=== PATIENT | female | born 1960 | race Caucasian/White ===

== ENCOUNTER 2019-08-18 12:37 | Emergency (ER) | payer MEDICAID, SELFPAY ==
[2019-08-18] VITALS (7 sets, daily range): BP systolic 131–175; BP diastolic 83–109; PULSE 69–90; RESP 16–22; TEMP 36.6; O2SAT 95–96; BMI 36.5
--- NOTE | 2019-08-18 12:49 | XR_ITS ---
WS: [id number] PORTABLE CHEST HISTORY: Acute onset of chest pain. COMPARISON: 09/22/2005 Lungs are clear and well expanded. No pleural effusion or pneumothorax. Cardiac size: Normal. Mediastinum/Aorta: Normal mediastinum. No osseous abnormality seen. XR/XR chest 1V portable [id number] IMPRESSION: Unremarkable portable chest.
--- NOTE | 2019-08-18 12:49 | ECG_ITS ---
Measurements Intervals [place] Rate: 77 P: 51 [place]: 152 QRS: 45 QRSD: 89 T: 18 QT: 376 QTc: 428 SINUS RHYTHM NONSPECIFIC T-WAVE ABNORMALITY No previous ECG available for comparison Electronically Signed On 08-18-2019 16:48:11 CDT by Channing Otero M.D. [id number]
--- NOTE | 2019-08-18 12:50 | ED_ITS ---
HPI - Chest Pain General: Chief Complaint: Chest Pain Stated Complaint: cp Time Seen by Provider: 08/18/19 12:44 Source: patient Limitations: no limitations History of Present Illness: HPI narrative: 59-year-old female states she had a sharp chest pain center of her chest for last 2 hours. She has episodic in nature worse with movement of her arm. She denies any shortness of breath or nausea. She denies any fevers. She does have a history of coronary artery disease. Onset (ago): hour(s) Timing of current episode: episodic Onset: during rest Pain location: substernal Pain radiation: none Severity: moderate Quality: sharp Relieving factors: nothing Exacerbating factors: nothing Associated symptoms: Deny abdominal pain, dyspnea, fever(s), nausea or vomiting Review of Systems Const: Denies: fever(s), chills, body aches or change in appetite Eyes: Denies: blurry vision or eye discomfort ENMT: Denies: throat pain or dental pain Card: Reports: chest pain Resp: Denies: dyspnea GI: Denies: abdominal pain, nausea, vomiting or diarrhea : Denies: dysuria Musc: Denies: neck pain or back pain Skin/Breast: Denies: rash Neuro: Denies: headache(s) Psych: Denies: depression Jeff/Lymph: Denies: easy bruising All/Imm: Denies: urticaria PFSH ED PFSH: Social History Smoking and tobacco status: current every day smoker Physical Exam Const: COMMON NORMALS: no acute distress, patient oriented x3 and healthy appearing HENMT: COMMON NORMALS: normocephalic and atraumatic HEAD & SCALP: normocephalic and atraumatic Eye: COMMON NORMALS: Equal, round and reactive pupils present and EOMs intact bilaterally PUPIL: Yes Equal, round and reactive pupils present Neck/C-Spine: COMMON NORMALS: full ROM and supple Chest: COMMONS NORMALS: normal inspection of the chest OTHER: point tender in center of chest Resp: COMMON NORMALS: normal respiratory effort, No retractions, No use of accessory muscles and clear to auscultation bilaterally AUSCULTATION: clear to auscultation bilaterally Cardio: COMMON NORMALS: regular rate, regular rhythm and No murmurs present (Cardio) RATE: regular rate RHYTHM: regular rhythm GI: COMMON NORMALS: Normal to inspection, nondistended, normoactive bowel sounds present, Soft to palpation, non-tender and no masses PALPATION: Yes Soft to palpation Extremity: COMMON NORMALS: normal to inspection and full ROM Neuro: COMMON NORMALS: patient oriented x3, moves all extremities and no focal motor deficits Psych: COMMON NORMALS: mental status grossly normal, Normal thought process present and cooperative THOUGHT PROCESS: Normal thought process present Skin: COMMON NORMALS: no rashes or lesions noted and no wounds GENERAL SKIN EXAM: no rashes or lesions noted Course Vital Signs: Vital signs: Vital Signs Temperature 97.9 F 08/18/19 12:45 Pulse Rate 69 08/18/19 15:28 Respiratory Rate 20 H 08/18/19 15:28 Blood Pressure 131/88 08/18/19 15:28 Pulse Oximetry 95 08/18/19 15:28 MDM - Chest Pain MDM Narrative: Medical decision making narrative: Patient presents here with chest pain that is atypical in nature. Patient is point tender in the center of her chest that reproduces her pain. Patient here has no signs of cardiac cause or pulmonary embolism. EKG and x-ray here are normal. Patient is stable for discharge and is to follow-up with primary care doctor in 3 to 5 days return if worsening. Lab Data: Labs: Lab Results 08/18/19 08/18/19 08/18/19 Range/Units 13:13 13:13 13:13 WBC 7.0 (4.0-10.0) 10^3/ uL RBC 4.92 (4.1-5.3) 10^6/u L Hgb 13.8 (11.5-15.3) g/dL Hct 42.0 (37.0-47.0) % MCV 85.4 (81-99) fL MCH 28.0 (28.0-34.0) pg MCHC 32.9 (30.0-36.0) g/dL RDW 13.2 (12.1-15.1) % Plt Count 183 (130-400) 10^3/c mm MPV 11.9 H (7.4-10.4) fL Neut % (Auto) 68.0 % Lymph % (Auto) 19.6 % [place] % (Auto) 7.3 % Eos % (Auto) 3.9 % Baso % (Auto) 0.9 % Neut # (Auto) 4.7 (1.8-7.7) 10^3/u L Lymph # (Auto) 1.4 (0.8-4.8) 10^3/u L [place] # (Auto) 0.5 (0.2-0.9) 10^3/u L Eos # (Auto) 0.3 (0.0-0.8) 10^3/u L Baso # (Auto) 0.1 (0.0-0.1) 10^3/u L Nucleated RBC % (a uto) 0 % Nucleated RBCs # 0.0 /100WBC Sodium 130 L (136-145) mmol/L Potassium 3.9 (3.5-5.1) mmol/L Chloride 94 L (98-107) mmol/L Carbon Dioxide 24 (22-29) mmol/L Anion Gap 15.9 (5-19) BUN 9 (6-20) mg/dL Creatinine 0.9 (0.5-0.9) mg/dL GFR Calculation 64.5 L (90-130) mL/min Glucose 485 H (65-115) mg/dL Calculated Osmolal ity 287 (285-295) mOsm/k g Calcium 9.0 (8.5-10.5) mg/dL Total Bilirubin 0.3 (0.15-1.2) mg/dL AST 13 (0-32) U/L ALT 18 (0-33) U/L Alkaline Phosphata se 122 H (35-105) IU/L Troponin T Baselin e 8 (0-10) ng/mL Troponin T 120 Min qu[place]ult (0-10) ng/mL Delta Troponin T (0-10) ABS# Total Protein 6.6 (6.6-8.7) g/dL Albumin 4.0 (3.5-5.2) g/dL Globulin 2.6 (1.3-4.6) g/dL 08/18/19 Range/Units 15:13 WBC (4.0-10.0) 10^3/ uL RBC (4.1-5.3) 10^6/u L Hgb (11.5-15.3) g/dL Hct (37.0-47.0) % MCV (81-99) fL MCH (28.0-34.0) pg MCHC (30.0-36.0) g/dL RDW (12.1-15.1) % Plt Count (130-400) 10^3/c mm MPV (7.4-10.4) fL Neut % (Auto) % Lymph % (Auto) % [place] % (Auto) % Eos % (Auto) % Baso % (Auto) % Neut # (Auto) (1.8-7.7) 10^3/u L Lymph # (Auto) (0.8-4.8) 10^3/u L [place] # (Auto) (0.2-0.9) 10^3/u L Eos # (Auto) (0.0-0.8) 10^3/u L Baso # (Auto) (0.0-0.1) 10^3/u L Nucleated RBC % (a uto) % Nucleated RBCs # /100WBC Sodium (136-145) mmol/L Potassium (3.5-5.1) mmol/L Chloride (98-107) mmol/L Carbon Dioxide (22-29) mmol/L Anion Gap (5-19) BUN (6-20) mg/dL Creatinine (0.5-0.9) mg/dL GFR Calculation (90-130) mL/min Glucose (65-115) mg/dL Calculated Osmolal ity (285-295) mOsm/k g Calcium (8.5-10.5) mg/dL Total Bilirubin (0.15-1.2) mg/dL AST (0-32) U/L ALT (0-33) U/L Alkaline Phosphata se (35-105) IU/L Troponin T Baselin e (0-10) ng/mL Troponin T 120 Min qu[place]ult 6.34 (0-10) ng/mL Delta Troponin T -1.66 L (0-10) ABS# Total Protein (6.6-8.7) g/dL Albumin (3.5-5.2) g/dL Globulin (1.3-4.6) g/dL Imaging Data^: CXR: Radiologist's impression: Reason: [address] [address] XRay Report Signed Patient: Yoselyn Vallecillo Unit #: [id number] : 1960 Age/Sex: 59 / F ADM Date: 08/18/19 Loc: ER Room/Bed: Attending Dr: Ordering Provider/Ordering MD: Samantha Lackey MD Date of Service: 08/18/19 Procedure(s): XR chest 1V portable [id number] Accession Number(s): [id number] Report Number: [id number] WS: [id number] PORTABLE CHEST HISTORY: Acute onset of chest pain. COMPARISON: 09/22/2005 Lungs are clear and well expanded. No pleural effusion or pneumothorax. Cardiac size: Normal. Mediastinum/Aorta: Normal mediastinum. No osseous abnormality seen. XR/XR chest 1V portable [id number] IMPRESSION: Unremarkable portable chest. EKG Data^: EKG 1: Attestation: I personally reviewed and interpreted this EKG as follows: EKG interpretation date: 08/18/19 EKG interpretation time: 13:19 Interpretation: nsr hr [address] or t wave abnormalities qrs 89 qtc 408 EKG 2: Attestation: I personally reviewed and interpreted this EKG as follows: EKG interpretation date: 08/18/19 EKG interpretation time: 15:39 Interpretation: nsr hr [address] or t wave abnormalities qrs 92 qtc 416 Discharge Plan Discharge Patient Disposition: Home, Self-Care Clinical Impression: Chest pain Qualifiers: Chest pain type: unspecified Qualified Code(s): R07.9 - Chest pain, unspecified Condition: Stable Prescriptions: New Naprosyn 500 mg tablet 500 mg PO BID PRN (Reason: pain) Qty: 20 RF: 0 No Action Percocet 10-325 mg Tablet 1 - 2 tab PO Q4H PRN (Reason: Pain) RF: 0 gabapentin 300 mg Capsule 300 mg PO TID RF: 0 Discharge Orders: Discharge Order (Routine); Ordered 08/18/19 Ordered By: Samantha Lackey Referrals: Lisa Welch [Primary Care Provider] - 1-3 days Discharge Diet: Advance as tolerated Discharge Activity: Resume usual activity Patient Instructions: Chest Pain - Chest Wall Coding Level of Care Code ED Auto Locator for Chg Fwd Exam Comprehensive
[2019-08-18 13:22] LABS: Basophils # 0.1 10^3/uL (0.0-0.1); Basophils % 0.9 %; Eosinophils # 0.3 10^3/uL (0.0-0.8); Eosinophils % 3.9 %; Hemoglobin 13.8 g/dL (11.5-15.3); Lymphocytes # 1.4 10^3/uL (0.8-4.8); Lymphocytes % 19.6 %; Mean Corpuscular HGB Conc 32.9 g/dL (30.0-36.0); Mean Corpuscular Volume 85.4 fL (81-99); Mean Platelet Volume 11.9 fL (7.4-10.4); Monocytes # 0.5 10^3/uL (0.2-0.9); Monocytes % 7.3 %; Neutrophils # 4.7 10^3/uL (1.8-7.7); Nucleated Red Blood Cells % 0 %; Platelet Count 183 10^3/cmm (130-400); Red Blood Count 4.92 10^6/uL (4.1-5.3); Red Cell Distribution Width 13.2 % (12.1-15.1)
[2019-08-18] MEDS: morphine 4 mg/mL SDV 1 mL IVP (13:29)
[2019-08-18 13:35] LABS: Alanine Aminotransferase 18 U/L (0-33); Alkaline Phosphatase 122 IU/L (35-105); Anion Gap 15.9 (5-19); Aspartate Amino Transferase 13 U/L (0-32); Blood Urea Nitrogen 9 mg/dL (6-20); Carbon Dioxide 24 mmol/L (22-29); Chloride 94 mmol/L (98-107); Globulin 2.6 g/dL (1.3-4.6); Glomerular Filtration Rate 64.5 mL/min (90-130); Glucose 485 mg/dL (65-115); Osmolality Calculated 287 mOsm/kg (285-295); Potassium 3.9 mmol/L (3.5-5.1); Sodium 130 mmol/L (136-145); Total Bilirubin 0.3 mg/dL (0.15-1.2); Total Protein 6.6 g/dL (6.6-8.7)
[2019-08-18 13:37] LABS: Troponin(5th) Baseline 8 ng/mL (0-10)
--- NOTE | 2019-08-18 14:49 | ECG_ITS ---
Measurements Intervals [place] Rate: 71 P: 59 CT: 153 QRS: 53 QRSD: 92 T: 34 QT: 394 QTc: 428 SINUS RHYTHM NONSPECIFIC T-WAVE ABNORMALITY No previous ECG available for comparison Electronically Signed On 08-18-2019 16:49:49 CDT by Channing Otero M.D. [id number] f
[2019-08-18 15:41] LABS: Troponin 5 2HR 6.34 ng/mL (0-10)
[2019-08-18 15:52] LABS: Troponin 5 2HR Delta -1.66 ABS# (0-10)
== END 2019-08-18 16:12 | disposition home or self-care (01) ==
PROVIDERS: Emergency Provider Emergency Medicine; PCP Nurse Practitioner Family
DX: R07.9 Chest pain, unspecified (principal); F17.210 Nicotine dependence, cigarettes, uncomplicated
CPT/HCPCS: 12345; 36415; 71045; 80053; 84484; 85025; 93005; 96374; 99283; 99284; J2270

== ENCOUNTER 2019-09-20 12:26 | Emergency (ER) | payer MEDICAID, SELFPAY ==
[2019-09-20 12:35] VITALS: BP 175/89; PULSE 85; RESP 14; TEMP 36.7; O2SAT 95; BMI 41.0
--- NOTE | 2019-09-20 12:44 | ED_ITS ---
HPI - Wound/Laceration General: Chief Complaint: Wound/Laceration Stated Complaint: finger lac Time Seen by Provider: 09/20/19 12:44 History of Present Illness: HPI narrative: Patient is a 59-year-old female comes to the ED with a laceration on left hand. Patient excellently cut herself with a butter knife and laceration is in between second and third fingers. Patient says she rinsed laceration under water to clean it immediately after injury. Patient states she is unsure of her last tetanus shot. Associated symptoms: Denies chills, fever(s), nausea or vomiting Review of Systems Const: Denies: fever(s), chills or fatigue Eyes: Denies: change in vision or eye discomfort ENMT: Denies: throat pain, odynophagia, nasal discharge or nasal congestion Card: Denies: chest pain, palpitations, edema, swelling of feet/ankles, dyspnea on exertion or orthopnea Resp: Denies: dyspnea, productive cough or non-productive cough GI: Denies: abdominal pain, nausea, vomiting, diarrhea, constipation or hematochezia : Denies: flank pain, dysuria or hematuria Musc: Denies: neck pain, back pain or extremity swelling Skin/Breast: Reports: new lesions (left hand laceration); Denies: rash Neuro: Denies: headache(s), numbness in extremities or weakness in extremities PFSH ED PFSH: Medical History Intervertebral disc disorder with radiculopathy of lumbosacral region Joint instability Spondylolisthesis of lumbosacral region Surgical History No pertinent past surgical history Family History Family/Other Diabetes Colon cancer Social History Smoking and tobacco status: current every day smoker Alcohol intake: never Household members: family Marital status: Single Current occupational status: unemployed History of recent travel: No Physical Exam Const: COMMON NORMALS: no acute distress, patient oriented x3 and alert GENERAL APPEARANCE: cooperative and comfortable HENMT: COMMON NORMALS: normocephalic HEAD & SCALP: normocephalic MOUTH: Normal oral and palatal mucosa present THROAT: posterior oropharynx normal and uvula midline Neck/C-Spine: COMMON NORMALS: supple GENERAL: Yes normal visual inspection Resp: COMMON NORMALS: normal respiratory effort, No retractions, No use of accessory muscles and clear to auscultation bilaterally AUSCULTATION: clear to auscultation bilaterally Cardio: COMMON NORMALS: regular rate, regular rhythm, S1 normal heart sound present, S2 normal heart sound present, No gallops present (Cardio), No clicks present (Cardio), No murmurs present (Cardio) and Peripheral pulses 2+ throughout RATE: regular rate RHYTHM: regular rhythm HEART SOUNDS: S1 normal heart sound present and S2 normal heart sound present PERIPHERAL PULSES: Peripheral pulses 2+ throughout GI: COMMON NORMALS: Normal to inspection, nondistended, normoactive bowel sounds present, Soft to palpation, non-tender and no masses PALPATION: Yes Soft to palpation : COMMON NORMALS: Yes no CVA tenderness BLADDER/KIDNEY EXAM: Yes no CVA tenderness Back/Pelvis: COMMON NORMALS: no CVA tenderness Extremity: LEFT UPPER EXTREMITY: Yes hand & digits Left hand and digits: Yes inspection (Small superficial laceration approximately 1 cm long is located in between second and third digits. Not actively bleeding), Yes ROM (full) and Yes neurovascular exam (intact) Neuro: COMMON NORMALS: patient oriented x3 and moves all extremities SENSORIUM/ORIENTATION: Yes alert Skin: NARRATIVE SKIN EXAM: Laceration details in extremity section of physical exam. GENERAL SKIN EXAM: dry skin Procedures Laceration Laceration 1: Site: hand (left) Side (If applicable): left Size (cm): 1 Description: linear and clean Depth: simple, single layer Pre-repair: irrigated extensively (With normal saline and cleaned with CHG swab) Skin layer closed with: other (Dermabond) Technique: other (dermabond) Course Vital Signs: Vital signs: Vital Signs Temperature 98.0 F 09/20/19 12:35 Pulse Rate 81 09/20/19 14:05 Respiratory Rate 18 09/20/19 14:05 Blood Pressure 175/89 09/20/19 12:35 Pulse Oximetry 96 09/20/19 14:05 MDM - Wound/Laceration MDM Narrative: Medical decision making narrative: Patient is a 59-year-old female who comes to the ED with a 1 cm superficial laceration on left hand. It was rinsed with normal saline and cleaned with CHG swab, then closed using Dermabond. Patient was given an updated tetanus shot while here in the ED. She was also given a dose of Keflex while here in the ED along with Tylenol for pain. She was then given a prescription for prophylactic treatment of laceration. She was told to follow-up with her PCP in 7 to 10 days for reevaluation. Keep laceration site clean and dry for the next 48 hours, then she can re-bandage and clean daily. Patient understood and agreed with plan. Discharge Plan Discharge Patient Disposition: Home, Self-Care Clinical Impression: Laceration Condition: Stable Prescriptions: New Keflex 500 mg capsule 500 mg PO Q6H 3 Days Qty: 12 RF: 0 No Action Percocet 10-325 mg Tablet 1 - 2 tab PO Q4H PRN (Reason: Pain) RF: 0 gabapentin 300 mg Capsule 300 mg PO TID RF: 0 Naprosyn 500 mg tablet 500 mg PO BID PRN (Reason: pain) Qty: 20 RF: 0 Discharge Orders: Discharge Order (Routine); Ordered 09/20/19 Ordered By: Ramiro Dwyer Referrals: Lisa Welch FNP [Primary Care Provider] - Discharge Diet: Regular Discharge Activity: Limit activity as instructed Patient Instructions: Laceration (ED), Skin Adhesive Care (ED) Activity Restrictions/Additional Instructions: Take full course of antibiotics as prescribed. Keep laceration site clean and dry for the next 48 hours. Then after that you can clean and re-bandage daily. Watch for signs of infection such as redness, warmth, increased tenderness and puslike drainage. If you see the signs of infection return to the ED, urgent care or PCP for reevaluation. call your PCP to schedule a follow-up appointment for reevaluation in the next 7 to 10 days. Continue taking all home meds. Follow discharge plans as discussed. You can return to the ED if symptoms worsen. 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
[2019-09-20] MEDS: tetanus-dipt-pertussis 0.5 mL SDV IM (13:43)
[2019-09-20] MEDS: cephALEXin 500 mg Capsule PO (13:57)
[2019-09-20] MEDS: acetaminophen 500 mg Tablet PO (13:57)
[2019-09-20 14:05] VITALS: PULSE 81; RESP 18; O2SAT 96
== END 2019-09-20 14:07 | disposition home or self-care (01) ==
PROVIDERS: Emergency Provider Physician Assistant; PCP Nurse Practitioner Family
DX: S61.412A Laceration without foreign body of left hand, initial encounter (principal); W26.0XXA Contact with knife, initial encounter; F17.210 Nicotine dependence, cigarettes, uncomplicated; Z23 Encounter for immunization
CPT/HCPCS: 12001; 12345; 90471; 90715; 99281; 99283

== ENCOUNTER → 2019-09-27 09:15 | Outpatient (BNVA) | payer MEDICAID, SELFPAY | PROVIDERS: PCP Nurse Practitioner Family; Referring Provider Licensed Practical Nurse; Visit Provider Anesthesiology Pain Medicine | DX: M51.36 Other intervertebral disc degeneration, lumbar region (principal); M47.816 Spondylosis without myelopathy or radiculopathy, lumbar region; M43.06 Spondylolysis, lumbar region; M54.9 Dorsalgia, unspecified; Z79.891 Long term (current) use of 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 | CPT/HCPCS: 99204 ==

== ENCOUNTER → 2019-10-14 10:12 | Outpatient (BNVA) | payer MEDICAID, SELFPAY | PROVIDERS: PCP Nurse Practitioner Family; Visit Provider Anesthesiology Pain Medicine | DX: M51.36 Other intervertebral disc degeneration, lumbar region (principal); M51.17 Intervertebral disc disorders with radiculopathy, lumbosacral region; M47.816 Spondylosis without myelopathy or radiculopathy, lumbar region; M54.9 Dorsalgia, unspecified; F17.210 Nicotine dependence, cigarettes, uncomplicated; Z79.891 Long term (current) use of 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 | CPT/HCPCS: 64493; 64494; J1030; J3490 ==

== ENCOUNTER 2019-10-16 19:11 | Emergency (ER) | payer MEDICAID, SELFPAY ==
[2019-10-16 19:39] VITALS: BP 181/79; PULSE 63; RESP 14; TEMP 36.1; O2SAT 98; BMI 41.0
--- NOTE | 2019-10-16 23:19 | PC.NURSE ---
no answer when called at 1869
== END 2019-10-17 00:21 ==
PROVIDERS: Emergency Provider Emergency Medicine; PCP Nurse Practitioner Family
DX: Z53.21 Procedure and treatment not carried out due to patient leaving prior to being seen by health care provider (principal)
CPT/HCPCS: 99281

== ENCOUNTER → 2019-10-18 08:33 | Outpatient (BNVA) | payer MEDICAID, SELFPAY | PROVIDERS: PCP Nurse Practitioner Family; Visit Provider Anesthesiology Pain Medicine | DX: M51.36 Other intervertebral disc degeneration, lumbar region (principal); M47.816 Spondylosis without myelopathy or radiculopathy, lumbar region; M54.9 Dorsalgia, unspecified; M43.10 Spondylolisthesis, site unspecified; M25.551 Pain in right hip; F17.210 Nicotine dependence, cigarettes, uncomplicated; Z79.891 Long term (current) use of 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 | CPT/HCPCS: 99214 ==

== ENCOUNTER 2019-10-27 06:00 | Outpatient (RCR) | payer MEDICAID, SELFPAY | END 2019-11-21 23:59 | disposition home or self-care (01) | LOC: SPT 06:00 | PROVIDERS: PCP Nurse Practitioner Family; Referring Provider Specialist; Visit Provider Specialist | DX: M51.17 Intervertebral disc disorders with radiculopathy, lumbosacral region (principal) | CPT/HCPCS: 97110; 97161 ==

== ENCOUNTER → 2019-11-17 12:54 | Outpatient (BNVA) | payer MEDICAID, SELFPAY | PROVIDERS: PCP Nurse Practitioner Family; Visit Provider Anesthesiology Pain Medicine | DX: M54.41 Lumbago with sciatica, right side (principal); M51.36 Other intervertebral disc degeneration, lumbar region; M47.816 Spondylosis without myelopathy or radiculopathy, lumbar region; M43.06 Spondylolysis, lumbar region; M54.9 Dorsalgia, unspecified; F17.210 Nicotine dependence, cigarettes, uncomplicated; Z79.891 Long term (current) use of 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 | CPT/HCPCS: 99213 ==

== ENCOUNTER → 2019-12-07 11:12 | Outpatient (BNVA) | payer MEDICAID, SELFPAY | PROVIDERS: PCP Nurse Practitioner Family; Visit Provider Anesthesiology Pain Medicine | DX: M51.17 Intervertebral disc disorders with radiculopathy, lumbosacral region (principal); M47.816 Spondylosis without myelopathy or radiculopathy, lumbar region; M43.06 Spondylolysis, lumbar region; M51.36 Other intervertebral disc degeneration, lumbar region; M54.9 Dorsalgia, unspecified; F17.210 Nicotine dependence, cigarettes, uncomplicated; Z79.891 Long term (current) use of 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 | CPT/HCPCS: 99213; 99214 ==

== ENCOUNTER 2019-12-18 11:34 | Emergency (ER) | payer MEDICAID, SELFPAY ==
[2019-12-18 12:22] VITALS: BP 174/87; PULSE 65; RESP 16; TEMP 36.2; O2SAT 98; BMI 33.4
--- NOTE | 2019-12-18 13:22 | ED_ITS ---
HPI - Back Pain/Injury General: Chief Complaint: Back Pain/Injury Stated Complaint: chronic back pain Time Seen by Provider: 12/18/19 13:16 History of Present Illness: HPI Narrative: Patient complains of back pain chronic she ran out of pain medicines use them up and 1 some for pain now. MD elicited complaint: back pain Pertinent past history: prior back pain Onset (ago): hour(s) Timing: constant Severity: moderate Similar Symptoms Previously: Yes Quality: aching Location: lumbar spine Associated symptoms: Reports no associated symptoms; Deny abdominal pain, chills, fever(s), nausea or vomiting Review of Systems Const: Denies: fever(s), chills or body aches Eyes: Denies: change in vision or blurry vision ENMT: Denies: throat pain or nasal congestion Card: Denies: chest pain or dyspnea on exertion Resp: Denies: dyspnea, productive cough or non-productive cough GI: Denies: abdominal pain, nausea or vomiting Musc: Reports: back pain; Denies: extremity pain Skin/Breast: Denies: rash Neuro: Denies: headache(s) Psych: Denies: anxiety or depression Jeff/Lymph: Denies: easy bruising PFSH ED PFSH: Medical History Intervertebral disc disorder with radiculopathy of lumbosacral region Lumbar spondylolysis Spondylolisthesis of lumbosacral region Surgical History No pertinent past surgical history Family History Family/Other Diabetes Colon cancer Social History (Updated 12/18/19 @ 12:26 by Brayan Conde RN) Smoking and tobacco status: current every day smoker Alcohol intake: never Substance/Drug Use: never Household members: family Marital status: Single Current occupational status: unemployed History of recent travel: No Physical Exam Const: COMMON NORMALS: no acute distress, average body habitus and patient oriented x3 HENMT: COMMON NORMALS: normocephalic HEAD & SCALP: normal to inspection and normocephalic FACE & SINUS: normal facial exam Eye: COMMON NORMALS: conjunctivae normal GENERAL EYE: appearance normal, both eyes and all related structures CONJUNCTIVA: Yes conjunctivae normal Neck/C-Spine: COMMON NORMALS: no JVD Chest: COMMONS NORMALS: normal inspection of the chest Resp: COMMON NORMALS: normal respiratory effort Cardio: COMMON NORMALS: no JVD GI: INSPECTION: Yes normal to inspection Extremity: COMMON NORMALS: normal to inspection and full ROM Neuro: COMMON NORMALS: patient oriented x3 Course Vital Signs: Vital signs: Vital Signs Temperature 97.2 F L 12/18/19 12:22 Pulse Rate 65 12/18/19 12:22 Respiratory Rate 16 12/18/19 12:22 Blood Pressure 174/87 12/18/19 12:22 Pulse Oximetry 98 12/18/19 12:22 Discharge Plan Discharge Prescriptions: No Action meloxicam 15 mg tablet 15 mg PO DAILY Qty: 30 RF: 0 Lantus U-100 Insulin 100 unit/mL solution 25 unit SUBCUT ONCE RF: 0 insulin lispro [Humalog U-100 Insulin] 100 unit/mL solution 10 unit SUBCUT ONCE RF: 0 gabapentin 600 mg tablet 600 mg PO TID Qty: 90 RF: 0 hydrocodone-acetaminophen 5-325 mg tablet 1 tab PO BID PRN (Reason: pain) 7 Days Qty: 21 RF: 0 Coding Level of Care Code ED 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
[2019-12-18] MEDS: ketorolac 60 mg/2 mL INJ IM (13:31)
[2019-12-18 13:33] VITALS: RESP 16
[2019-12-18 13:51] VITALS: PULSE 68; RESP 16
== END 2019-12-18 13:52 | disposition home or self-care (01) ==
PROVIDERS: Emergency Provider Nurse Practitioner Family; PCP Nurse Practitioner Family
DX: G89.29 Other chronic pain (principal); M54.9 Dorsalgia, unspecified; F17.210 Nicotine dependence, cigarettes, uncomplicated
CPT/HCPCS: 12345; 96372; 99281; 99283; J1885

== ENCOUNTER → 2019-12-27 09:02 | Outpatient (BNVA) | payer MEDICAID, SELFPAY | PROVIDERS: PCP Nurse Practitioner Family; Visit Provider Anesthesiology Pain Medicine | DX: M51.36 Other intervertebral disc degeneration, lumbar region (principal); M47.816 Spondylosis without myelopathy or radiculopathy, lumbar region; M43.06 Spondylolysis, lumbar region; M54.9 Dorsalgia, unspecified; F17.210 Nicotine dependence, cigarettes, uncomplicated | CPT/HCPCS: 99213 ==

== ENCOUNTER → 2020-03-05 10:30 | Outpatient (BNVA) | payer MEDICAID, SELFPAY | PROVIDERS: PCP Nurse Practitioner Family; Visit Provider Orthopaedic Surgery | DX: Z20.828 Contact with and (suspected) exposure to other viral communicable diseases (principal); Z01.812 Encounter for preprocedural laboratory examination | CPT/HCPCS: 87635 ==

== ENCOUNTER 2020-03-12 11:18 | Inpatient (IN) | payer MEDICAID, SELFPAY ==
[2020-03-08 09:06] VITALS: BMI 41.9
--- NOTE | 2020-03-08 09:43 | ANES.PREANE2 ---
Pre-Anesthetic Assessment Pre-Anesthetic Assessment: Height/Weight: Height 1.73 m Weight 125.191 kg Preop Diagnosis: Lumbar spondylolisthesis Proposed Procedure: Operation Date: 03/12/20 07:00 Proposed Procedures p L5 S1 PLIF [id number] 51469 35074 [id number] M43.16(Not Applicable) - Carlos Anderson DO Was Beta Mio taken within 24 hours: N/A Social: Social History: Tobacco and No alcohol Exam: Pre-Anes Outpt Exam: alert, oriented x 3, clear to auscultation bilaterally and regular rate & rhythm Airway: Submandibular: WNL Cervical ROM: WNL MP: 2 Dentition: False Pulmonary: Pulmonary: COPD and Cough CV/HEM: CV/HEM: HTN : : None reported Hepatic: Hepatic: None reported GI: GI: None reported Metabolic: Metabolic: DM Musc/skel: Musc/skel: Lower Back Pain Neuropsych: Neuropsych: None reported Anesthetic Plan: ASA status: 3 PFSH Anesthesia PFSH: Medical History (Updated 01/31/20 @ 14:55 by Carlos Anderson DO) Intervertebral disc disorder with radiculopathy of lumbosacral region Lumbar spondylolysis Spondylolisthesis of lumbosacral region Surgical History (Updated 03/08/20 @ 09:34 by Angela Sigala) No pertinent past surgical history Family History Family/Other Diabetes Colon cancer Social History Smoking and tobacco status: current every day smoker Alcohol intake: never Household members: family Marital status: Single Current occupational status: unemployed History of recent travel: No Data Anesthesia CBC & Chem 7: 03/08/20 09:20 03/08/20 09:20 Cardiac Studies: No Data to Display
[2020-03-08 09:56] LABS: Anion Gap 12.2 (5-19); Blood Urea Nitrogen 6 mg/dL (6-20); Calcium 8.9 mg/dL (8.5-10.5); Carbon Dioxide 26 mmol/L (22-29); Chloride 99 mmol/L (98-107); Glomerular Filtration Rate 126.7 mL/min (90-130); Glucose 150 mg/dL (65-115); Osmolality Calculated 276 mOsm/kg (285-295); Potassium 4.2 mmol/L (3.5-5.1); Sodium 133 mmol/L (136-145)
[2020-03-12] VITALS (20 sets, daily range): BP systolic 125–196; BP diastolic 63–113; PULSE 57–79; RESP 12–65; TEMP 36.1–37.1; O2SAT 18–100
--- NOTE | 2020-03-12 | SCC_ITS ---
Procedure Done: 1. L5/S1 Interbody fusion with posterolateral fusion 2. Instrumentation L5/S1 3. Cage at L5/S1 4. Laminectomy L4 5. use of autograft from same incision 6. allograft 7. Bone marrow aspirate from iliac crest 8. Reduction Spondylolisthesis 29.1 seconds of fluoroscopic guidance, for a cumulative dose of 178.97 mGy, was provided to Dr. Anderson by the radiology department. C-arm images of the lumbar spine were saved for the patient's permanent record. MARGARETH
--- NOTE | 2020-03-12 | XR_ITS ---
WS: [id number] C-ARM RADIOGRAPHS LUMBAR; 3 IMAGES HISTORY: L5/S1 plif COMPARISON: None available. Intraoperative imaging during posterior lumbar fusion at L5-S1. XR/XR lumbar spine 2-3V* [id number] IMPRESSION: Intraoperative imaging during posterior lumbar fusion at L5-S1.
[2020-03-12 06:17] LABS: Glucose Point of Care 156 mg/dL (70-110)
--- NOTE | 2020-03-12 06:37 | P.ANESUD_ITS ---
Pre-Anesthetic Update Pre-Anesthetic Assessment: Date of Surgery/Procedure: 03/12/20 Preop Radha gnosis: Lumbar spondylolisthesis Proposed Procedure: Operation Date: 03/12/20 07:00 Proposed Procedures p L5 S1 PLIF [id number] [id number] 35634 13001 72382 M43.16(Not Applicable) - Carlos Anderson, DO Any changes to Pre-Anesthetic Assessment?: No Labs Last 48hrs: Laboratory Results - last 48 hr 03/12/20 06:14 POC Glucose 156 H Vitals: Temperature 97.4 F L 03/12/20 06:03 Temperature Source Temporal Artery S can 03/12/20 06:03 Pulse Rate 69 03/12/20 06:03 Respiratory Rate 18 03/12/20 06:03 Blood Pressure 195/97 03/12/20 06:16 Blood Pressure Charo n 129 03/12/20 06:16 Pulse Oximetry 97 03/12/20 06:03 Oxygen Delivery Me thod 03/12/20 06:03 Exam: Pre-Anes Outpt Exam: alert, oriented x 3, clear to auscultation bilaterally and regular rate & rhythm Additional Exam Findings (including area of procedure): Poorly controlled HTN. Cardiac Studies: No Data to Display
--- NOTE | 2020-03-12 06:47 | P.HPUD_ITS ---
Surgery/Procedure H&P Update DATE OF PROCEDURE: March 12, 2020 DATE H&P PERFORMED: 03/12/20 PREOP DIAGNOSIS: Lumbar spondylolisthesis PLANNED PROCEDURE: Operation Date: 03/12/20 07:00 Proposed Procedures p L5 S1 PLIF [id number] 63514 28199 13824 [id number] M43.16(Not Applicable) - Carlos Anderson DO
--- NOTE | 2020-03-12 06:47 | W.PM.OPSUD ---
Surgery/Procedure H&P Update DATE OF PROCEDURE: March 12, 2020 DATE H&P PERFORMED: 03/12/20 PREOP DIAGNOSIS: Lumbar spondylolisthesis PLANNED PROCEDURE: Operation Date: 03/12/20 07:00 Proposed Procedures p L5 S1 PLIF 86107 62317 93003 12642 59877 94659 M43.16(Not Applicable) - Carlos Anderson DO
[2020-03-12] MEDS: sodium chloride 0.9% 1,000 ML 30 ML IV (06:52)
--- NOTE | 2020-03-12 06:52 | P.HP_ITS ---
Providers/Chief Complaint Primary Care Provider: JEROME Smith Chief Complaint: L5 S1 PLIF [id number] History of Present Illness Yoselyn Vallecillo is a 60 year old female New 59 year old female patient here for low back pain Onset: 2 years - fell out of pickup Duration: years Characteristics: ache Severity: 12/30 Location: low back Radiating symptoms: none Aggravating factors: walking, standing, -- everything Alleviating factors: none Neuro deficits: denies numbness, tingling, weakness, incontinence of bowel/bladder, saddle anesthesia. Prior tx: injections- no releif, Physical therapy did help at firs but no longer helpst. Review of Systems Narrative: General ROS: negative for weight changes, fever ENT ROS: negative for nasal congestion, drainage or bleeding, sore throat, dysphagia or ear pain Eyes: PERRL Hematological and Lymphatic ROS: negative for swollen glands or abnormal bleeding Endocrine ROS: negative for polyuria/polydpsia or new changes in weight Respiratory ROS: negative for cough, shortness of breath, or wheezing Cardiovascular ROS: negative for chest pain or dyspnea on exertion Gastrointestinal ROS: negative for reflux, abdominal pain, change in bowel habits, or black or bloody stools Musculoskeletal ROS: negative for back pain, neck pain, or joint pain or swelling except for current problem Neurological ROS: negative for TIA or stoke symptoms Skin: no rashes Medications/Allergies Home Medications Medication Instructions Recorded Confirmed Last Taken Type gabapentin 600 mg tablet 600 mg PO TID #90 tab 12/07/19 03/12/20 03/11/20 Rx insulin glargine 100 unit/mL 25 unit SUBCUT TID ml 12/27/19 03/12/20 03/11/20 17:00 History subcutaneous solution insulin lispro 100 unit/mL 10 unit SUBCUT .SLIDING SCALE ml 12/27/19 03/12/20 03/11/20 17:00 History subcutaneous solution losartan 25 mg PO DAILY 03/08/20 03/12/20 03/11/20 History Allergies Allergy/AdvReac Type Severity Reaction Status Date / Time Penicillins Allergy FANGY-Swell Verified 03/12/20 06:15 Lip/Tongue/Throat PFSH Acute PFSH: Medical History (Updated 01/31/20 @ 14:55 by Carlos Anderson DO) Intervertebral disc disorder with radiculopathy of lumbosacral region Lumbar spondylolysis Spondylolisthesis of lumbosacral region Surgical History (Updated 03/08/20 @ 09:34 by Angela Sigala) No pertinent past surgical history Family History Family/Other Diabetes Colon cancer Social History Smoking and tobacco status: current every day smoker Alcohol intake: never Household members: family Marital status: Single Current occupational status: unemployed History of recent travel: No Vitals/I&O/Wt Last Vital Signs Temp 97.4 F L 03/12/20 06:03 Pulse 69 03/12/20 06:03 Resp 18 03/12/20 06:03 BP 195/97 03/12/20 06:16 Pulse Ox 97 03/12/20 06:03 Physical Exam Narrative: EXAM NARRATIVE: NEURO?PSYCH: The patient is alert and oriented to person, place and time. Sensorv /SILT Motor StrengthShoulder abduction C5 5/5Wrist extension C6 5/5Elbow extension C7 5/5Hand Vegetable Grader C8 5/5Finger abduction T15/5 Radial/ Ulnar/ Median n intact LowerSensory (SILT)Motor StrengthHin flexion L2/3Ant/inner thigh 5/5Hip adduction L2/3 5/5Knee extension L4 Lat thigh, 5/5Toe dorsiflexion L5 5/5Ankle dorsiflexion L5/ O32Jdhnmps flexion S1 5/5 DTRBleeps 2+Triceps 2+Brachioradialis 2+Patellar 2+Achilles 2+ MUSCULOSKELETAL: [] UPPEREXTREMITIES: The patient had full active ROM in fingers, wrist, elbow, and shoulder. The patient demonstrated ability to fully flex/extend/abduct/adduct fingers, make ok sign, cross 2nd/3rd digits, extend 1st digit fully.. Radial pulse 2+, CR<2 seconds. LOWER EXTREMITIES: Pt has full, active ROM of toes, ankle, knee, and hip. Dorsalis pedis/posterior tibialis pulses 2+, CR<2 seconds. SPINE: Skin warm, dry, intact. 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
[2020-03-12] MEDS: clindamycin 600 MG/50 ML PREMIX 125 MG IV (07:03)
[2020-03-12] MEDS: heparin, porcine 1,000 unit/mL INJ 10 mL 10000 UNIT IRRIGATION (08:03)
--- NOTE | 2020-03-12 09:07 | SUR.OPER ---
Attempted to call family for update w/ no answer.
--- NOTE | 2020-03-12 10:59 | PM.OP ---
Operative Report Date of procedure: March 12, 2020 Pre-op Diagnosis: Lumbar spondylolisthesis Post-op diagnosis: same Procedure Done: 1. L5/S1 Interbody fusion with posterolateral fusion 2. Instrumentation L5/S1 3. Cage at L5/S1 4. Laminectomy L4 5. use of autograft from same incision 6. allograft 7. Bone marrow aspirate from iliac crest 8. Reduction Spondylolisthesis Surgeon: Carlos Anderson Anesthesia: General Condition: stable Disposition: PACU Procedure: 1. L5/S1 Interbody fusion with posterolateral fusion 2. Instrumentation L5/S1 3. Cage at L5/S1 4. Laminectomy L4 5. use of autograft from same incision 6. allograft 7. Bone marrow aspirate from iliac crest 8. 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 Skin surgeon made after being prepped and draped normal sterile fashion all other areas of impingement were well-padded incision made over the L5-S1 level subperiosteal dissection was made out to the transverse processes of L5 and the ala of S1 retractors were placed pedicle screws were placed at L5 using drill followed by gearshift followed by ball probe tap and placement of screw this was also done at S1 AP lateral ensured the screws were in prepositions Was brought to the L5-S1 disc space laminectomy was performed partial facetectomies bilaterally ligamentum flavum was taken down bilaterally as well nerve roots were traced bilaterally the nerve root retractor was used to retract the S1 nerve out of the way and then the L5-S1 disc was identified there was a step-off at S1 L5 osteotome was used to get into the disc base and then camila done up to 8 size 8 cages packed with bone graft osteoamp sponge was packed into the space anterior to the prior to placing the cage and then the cage was placed once this was placed then rods were then attached the reduction towers placed onto the L4-5 screws and the L5-S1 spinal thesis was partially reduced. Wounds then irrigated bone graft was packed into the lateral gutters after decorticating. Once the bone graft was packed the wound was then closed with 0 Vicryl closing the thoracolumbar fascia then skin was closed with 2-0 Vicryl and Monocryl suture sterile dressings were applied after glue was applied and patient was transferred to the PACU in stable condition.
--- NOTE | 2020-03-12 11:40 | SUR.PHASEI ---
1140 PT HAS SENSATION/MOVEMENT IN ALL EXTREMITIES, BILATERAL PEDAL PULSES PALPATED
[2020-03-12] MEDS: HYDROcodone-acetaminophen 5-325 mg Tablet PO ×3 (12:22→22:18)
--- NOTE | 2020-03-12 12:51 | ANE.PACU2 ---
Inpatient post-anesthesia follow up: Airway intact: Yes Vital signs: Temperature 97.2 F Pulse Rate 57 Respiratory Rate 17 Blood Pressure 168/96 Pulse Oximetry 98 Oxygen Delivery Me thod Room Air Oxygen Flow Rate 8 Fraction of Inspir ed Oxygen Hydration adequate: Yes Nausea and vomiting: No Pain level: 3 Additional Comments: Sedated
[2020-03-12] MEDS: gabapentin 300 mg Capsule 600 MG PO ×2 (15:02→22:16)
[2020-03-12] MEDS: clindamycin 900 MG/50 ML PREMIX 100 MG IV ×2 (15:02→23:42)
[2020-03-12] MEDS: lactated ringers 1,000 ML 90 ML IV ×2 (15:02→22:18)
[2020-03-12] MEDS: insulin glargine 100 units/1 mL 25 UNIT SUBCUT (15:03)
--- NOTE | 2020-03-12 17:07 | PM.CONSULT ---
Providers/Reason For Consult Consulting Physican/Specialty*: Macey Garcia Md/Hospitalist Reason for Consult*: medical cormorbidities management Attending Physician: Carlos Whitt DO Primary Care Provider: JEROME Smith History of Present Illness History of Present Illness Yoselyn Vallecillo is a 60 year old female with a past medical history of diabetes, hypertension, both of which she states are uncontrolled at home which may be related to some medication noncompliance. States blood pressure normally at home ranges between 1 60-1 90 systolic. Also has a history of sleep apnea, however does not use any CPAP machine at home to sleep with. She presented today for planned surgery with Dr. whitt and underwent L5-S1 interbody fusion with posterolateral fusion and laminectomy at L4 level with placement of allograft at the same site. No immediate perioperative complications. Patient tolerated the procedure well. Medicine service has been asked to follow along for her known medical comorbidities. Patient denies any current complaints at this time except for some pain at surgical site. Denies any tingling numbness in her lower extremities. Blood pressure is currently noted to be 170/95, however patient states this is not too far away from what it ranges at home. Denies any complaints of chest pain dyspnea nausea vomiting. Review of Systems General: Reports: 10 or more systems reviewed and unremarkable except in HPI and below Const: Denies: fever(s), chills or body aches Eyes: Denies: change in vision, blurry vision or photophobia ENMT: Reports: hoarseness; Denies: throat pain, enlarged tonsils, odynophagia or nasal congestion Card: Denies: chest pain, palpitations, irregular heart rhythm, edema, swelling of feet/ankles, lightheadedness, pre-syncope, dyspnea on exertion or orthopnea Resp: Denies: dyspnea, productive cough, non-productive cough, wheezing, stridor, pain on inspiration, change in phlegm color, hemoptysis or chest congestion GI: Denies: abdominal pain, nausea, vomiting, hematemesis, coffee ground emesis, dysphagia, heartburn, diarrhea, constipation, GI cramping, change in stool character, hematochezia or melena : Denies: flank pain, difficulty voiding, dysuria, urinary frequency, urinary urgency, urinary hesitancy or hematuria Musc: Denies: neck pain, back pain, extremity pain, joint swelling, joint warmth or deformity Neuro: Denies: headache(s), numbness in extremities, weakness in extremities, sensory changes, difficulty walking, frequent falls, dizziness, vertigo, behavioral changes, Slurred speech present or seizure-like activity Psych: Denies: anxiety, depression, suicidal ideation or homicidal ideation Endo: Denies: polyuria, polydipsia, tired all the time, cold intolerance or hot flashes Jeff/Lymph: Denies: easy bruising or easy bleeding Meds/Allergies Home Medications and Allergies Home Medications Medication Instructions Recorded Confirmed Last Taken Type gabapentin 600 mg tablet 600 mg PO TID #90 tab 12/07/19 03/12/20 03/11/20 Rx insulin glargine 100 unit/mL 25 unit SUBCUT TID ml 12/27/19 03/12/20 03/11/20 17:00 History subcutaneous solution insulin lispro 100 unit/mL 10 unit SUBCUT .SLIDING SCALE ml 12/27/19 03/12/20 03/11/20 17:00 History subcutaneous solution losartan 25 mg PO DAILY 03/08/20 03/12/20 03/11/20 History Allergies Allergy/AdvReac Type Severity Reaction Status Date / Time Penicillins Allergy ALGY-Swell Verified 03/12/20 06:15 Lip/Tongue/Throat Current Medications Current Medications Generic Name Dose Route Start Last Admin Trade Name Freq PRN Reason Stop Dose Admin Hydrocodone Bitart/Acetaminophen 1 - 2 tab 03/12/20 11:04 03/12/20 12:22 Hydrocodone-Acetaminophen 5-325 Mg Tablet PO 2 tab Q4H PRN Administration MODERATE TO SEVERE PAIN Gabapentin 600 mg 03/12/20 15:00 03/12/20 15:02 Gabapentin 300 Mg Capsule PO 600 mg TID MONICA Administration Lactated Ringer's 1,000 mls @ 90 mls/hr 03/12/20 11:15 03/12/20 15:02 Lactated Ringers IV 90 mls/hr .[id number] MONICA Administration Clindamycin HCl/Dextrose 900 mg in 50 mls @ 100 mls/hr 03/12/20 15:00 03/12/20 15:02 Cleocin IV 03/13/20 07:29 100 mls/hr Q8H MONICA Administration Protocol Insulin Glargine 25 unit 03/12/20 15:00 03/12/20 15:03 Insulin Glargine 100 Units/1 Ml SUBCUT 25 unit TID MONICA Administration PFSH Acute PFSH: Medical History Diabetes mellitus Hypertension Intervertebral disc disorder with radiculopathy of lumbosacral region Lumbar spondylolysis Sleep apnea Spondylolisthesis of lumbosacral region Surgical History No pertinent past surgical history Family History Family/Other Diabetes Colon cancer Social History Smoking and tobacco status: current every day smoker Alcohol intake: never Household members: family Marital status: Single Current occupational status: unemployed History of recent travel: No Vitals/I&O/Wt Last Vital Signs Temp 97.9 F 03/12/20 15:20 Pulse 66 03/12/20 15:20 Resp 18 03/12/20 15:20 BP 172/95 03/12/20 15:20 Pulse Ox 95 03/12/20 15:20 03/12/20 03/12/20 03/12/20 06:59 14:59 22:59 Intake Total 1350 / 1350 Output Total 200 / 200 Balance 1150 / 1150 Physical Exam Narrative: EXAM NARRATIVE: GEN: Awake, alert and oriented, no acute distress CVS: S1S2 N RS: CTA B/L Abd: Soft, nt/nd , bs+ HIGH PRESSURE FIRER: no focal neuro deficits A&P Assessment and plan (1) Hypertension: Per patient this appears to be poorly controlled at home. Currently blood pressure ranging around 1 70-1 80 systolic. Continue home dose of losartan any 5 mg p.o. daily. Add amlodipine 10 mg p.o. daily starting now. Status: Acute (2) Diabetes mellitus: Unknown last hemoglobin A1c. Glargine dose appears to be 25 units 3 times a day which is unusual dosing, patient does not know details as to why she is on glargine 3 times a day. This provider can units subcutaneous sliding scale. For now recommend to use medium dose insulin sliding scale. And dose may be readjusted based on 24-hour requirements. Status: Acute (3) Spondylolisthesis of lumbosacral region: Status post laminectomy today Management per orthopedics team. Status: Chronic (4) Intervertebral disc disorder with radiculopathy of lumbosacral region: Status: Chronic (5) Sleep apnea: History of sleep apnea, does not use CPAP machine at home. Currently saturating well on room air. Encourage incentive spirometry, CPAP if needed. Status: Acute Consult Attestations Medical Necessity Statement: Please refer to admitting team's note. Coding Level of Care Code Acute Superintendent Compressor Stations for Chg Fwd Diagnoses Hypertension I10 Diabetes mellitus E11.9 Spondylolisthesis of lumbosacral region M43.17 Intervertebral disc disorder with radiculopathy of lumbosacral region M51.17 Sleep apnea G47.30
[2020-03-12 17:24] LABS: Glucose Point of Care 286 mg/dL (70-110)
[2020-03-12] MEDS: docusate sodium 100 mg Capsule PO (18:00)
[2020-03-12] MEDS: amlodipine 10 mg Tablet PO (18:00)
--- NOTE | 2020-03-12 18:22 | PC.PT ---
Patient has declined 2 attempts at PT evaluation today due to uncontrolled pain; will reattempt tomorrow
[2020-03-12 21:03] LABS: Glucose Point of Care 295 mg/dL (70-110)
[2020-03-13 04:00] VITALS: BP 143/74; PULSE 77; RESP 17; TEMP 36.6; O2SAT 94
[2020-03-13] MEDS: HYDROcodone-acetaminophen 5-325 mg Tablet PO ×2 (05:06→10:57)
[2020-03-13] MEDS: clindamycin 900 MG/50 ML PREMIX 100 MG IV (06:21)
[2020-03-13] MEDS: enoxaparin 40 mg/0.4 mL Syringe SUBCUT (06:22)
[2020-03-13 06:42] LABS: Glucose Point of Care 257 mg/dL (70-110)
[2020-03-13] MEDS: ketorolac 30 mg/mL INJ IVP (07:45)
--- NOTE | 2020-03-13 07:53 | P.DS_ITS ---
Discharge Providers Date of Admission: 03/12/20 11:18 Date of Discharge: March 13, 2020 Attending Provider at Admission: Carlos Anderson DO Attending Provider at Discharge: Carlos Anderson DO Primary Care Provider: JEROME Smith Diagnoses at Discharge Discharge Diagnosis (1) Hypertension: Status: Acute (2) Diabetes mellitus: Status: Acute (3) Spondylolisthesis of lumbosacral region: Status: Chronic (4) Intervertebral disc disorder with radiculopathy of lumbosacral region: Status: Chronic (5) Sleep apnea: Status: Acute Reason for Visit Reason for Visit: L5 S1 PLIF [id number] M43 Hospital Course Hospital Course Patient had a L5-S1 posterior lumbar interbody fusion with spondylolisthesis reduction on 03/12/2020. Her pain was relatively controlled throughout the night she was able to get up in the room and get to the commode. This point I will discharge her today on postop day #1. She will need a hospital bed because her bedroom is on a different floor and also with maneuvering in bed. She will need a commode because her bathroom is on a separate floor. And she will need a walker because she just had spine surgery to help get around so she does not lose her balance. Physical Exam Narrative: EXAM NARRATIVE: 5/5 strength BLE sensation intact Discharge Data Data Completed and Pending: Completed Studies During Hospitalization Category Date Time Status XR lumbar spine 2 -3V* [id number] Routine Exams 03/12/20 Completed Labs from last 24 hours 03/13/20 03/12/20 03/12/20 06:29 20:57 17:18 POC Glucose 257 H 295 H 286 H Vitals: Last Vital Signs Temp 98 F 03/13/20 04:00 Pulse 77 03/13/20 04:00 Resp 17 03/13/20 04:00 BP 143/74 03/13/20 04:00 Pulse Ox 94 03/13/20 04:00 Discharge Plan Discharge Patient Disposition: Home Condition: Stable Prescriptions: New hydrocodone-acetaminophen 5-325 mg tablet 1 - 2 tab PO .Q4-6H Qty: 40 RF: 0 Continued gabapentin 600 mg tablet 600 mg PO TID Qty: 90 RF: 0 Lantus U-100 Insulin 100 unit/mL solution 25 unit SUBCUT TID RF: 0 insulin lispro [Humalog U-100 Insulin] 100 unit/mL solution 10 unit SUBCUT .SLIDING SCALE RF: 0 losartan 25 mg Tablet 25 mg PO DAILY RF: 0 Discharge Orders: Discharge Order (Routine); Ordered 03/13/20 Ordered By: Carlos Anderson Other Ambulatory Orders: DME: [employer] (Order) Location: None Selected Ordered By: Carlos Anderson DME: Hospital Bed (Order) Location: None Selected Ordered By: Carlos Anderson DME: Walker (Order) Location: None Selected Ordered By: Carlos Anderson Discharge Diet: Advance as tolerated and Usual diet Discharge Activity: Limit activity as instructed Activity Restrictions/Additional Instructions: Thank you for [facility] for your care! The following is a list of instructions, from your provider, to follow upon your di scharge to ensure you have the optimal recovery from your recent injury orsurgery. Follow-up care is a murry part of your treatment and safety. Be sure to make and go to all appointments, and call your doctor if you are having problems. If you do not already have a follow-up appointment made, call Dr. Anderson office in the next 1-3 days to make follow up appointment for 2 weeks at [phone]. It is also a good idea to know your test results and keep a list of the medicines you take. Medications will be prescribed for you at your provider's discretion. These medications are to be used as instructed; if they are taken more often that prescribed they will not be refilled early and in most cases will not be refilled at all. > When a refill is needed,you should contact fidel ivey 2-3 business days before your prescription runs out. Medications will NOT be refilled by sustainable design consultant providers after hours! > Many pain medications contain Tylenol (Acetaminophen). Do not consume more than 4,000 mg of Tylenol per day in total with any combination ofmedications. > Pain medications can cause constipation. Please use an over the counter stool softener as directed, while taking pain medications. Consulty our local pharmacist with questions or recommendations on stool softeners. If constipation persists, contact our office or your primary care provider. > While under our care,you are not to receive pain medications or other controlled substances from any other provider unless our office is notified and approves. Any attempts to do so will result in refusal to prescribe any further pain medications and possible dismissal from our practice. ? Your wound and/or dressing should remain clean and dry for 2 days after surgery. On postoperative day 2 (48 hours after your surgery) the dressing (if present) should be removed and it is okay to shower and get the incision wet. Pad dry afterwards. No further dressing should be required from that point on. Do not put any creams or ointments on theincision > It is normal for there to be a small amount of discharge (bloody or blood tinged) present from a surgical wound for the first 1-3days. > The wound should be examined twice a day for signs of infection. Mild redness or bruising is to be expected but indications that an infection maybe starting would include; An increase in redness, swelling, or discharge, a foul odor present around the incision, and/or a fever greater than 101 ?F ? Showering is permitted, however we ask that you do not take a bath, sit in a whirlpool / Jacuzzi, or go swimming for 1 month. For only the first 2 days after surgery, lt wilt be necessary for you to cover your wound/dressing with plastic and tape to keep it dry. ? Walking is essential for the healing process after surgery. We would like you to slowly advance your walking. This should be done on relatively flat clear ground (inside or out) or can be done on a treadmill. Remember this goal does not have to happen all at once, slowly increase your distance and duration. This can be broken into more more than one walk per day as tolerated. Patients who walk as directed after surgery rarely require Physical Therapy. In the unlikely event this issue arises your provider will direct hospital staff to make the appropriate arrangements. ? No lifting over 5 pounds {a gallon of milk) or bending/twisting until further notice. Each of these activities places an unnecessary amount of stress onto the body and can impede the delicate healing process. > Instead of bending at the waist, keep your back straight and bend at the knees. > Instead of twisting your torso, keep your back straight and turn your entire body with your feet. ? You may sleep in any position which makes you comfortable. Many patients find comfort sleeping in a reclining chair. It is not abnormal to have difficulty sleeping for the first several weeks following your surgery. We recommend trying Benadry! or Tylenol PM as directed to help with your sleeping difficulties. Both medications are over the counter and available withoutprescription. ? NO SMOKING!!! Smoking dramatically increases the probability of developing postoperative wound infections. ? Common complaints after lumbar and/or thoracic spine surgery include, but are not limited to: numbness and/or tingling in the legs, pain around the incision and surrounding tissues, muscle spasms, or stiffness of the middle to low back. Contact our office if these symptoms persist or if an acute change occurs. ? No driving for the first 3-5days, and not while taking narcotics [] until seen at your follow-up appointment and cleared. There are no restrictions for riding on short trips, however if you take a longer trip, arrangements should be made to make regular stops to get out of the vehicle and stretch . ? Swelling is an unfortunate event that will take place with any s urgery and is the primary source of your postoperative discomfort. While walking and regular approved activities helps control inflammation, there are additional steps you can take to minimizeswelling. > Place ice over the surgical site and surrounding tissue for twenty minutes, followed by applying a low/medium heat (heating pad) for an additional twenty minutes every 1-2 hours as needed for painrelief. > You may use of over the counter anti-inflammatory medications (Ibuprofen, Motrin, Aleve, Advil, etc) as directed on the package label. These types of medicines wm significantly reduce the amount of discomfort you experience after surgery from swelling. It should be noted that if you have and allergy to any of these medications, or a history of ulcers or kidney disease you should consult you primary care provider prior to starting these medications. Discharge Attestations Time Spent in Discharge Care*: less than 30 min Specific Discharge Activities: educating patient Quality Metrics Clinical Quality Measures During this hospital stay, did patient experience: None Coding Level of Care Code Acute Data Analysis Manager for [facility] Fwd Diagnoses Hypertension I10 Diabetes mellitus E11.9 Spondylolisthesis of lumbosacral region M43.17 Intervertebral disc disorder with radiculopathy of lumbosacral region M51.17 Sleep apnea G47.30
[2020-03-13 08:00] VITALS: BP 145/79; PULSE 82; RESP 18; TEMP 38; O2SAT 92
[2020-03-13] MEDS: docusate sodium 100 mg Capsule PO (08:12)
[2020-03-13] MEDS: gabapentin 300 mg Capsule 600 MG PO (08:13)
[2020-03-13 08:14] VITALS: BP 145/75
[2020-03-13] MEDS: amlodipine 10 mg Tablet PO (08:14)
[2020-03-13] MEDS: losartan 50 mg Tablet 25 MG PO (08:14)
--- NOTE | 2020-03-13 09:00 | PC.CHAP ---
Pastoral Care Encounter/Spiritual Assessment Type of Contact [] Declined cook room supervisor visit [] Patient/Family/Request visit [] Outpatient visit [] Follow-up visit [] Physician referral [] Code/Alert [x] Routine visit [] Staff referral [] Actively dying [] Patient sleeping [] Family support [] [] Out of room [] Palliative care [] [] Receiving care in room [] Pre-surgical visit [] Trauma [] Long length of stay [] ICU visit [] Other: Relational/Emotional Strength [x] Patient feels connected with others/family/visitors/staff [] Distress [] Loneliness/isolation [] Abandonment Spirituality of Patient [x] Person of Margaret [] Attends Hindu of their Margaret [] Believes in Prayer [] Reads Bible or Latter Day materials [] There are Spiritual issues to be addressed Molten Iron Pourer Interventions [x] Prayer [x] Active listening [] Non-anxious presence [] Spiritual/emotional support [] Crisis/trauma care [] Spiritual counseling [] Bereavement support [] Provided bereavement packet [] Provided Bible/devotional materials [] Provided toy/stuffed animal, coloring book to patient or family member [] Provided Communion [] Anointing/[place] [] Salvation [x] Completed spiritual assessment [] Other: Impact on Illness or Injury [] Angry [] Fearful [] Anxious [] Often cries [] Exhaustion [] Unable to work [] Unable to attend orthodoxy [] Unable to walk/stand [] Unable to read [] Unable to drive [] Unable to eat/drink [] Unable to sleep [] Unable to be with family [] Patient intubated [] Other: Summary patient fells real good ready to go home Time spent with patient 10 min
[2020-03-13 10:58] VITALS: BP 145/75; PULSE 82; RESP 18; TEMP 38; O2SAT 92
--- NOTE | 2020-03-14 17:47 | PC.RESP ---
Smoking Cessation information sent to patient.
== END 2020-03-13 10:59 | disposition home or self-care (01) | DRG 455 ==
LOC: MEDSURG 11:18
PROVIDERS: Anesthesiology; Admitting Provider Orthopaedic Surgery; PCP Nurse Practitioner Family; Visit Provider Orthopaedic Surgery
PROC: 01NR0ZZ Release Sacral Nerve, Open Approach (ICD-10-PCS; principal; 2020-03-12 07:00)
DX: M43.17 Spondylolisthesis, lumbosacral region (principal); M54.17 Radiculopathy, lumbosacral region; M47.816 Spondylosis without myelopathy or radiculopathy, lumbar region; F17.210 Nicotine dependence, cigarettes, uncomplicated; E11.9 Type 2 diabetes mellitus without complications; I10 Essential (primary) hypertension; Z91.14 Patient's other noncompliance with medication regimen; G47.30 Sleep apnea, unspecified; Z79.4 Long term (current) use of insulin
CPT/HCPCS: 12345; 36416; 72100; 76000; 80048; 82962; 96365; 96372; C1713; C9359; J1100; J1644; J1650; J1815 ×2; J1885; J2270; J2405; J2704; J3010; J3490; J7030

== ENCOUNTER → 2020-03-27 15:45 | Outpatient (BNVA) | payer MEDICAID, SELFPAY | PROVIDERS: PCP Nurse Practitioner Family; Visit Provider Orthopaedic Surgery | DX: Z20.828 Contact with and (suspected) exposure to other viral communicable diseases (principal); M43.10 Spondylolisthesis, site unspecified | CPT/HCPCS: 87635 ==

== ENCOUNTER 2020-03-28 21:32 | Inpatient (IN) | payer MEDICAID, SELFPAY ==
[2020-03-28] VITALS (9 sets, daily range): BP systolic 132–198; BP diastolic 57–111; PULSE 72–86; RESP 12–21; TEMP 36.1–36.5; O2SAT 93–97; BMI 41.0
[2020-03-28 14:16] LABS: Glucose Point of Care 206 mg/dL (70-110)
--- NOTE | 2020-03-28 14:25 | ANES.PREANE2 ---
Pre-Anesthetic Assessment Pre-Anesthetic Assessment: Height/Weight: Height 1.73 m Weight 122.47 kg Temp Pulse Resp BP Pulse Ox 97.2 F L 86 18 173/111 97 03/28/20 14:03 03/28/20 14:03 03/28/20 14:03 03/28/20 14:03 03/28/20 14:03 Preop Diagnosis: wound infection back Proposed Procedure: Operation Date: 03/28/20 15:35 [place] p [id number] incision and drainage of surgical wound M43.10(Not Applicable) - Carlos Anderson DO Familial anesthetic complications: None Was Beta Mio taken within 24 hours: N/A Last intake: Intake Last Liquid Date 03/28/20 Last Liquid Time 00:00 Last Solid Date 03/28/20 Last Solid Time 00:00 Social: Social History: No alcohol and No tobacco Exam: Pre-Anes Outpt Exam: alert, oriented x 3, clear to auscultation bilaterally and regular rate & rhythm Airway: Cervical ROM: WNL MP: 4 Dentition: Other (edentulous) CV/HEM: CV/HEM: HTN Metabolic: Metabolic: DM and Morbid obesity Anesthetic Plan: ASA status: 3 Anesthesia: General Risk of > 500 ml blood loss (7ml/kg in children): No PFSH Anesthesia PFSH: Medical History Diabetes mellitus Hypertension Intervertebral disc disorder with radiculopathy of lumbosacral region Lumbar spondylolysis Sleep apnea Spondylolisthesis of lumbosacral region Surgical History No pertinent past surgical history Family History Family/Other Diabetes Colon cancer Social History Smoking and tobacco status: current every day smoker Alcohol intake: never Household members: family Marital status: Single Current occupational status: unemployed History of recent travel: No Data Anesthesia Other Labs: Laboratory Results - last 48 hr 03/28/20 14:11 POC Glucose 206 H Cardiac Studies: No Data to Display
--- NOTE | 2020-03-28 17:56 | W.PM.OPSUD ---
Surgery/Procedure H&P Update DATE OF PROCEDURE: March 28, 2020 DATE H&P PERFORMED: 03/27/20 H&P UPDATE INFORMATION: I have examined patient prior to procedure PREOP DIAGNOSIS: wound infection back PLANNED PROCEDURE: Operation Date: 03/28/20 15:35 Pro[place] Procedures p [id number] incision and drainage of surgical wound M43.10(Not Applicable) - Carlos Anderson DO
[2020-03-28] MEDS: clindamycin 900 MG/50 ML PREMIX 100 MG IV (17:58)
[2020-03-28] MEDS: vancomycin 1,000 MG SDV 2000 MG XX (18:49)
--- NOTE | 2020-03-28 19:34 | PM.OP ---
Operative Report Date of procedure: March 28, 2020 Pre-op Diagnosis: wound infection back Post-op diagnosis: same Procedure Done: I+D back wound down to bone Specimens removed/disposition: deep wound cultures sent Anesthesia: General Estimated blood loss (mL): 25 Condition: stable Disposition: PACU Procedure: 1. I+D back wound down to bone Patient was brought to the operative suite after undergoing anesthesia was placed in prone position all areas patient well-padded patient's prepped and draped in a sterile fashion. Skin incision made using previous skin incision the skin edges were actually ellipsed out because they were red. This was done down to the thoracolumbar fascia there is a small rent in the fascia which open down to the surgery wound was completely opened sutures were removed from previous surgery. Wound was irrigated with 3 L of saline cultures were taken prior to this bone was debrided of the spinous processes lamina and screws were scrubbed and once the wound was completely irrigated out a deep drain was placed bank powder was placed and the wound was closed in layered fashion with PDS and nylon suture. Sterile dressing was applied and patient was transferred to the PACU in stable condition.
[2020-03-28] MEDS: ondansetron 2 mg/ML SDV 2 mL 4 MG IVP (19:46)
--- NOTE | 2020-03-28 20:00 | ANE.PACU2 ---
Inpatient post-anesthesia follow up: Airway intact: Yes Vital signs: Temperature 98.2 F Pulse Rate 69 Respiratory Rate 20 Blood Pressure 160/80 Pulse Oximetry 96 Oxygen Delivery Me thod Room Air Oxygen Flow Rate Fraction of Inspir ed Oxygen Hydration adequate: Yes Nausea and vomiting: No Pain level: 4 Mental status: Baseline
--- NOTE | 2020-03-28 20:45 | PM.HP ---
Providers/Chief Complaint Primary Care Provider: JEROME Smith Chief Complaint: Spondylolisthesis History of Present Illness Pleasant 60-year-old lady with history of DM2, HTN, VIVIAN currently not on CPAP therapy, DJD, 2 weeks status post laminectomy and fusion of lumbar spine underwent wound examination and debridement/drainage due to developing yellowish drainage at home with suspected wound infection. Medicine service is consulted for comanagement of her diabetes, HTN, and wound infection. Currently she is doing well after surgery. She states she is hungry. Otherwise denies any trouble breathing, no chest pain pressure. Denies any significant pain. She states that at home she manages her diabetes with 3 times daily long-acting insulin 25 units (glargine), which she says was adjusted to this dosing by her primary care provider due to difficulty controlling her blood sugars otherwise. She also takes a sliding scale insulin with meals. She states that her blood pressure has been running okay , but does not remember any recent blood pressure measurements. She is working with her primary care provider on arranging for this. She states she does not use CPAP for her VIVIAN at night, but says that arrangements for this are being made by her primary care provider. Review of Systems Const: Denies: fever(s), chills, body aches or malaise Eyes: Denies: change in vision or eye redness ENMT: Denies: throat pain, oral sores or ear or mastoid pain Card: Denies: chest pain, edema, pre-syncope or dyspnea on exertion Resp: Denies: dyspnea, productive cough, change in phlegm color or hemoptysis GI: Denies: abdominal pain, nausea, vomiting, diarrhea, constipation, hematochezia or melena : Denies: flank pain, urinary frequency or hematuria Musc: Denies: back pain, joint swelling or joint redness Skin/Breast: Reports: other (drainage from surgical wound, yellowish) Neuro: Denies: headache(s), numbness in extremities, weakness in extremities, dizziness, confusion or seizure-like activity Endo: Denies: polyuria or polydipsia Jeff/Lymph: Denies: easy bleeding or purpura All/Imm: Denies: urticaria, throat swelling or tongue swelling Medications/Allergies Home Medications Medication Instructions Recorded Confirmed Last Taken Type gabapentin 600 mg tablet 600 mg PO TID #90 tab 12/07/19 03/28/20 1 Day Ago Rx ~03/27/20 insulin glargine 100 unit/mL 25 unit SUBCUT TID ml 12/27/19 03/28/20 1 Day Ago History subcutaneous solution ~03/27/20 insulin lispro 100 unit/mL 10 unit SUBCUT .SLIDING SCALE ml 12/27/19 03/28/20 1 Day Ago History subcutaneous solution ~03/27/20 losartan 25 mg PO DAILY 03/08/20 03/28/20 1 Day Ago History ~03/27/20 hydrocodone 7.5 mg-acetaminophen 1 tab PO Q4H PRN 7 Days #60 tab 03/14/20 03/28/20 1 Day Ago Rx 325 mg tablet ~03/27/20 hydrocodone-acetaminophen 1 - 2 tab PO .Q4-6H 03/28/20 03/28/20 Unknown History Allergies Allergy/AdvReac Type Severity Reaction Status Date / Time Penicillins Allergy ALGY-Swell Verified 03/28/20 14:00 Lip/Tongue/Throat PFSH Acute PFSH: Medical History Diabetes mellitus Hypertension Intervertebral disc disorder with radiculopathy of lumbosacral region Lumbar spondylolysis Sleep apnea Spondylolisthesis of lumbosacral region Surgical History H/O laminectomy H/O: hysterectomy Family History Family/Other Diabetes Colon cancer Social History Smoking and tobacco status: current every day smoker Alcohol intake: never Substance/Drug Use: never Household members: family and other Details: son Marital status: Single Current occupational status: unemployed History of recent travel: No Vitals/I&O/Wt Last Vital Signs Temp 97.6 F 03/28/20 20:28 Pulse 72 03/28/20 20:28 Resp 20 H 03/28/20 20:28 BP 176/98 03/28/20 20:28 Pulse Ox 94 03/28/20 20:28 03/28/20 03/28/20 03/28/20 06:59 14:59 22:59 Intake Total 250 / 250 Output Total / Balance 230 / 230 Weight last 48 hrs Weight 122.47 kg Physical Exam Const: COMMON NORMALS: no acute distress and patient oriented x3 HENMT: COMMON NORMALS: oropharynx normal Neck/C-Spine: COMMON NORMALS: no JVD Resp: COMMON NORMALS: normal respiratory effort and clear to auscultation bilaterally AUSCULTATION: clear to auscultation bilaterally Cardio: COMMON NORMALS: no JVD, regular rhythm, S1 normal heart sound present, S2 normal heart sound present and No murmurs present (Cardio) RHYTHM: regular rhythm HEART SOUNDS: S1 normal heart sound present and S2 normal heart sound present GI: COMMON NORMALS: Normal to inspection, nondistended, normoactive bowel sounds present, Soft to palpation and non-tender PALPATION: Yes Soft to palpation Extremity: COMMON NORMALS: no joint enlargement and no pedal edema Neuro: COMMON NORMALS: patient oriented x3 and moves all extremities Skin: COMMON NORMALS: no rashes or lesions noted GENERAL SKIN EXAM: no rashes or lesions noted Coding Level of Care Code Acute 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
[2020-03-28] MEDS: morphine 4 mg/mL SDV 1 mL IVP (21:01)
--- NOTE | 2020-03-28 21:13 | PM.CONSULT ---
Providers/Reason For Consult Consulting Physican/Specialty*: Hospitalist Reason for Consult*: Medical management diabetes, abx management Attending Physician: Carlos Anderson DO Primary Care Provider: JEROME Smith History of Present Illness History of Present Illness Pleasant 60-year-old lady with history of DM2, HTN, VIVIAN currently not on CPAP therapy, DJD, 2 weeks status post laminectomy and fusion of lumbar spine underwent wound examination and debridement/drainage due to developing yellowish drainage at home with suspected wound infection. Medicine service is consulted for comanagement of her diabetes, HTN, and wound infection. Currently she is doing well after surgery. She states she is hungry. Otherwise denies any trouble breathing, no chest pain pressure. Denies any significant pain. She states that at home she manages her diabetes with 3 times daily long-acting insulin 25 units (glargine), which she says was adjusted to this dosing by her primary care provider due to difficulty controlling her blood sugars otherwise. She also takes a sliding scale insulin with meals. She states that her blood pressure has been running okay , but does not remember any recent blood pressure measurements. She is working with her primary care provider on arranging for this. She states she does not use CPAP for her VIVIAN at night, but says that arrangements for this are being made by her primary care provider. Review of Systems Const: Denies: fever(s), chills, body aches or malaise Eyes: Denies: change in vision or eye redness ENMT: Denies: throat pain, oral sores or ear or mastoid pain Card: Denies: chest pain, edema, pre-syncope or dyspnea on exertion Resp: Denies: dyspnea, productive cough, change in phlegm color or hemoptysis GI: Denies: abdominal pain, nausea, vomiting, diarrhea, constipation, hematochezia or melena : Denies: flank pain, urinary frequency or hematuria Musc: Denies: back pain, joint swelling or joint redness Skin/Breast: Reports: other (drainage from surgical wound, yellowish) Neuro: Denies: headache(s), numbness in extremities, weakness in extremities, dizziness, confusion or seizure-like activity Endo: Denies: polyuria or polydipsia Jeff/Lymph: Denies: easy bleeding or purpura All/Imm: Denies: urticaria, throat swelling or tongue swelling Meds/Allergies Home Medications and Allergies Home Medications Medication Instructions Recorded Confirmed Last Taken Type gabapentin 600 mg tablet 600 mg PO TID #90 tab 12/07/19 03/28/20 1 Day Ago Rx ~03/27/20 insulin glargine 100 unit/mL 25 unit SUBCUT TID ml 12/27/19 03/28/20 1 Day Ago History subcutaneous solution ~03/27/20 insulin lispro 100 unit/mL 10 unit SUBCUT .SLIDING SCALE ml 12/27/19 03/28/20 1 Day Ago History subcutaneous solution ~03/27/20 losartan 25 mg PO DAILY 03/08/20 03/28/20 1 Day Ago History ~03/27/20 hydrocodone 7.5 mg-acetaminophen 1 tab PO Q4H PRN 7 Days #60 tab 03/14/20 03/28/20 1 Day Ago Rx 325 mg tablet ~03/27/20 hydrocodone-acetaminophen 1 - 2 tab PO .Q4-6H 03/28/20 03/28/20 Unknown History Allergies Allergy/AdvReac Type Severity Reaction Status Date / Time Penicillins Allergy ALGY-Swell Verified 03/28/20 14:00 Lip/Tongue/Throat Current Medications Current Medications Generic Name Dose Route Start Last Admin Trade Name Freq PRN Reason Stop Dose Admin Morphine Sulfate 4 mg 03/28/20 20:38 03/28/20 21:01 Morphine 4 Mg/Ml Sdv 1 Ml IVP 4 mg Q4H PRN Administration SEVERE PAIN PFSH Acute PFSH: Medical History Diabetes mellitus Hypertension Intervertebral disc disorder with radiculopathy of lumbosacral region Lumbar spondylolysis Sleep apnea Spondylolisthesis of lumbosacral region Surgical History H/O laminectomy H/O: hysterectomy Family History Family/Other Diabetes Colon cancer Social History Smoking and tobacco status: current every day smoker Alcohol intake: never Substance/Drug Use: never Household members: family and other Details: son Marital status: Single Current occupational status: unemployed History of recent travel: No Vitals/I&O/Wt Last Vital Signs Temp 97.6 F 03/28/20 20:28 Pulse 72 03/28/20 20:28 Resp 21 H 03/28/20 21:01 BP 176/98 03/28/20 20:28 Pulse Ox 94 03/28/20 20:28 03/28/20 03/28/20 03/28/20 06:59 14:59 22:59 Intake Total 250 / 250 Output Total Balance 230 / 230 Weight last 48 hrs Weight 122.47 kg Physical Exam Const: COMMON NORMALS: no acute distress, patient oriented x3 and alert GENERAL APPEARANCE: cooperative and comfortable NUTRITIONAL APPEARANCE: obese ORIENTATION/CONSCIOUSNESS: Yes awake HENMT: COMMON NORMALS: oropharynx normal Neck/C-Spine: COMMON NORMALS: no JVD Resp: COMMON NORMALS: normal respiratory effort and clear to auscultation bilaterally AUSCULTATION: clear to auscultation bilaterally Cardio: COMMON NORMALS: no JVD, regular rhythm, S1 normal heart sound present, S2 normal heart sound present and No murmurs present (Cardio) RHYTHM: regular rhythm HEART SOUNDS: S1 normal heart sound present and S2 normal heart sound present GI: COMMON NORMALS: Normal to inspection, nondistended, normoactive bowel sounds present, Soft to palpation and non-tender PALPATION: Yes Soft to palpation Back/Pelvis: OTHER: Back wound postoperatively covered with fresh clean dressing, no drainage, no bleeding. Drain in place with serosanguineous fluid. Extremity: COMMON NORMALS: no joint enlargement and no pedal edema Neuro: COMMON NORMALS: patient oriented x3 and moves all extremities SENSORIUM/ORIENTATION: Yes alert Skin: COMMON NORMALS: no rashes or lesions noted GENERAL SKIN EXAM: no rashes or lesions noted A&P Assessment and plan (1) Wound infection after surgery: S/p I&D. Cultures collected. Drain in place. Request blood cultures. Continue vancomycin. Discussed with her. Due to diabetes, recent hospitalization was also ciprofloxacin. Follow-up cultures, adjust antibiotics depending on this. Concern is that with diabetes, poor wound healing she would benefit from IV antibiotics for a longer time. If blood culture negative consider placement of PICC line. Discussed with her briefly consideration of going to skilled nurse facility to assist with wound care as concerns were expressed whether she is able to manage wound care at home. She states she will think about it, discussed with her son. Status: Acute (2) Diabetes mellitus: Continue Lantus. Sliding scale insulin. Consider wider diet. Monitor glucose. Status: Acute (3) Hypertension: Monitor blood pressures. Cardiac diet. Resume losartan. Status: Acute (4) Sleep apnea: CPAP at bedtime. Says arrangements are being made with her PCP for outpatient CPAP. Status: Acute (5) Spondylolisthesis, lumbar region: Status: Acute Consult Attestations Medical Necessity Statement: Admission of over 2 midnights is continued for assessment of management of wound infection overlying recent spinal surgery, with hardware, with diabetes. Coding Level of Care Code Acute Didactic Instructor for Joyce Keita Diagnoses Wound infection after surgery T81.49XA Diabetes mellitus E11.9 Hypertension I10 Sleep apnea G47.30 Spondylolisthesis, lumbar region M43.16
[2020-03-28 22:52] LABS: Glucose Point of Care 333 mg/dL (70-110)
[2020-03-28] MEDS: nicotine 21 mg Patch 1 PATCH TRANSDERMA (23:10)
[2020-03-28] MEDS: ciprofloxacin 400 MG/200 ML PREMIX 200 MG IV (23:10)
[2020-03-28] MEDS: gabapentin 300 mg Capsule 600 MG PO (23:10)
[2020-03-28] MEDS: HYDROcodone-acetaminophen 7.5-325 mg Tablet 1 TAB PO (23:37)
[2020-03-28] MEDS: insulin glargine 100 units/1 mL 25 UNIT SUBCUT (23:56)
[2020-03-29] VITALS (8 sets, daily range): BP systolic 125–160; BP diastolic 72–85; PULSE 69–84; RESP 18–20; TEMP 36.6–37.3; O2SAT 93–97
[2020-03-29] MEDS: HYDROcodone-acetaminophen 7.5-325 mg Tablet 1 TAB PO (03:53)
[2020-03-29 05:51] LABS: Basophils # 0.1 10^3/uL (0.0-0.1); Basophils % 0.5 %; Eosinophils % 0.4 %; Hematocrit 39.1 % (37.0-47.0); Lymphocytes # 1.5 10^3/uL (0.8-4.8); Lymphocytes % 14.1 %; Mean Corpuscular HGB Conc 30.7 g/dL (30.0-36.0); Mean Corpuscular Hemoglobin 26.7 pg (28.0-34.0); Mean Corpuscular Volume 86.9 fL (81-99); Mean Platelet Volume 11.9 fL (7.4-10.4); Monocytes # 0.6 10^3/uL (0.2-0.9); Neutrophils # 8.67 10^3/uL (1.8-7.7); Neutrophils % 79.5 %; Nucleated Red Blood Cells % 0 %; Platelet Count 271 10^3/cmm (130-400); Red Cell Distribution Width 13.3 % (12.1-15.1); White Blood Count 10.9 10^3/uL (4.0-10.0)
[2020-03-29 06:12] LABS: Alanine Aminotransferase 13 U/L (0-33); Albumin Level 3.6 g/dL (3.5-5.2); Alkaline Phosphatase 137 IU/L (35-105); Aspartate Amino Transferase 11 U/L (0-32); Blood Urea Nitrogen 11 mg/dL (6-20); Calcium 9.1 mg/dL (8.5-10.5); Carbon Dioxide 27 mmol/L (22-29); Chloride 93 mmol/L (98-107); Globulin 3.2 g/dL (1.3-4.6); Glomerular Filtration Rate 85.9 mL/min (90-130); Glucose 358 mg/dL (65-115); Osmolality Calculated 284 mOsm/kg (285-295); Sodium 130 mmol/L (136-145); Total Bilirubin 0.4 mg/dL (0.15-1.2); Total Protein 6.8 g/dL (6.6-8.7)
[2020-03-29] MEDS: enoxaparin 40 mg/0.4 mL Syringe SUBCUT (06:29)
[2020-03-29 06:39] LABS: Glucose Point of Care 317 mg/dL (70-110)
--- NOTE | 2020-03-29 08:06 | P.PN_ITS ---
Subjective Subjective: Interval history: pain controled, eating no complaints this am Vitals/I&O/Wt Last Vital Signs Temp 98.1 F 03/29/20 07:33 Pulse 80 03/29/20 07:33 Resp 18 03/29/20 07:33 BP 125/72 03/29/20 07:33 Pulse Ox 97 03/29/20 07:33 03/28/20 03/29/20 03/29/20 22:59 06:59 14:59 Intake Total 250 / 250 1110 / 1360 Output Total 320 / 320 1400 / 1720 Balance -70 / -70 -290 / -360 Weight last 48 hrs Weight 270 lb Physical Exam Narrative: EXAM NARRATIVE: 07/25 strength drain was changed prior to my arrival Data : 03/29/20 05:22 03/29/20 05:22 Micro: Microbiology 03/28/20 18:26 Gram Stain - Final Back 03/28/20 18:26 Gram Stain - Final Back 03/28/20 22:35 Blood Culture - Preliminary Blood SPECIMEN COLLECTED 03/28/20 22:30 Blood Culture - Preliminary Blood SPECIMEN COLLECTED A&P Additional A&P Information s/p ID of wound POD #1 Needs PICC line for ABX and management of abx by hospitalist or Infectious disease (Currently on Vancomycin) (awaiting cultures) social service consult keep drain in today wbat Attestations Medical Necessity Statement*: awaiting cultures and placement Coding Level of Care Code Acute 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
[2020-03-29] MEDS: docusate sodium 100 mg Capsule PO ×2 (09:00→17:43)
[2020-03-29] MEDS: losartan 50 mg Tablet 25 MG PO (09:00)
[2020-03-29] MEDS: insulin glargine 100 units/1 mL 25 UNIT SUBCUT ×3 (09:01→21:19)
[2020-03-29] MEDS: gabapentin 300 mg Capsule 600 MG PO ×3 (09:01→20:08)
[2020-03-29] MEDS: ciprofloxacin 400 MG/200 ML PREMIX 200 MG IV ×2 (09:02→21:19)
[2020-03-29] MEDS: HYDROcodone-acetaminophen 5-325 mg Tablet PO ×3 (09:10→21:29)
[2020-03-29 09:57] LABS: C Reactive Protein 66.7 mg/L (0.0-4.9)
--- NOTE | 2020-03-29 10:48 | PC.CHAP ---
Pastoral Care Encounter/Spiritual Assessment Type of Contact [] Declined biztalk architect visit [] Patient/Family/Request visit [] Outpatient visit [] Follow-up visit [] Physician referral [] Code/Alert [x] Routine visit [] Staff referral [] Actively dying [] Patient sleeping [] Family support [] [] Out of room [] Palliative care [] [x] Receiving care in room [] Pre-surgical visit [] Trauma [x] Long length of stay [] ICU visit [] Other: Relational/Emotional Strength [x] Patient feels connected with others/family/visitors/staff [] Distress [] Loneliness/isolation [] Abandonment Spirituality of Patient [x] Person of Margaret [] Attends Denominational of their Margaret [x] Believes in Prayer [] Reads Bible or Scientology materials [] There are Spiritual issues to be addressed 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 Interventions [x] Prayer [x] Active listening [x] Non-anxious presence [x] Spiritual/emotional support [] Crisis/trauma care [x] Spiritual counseling [] Bereavement support [] Provided bereavement packet [] Provided Bible/devotional materials [] Provided toy/stuffed animal, coloring book to patient or family member [] Provided Communion [] Anointing/[place] [] Salvation [x] Completed spiritual assessment [] Other: Impact on Illness or Injury [] Angry [] Fearful [x] Anxious [] Often cries [] Exhaustion [] Unable to work [] Unable to attend hoahaoism [] Unable to walk/stand [] Unable to read [] Unable to drive [] Unable to eat/drink [] Unable to sleep [] Unable to be with family [] Patient intubated [] Other: Summary has an infection from back surgery, doesn't what needs to be done as of now, Long length of stay, has a good attitude Time spent with patient 10 mins
[2020-03-29 10:52] LABS: Glucose Point of Care 355 mg/dL (70-110)
[2020-03-29 11:49] LABS: Erythrocyte Sedimentation Rate 67 mm/hr (0-15)
--- NOTE | 2020-03-29 12:20 | PM.PN ---
Subjective Subjective: Interval history: Patient was examined this morning, plaints, no nausea, no vomiting, no chest pain, no lightheadedness, dizziness Vitals/I&O/Wt Last Vital Signs Temp 99.2 F 03/29/20 11:17 Pulse 83 03/29/20 11:17 Resp 18 03/29/20 11:17 BP 157/85 03/29/20 11:17 Pulse Ox 97 03/29/20 11:17 03/28/20 03/29/20 03/29/20 22:59 06:59 14:59 Intake Total 250 / 250 1310 / 1560 240 / 240 Output Total 320 / 320 1400 / 1720 400 / 400 Balance -70 / -70 -90 / -160 -160 / -160 Weight last 48 hrs Weight 122.47 kg Physical Exam Const: COMMON NORMALS: no acute distress and patient oriented x3 HENMT: COMMON NORMALS: normocephalic HEAD & SCALP: normocephalic Neck/C-Spine: COMMON NORMALS: no JVD Resp: COMMON NORMALS: normal respiratory effort, No retractions, No use of accessory muscles and clear to auscultation bilaterally AUSCULTATION: clear to auscultation bilaterally Cardio: COMMON NORMALS: no JVD, regular rate, regular rhythm, S1 normal heart sound present and S2 normal heart sound present RATE: regular rate RHYTHM: regular rhythm HEART SOUNDS: S1 normal heart sound present and S2 normal heart sound present GI: COMMON NORMALS: Normal to inspection, nondistended, normoactive bowel sounds present, Soft to palpation, non-tender, No hepatosplenomegaly present, no masses and no bruits PALPATION: Yes Soft to palpation and Yes No hepatosplenomegaly present Back/Pelvis: OTHER: Does have a large drape with packing over her back Extremity: COMMON NORMALS: capillary refill normal, no clubbing, cyanosis or edema, no calf tenderness and no pedal edema Neuro: COMMON NORMALS: patient oriented x3 Psych: COMMON NORMALS: mental status grossly normal Data : 03/29/20 05:22 03/29/20 05:22 Micro: Microbiology 03/29/20 11:20 Blood Culture - Preliminary Blood SPECIMEN COLLECTED 03/29/20 11:05 Blood Culture - Preliminary Blood SPECIMEN COLLECTED 03/28/20 18:26 Gram Stain - Final Back 03/28/20 18:26 Gram Stain - Final Back 03/28/20 22:35 Blood Culture - Preliminary Blood SPECIMEN COLLECTED 03/28/20 22:30 Blood Culture - Preliminary Blood SPECIMEN COLLECTED A&P Assessment and plan (1) Wound infection after surgery: -Status post L5-S1 interbody fusion with posterolateral fusion, cage at L5-S1, laminectomy at L4, autograft, allograft, bone marrow aspirate from the iliac crest, reduction of spondylolisthesis -Now concerns for surgical site infection, deep tissue infection -S/p I&D, drain in place -Follow follow surgical cultures -Follow blood cultures. -Currently on vancomycin and Cipro IV -Obtain ESR, CRP, pro-Shiv -Will await blood cultures, if negative will place a PICC line, will need at least 6 weeks of IV antibiotics, will discuss with infectious disease -She will think about going home versus correction facility -We will discuss with son -Needs better management of type 2 diabetes -Lovenox for DVT prophylaxis -Full code Plan for today, continue broad-spectrum antibiotic therapy, follow cultures, monitor for fevers Status: Acute (2) Diabetes mellitus: -Continue home Lantus -Continue sliding scale Status: Acute (3) Hypertension: Monitor blood pressures Cardiac diet Status: Acute (4) Sleep apnea: CPAP at bedtime Status: Acute (5) Spondylolisthesis, lumbar region: Status: Acute Attestations Medical Necessity Statement*: Requires hospitalization for surgical site and deep tissue infection, status post laminectomy, requiring IV antibiotics Coding Level of Care Code Acute Contaminated Land Consultant for [facility] Diagnoses Wound infection after surgery T81.49XA Diabetes mellitus E11.9 Hypertension I10 Sleep apnea G47.30 Spondylolisthesis, lumbar region M43.16
[2020-03-29] MEDS: vancomycin 1,250 MG/250 ML PIGGYBACK 200 MG IV ×2 (15:32→23:07)
[2020-03-29 16:57] LABS: Glucose Point of Care 407 mg/dL (70-110)
[2020-03-29 21:08] LABS: Glucose Point of Care 177 mg/dL (70-110)
[2020-03-29] MEDS: nicotine 21 mg Patch 1 PATCH TRANSDERMA (21:21)
[2020-03-30] VITALS (7 sets, daily range): BP systolic 132–167; BP diastolic 61–89; PULSE 69–83; RESP 18–24; TEMP 36.4–36.9; O2SAT 94–99
[2020-03-30 02:29] LABS: Basophils % 0.5 %; Eosinophils # 0.3 10^3/uL (0.0-0.8); Eosinophils % 4.3 %; Hematocrit 34.5 % (37.0-47.0); Hemoglobin 10.8 g/dL (11.5-15.3); Lymphocytes # 1.7 10^3/uL (0.8-4.8); Lymphocytes % 20.9 %; Mean Corpuscular HGB Conc 31.3 g/dL (30.0-36.0); Mean Corpuscular Hemoglobin 27.6 pg (28.0-34.0); Mean Platelet Volume 11.7 fL (7.4-10.4); Monocytes # 0.7 10^3/uL (0.2-0.9); Monocytes % 9.3 %; Neutrophils # 5.14 10^3/uL (1.8-7.7); Neutrophils % 64.6 %; Nucleated Red Blood Cells % 0 %; Platelet Count 240 10^3/cmm (130-400); Red Blood Count 3.92 10^6/uL (4.1-5.3); Red Cell Distribution Width 13.3 % (12.1-15.1)
[2020-03-30 03:06] LABS: Alanine Aminotransferase 8 U/L (0-33); Albumin Level 3.3 g/dL (3.5-5.2); Alkaline Phosphatase 121 IU/L (35-105); Anion Gap 13.2 (5-19); Aspartate Amino Transferase 8 U/L (0-32); Blood Urea Nitrogen 11 mg/dL (6-20); Calcium 8.7 mg/dL (8.5-10.5); Carbon Dioxide 28 mmol/L (22-29); Chloride 95 mmol/L (98-107); Globulin 2.8 g/dL (1.3-4.6); Glomerular Filtration Rate 73.7 mL/min (90-130); Glucose 264 mg/dL (65-115); Magnesium 1.6 mg/dL (1.7-2.3); Osmolality Calculated 283 mOsm/kg (285-295); Phosphorus 3.9 mg/dL (2.5-4.5); Potassium 4.2 mmol/L (3.5-5.1); Sodium 132 mmol/L (136-145); Total Bilirubin 0.4 mg/dL (0.15-1.2); Total Protein 6.1 g/dL (6.6-8.7)
[2020-03-30] MEDS: enoxaparin 40 mg/0.4 mL Syringe SUBCUT (05:06)
--- NOTE | 2020-03-30 05:12 | PC.SOCIAL ---
Shift Summary 50mL out of hemovac drain. No complaints from patient. Patient up independently throughout night to bathroom. IV in right hand infiltrated; warm compress applied and swelling resolved. New IV started in left forearm, 22G.
[2020-03-30] MEDS: HYDROcodone-acetaminophen 5-325 mg Tablet PO ×3 (06:43→18:10)
--- NOTE | 2020-03-30 07:10 | PM.PN ---
Subjective Subjective: Interval history: no changes pt resting comfortably Vitals/I&O/Wt Last Vital Signs Temp 98.2 F 03/30/20 04:23 Pulse 69 03/30/20 04:23 Resp 18 03/30/20 04:23 BP 148/76 03/30/20 04:23 Pulse Ox 94 03/30/20 04:23 03/29/20 03/30/20 03/30/20 22:59 06:59 14:59 Intake Total 250 / 1110 840 / 1950 Output Total 2100 / 2500 1350 / 3850 Balance -1850 / -1390 -510 / -1900 Weight last 48 hrs Weight 270 lb Physical Exam Narrative: EXAM NARRATIVE: 07/25 strength Data : 03/30/20 02:02 03/30/20 02:02 Micro: Microbiology 03/28/20 22:35 Blood Culture - Preliminary Blood NEGATIVE TO DATE 03/28/20 22:30 Blood Culture - Preliminary Blood NEGATIVE TO DATE 03/29/20 11:20 Blood Culture - Preliminary Blood SPECIMEN COLLECTED 03/29/20 11:05 Blood Culture - Preliminary Blood SPECIMEN COLLECTED 03/28/20 18:26 Gram Stain - Final Back 03/28/20 18:26 Gram Stain - Final Back A&P Additional A&P Information POD#2 I+D back D/C drain awaiting cultures Up with PT Attestations Medical Necessity Statement*: awaiting cultures Coding Level of Care Code Acute Cook Apprentice for Joyce Keita
[2020-03-30 07:12] LABS: Glucose Point of Care 227 mg/dL (70-110)
[2020-03-30] MEDS: vancomycin 1,250 MG/250 ML PIGGYBACK 200 MG IV ×2 (08:43→18:21)
[2020-03-30] MEDS: gabapentin 300 mg Capsule 600 MG PO ×3 (08:44→20:16)
[2020-03-30] MEDS: losartan 50 mg Tablet 25 MG PO (08:44)
[2020-03-30] MEDS: docusate sodium 100 mg Capsule PO ×2 (08:44→18:10)
[2020-03-30] MEDS: insulin glargine 100 units/1 mL 25 UNIT SUBCUT ×3 (08:45→21:39)
[2020-03-30] MEDS: magnesium oxide 400 mg tablet PO ×2 (10:35→18:10)
[2020-03-30] MEDS: ciprofloxacin 400 MG/200 ML PREMIX 200 MG IV ×2 (10:35→20:22)
--- NOTE | 2020-03-30 10:42 | PC.SOCIAL ---
During heart to heart patient to DC Thursday. Waiting to get PICC. Still waiting on Cultures to see what Antibiotics she needs.
[2020-03-30 12:41] LABS: Glucose Point of Care 232 mg/dL (70-110)
--- NOTE | 2020-03-30 14:19 | PM.PN ---
Subjective Subjective: Interval history: Patient was examined this morning, she has no complaints, no chest pain, no shortness of breath, no fevers overnight, ambulating without any significant symptomatology Vitals/I&O/Wt Last Vital Signs Temp 97.6 F 03/30/20 11:23 Pulse 75 03/30/20 11:23 Resp 18 03/30/20 11:23 BP 167/88 03/30/20 11:23 Pulse Ox 98 03/30/20 11:23 03/29/20 03/30/20 03/30/20 22:59 06:59 14:59 Intake Total 450 / 1310 1090 / 2400 240 / 240 Output Total 2100 / 2500 1350 / 3850 Balance -1650 / -1190 -260 / -1450 240 / 240 Physical Exam Const: COMMON NORMALS: no acute distress and patient oriented x3 HENMT: COMMON NORMALS: normocephalic HEAD & SCALP: normocephalic Neck/C-Spine: COMMON NORMALS: no JVD Resp: COMMON NORMALS: normal respiratory effort, No retractions, No use of accessory muscles and clear to auscultation bilaterally AUSCULTATION: clear to auscultation bilaterally Cardio: COMMON NORMALS: no JVD, regular rate, regular rhythm, S1 normal heart sound present and S2 normal heart sound present RATE: regular rate RHYTHM: regular rhythm HEART SOUNDS: S1 normal heart sound present and S2 normal heart sound present GI: COMMON NORMALS: Normal to inspection, nondistended, normoactive bowel sounds present, Soft to palpation, non-tender, No hepatosplenomegaly present, no masses and no bruits PALPATION: Yes Soft to palpation and Yes No hepatosplenomegaly present Back/Pelvis: OTHER: Drain in place, overr surgical site Extremity: COMMON NORMALS: capillary refill normal, no clubbing, cyanosis or edema, no calf tenderness and no pedal edema Neuro: COMMON NORMALS: patient oriented x3 Psych: COMMON NORMALS: mental status grossly normal Data : 03/30/20 02:02 03/30/20 02:02 Micro: Microbiology 03/29/20 11:05 Blood Culture - Preliminary Blood NEGATIVE TO DATE 03/29/20 11:20 Blood Culture - Preliminary Blood NEGATIVE TO DATE 03/28/20 18:26 Gram Stain - Final Back Wound Culture - Preliminary Gram Negative Rods 03/28/20 18:26 Gram Stain - Final Back Anaerobic Culture - Preliminary Tissue Culture - Preliminary Gram Negative Rods 03/28/20 22:35 Blood Culture - Preliminary Blood NEGATIVE TO DATE 03/28/20 22:30 Blood Culture - Preliminary Blood NEGATIVE TO DATE A&P Assessment and plan (1) Wound infection after surgery: -Status post L5-S1 interbody fusion with posterolateral fusion, cage at L5-S1, laminectomy at L4, autograft, allograft, bone marrow aspirate from the iliac crest, reduction of spondylolisthesis -Now concerns for surgical site infection, deep tissue infection -S/p I&D, drain in place -Follow follow surgical cultures -Follow blood cultures. -Currently on vancomycin and Cipro IV -Obtain ESR 67, CRP 66.7, pro-Shiv 0.1 -Will await blood cultures, if negative will place a PICC line, will need at least 6 weeks of IV antibiotics, will discuss with infectious disease -She will think about going home versus long-term facility -Needs better management of type 2 diabetes change to high-dose sliding scale plus Lantus 25 units 3 times daily -Lovenox for DVT prophylaxis -Full code Plan for today, continue broad-spectrum antibiotic therapy, follow cultures, monitor for fevers, better controlled blood sugars Status: Acute (2) Diabetes mellitus: -Continue home Lantus -Continue sliding scale Status: Acute (3) Hypertension: Monitor blood pressures Cardiac diet Status: Acute (4) Sleep apnea: CPAP at bedtime Status: Acute (5) Spondylolisthesis, lumbar region: Status: Acute Attestations Medical Necessity Statement*: Patient requires hospitalization, for surgical site infection requiring IV antibiotic therapy Coding Level of Care Code Acute Painter Maintenance for [facility] Diagnoses Wound infection after surgery T81.49XA Diabetes mellitus E11.9 Hypertension I10 Sleep apnea G47.30 Spondylolisthesis, lumbar region M43.16
--- NOTE | 2020-03-30 15:10 | PC.RESP ---
SMOKING CESSATION INFORMATION SENT TO PATIENT.
--- NOTE | 2020-03-30 15:56 | PC.NURSE ---
[facility] Zhane Renee had a few questions regarding when dressing changes, the kind of antibiotics she will be going home on. I told her that as far as I knew it would be Thursday before we would know the answers.
[2020-03-30 17:06] LABS: Glucose Point of Care 242 mg/dL (70-110)
[2020-03-30] MEDS: ketorolac 30 mg/mL INJ IVP (20:19)
[2020-03-30] MEDS: nicotine 21 mg Patch 1 PATCH TRANSDERMA (20:22)
[2020-03-30 21:23] LABS: Glucose Point of Care 158 mg/dL (70-110)
[2020-03-31] VITALS: BP 127/73; PULSE 65; RESP 20; TEMP 36.5; O2SAT 97
[2020-03-31] MEDS: vancomycin 1,250 MG/250 ML PIGGYBACK 200 MG IV ×3 (01:56→17:44)
[2020-03-31] MEDS: HYDROcodone-acetaminophen 5-325 mg Tablet PO ×3 (04:04→17:46)
[2020-03-31 04:47] LABS: Basophils # 0.1 10^3/uL (0.0-0.1); Eosinophils # 0.6 10^3/uL (0.0-0.8); Hematocrit 34.9 % (37.0-47.0); Lymphocytes # 2.1 10^3/uL (0.8-4.8); Mean Corpuscular HGB Conc 31.5 g/dL (30.0-36.0); Mean Corpuscular Hemoglobin 27.4 pg (28.0-34.0); Mean Platelet Volume 11.5 fL (7.4-10.4); Monocytes # 0.7 10^3/uL (0.2-0.9); Monocytes % 9.9 %; Neutrophils # 3.54 10^3/uL (1.8-7.7); Neutrophils % 50.8 %; Nucleated Red Blood Cells % 0 %; Platelet Count 243 10^3/cmm (130-400); Red Blood Count 4.01 10^6/uL (4.1-5.3); Red Cell Distribution Width 13.4 % (12.1-15.1)
[2020-03-31 04:50] VITALS: BP 149/75; PULSE 65; RESP 20; TEMP 36.7; O2SAT 97
[2020-03-31 05:13] LABS: Alanine Aminotransferase 8 U/L (0-33); Albumin Level 3.3 g/dL (3.5-5.2); Alkaline Phosphatase 121 IU/L (35-105); Anion Gap 13.5 (5-19); Aspartate Amino Transferase 13 U/L (0-32); Blood Urea Nitrogen 12 mg/dL (6-20); Calcium 9.2 mg/dL (8.5-10.5); Carbon Dioxide 28 mmol/L (22-29); Chloride 97 mmol/L (98-107); Globulin 3.2 g/dL (1.3-4.6); Glomerular Filtration Rate 73.7 mL/min (90-130); Glucose 146 mg/dL (65-115); Magnesium 1.8 mg/dL (1.7-2.3); Osmolality Calculated 280 mOsm/kg (285-295); Potassium 4.5 mmol/L (3.5-5.1); Sodium 134 mmol/L (136-145); Total Bilirubin 0.3 mg/dL (0.15-1.2); Total Protein 6.5 g/dL (6.6-8.7)
[2020-03-31] MEDS: enoxaparin 40 mg/0.4 mL Syringe SUBCUT (05:58)
[2020-03-31 07:26] LABS: Glucose Point of Care 187 mg/dL (70-110)
[2020-03-31 08:05] VITALS: BP 132/76; PULSE 75; RESP 16; TEMP 37.8; O2SAT 96
[2020-03-31 08:42] VITALS: BP 132/76
[2020-03-31] MEDS: HYDROcodone-acetaminophen 7.5-325 mg Tablet 1 TAB PO (08:42)
[2020-03-31] MEDS: gabapentin 300 mg Capsule 600 MG PO ×3 (08:42→20:32)
[2020-03-31] MEDS: losartan 50 mg Tablet 25 MG PO (08:42)
[2020-03-31] MEDS: docusate sodium 100 mg Capsule PO ×2 (08:42→17:47)
[2020-03-31] MEDS: insulin glargine 100 units/1 mL 25 UNIT SUBCUT ×3 (08:43→20:42)
[2020-03-31] MEDS: ciprofloxacin 400 MG/200 ML PREMIX 200 MG IV ×2 (08:44→20:32)
--- NOTE | 2020-03-31 08:48 | PM.PN ---
Subjective Subjective: Interval history: pt doing well sittting up in bed. no pain Vitals/I&O/Wt Last Vital Signs Temp 100.1 F H 03/31/20 08:05 Pulse 75 03/31/20 08:05 Resp 16 03/31/20 08:05 BP 132/76 03/31/20 08:05 Pulse Ox 96 03/31/20 08:05 03/30/20 03/31/20 03/31/20 22:59 06:59 14:59 Intake Total 1290 / 2220 1090 / 3310 Output Total 1700 / 1700 980 / 2680 Balance -410 / 520 110 / 630 Physical Exam Narrative: EXAM NARRATIVE: sitting in bed style. wound c/d/i Data : 03/31/20 04:30 03/31/20 04:30 Micro: Microbiology 03/29/20 11:05 Blood Culture - Preliminary Blood NEGATIVE TO DATE 03/29/20 11:20 Blood Culture - Preliminary Blood NEGATIVE TO DATE 03/28/20 18:26 Gram Stain - Final Back Wound Culture - Preliminary Gram Negative Rods 03/28/20 18:26 Gram Stain - Final Back Anaerobic Culture - Preliminary Tissue Culture - Preliminary Gram Negative Rods A&P Additional A&P Information POD#3 I+D wound d/c planning after PICC and cultures finalized likely early next week Attestations Medical Necessity Statement*: needs IV abx Coding Level of Care Code Acute Vmware Systems Administrator for Joyce Keita
[2020-03-31 11:37] VITALS: BP 126/61; PULSE 69; RESP 17; TEMP 36.9; O2SAT 97
[2020-03-31 12:51] LABS: Glucose Point of Care 185 mg/dL (70-110)
[2020-03-31] MEDS: ketorolac 30 mg/mL INJ IVP (15:31)
--- NOTE | 2020-03-31 15:42 | P.PN_ITS ---
Subjective Subjective: Interval history: Patient had a T-max of 100.1 last night, she tells me that she did not notice any fevers, no nausea, no vomiting, no abdominal pain, no lightheadedness, dizziness, no cough, she tells me that she really wants to see if she can qualify for [place] [facility], as she is worried about worsening of her back infection Vitals/I&O/Wt Last Vital Signs Temp 98.4 F 03/31/20 11:37 Pulse 69 03/31/20 11:37 Resp 17 03/31/20 11:37 BP 126/61 03/31/20 11:37 Pulse Ox 97 03/31/20 11:37 03/31/20 03/31/20 03/31/20 06:59 14:59 22:59 Intake Total 1090 / 3310 920 / 920 Output Total 980 / 2680 Balance 110 / 630 920 / 920 Physical Exam Const: COMMON NORMALS: no acute distress and patient oriented x3 HENMT: COMMON NORMALS: normocephalic HEAD & SCALP: normocephalic Neck/C-Spine: COMMON NORMALS: no JVD Resp: COMMON NORMALS: normal respiratory effort, No retractions, No use of accessory muscles and clear to auscultation bilaterally AUSCULTATION: clear to auscultation bilaterally Cardio: COMMON NORMALS: no JVD, regular rate, regular rhythm, S1 normal heart sound present and S2 normal heart sound present RATE: regular rate RHYTHM: regular rhythm HEART SOUNDS: S1 normal heart sound present and S2 normal heart sound present GI: COMMON NORMALS: Normal to inspection, nondistended, normoactive bowel sounds present, Soft to palpation, non-tender, No hepatosplenomegaly present, no masses and no bruits PALPATION: Yes Soft to palpation and Yes No hepatosplenomegaly present Extremity: COMMON NORMALS: capillary refill normal, no clubbing, cyanosis or edema, no calf tenderness and no pedal edema Neuro: COMMON NORMALS: patient oriented x3 Psych: COMMON NORMALS: mental status grossly normal Data : 03/31/20 04:30 03/31/20 04:30 Micro: Microbiology 03/28/20 18:26 Gram Stain - Final Back Anaerobic Culture - Preliminary Tissue Culture - Preliminary Gram Negative Rods 03/28/20 18:26 Gram Stain - Final Back Wound Culture - Preliminary Gram Negative Rods 03/29/20 11:05 Blood Culture - Preliminary Blood NEGATIVE TO DATE 03/29/20 11:20 Blood Culture - Preliminary Blood NEGATIVE TO DATE A&P Assessment and plan (1) Wound infection after surgery: -Status post L5-S1 interbody fusion with posterolateral fusion, cage at L5-S1, laminectomy at L4, autograft, allograft, bone marrow aspirate from the iliac crest, reduction of spondylolisthesis -Now concerns for surgical site infection, deep tissue infection -S/p I&D, drain removed -Follow follow surgical cultures, so far gram-negative -Follow blood cultures. -Currently on vancomycin and Cipro IV -Obtain ESR 67, CRP 66.7, pro-Shiv 0.1 -Will await blood cultures, if negative will place a PICC line, will need at least 6 weeks of IV antibiotics, will discuss with infectious disease -She will think about going home versus detention facility -Needs better management of type 2 diabetes change to high-dose sliding scale plus Lantus 25 units 3 times daily -Lovenox for DVT prophylaxis -Full code Plan for today, continue broad-spectrum antibiotic therapy, follow cultures, monitor for fevers, better controlled blood sugars Status: Acute (2) Diabetes mellitus: -Continue home Lantus -Continue sliding scale Status: Acute (3) Hypertension: Monitor blood pressures Cardiac diet Status: Acute (4) Sleep apnea: CPAP at bedtime Status: Acute (5) Spondylolisthesis, lumbar region: Status: Acute Attestations Medical Necessity Statement*: Requires hospitalization for wound infection, surgical site infection requiring IV antibiotic therapy Coding Level of Care Code Acute Product Management Internship for [facility] Diagnoses Wound infection after surgery T81.49XA Diabetes mellitus E11.9 Hypertension I10 Sleep apnea G47.30 Spondylolisthesis, lumbar region M43.16
[2020-03-31 17:35] LABS: Glucose Point of Care 233 mg/dL (70-110)
--- NOTE | 2020-03-31 19:12 | PC.NURSE ---
Report to Ella MADDEN
[2020-03-31 20:00] VITALS: BP 153/82; PULSE 66; RESP 19; TEMP 36.7; O2SAT 97
[2020-03-31] MEDS: nicotine 21 mg Patch 1 PATCH TRANSDERMA (20:30)
[2020-03-31 20:52] LABS: Glucose Point of Care 160 mg/dL (70-110)
[2020-04-01] VITALS (8 sets, daily range): BP systolic 134–157; BP diastolic 64–86; PULSE 64–71; RESP 18–20; TEMP 36.3–37.2; O2SAT 97–100
[2020-04-01] MEDS: HYDROcodone-acetaminophen 5-325 mg Tablet PO ×4 (01:36→17:33)
[2020-04-01] MEDS: vancomycin 1,250 MG/250 ML PIGGYBACK 200 MG IV ×3 (01:37→17:33)
[2020-04-01 04:29] LABS: Basophils # 0.1 10^3/uL (0.0-0.1); Eosinophils # 0.5 10^3/uL (0.0-0.8); Eosinophils % 9.2 %; Hematocrit 31.4 % (37.0-47.0); Hemoglobin 9.9 g/dL (11.5-15.3); Lymphocytes # 1.5 10^3/uL (0.8-4.8); Lymphocytes % 29.4 %; Mean Corpuscular HGB Conc 31.5 g/dL (30.0-36.0); Mean Corpuscular Hemoglobin 27.4 pg (28.0-34.0); Mean Platelet Volume 11.7 fL (7.4-10.4); Monocytes # 0.5 10^3/uL (0.2-0.9); Monocytes % 10.5 %; Neutrophils # 2.54 10^3/uL (1.8-7.7); Neutrophils % 49.5 %; Nucleated Red Blood Cells % 0 %; Platelet Count 223 10^3/cmm (130-400); Red Blood Count 3.61 10^6/uL (4.1-5.3); Red Cell Distribution Width 13.2 % (12.1-15.1); White Blood Count 5.1 10^3/uL (4.0-10.0)
[2020-04-01 04:52] LABS: Alanine Aminotransferase 9 U/L (0-33); Alkaline Phosphatase 107 IU/L (35-105); Anion Gap 11.2 (5-19); Aspartate Amino Transferase 11 U/L (0-32); Blood Urea Nitrogen 9 mg/dL (6-20); Calcium 8.5 mg/dL (8.5-10.5); Carbon Dioxide 27 mmol/L (22-29); Chloride 99 mmol/L (98-107); Globulin 2.5 g/dL (1.3-4.6); Glomerular Filtration Rate 85.9 mL/min (90-130); Glucose 227 mg/dL (65-115); Magnesium 1.8 mg/dL (1.7-2.3); Osmolality Calculated 282 mOsm/kg (285-295); Potassium 4.2 mmol/L (3.5-5.1); Sodium 133 mmol/L (136-145); Total Bilirubin 0.2 mg/dL (0.15-1.2); Total Protein 5.5 g/dL (6.6-8.7)
[2020-04-01] MEDS: enoxaparin 40 mg/0.4 mL Syringe SUBCUT (05:24)
[2020-04-01 07:07] LABS: Glucose Point of Care 169 mg/dL (70-110)
[2020-04-01] MEDS: docusate sodium 100 mg Capsule PO (08:58)
[2020-04-01] MEDS: insulin glargine 100 units/1 mL 25 UNIT SUBCUT ×3 (08:58→21:17)
[2020-04-01] MEDS: gabapentin 300 mg Capsule 600 MG PO ×3 (08:58→21:16)
[2020-04-01] MEDS: losartan 50 mg Tablet 25 MG PO (08:58)
[2020-04-01] MEDS: ciprofloxacin 400 MG/200 ML PREMIX 200 MG IV ×2 (08:59→21:17)
--- NOTE | 2020-04-01 09:14 | P.PN_ITS ---
Subjective Subjective: Interval history: no complaints Vitals/I&O/Wt Last Vital Signs Temp 98.0 F 04/01/20 07:13 Pulse 64 04/01/20 07:13 Resp 18 04/01/20 07:13 BP 134/64 04/01/20 08:58 Pulse Ox 98 04/01/20 07:13 03/31/20 04/01/20 04/01/20 22:59 06:59 14:59 Intake Total 930 / 2100 1680 / 3780 Output Total 800 / 800 2000 / 2800 Balance 130 / 1300 -320 / 980 Physical Exam Narrative: EXAM NARRATIVE: wound CDI (dressing) sitting in bed comfortable Data : 04/01/20 04:04 04/01/20 04:04 Micro: Microbiology 03/28/20 18:26 Gram Stain - Final Back Anaerobic Culture - Preliminary Tissue Culture - Preliminary Gram Negative Rods 03/28/20 18:26 Gram Stain - Final Back Wound Culture - Preliminary Gram Negative Rods A&P Additional A&P Information S/P I+D spine wound Awaiting PICC line Attestations Medical Necessity Statement*: IVABX Coding Level of Care Code Acute Inspector Casing for Joyce Keita
[2020-04-01 11:15] LABS: Glucose Point of Care 140 mg/dL (70-110)
--- NOTE | 2020-04-01 11:24 | PM.PN ---
Subjective Subjective: Interval history: This morning patient was examined, she has not had any fevers overnight, no nausea, no vomiting, no chest pain, shortness of breath, no diarrhea, she is a bit concerned about going home with home health care, but understands that this may be a possibility, we are considering long-term placement Vitals/I&O/Wt Last Vital Signs Temp 98.0 F 04/01/20 10:44 Pulse 71 04/01/20 10:44 Resp 18 04/01/20 10:44 BP 136/86 04/01/20 10:44 Pulse Ox 100 04/01/20 10:44 03/31/20 04/01/20 04/01/20 22:59 06:59 14:59 Intake Total 930 / 2100 1930 / 4030 240 / 240 Output Total 800 / 800 2000 / 2800 Balance 130 / 1300 -70 / 1230 240 / 240 Physical Exam Const: COMMON NORMALS: no acute distress and patient oriented x3 HENMT: COMMON NORMALS: normocephalic HEAD & SCALP: normocephalic Neck/C-Spine: COMMON NORMALS: no JVD Resp: COMMON NORMALS: normal respiratory effort, No retractions, No use of accessory muscles and clear to auscultation bilaterally AUSCULTATION: clear to auscultation bilaterally Cardio: COMMON NORMALS: no JVD, regular rate, regular rhythm, S1 normal heart sound present and S2 normal heart sound present RATE: regular rate RHYTHM: regular rhythm HEART SOUNDS: S1 normal heart sound present and S2 normal heart sound present GI: COMMON NORMALS: Normal to inspection, nondistended, normoactive bowel sounds present, Soft to palpation, non-tender, No hepatosplenomegaly present, no masses and no bruits PALPATION: Yes Soft to palpation and Yes No hepatosplenomegaly present Extremity: COMMON NORMALS: capillary refill normal, no clubbing, cyanosis or edema, no calf tenderness and no pedal edema Neuro: COMMON NORMALS: patient oriented x3 Psych: COMMON NORMALS: mental status grossly normal Skin: NARRATIVE SKIN EXAM: Dressing present over lumbar spine Data : 04/01/20 04:04 04/01/20 04:04 Micro: Microbiology 03/28/20 18:26 Gram Stain - Final Back Wound Culture - Preliminary Gram Negative Rods Gram Negative Rods#2 03/28/20 18:26 Gram Stain - Final Back Anaerobic Culture - Preliminary Tissue Culture - Preliminary Gram Negative Rods Gram Negative Rods#2 A&P Assessment and plan (1) Wound infection after surgery: -Status post L5-S1 interbody fusion with posterolateral fusion, cage at L5-S1, laminectomy at L4, autograft, allograft, bone marrow aspirate from the iliac crest, reduction of spondylolisthesis -Now concerns for surgical site infection, deep tissue infection -S/p I&D -Follow follow surgical cultures, so far gram-negative -Follow blood cultures. -Currently on vancomycin and Cipro IV -Obtain ESR 67, CRP 66.7, pro-Shiv 0.1 -Will await blood cultures, if negative will place a PICC line, will need at least 6 weeks of IV antibiotics, will discuss with infectious disease -She will think about going home versus care home facility -Needs better management of type 2 diabetes change to high-dose sliding scale plus Lantus 25 units 3 times daily -Lovenox for DVT prophylaxis -Full code Plan for today, continue broad-spectrum antibiotic therapy, follow cultures, monitor for fevers, better controlled blood sugars, will have PICC line placed tomorrow Status: Acute (2) Diabetes mellitus: -Continue home Lantus -Continue sliding scale Status: Acute (3) Hypertension: Monitor blood pressures Cardiac diet Status: Acute (4) Sleep apnea: CPAP at bedtime Status: Acute (5) Spondylolisthesis, lumbar region: Status: Acute Attestations Medical Necessity Statement*: Patient requires hospitalization for wound infection after surgery, requiring 6 weeks of IV antibiotics, following cultures, working on PICC line placement, antibiotic therapy, Coding Level of Care Code Acute Records Management Analyst for [facility] Diagnoses Wound infection after surgery T81.49XA Diabetes mellitus E11.9 Hypertension I10 Sleep apnea G47.30 Spondylolisthesis, lumbar region M43.16
[2020-04-01 17:29] LABS: Glucose Point of Care 147 mg/dL (70-110)
[2020-04-01] MEDS: nicotine 21 mg Patch 1 PATCH TRANSDERMA (21:16)
[2020-04-01 21:36] LABS: Glucose Point of Care 238 mg/dL (70-110)
[2020-04-01] MEDS: ketorolac 30 mg/mL INJ IVP (22:16)
[2020-04-02] MEDS: vancomycin 1,250 MG/250 ML PIGGYBACK 200 MG IV ×3 (03:20→17:46)
[2020-04-02 04:00] VITALS: BP 152/74; PULSE 70; RESP 20; TEMP 36.5; O2SAT 98
[2020-04-02] MEDS: ketorolac 30 mg/mL INJ IVP (04:04)
[2020-04-02 05:09] LABS: Basophils # 0.1 10^3/uL (0.0-0.1); Basophils % 1.2 %; Eosinophils # 0.4 10^3/uL (0.0-0.8); Eosinophils % 9.1 %; Hematocrit 32.1 % (37.0-47.0); Lymphocytes # 1.6 10^3/uL (0.8-4.8); Lymphocytes % 32.9 %; Mean Corpuscular HGB Conc 31.2 g/dL (30.0-36.0); Mean Corpuscular Hemoglobin 27.2 pg (28.0-34.0); Mean Corpuscular Volume 87.2 fL (81-99); Mean Platelet Volume 11.6 fL (7.4-10.4); Monocytes # 0.5 10^3/uL (0.2-0.9); Monocytes % 10.1 %; Neutrophils # 2.24 10^3/uL (1.8-7.7); Neutrophils % 46.5 %; Nucleated Red Blood Cells % 0 %; Platelet Count 254 10^3/cmm (130-400); Red Blood Count 3.68 10^6/uL (4.1-5.3); Red Cell Distribution Width 13.2 % (12.1-15.1); White Blood Count 4.8 10^3/uL (4.0-10.0)
[2020-04-02 05:42] LABS: Alanine Aminotransferase 15 U/L (0-33); Alkaline Phosphatase 112 IU/L (35-105); Anion Gap 11.4 (5-19); Aspartate Amino Transferase 21 U/L (0-32); Blood Urea Nitrogen 12 mg/dL (6-20); Calcium 8.5 mg/dL (8.5-10.5); Carbon Dioxide 27 mmol/L (22-29); Chloride 98 mmol/L (98-107); Globulin 2.7 g/dL (1.3-4.6); Glomerular Filtration Rate 85.9 mL/min (90-130); Glucose 199 mg/dL (65-115); Magnesium 1.9 mg/dL (1.7-2.3); Osmolality Calculated 279 mOsm/kg (285-295); Phosphorus 4.6 mg/dL (2.5-4.5); Potassium 4.4 mmol/L (3.5-5.1); Sodium 132 mmol/L (136-145); Total Bilirubin 0.2 mg/dL (0.15-1.2); Total Protein 5.7 g/dL (6.6-8.7)
[2020-04-02] MEDS: enoxaparin 40 mg/0.4 mL Syringe SUBCUT (05:49)
[2020-04-02 07:05] LABS: Glucose Point of Care 181 mg/dL (70-110)
--- NOTE | 2020-04-02 07:16 | PM.PN ---
Subjective Subjective: Interval history: no changes Vitals/I&O/Wt Last Vital Signs Temp 97.7 F 04/02/20 04:00 Pulse 70 04/02/20 04:00 Resp 20 H 04/02/20 04:00 BP 152/74 04/02/20 04:00 Pulse Ox 98 04/02/20 04:00 04/01/20 04/02/20 04/02/20 22:59 06:59 14:59 Intake Total 490 / 1420 480 / 1900 Output Total 600 / 600 400 / 1000 Balance -110 / 820 80 / 900 Physical Exam Narrative: EXAM NARRATIVE: slight drainage no evidience of infection Data : 04/02/20 04:35 04/02/20 04:35 Micro: Microbiology 03/28/20 18:26 Gram Stain - Final Back Anaerobic Culture - Preliminary Peptostrep asaccharolyticus Tissue Culture - Preliminary Gram Negative Rods Gram Negative Rods#2 03/28/20 18:26 Gram Stain - Final Back Wound Culture - Preliminary Gram Negative Rods Gram Negative Rods#2 A&P Additional A&P Information s/p I+D back wound Awaiting PICC and Placement Attestations Medical Necessity Statement*: awaiting PICC and Placement Coding Level of Care Code Acute Assembly Line Upholsterer for Joyce Keita
[2020-04-02 07:17] VITALS: BP 162/63; PULSE 60; RESP 18; TEMP 36.6; O2SAT 97
--- NOTE | 2020-04-02 09:35 | XR_ITS ---
WS: [id number] CHEST XRAY TECHNIQUE: Portable chest. CLINICAL INFORMATION: picc placement COMPARISON: None. FINDINGS: Right PICC line with tip in the proximal to mid SVC. Heart: Normal cardiac silhouette. Lungs: Lungs are clear. No consolidation or pleural effusion. No pneumothorax. Bones: Normal visualized bony structures. XR/XR chest 1V portable [id number] IMPRESSION: Right PICC line in good position.
[2020-04-02] MEDS: insulin glargine 100 units/1 mL 25 UNIT SUBCUT ×3 (10:22→21:51)
[2020-04-02] MEDS: docusate sodium 100 mg Capsule PO (10:23)
[2020-04-02] MEDS: gabapentin 300 mg Capsule 600 MG PO ×3 (10:23→20:25)
[2020-04-02] MEDS: ciprofloxacin 400 MG/200 ML PREMIX 200 MG IV ×2 (10:23→20:26)
[2020-04-02 10:24] VITALS: BP 190/82
[2020-04-02] MEDS: losartan 50 mg Tablet 25 MG PO (10:24)
--- NOTE | 2020-04-02 11:38 | P.PN_ITS ---
Vitals/I&O/Wt Last Vital Signs Temp 97.9 F 04/02/20 07:17 Pulse 60 04/02/20 07:17 Resp 18 04/02/20 07:17 BP 190/82 04/02/20 10:24 Pulse Ox 97 04/02/20 07:17 04/01/20 04/02/20 04/02/20 22:59 06:59 14:59 Intake Total 690 / 1620 480 / 2100 240 / 240 Output Total 600 / 600 400 / 1000 Balance 90 / 1020 80 / 1100 240 / 240 Physical Exam Const: COMMON NORMALS: no acute distress and patient oriented x3 HENMT: COMMON NORMALS: normocephalic HEAD & SCALP: normocephalic Neck/C-Spine: COMMON NORMALS: no JVD Resp: COMMON NORMALS: normal respiratory effort, No retractions, No use of accessory muscles and clear to auscultation bilaterally AUSCULTATION: clear to auscultation bilaterally Cardio: COMMON NORMALS: no JVD, regular rate, regular rhythm, S1 normal heart sound present and S2 normal heart sound present RATE: regular rate RHYTHM: regular rhythm HEART SOUNDS: S1 normal heart sound present and S2 normal hea rt sound present GI: COMMON NORMALS: Normal to inspection, nondistended, normoactive bowel sounds present, Soft to palpation, non-tender, No hepatosplenomegaly present, no masses and no bruits PALPATION: Yes Soft to palpation and Yes No hepatosplenomegaly present Extremity: COMMON NORMALS: capillary refill normal, no clubbing, cyanosis or edema, no calf tenderness and no pedal edema Neuro: COMMON NORMALS: patient oriented x3 Psych: COMMON NORMALS: mental status grossly normal Data : 04/02/20 04:35 04/02/20 04:35 Micro: Microbiology 03/28/20 18:26 Gram Stain - Final Back Anaerobic Culture - Preliminary Peptostrep asaccharolyticus Tissue Culture - Final Gram Negative Rods Gram Negative Rods#2 03/28/20 18:26 Gram Stain - Final Back Wound Culture - Final Enterobacter cloacae Enterobacter cloacae#2 A&P Assessment and plan (1) Wound infection after surgery: -Status post L5-S1 interbody fusion with posterolateral fusion, cage at L5-S1, laminectomy at L4, autograft, allograft, bone marrow aspirate from the iliac crest, reduction of spondylolisthesis -Now concerns for surgical site infection, deep tissue infection -S/p I&D -Follow follow surgical cultures, so far gram-negative, ENTEROBACTER -Follow blood cultures, SO FAR NEGATIVE -Currently on vancomycin and Cipro IV, IV VANCOMYCIN AND PO CIPROFLOXACIN FOR 42 DAYS -Obtain ESR 67, CRP 66.7, pro-Shiv 0.1 -PICC LINE TO BE PLACED -LIKELY DC HOME WITH HOME INFUSION -Needs better management of type 2 diabetes change to high-dose sliding scale plus Lantus 25 units 3 times daily -Lovenox for DVT prophylaxis -Full code Plan for today, continue broad-spectrum antibiotic therapy, follow cultures, monitor for fevers, better controlled blood sugars, will have PICC line placed tomorrow Status: Acute (2) Diabetes mellitus: -Continue home Lantus -Continue sliding scale Status: Acute (3) Hypertension: Monitor blood pressures Cardiac diet Status: Acute (4) Sleep apnea: CPAP at bedtime Status: Acute (5) Spondylolisthesis, lumbar region: Status: Acute Attestations Medical Necessity Statement*: PATIENT requires hospitalization for wound infection of the back after surgery, requiring IV antibiotic therapy, awaiting home health infusion of IV antibiotics 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
[2020-04-02 11:41] VITALS: BP 178/87; PULSE 62; RESP 18; TEMP 36.8; O2SAT 98
[2020-04-02 13:40] LABS: Glucose Point of Care 180 mg/dL (70-110)
[2020-04-02] MEDS: amlodipine 10 mg Tablet PO (13:54)
[2020-04-02 15:23] VITALS: BP 179/82; PULSE 69; RESP 18; TEMP 36.6; O2SAT 97
[2020-04-02 17:39] LABS: Glucose Point of Care 132 mg/dL (70-110)
[2020-04-02 18:03] LABS: Glucose Point of Care 143 mg/dL (70-110)
[2020-04-02] MEDS: acetaminophen 325 mg Tablet 650 MG PO (19:08)
[2020-04-02 20:00] VITALS: BP 146/78; PULSE 71; RESP 20; TEMP 37.2; O2SAT 99
[2020-04-02] MEDS: nicotine 21 mg Patch 1 PATCH TRANSDERMA (20:25)
[2020-04-02 21:43] LABS: Glucose Point of Care 171 mg/dL (70-110)
[2020-04-03] VITALS: BP 135/69; PULSE 71; RESP 20; TEMP 37.1; O2SAT 96
[2020-04-03 02:01] LABS: Basophils # 0.1 10^3/uL (0.0-0.1); Eosinophils # 0.4 10^3/uL (0.0-0.8); Eosinophils % 7.1 %; Hematocrit 30.8 % (37.0-47.0); Hemoglobin 9.6 g/dL (11.5-15.3); Lymphocytes # 1.6 10^3/uL (0.8-4.8); Lymphocytes % 30.3 %; Mean Corpuscular HGB Conc 31.2 g/dL (30.0-36.0); Mean Corpuscular Hemoglobin 27.2 pg (28.0-34.0); Mean Corpuscular Volume 87.3 fL (81-99); Mean Platelet Volume 11.6 fL (7.4-10.4); Monocytes # 0.6 10^3/uL (0.2-0.9); Neutrophils # 2.55 10^3/uL (1.8-7.7); Neutrophils % 49.2 %; Nucleated Red Blood Cells % 0 %; Platelet Count 253 10^3/cmm (130-400); Red Blood Count 3.53 10^6/uL (4.1-5.3); Red Cell Distribution Width 13.2 % (12.1-15.1); White Blood Count 5.2 10^3/uL (4.0-10.0)
[2020-04-03 02:16] LABS: Alanine Aminotransferase 20 U/L (0-33); Albumin Level 3.2 g/dL (3.5-5.2); Alkaline Phosphatase 124 IU/L (35-105); Anion Gap 10.2 (5-19); Aspartate Amino Transferase 28 U/L (0-32); Blood Urea Nitrogen 10 mg/dL (6-20); Calcium 8.6 mg/dL (8.5-10.5); Carbon Dioxide 27 mmol/L (22-29); Chloride 103 mmol/L (98-107); Globulin 2.5 g/dL (1.3-4.6); Glomerular Filtration Rate 102.7 mL/min (90-130); Glucose 212 mg/dL (65-115); Osmolality Calculated 287 mOsm/kg (285-295); Potassium 4.2 mmol/L (3.5-5.1); Sodium 136 mmol/L (136-145); Total Bilirubin 0.2 mg/dL (0.15-1.2); Total Protein 5.7 g/dL (6.6-8.7)
[2020-04-03 02:32] LABS: Magnesium 1.8 mg/dL (1.7-2.3); Phosphorus 4.2 mg/dL (2.5-4.5); Vancomycin Trough 16.5 ug/mL (10-15)
[2020-04-03] MEDS: vancomycin 1,250 MG/250 ML PIGGYBACK 200 MG IV ×2 (03:29→12:29)
[2020-04-03 04:00] VITALS: BP 117/72; PULSE 67; RESP 20; TEMP 36.9; O2SAT 95
[2020-04-03] MEDS: enoxaparin 40 mg/0.4 mL Syringe SUBCUT (04:59)
[2020-04-03] MEDS: acetaminophen 325 mg Tablet 650 MG PO ×2 (05:01→10:37)
[2020-04-03 06:42] LABS: Glucose Point of Care 220 mg/dL (70-110)
[2020-04-03 07:35] VITALS: BP 138/59; PULSE 65; RESP 18; TEMP 36.7; O2SAT 96
--- NOTE | 2020-04-03 07:58 | PM.PN ---
Subjective Subjective: Interval history: no changes Vitals/I&O/Wt Last Vital Signs Temp 98.1 F 04/03/20 07:35 Pulse 65 04/03/20 07:35 Resp 18 04/03/20 07:35 BP 138/59 04/03/20 07:35 Pulse Ox 96 04/03/20 07:35 04/02/20 04/03/20 04/03/20 22:59 06:59 14:59 Intake Total 250 / 1180 450 / 450 Output Total 0 / 0 700 / 700 Balance 250 / 1180 -700 / 480 450 / 450 Physical Exam Narrative: EXAM NARRATIVE: wound with serrous drainage 07/25 strength Data : 04/03/20 01:33 04/03/20 01:33 Micro: Microbiology 03/28/20 22:35 Blood Culture - Final Blood NO GROWTH AFTER 5 DAYS 03/28/20 22:30 Blood Culture - Final Blood NO GROWTH AFTER 5 DAYS 03/28/20 18:26 Gram Stain - Final Back Anaerobic Culture - Preliminary Peptostrep asaccharolyticus Tissue Culture - Final Gram Negative Rods Gram Negative Rods#2 03/28/20 18:26 Gram Stain - Final Back Wound Culture - Final Enterobacter cloacae Enterobacter cloacae#2 A&P Additional A&P Information awaiting home abx to be set up Attestations Medical Necessity Statement*: awaiting home abx to be set up 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
[2020-04-03 09:20] VITALS: BP 138/59
[2020-04-03] MEDS: losartan 50 mg Tablet 25 MG PO (09:20)
[2020-04-03] MEDS: docusate sodium 100 mg Capsule PO (09:20)
[2020-04-03] MEDS: insulin glargine 100 units/1 mL 25 UNIT SUBCUT (09:20)
[2020-04-03] MEDS: gabapentin 300 mg Capsule 600 MG PO (09:21)
[2020-04-03] MEDS: amlodipine 10 mg Tablet PO (09:21)
--- NOTE | 2020-04-03 10:35 | PM.DCS ---
Discharge Providers Date of Admission: 03/28/20 21:32 Date of Discharge: April 03, 2020 Attending Provider at Admission: Carlos Anderson DO Attending Provider at Discharge: Carlos Anderson DO Primary Care Provider: JEROME Smith Diagnoses at Discharge Discharge Diagnosis (1) Wound infection after surgery: Status: Acute (2) Diabetes mellitus: Status: Acute (3) Hypertension: Status: Acute (4) Sleep apnea: Status: Acute (5) Spondylolisthesis, lumbar region: Status: Acute Reason for Visit Reason for Visit: Spondylolisthesis Hospital Course Hospital Course This is a 60-year-old female with a past medical history of insulin-dependent type 2 diabetes mellitus, hypertension, sleep apnea, who presents to [facility] due to concerns for surgical site infection Wound infection after surgery: -Status post L5-S1 interbody fusion with posterolateral fusion, cage at L5-S1, laminectomy at L4, autograft, allograft, bone marrow aspirate from the iliac crest, reduction of spondylolisthesis -With concerns concerns for surgical site infection, deep tissue infection -S/p I&D by Dr. Anderson -Follow follow surgical cultures, so far gram-negative, ENTEROBACTER -Follow blood cultures, SO FAR NEGATIVE -Currently on vancomycin and Cipro IV, -Will be discharged on IV vancomycin trough 50 mg every 8 hours, last vancomycin trough was 16.5 at 1:33 AM on 04/03/2020, ciprofloxacin 500 mg twice daily, for a total of 41 days -Primary care to follow vancomycin troughs, home health infusion company -Repeat CBC and CMP weekly -Dr. Anderson to follow wound care -Obtain ESR 67, CRP 66.7, pro-Shiv 0.1 -PICC placed -Patient needs close monitoring of her blood sugars, keep blood sugars between 160-1 80 Physical Exam Const: COMMON NORMALS: no acute distress and patient oriented x3 HENMT: COMMON NORMALS: normocephalic HEAD & SCALP: normocephalic Neck/C-Spine: COMMON NORMALS: no JVD Resp: COMMON NORMALS: normal respiratory effort, No retractions, No use of accessory muscles and clear to auscultation bilaterally AUSCULTATION: clear to auscultation bilaterally Cardio: COMMON NORMALS: no JVD, regular rate, regular rhythm, S1 normal heart sound present and S2 normal heart sound present RATE: regular rate RHYTHM: regular rhythm HEART SOUNDS: S1 normal heart sound present and S2 normal heart sound present GI: COMMON NORMALS: Normal to inspection, nondistended, normoactive bowel sounds present, Soft to palpation, non-tender, No hepatosplenomegaly present, no masses and no bruits PALPATION: Yes Soft to palpation and Yes No hepatosplenomegaly present Extremity: COMMON NORMALS: capillary refill normal, no clubbing, cyanosis or edema, no calf tenderness and no pedal edema Neuro: COMMON NORMALS: patient oriented x3 Psych: COMMON NORMALS: mental status grossly normal Discharge Data Data Completed and Pending: Completed Studies During Hospitalization Category Date Time Status CXRP [XR chest 1V portable [id number]] R outine Exams 04/02/20 09:35 Completed Pending at discharge Category Date Time Status Anaerobic Culture Routine Lab 03/28/20 18:26 Results Blood Culture Sta t Lab 03/29/20 11:20 Results Magnesium AM LABS Lab 04/04/20 04:00 Ordered Phosphorus AM LAB S Lab 04/04/20 04:00 Ordered Tissue Culture an d Gram Stain Routi ne Lab 03/28/20 18:26 Results Labs from last 24 hours 04/03/20 04/03/20 04/03/20 06:03 01:33 01:33 WBC RBC Hgb Hct MCV MCH MCHC RDW Plt Count MPV Neut % (Auto) Lymph % (Auto) Campbell % (Auto) Eos % (Auto) Baso % (Auto) Neut # (Auto) Lymph # (Auto) Campbell # (Auto) Eos # (Auto) Baso # (Auto) Nucleated RBC % (a uto) Nucleated RBCs # Sodium 136 Potassium 4.2 Chloride 103 Carbon Dioxide 27 Anion Gap 10.2 BUN 10 Creatinine 0.6 GFR Calculation 102.7 Glucose 212 H POC Glucose 220 H Calculated Osmolal ity 287 Calcium 8.6 Phosphorus 4.2 Magnesium 1.8 Total Bilirubin 0.2 AST 28 ALT 20 Alkaline Phosphata se 124 H Total Protein 5.7 L Albumin 3.2 L Globulin 2.5 Vancomycin Trough 04/03/20 04/03/20 04/02/20 01:33 01:33 21:16 WBC 5.2 RBC 3.53 L Hgb 9.6 L Hct 30.8 L MCV 87.3 MCH 27.2 L MCHC 31.2 RDW 13.2 Plt Count 253 MPV 11.6 H Neut % (Auto) 49.2 Lymph % (Auto) 30.3 Campbell % (Auto) 12.0 Eos % (Auto) 7.1 Baso % (Auto) 1.0 Neut # (Auto) 2.55 Lymph # (Auto) 1.6 Campbell # (Auto) 0.6 Eos # (Auto) 0.4 Baso # (Auto) 0.1 Nucleated RBC % (a uto) 0 Nucleated RBCs # 0.0 Sodium Potassium Chloride Carbon Dioxide Anion Gap BUN Creatinine GFR Calculation Glucose POC Glucose 171 H Calculated Osmolal ity Calcium Phosphorus Magnesium Total Bilirubin AST ALT Alkaline Phosphata se Total Protein Albumin Globulin Vancomycin Trough 16.5 H 04/02/20 04/02/20 04/02/20 17:47 17:22 13:36 WBC RBC Hgb Hct MCV MCH MCHC RDW Plt Count MPV Neut % (Auto) Lymph % (Auto) Campbell % (Auto) Eos % (Auto) Baso % (Auto) Neut # (Auto) Lymph # (Auto) Campbell # (Auto) Eos # (Auto) Baso # (Auto) Nucleated RBC % (a uto) Nucleated RBCs # Sodium Potassium Chloride Carbon Dioxide Anion Gap BUN Creatinine GFR Calculation Glucose POC Glucose 143 H 132 H 180 H Calculated Osmolal ity Calcium Phosphorus Magnesium Total Bilirubin AST ALT Alkaline Phosphata se Total Protein Albumin Globulin Vancomycin Trough Vitals: Last Vital Signs Temp 98.1 F 04/03/20 07:35 Pulse 65 04/03/20 07:35 Resp 18 04/03/20 07:35 BP 138/59 04/03/20 09:20 Pulse Ox 96 04/03/20 07:35 Discharge Plan Discharge Patient Disposition: Home Condition: Stable Prescriptions: New amlodipine 10 mg Tablet 10 mg PO DAILY 30 Days Qty: 30 RF: 0 DOK 100 mg Capsule 100 mg PO BID 30 Days Qty: 60 RF: 0 vancomycin-water inject (PEG) 1.25 gram/250 mL Piggyback 1,250 mg continuous IV infusion Q8H Qty: 1500 RF: 0 Cipro 500 mg tablet 500 mg PO BID 41 Days Qty: 82 RF: 0 Continued gabapentin 600 mg tablet 600 mg PO TID Qty: 90 RF: 0 Lantus U-100 Insulin 100 unit/mL solution 25 unit SUBCUT TID RF: 0 insulin lispro [Humalog U-100 Insulin] 100 unit/mL solution 10 unit SUBCUT .SLIDING SCALE RF: 0 losartan 25 mg Tablet 25 mg PO DAILY RF: 0 hydrocodone-acetaminophen 5-325 mg tablet 1 - 2 tab PO .Q4-6H RF: 0 Discontinued hydrocodone-acetaminophen [[place]] 7.5-325 mg tablet 1 tab PO Q4H PRN (Reason: pain) 7 Days Qty: 60 RF: 0 Discharge Orders: Discharge Order (Routine); Ordered 04/03/20 Ordered By: Jonh Taylor Other Ambulatory Orders: Complete Blood Count w/Auto (WEEKLY) Timeframe: 20200410 Location: Determined by Patient Ordered By: Jonh Helmsmood Complete Blood Count w/Auto (WEEKLY) Timeframe: 20200411 Location: Determined by Patient Ordered By: Jonh Brandon Complete Blood Count w/Auto (WEEKLY) Timeframe: 20200412 Location: Determined by Patient Ordered By: Jonh Brandon Complete Blood Count w/Auto (WEEKLY) Timeframe: 20200413 Location: Determined by Patient Ordered By: Jonh Helmsmood Complete Blood Count w/Auto (WEEKLY) Timeframe: 20200414 Location: Determined by Patient Ordered By: Jonh Helmsmood Comprehensive Metabolic Panel (WEEKLY) Timeframe: 20200410 Facility: [facility] - Location: Lab - Main Lab Ordered By: Jonh Taylor Comprehensive Metabolic Panel (WEEKLY) Timeframe: 20200411 Facility: [facility] - Location: Lab - Main Lab Ordered By: Jonh Helmsmood Comprehensive Metabolic Panel (WEEKLY) Timeframe: 20200412 Facility: [facility] - Location: Lab - Main Lab Ordered By: Jonh Taylor Comprehensive Metabolic Panel (WEEKLY) Timeframe: 20200413 Facility: [facility] - Location: Lab - Main Lab Ordered By: Jonh Helmsmood Comprehensive Metabolic Panel (WEEKLY) Timeframe: 20200414 Facility: [facility] - Location: Lab - Main Lab Ordered By: Jonh Taylor Referrals: Carlos Anderson DO [Physician] - 1-3 days Macey Garcia MD [Hospitalist] - 1 month (infectious disease) Discharge Diet: Cardiac and Diabetic Discharge Activity: Resume usual activity Patient Instructions: Ciprofloxacin (By mouth), Laxative, Stool Softeners (By mouth), Amlodipine (By mouth), Vancomycin (Injection), Sleep Apnea Syndrome (DC), Diabetes Mellitus Type 2 in Adults (DC), Surgical Site Infections (GEN), Hypertension (DC) Activity Restrictions/Additional Instructions: -Please take antibiotics as prescribed -IV antibiotics, vancomycin 1250 mg every 8 hours, Vanco trough 16.5, drawn on 04/03/2019 1 at 1:33 AM, further vancomycin dosing and Vanco troughs based on home infusion company, but typically Vanco troughs every 48 hours -Weekly CBC CMP -Ciprofloxacin 500 mg twice daily for 41 days -Follow-up with primary care provider in 1 week -Follow-up with Dr. 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
[2020-04-03] MEDS: ciprofloxacin 400 MG/200 ML PREMIX 200 MG IV (10:37)
--- NOTE | 2020-04-03 11:14 | PM.DCS ---
Discharge Providers Date of Admission: 03/28/20 21:32 Date of Discharge: April 03, 2020 Attending Provider at Admission: Carlos Anderson DO Attending Provider at Discharge: Carlos Anderson DO Primary Care Provider: JEROME Smith Diagnoses at Discharge Discharge Diagnosis (1) Wound infection after surgery: Status: Acute (2) Diabetes mellitus: Status: Acute (3) Hypertension: Status: Acute (4) Sleep apnea: Status: Acute (5) Spondylolisthesis, lumbar region: Status: Acute Reason for Visit Reason for Visit: Spondylolisthesis Hospital Course Hospital Course This is a 60-year-old female with a past medical history of insulin-dependent type 2 diabetes mellitus, hypertension, sleep apnea, who presents to [facility] due to concerns for surgical site infection Wound infection after surgery: -Status post L5-S1 interbody fusion with posterolateral fusion, cage at L5-S1, laminectomy at L4, autograft, allograft, bone marrow aspirate from the iliac crest, reduction of spondylolisthesis -With concerns concerns for surgical site infection, deep tissue infection -S/p I&D by Dr. Anderson -Follow follow surgical cultures, so far gram-negative, ENTEROBACTER -Follow blood cultures, SO FAR NEGATIVE -Currently on vancomycin and Cipro IV, -Will be discharged on IV vancomycin trough 50 mg every 8 hours, last vancomycin trough was 16.5 at 1:33 AM on 04/03/2020, ciprofloxacin 500 mg twice daily, for a total of 41 days -Primary care to follow vancomycin troughs, home health infusion company -Repeat CBC and CMP weekly -Dr. Anderson to follow wound care -Obtain ESR 67, CRP 66.7, pro-Shiv 0.1 -PICC placed -Patient needs close monitoring of her blood sugars, keep blood sugars between 160-1 80 Discharge Data Data Completed and Pending: Completed Studies During Hospitalization Category Date Time Status CXRP [XR chest 1V portable [id number]] R outine Exams 04/02/20 09:35 Completed Pending at discharge Category Date Time Status Anaerobic Culture Routine Lab 03/28/20 18:26 Results Blood Culture Sta t Lab 03/29/20 11:20 Results Magnesium AM LABS Lab 04/04/20 04:00 Ordered Phosphorus AM LAB S Lab 04/04/20 04:00 Ordered Tissue Culture an d Gram Stain Routi ne Lab 03/28/20 18:26 Results Labs from last 24 hours 04/03/20 04/03/20 04/03/20 06:03 01:33 01:33 WBC RBC Hgb Hct MCV MCH MCHC RDW Plt Count MPV Neut % (Auto) Lymph % (Auto) Rich % (Auto) Eos % (Auto) Baso % (Auto) Neut # (Auto) Lymph # (Auto) Rich # (Auto) Eos # (Auto) Baso # (Auto) Nucleated RBC % (a uto) Nucleated RBCs # Sodium 136 Potassium 4.2 Chloride 103 Carbon Dioxide 27 Anion Gap 10.2 BUN 10 Creatinine 0.6 GFR Calculation 102.7 Glucose 212 H POC Glucose 220 H Calculated Osmolal ity 287 Calcium 8.6 Phosphorus 4.2 Magnesium 1.8 Total Bilirubin 0.2 AST 28 ALT 20 Alkaline Phosphata se 124 H Total Protein 5.7 L Albumin 3.2 L Globulin 2.5 Vancomycin Trough 04/03/20 04/03/20 04/02/20 01:33 01:33 21:16 WBC 5.2 RBC 3.53 L Hgb 9.6 L Hct 30.8 L MCV 87.3 MCH 27.2 L MCHC 31.2 RDW 13.2 Plt Count 253 MPV 11.6 H Neut % (Auto) 49.2 Lymph % (Auto) 30.3 Rich % (Auto) 12.0 Eos % (Auto) 7.1 Baso % (Auto) 1.0 Neut # (Auto) 2.55 Lymph # (Auto) 1.6 Rich # (Auto) 0.6 Eos # (Auto) 0.4 Baso # (Auto) 0.1 Nucleated RBC % (a uto) 0 Nucleated RBCs # 0.0 Sodium Potassium Chloride Carbon Dioxide Anion Gap BUN Creatinine GFR Calculation Glucose POC Glucose 171 H Calculated Osmolal ity Calcium Phosphorus Magnesium Total Bilirubin AST ALT Alkaline Phosphata se Total Protein Albumin Globulin Vancomycin Trough 16.5 H 04/02/20 04/02/20 04/02/20 17:47 17:22 13:36 WBC RBC Hgb Hct MCV MCH MCHC RDW Plt Count MPV Neut % (Auto) Lymph % (Auto) Rich % (Auto) Eos % (Auto) Baso % (Auto) Neut # (Auto) Lymph # (Auto) Rich # (Auto) Eos # (Auto) Baso # (Auto) Nucleated RBC % (a uto) Nucleated RBCs # Sodium Potassium Chloride Carbon Dioxide Anion Gap BUN Creatinine GFR Calculation Glucose POC Glucose 143 H 132 H 180 H Calculated Osmolal ity Calcium Phosphorus Magnesium Total Bilirubin AST ALT Alkaline Phosphata se Total Protein Albumin Globulin Vancomycin Trough Vitals: Last Vital Signs Temp 98.1 F 04/03/20 07:35 Pulse 65 04/03/20 07:35 Resp 18 04/03/20 07:35 BP 138/59 04/03/20 09:20 Pulse Ox 96 04/03/20 07:35 Discharge Plan Discharge Patient Disposition: Home Condition: Stable Prescriptions: New amlodipine 10 mg Tablet 10 mg PO DAILY 30 Days Qty: 30 RF: 0 DOK 100 mg Capsule 100 mg PO BID 30 Days Qty: 60 RF: 0 vancomycin-water inject (PEG) 1.25 gram/250 mL Piggyback 1,250 mg continuous IV infusion Q8H Qty: 1500 RF: 0 Cipro 500 mg tablet 500 mg PO BID 41 Days Qty: 82 RF: 0 hydrocodone-acetaminophen 5-325 mg tablet 1 - 2 tab PO .Q4-6H Qty: 40 RF: 0 Continued gabapentin 600 mg tablet 600 mg PO TID Qty: 90 RF: 0 Lantus U-100 Insulin 100 unit/mL solution 25 unit SUBCUT TID RF: 0 insulin lispro [Humalog U-100 Insulin] 100 unit/mL solution 10 unit SUBCUT .SLIDING SCALE RF: 0 losartan 25 mg Tablet 25 mg PO DAILY RF: 0 hydrocodone-acetaminophen 5-325 mg tablet 1 - 2 tab PO .Q4-6H RF: 0 Discontinued hydrocodone-acetaminophen [[place]] 7.5-325 mg tablet 1 tab PO Q4H PRN (Reason: pain) 7 Days Qty: 60 RF: 0 Discharge Orders: Discharge Order (Routine); Ordered 04/03/20 Ordered By: Jonh Taylor Other Ambulatory Orders: Complete Blood Count w/Auto (WEEKLY) Timeframe: 20200410 Location: Determined by Patient Ordered By: Jonh Taylor Complete Blood Count w/Auto (WEEKLY) Timeframe: 20200411 Location: Determined by Patient Ordered By: Jonh Taylor Complete Blood Count w/Auto (WEEKLY) Timeframe: 20200412 Location: Determined by Patient Ordered By: Jonh Taylor Complete Blood Count w/Auto (WEEKLY) Timeframe: 20200413 Location: Determined by Patient Ordered By: Jonh Taylor Complete Blood Count w/Auto (WEEKLY) Timeframe: 20200414 Location: Determined by Patient Ordered By: Jonh Taylor Comprehensive Metabolic Panel (WEEKLY) Timeframe: 20200410 Facility: [facility] - Location: Lab - Main Lab Ordered By: Jonh Helmsmood Comprehensive Metabolic Panel (WEEKLY) Timeframe: 20200411 Facility: [facility] - Location: Lab - Main Lab Ordered By: Jonh Helmsmood Comprehensive Metabolic Panel (WEEKLY) Timeframe: 20200412 Facility: [facility] - Location: Lab - Main Lab Ordered By: Jonh Brandon Comprehensive Metabolic Panel (WEEKLY) Timeframe: 20200413 Facility: [facility] - Location: Lab - Main Lab Ordered By: Jonh Taylor Comprehensive Metabolic Panel (WEEKLY) Timeframe: 20200414 Facility: [facility] - Location: Lab - Main Lab Ordered By: Jonh Taylor Referrals: [facility] [Other] [facility] [Outside] Carlos Anderson DO [Physician] - 1-3 days Macey Garcia MD [Hospitalist] - 05/08/20 1:00 pm (infectious disease) Discharge Diet: Cardiac and Diabetic Discharge Activity: Resume usual activity Patient Instructions: Ciprofloxacin (By mouth), Laxative, Stool Softeners (By mouth), Amlodipine (By mouth), Vancomycin (Injection), Sleep Apnea Syndrome (DC), Diabetes Mellitus Type 2 in Adults (DC), Surgical Site Infections (GEN), Hypertension (DC) Activity Restrictions/Additional Instructions: -Please take antibiotics as prescribed -IV antibiotics, vancomycin 1250 mg every 8 hours, Vanco trough 16.5, drawn on 04/03/2019 1 at 1:33 AM, further vancomycin dosing and Vanco troughs based on home infusion company, but typically Vanco troughs every 48 hours -Weekly CBC CMP -Ciprofloxacin 500 mg twice daily for 41 days -Follow-up with primary care provider in 1 week -Follow-up with Dr. Anderson Thank you for [facility] for your care! The following is a list of instructions, from your provider, to follow upon your discharge to ensure you have the optimal recovery from your recent injury orsurgery. Follow-up care is a murry part of your treatment and safety. Be sure to make and go to all appointments, and call your doctor if you are having problems. If you do not already have a follow-up appointment made, call Dr. Anderson office in the next 1-3 days to make follow up appointment for 1 weeks at [phone]. It is also a good idea to know your test results and keep a list of the medicines you take. Medications will be prescribed for you at your provider's discretion. These medications are to be used as instructed; if they are taken more often that prescribed they will not be refilled early and in most cases will not be refilled at all. > When a refill is needed,you should contact fidel ivey 2-3 business days before your prescription runs out. Medications will NOT be refilled by client onboarding analyst providers after hours! > Many pain medications contain Tylenol (Acetaminophen). Do not consume more than 4,000 mg of Tylenol per day in total with any combination ofmedications. > Pain medications can cause constipation. Please use an over the counter stool softener as directed, while taking pain medications. Consulty our local pharmacist with questions or recommendations on stool softeners. If constipation persists, contact our office or your primary care provider. > While under our care,you are not to receive pain medications or other controlled substances from any other provider unless our office is notified and approves. Any attempts to do so will result in refusal to prescribe any further pain medications and possible dismissal from our practice. ? Your wound and/or dressing should remain clean and dry for 2 days after surgery. On postoperative day 2 (48 hours after your surgery) the dressing (if present) should be removed and it is okay to shower and get the incision wet. Pad dry afterwards. No further dressing should be required from that point on. Do not put any creams or ointments on theincision > It is normal for there to be a small amount of discharge (bloody or blood tinged) present from a surgical wound for the first 1-3days. > The wound should be examined twice a day for signs of infection. Mild redness or bruising is to be expected but indications that an infection maybe starting would include; An increase in redness, swelling, or discharge, a foul odor present around the incision, and/or a fever greater than 101 ?F ? Showering is permitted, however we ask that you do not take a bath, sit in a whirlpool / Jacuzzi, or go swimming for 1 month. For only the first 2 days after surgery, lt wilt be necessary for you to cover your wound/dressing with plastic and tape to keep it dry. ? Walking is essential for the healing process after surgery. We would like you to slowly advance your walking. This should be done on relatively flat clear ground (inside or out) or can be done on a treadmill. Remember this goal does not have to happen all at once, slowly increase your distance and duration. This can be broken into more more than one walk per day as tolerated. Patients who walk as directed after surgery rarely require Physical Therapy. In the unlikely event this issue arises your provider will direct hospital staff to make the appropriate arrangements. ? No lifting over 5 pounds {a gallon of milk) or bending/twisting until further notice. Each of these activities places an unnecessary amount of stress onto the body and can impede the delicate healing process. > Instead of bending at the waist, keep your back straight and bend at the knees. > Instead of twisting your torso, keep your back straight and turn your entire body with your feet. ? You may sleep in any position which makes you comfortable. Many patients find comfort sleeping in a reclining chair. It is not abnormal to have difficulty sleeping for the first several weeks following your surgery. We recommend trying Benadry! or Tylenol PM as directed to help with your sleeping difficulties. Both medications are over the counter and available withoutprescription. ? NO SMOKING!!! Smoking dramatically increases the probability of developing postoperative wound infections. ? Common complaints after lumbar and/or thoracic spine surgery include, but are not limited to: numbness and/or tingling in the legs, pain around the incision and surrounding tissues, muscle spasms, or stiffness of the middle to low back. Contact our office if these symptoms persist or if an acute change occurs. ? No driving for the first 3-5days, and not while taking narcotics [] until seen at your follow-up appointment and cleared. There are no restrictions for riding on short trips, however if you take a longer trip, arrangements should be made to make regular stops to get out of the vehicle and stretch . ? Swelling is an unfortunate event that will take place with any surgery and is the primary source of your postoperative discomfort. While walking and regular approved activities helps control inflammation, there are additional steps you can take to minimizeswelling. > Place ice over the surgical site and surrounding tissue for twenty minutes, followed by applying a low/medium heat (heating pad) for an additional twenty minutes every 1-2 hours as needed for painrelief. > You may use of over the counter anti-inflammatory medications (Ibuprofen, Motrin, Aleve, Advil, etc) as directed on the package label. These types of medicines wm significantly reduce the amount of discomfort you experience after surgery from swelling. It should be noted that if you have and allergy to any of these medications, or a history of ulcers or kidney disease you should consult you primary care provider prior to starting these medications. Discharge Attestations Time Spent in Discharge Care*: less than 30 min Quality Metrics Clinical Quality Measures During this hospital stay, did patient experience: None Coding Level of Care Code Acute Hand Braille Transcriber for Joyce Fwd Diagnoses Wound infection after surgery T81.49XA Diabetes mellitus E11.9 Hypertension I10 Sleep apnea G47.30 Spondylolisthesis, lumbar region M43.16
[2020-04-03 11:19] LABS: Glucose Point of Care 148 mg/dL (70-110)
[2020-04-03 11:27] VITALS: BP 165/80; PULSE 80; RESP 18; TEMP 36.7; O2SAT 99
[2020-04-03 15:03] VITALS: BP 165/80; PULSE 80; RESP 18; TEMP 36.7; O2SAT 99
== END 2020-04-03 15:03 | disposition home or self-care (01) | DRG 863 ==
LOC: MEDSURG 03-29 07:41 → OR 03-29 12:57 → MEDSURG 03-29 12:57
PROVIDERS: Family Medicine; Internal Medicine; Admitting Provider Orthopaedic Surgery; PCP Nurse Practitioner Family; Visit Provider Orthopaedic Surgery
PROC: 0W9L00Z Drainage of Lower Back with Drainage Device, Open Approach (ICD-10-PCS; principal; 2020-03-28 15:25)
DX: T81.42XA Infection following a procedure, deep incisional surgical site, initial encounter (principal); Z68.41 Body mass index [BMI] 40.0-44.9, adult; Y83.8 Other surgical procedures as the cause of abnormal reaction of the patient, or of later complication, without mention of misadventure at the time of the procedure; Y92.009 Unspecified place in unspecified non-institutional (private) residence as the place of occurrence of the external cause; G47.33 Obstructive sleep apnea (adult) (pediatric); E11.9 Type 2 diabetes mellitus without complications; I10 Essential (primary) hypertension; M43.16 Spondylolisthesis, lumbar region; Z79.4 Long term (current) use of insulin; B96.89 Other specified bacterial agents as the cause of diseases classified elsewhere; M19.90 Unspecified osteoarthritis, unspecified site; Z98.1 Arthrodesis status; F17.210 Nicotine dependence, cigarettes, uncomplicated; E66.01 Morbid (severe) obesity due to excess calories
CPT/HCPCS: 12345; 36415; 36416; 36569; 36592; 71045; 80053; 80202; 82962; 83735; 84100; 84145; 85025; 85651; 86140; 87040; 87070; 87075; 87077; 87176; 87186; 87205; 96372; 97161; 97530; J0744; J1650; J1815 ×2; J1885; J2270; J2405; J2704; J3010; J3370; J3490

== ENCOUNTER 2020-04-05 17:32 | Outpatient (CLI) | payer MEDICAID, SELFPAY ==
[2020-04-05 19:00] LABS: Basophils # 0.1 10^3/uL (0.0-0.1); Eosinophils # 0.6 10^3/uL (0.0-0.8); Eosinophils % 8.9 %; Hematocrit 37.6 % (37.0-47.0); Hemoglobin 11.4 g/dL (11.5-15.3); Lymphocytes # 1.5 10^3/uL (0.8-4.8); Mean Corpuscular HGB Conc 30.3 g/dL (30.0-36.0); Mean Corpuscular Hemoglobin 26.6 pg (28.0-34.0); Mean Corpuscular Volume 87.9 fL (81-99); Mean Platelet Volume 12.1 fL (7.4-10.4); Monocytes # 0.5 10^3/uL (0.2-0.9); Neutrophils # 4.14 10^3/uL (1.8-7.7); Neutrophils % 60.8 %; Nucleated Red Blood Cells % 0 %; Platelet Count 287 10^3/cmm (130-400); Red Blood Count 4.28 10^6/uL (4.1-5.3); Red Cell Distribution Width 13.2 % (12.1-15.1); White Blood Count 6.8 10^3/uL (4.0-10.0)
[2020-04-05 19:54] LABS: Vancomycin Trough 17.5 ug/mL (10-15)
[2020-04-05 20:11] LABS: Anion Gap 13.1 (5-19); Blood Urea Nitrogen 7 mg/dL (6-20); Carbon Dioxide 27 mmol/L (22-29); Chloride 101 mmol/L (98-107); Glomerular Filtration Rate 85.9 mL/min (90-130); Glucose 211 mg/dL (65-115); Osmolality Calculated 288 mOsm/kg (285-295); Potassium 4.1 mmol/L (3.5-5.1); Sodium 137 mmol/L (136-145)
== END 2020-04-05 17:33 | disposition home or self-care (01) ==
PROVIDERS: PCP Nurse Practitioner Family; Visit Provider Nurse Practitioner Family
DX: T81.49XA Infection following a procedure, other surgical site, initial encounter (principal)
CPT/HCPCS: 80048; 80202; 85025

== ENCOUNTER 2020-04-10 08:41 | Outpatient (CLI) | payer MEDICAID, SELFPAY ==
[2020-04-10 09:00] LABS: Basophils # 0.1 10^3/uL (0.0-0.1); Basophils % 1.3 %; Eosinophils # 0.8 10^3/uL (0.0-0.8); Eosinophils % 14.7 %; Hematocrit 39.4 % (37.0-47.0); Hemoglobin 12.4 g/dL (11.5-15.3); Lymphocytes # 1.2 10^3/uL (0.8-4.8); Lymphocytes % 21.6 %; Mean Corpuscular HGB Conc 31.5 g/dL (30.0-36.0); Mean Corpuscular Hemoglobin 26.9 pg (28.0-34.0); Mean Corpuscular Volume 85.5 fL (81-99); Mean Platelet Volume 11.7 fL (7.4-10.4); Monocytes # 0.4 10^3/uL (0.2-0.9); Neutrophils # 2.99 10^3/uL (1.8-7.7); Nucleated Red Blood Cells % 0 %; Platelet Count 235 10^3/cmm (130-400); Red Blood Count 4.61 10^6/uL (4.1-5.3); White Blood Count 5.5 10^3/uL (4.0-10.0)
[2020-04-10 09:23] LABS: Anion Gap 14.1 (5-19); Blood Urea Nitrogen 6 mg/dL (6-20); Calcium 9.2 mg/dL (8.5-10.5); Carbon Dioxide 28 mmol/L (22-29); Chloride 96 mmol/L (98-107); Glomerular Filtration Rate 102.7 mL/min (90-130); Glucose 210 mg/dL (65-115); Osmolality Calculated 282 mOsm/kg (285-295); Potassium 4.1 mmol/L (3.5-5.1); Sodium 134 mmol/L (136-145)
[2020-04-10 09:29] LABS: Vancomycin Trough 16.6 ug/mL (10-15)
== END 2020-04-10 08:42 | disposition home or self-care (01) ==
PROVIDERS: PCP Nurse Practitioner Family; Visit Provider Nurse Practitioner Family
DX: T81.49XA Infection following a procedure, other surgical site, initial encounter (principal); X58.XXXA Exposure to other specified factors, initial encounter
CPT/HCPCS: 80048; 80202; 85025

== ENCOUNTER 2020-04-16 09:32 | Outpatient (CLI) | payer MEDICAID, SELFPAY ==
[2020-04-16 09:57] LABS: Hematocrit 37.4 % (37.0-47.0); Hemoglobin 11.9 g/dL (11.5-15.3); Mean Corpuscular HGB Conc 31.8 g/dL (30.0-36.0); Mean Corpuscular Hemoglobin 26.7 pg (28.0-34.0); Mean Corpuscular Volume 83.9 fL (81-99); Mean Platelet Volume 11.8 fL (7.4-10.4); Platelet Count 192 10^3/cmm (130-400); Red Blood Count 4.46 10^6/uL (4.1-5.3); Red Cell Distribution Width 12.9 % (12.1-15.1); White Blood Count 5.5 10^3/uL (4.0-10.0)
[2020-04-16 10:15] LABS: Anion Gap 14.9 (5-19); Blood Urea Nitrogen 7 mg/dL (6-20); Carbon Dioxide 26 mmol/L (22-29); Chloride 101 mmol/L (98-107); Glomerular Filtration Rate 126.7 mL/min (90-130); Glucose 242 mg/dL (65-115); Osmolality Calculated 292 mOsm/kg (285-295); Potassium 3.9 mmol/L (3.5-5.1); Sodium 138 mmol/L (136-145)
[2020-04-16 10:25] LABS: Vancomycin Trough 10.5 ug/mL (10-15)
[2020-04-16 11:00] LABS: Absolute Eosinophils 0.7 10^3/cmm (0.0-0.7); Absolute Neutrophil 2.6 10^3/cmm (1.4-6.5); Absolute Segmented Neutrophil 2.4 10/cmm (1.6-7.1); Anisocytosis Trace; Band Neutrophils Absolute 0.3 10^3/cmm (0.0-1.2); Eosinophils 13 %; Lymphocytes 36 %; Monocytes Absolute 0.2 10^3/cmm (0.1-0.6); Platelet Estimate Normal (Normal); Segmented Neutrophils 43 %; Total Cells Counted 100 (0-100)
== END 2020-04-16 09:33 | disposition home or self-care (01) ==
PROVIDERS: PCP Nurse Practitioner Family; Visit Provider Nurse Practitioner Family
DX: T81.49XA Infection following a procedure, other surgical site, initial encounter (principal); X58.XXXA Exposure to other specified factors, initial encounter
CPT/HCPCS: 80048; 80202; 85007; 85027

== ENCOUNTER 2020-04-19 08:52 | Outpatient (CLI) | payer MEDICAID, SELFPAY ==
[2020-04-19 09:39] LABS: Blood Urea Nitrogen 5 mg/dL (6-20); Calcium 9.1 mg/dL (8.5-10.5); Carbon Dioxide 26 mmol/L (22-29); Chloride 100 mmol/L (98-107); Glomerular Filtration Rate 102.7 mL/min (90-130); Glucose 206 mg/dL (65-115); Osmolality Calculated 287 mOsm/kg (285-295); Sodium 137 mmol/L (136-145)
[2020-04-19 09:40] LABS: Vancomycin Trough 11.7 ug/mL (10-15)
== END 2020-04-19 08:53 | disposition home or self-care (01) ==
PROVIDERS: PCP Nurse Practitioner Family; Visit Provider Nurse Practitioner Family
DX: T81.49XA Infection following a procedure, other surgical site, initial encounter (principal); X58.XXXA Exposure to other specified factors, initial encounter
CPT/HCPCS: 80048; 80202

== ENCOUNTER 2020-04-20 08:41 | Outpatient (CLI) | payer MEDICAID, SELFPAY | END 2020-04-20 08:42 | disposition home or self-care (01) | PROVIDERS: PCP Nurse Practitioner Family; Visit Provider Nurse Practitioner Family | DX: T81.49XA Infection following a procedure, other surgical site, initial encounter (principal) | CPT/HCPCS: 80202 ==

== ENCOUNTER 2020-04-23 09:19 | Outpatient (CLI) | payer MEDICAID, SELFPAY ==
[2020-04-23 10:21] LABS: Hematocrit 36.6 % (37.0-47.0); Hemoglobin 11.6 g/dL (11.5-15.3); Mean Corpuscular HGB Conc 31.7 g/dL (30.0-36.0); Mean Corpuscular Hemoglobin 26.2 pg (28.0-34.0); Mean Corpuscular Volume 82.8 fL (81-99); Mean Platelet Volume 11.9 fL (7.4-10.4); Platelet Count 179 10^3/cmm (130-400); Red Blood Count 4.42 10^6/uL (4.1-5.3); Red Cell Distribution Width 13.1 % (12.1-15.1); White Blood Count 4.9 10^3/uL (4.0-10.0)
[2020-04-23 10:25] LABS: Anion Gap 11.2 (5-19); Blood Urea Nitrogen 6 mg/dL (6-20); Calcium 8.9 mg/dL (8.5-10.5); Carbon Dioxide 26 mmol/L (22-29); Chloride 101 mmol/L (98-107); Glomerular Filtration Rate 126.7 mL/min (90-130); Glucose 205 mg/dL (65-115); Osmolality Calculated 282 mOsm/kg (285-295); Potassium 4.2 mmol/L (3.5-5.1); Sodium 134 mmol/L (136-145)
[2020-04-23 11:30] LABS: Absolute Eosinophils 0.6 10^3/cmm (0.0-0.7); Band Neutrophils Absolute 0.1 10^3/cmm (0.0-1.2); Eosinophils 13 %; Lymphocytes 18 %; Monocytes Absolute 0.1 10^3/cmm (0.1-0.6); Segmented Neutrophils 62 %; Total Cells Counted 100 (0-100)
[2020-04-23 11:31] LABS: Absolute Neutrophil 3.2 10^3/cmm (1.4-6.5); Platelet Estimate Normal (Normal)
== END 2020-04-23 09:20 | disposition home or self-care (01) ==
LOC: LAB 09:23
PROVIDERS: PCP Nurse Practitioner Family; Visit Provider Nurse Practitioner Family
DX: T81.49XA Infection following a procedure, other surgical site, initial encounter (principal); X58.XXXA Exposure to other specified factors, initial encounter
CPT/HCPCS: 80048; 80202; 85007; 85027

== ENCOUNTER 2020-04-26 09:10 | Outpatient (CLI) | payer MEDICAID, SELFPAY ==
[2020-04-26 09:55] LABS: Blood Urea Nitrogen 8 mg/dL (6-20); Calcium 9.2 mg/dL (8.5-10.5); Carbon Dioxide 25 mmol/L (22-29); Chloride 99 mmol/L (98-107); Glomerular Filtration Rate 102.7 mL/min (90-130); Glucose 217 mg/dL (65-115); Osmolality Calculated 281 mOsm/kg (285-295); Sodium 133 mmol/L (136-145)
[2020-04-26 09:56] LABS: Vancomycin Trough 12.3 ug/mL (10-15)
== END 2020-04-26 09:11 | disposition home or self-care (01) ==
PROVIDERS: PCP Nurse Practitioner Family; Visit Provider Nurse Practitioner Family
DX: T81.49XA Infection following a procedure, other surgical site, initial encounter (principal)
CPT/HCPCS: 80048; 80202

== ENCOUNTER → 2020-04-27 13:33 | Day surgery (SDC) | payer MEDICAID, SELFPAY ==
--- NOTE | 2020-04-27 13:55 | PC.NURSE ---
1300 Pt sent to OPS from JEROME Smith at [facility] to check PICC line. PICC line dressing changed using sterile technique. Insertion site slightly reddened. No pus, extreme redness, warmth, or drainage from insertion site noted. Skin under tegaderm slightly reddened and irritated from tegaderm. Skin prep used to protect skin. PICC flushed with normal saline without difficulty with good blood return noted.
[2020-04-27 13:59] VITALS: RESP 18; TEMP 36.4
== END ==
PROVIDERS: PCP Nurse Practitioner Family; Visit Provider Nurse Practitioner Family
DX: Z45.2 Encounter for adjustment and management of vascular access device (principal)

== ENCOUNTER 2020-04-30 09:05 | Outpatient (CLI) | payer MEDICAID, SELFPAY ==
[2020-04-30 09:47] LABS: Basophils # 0.1 10^3/uL (0.0-0.1); Basophils % 1.1 %; Eosinophils # 0.7 10^3/uL (0.0-0.8); Eosinophils % 9.7 %; Hematocrit 37.4 % (37.0-47.0); Hemoglobin 11.8 g/dL (11.5-15.3); Lymphocytes # 1.1 10^3/uL (0.8-4.8); Lymphocytes % 15.6 %; Mean Corpuscular HGB Conc 31.6 g/dL (30.0-36.0); Mean Corpuscular Hemoglobin 25.8 pg (28.0-34.0); Mean Corpuscular Volume 81.7 fL (81-99); Mean Platelet Volume 11.3 fL (7.4-10.4); Monocytes # 0.5 10^3/uL (0.2-0.9); Monocytes % 7.3 %; Neutrophils # 4.61 10^3/uL (1.8-7.7); Neutrophils % 65.9 %; Nucleated Red Blood Cells % 0 %; Platelet Count 212 10^3/cmm (130-400); Red Blood Count 4.58 10^6/uL (4.1-5.3)
[2020-04-30 10:28] LABS: Vancomycin Trough 13.5 ug/mL (10-15)
[2020-04-30 10:29] LABS: Anion Gap 12.6 (5-19); Blood Urea Nitrogen 4 mg/dL (6-20); Calcium 8.9 mg/dL (8.5-10.5); Carbon Dioxide 26 mmol/L (22-29); Chloride 100 mmol/L (98-107); Glomerular Filtration Rate 126.7 mL/min (90-130); Glucose 209 mg/dL (65-115); Osmolality Calculated 283 mOsm/kg (285-295); Potassium 3.6 mmol/L (3.5-5.1); Sodium 135 mmol/L (136-145)
== END 2020-04-30 09:06 | disposition home or self-care (01) ==
PROVIDERS: PCP Nurse Practitioner Family; Visit Provider Nurse Practitioner Family
DX: T81.49XA Infection following a procedure, other surgical site, initial encounter (principal)
CPT/HCPCS: 80048; 80202; 85025

== ENCOUNTER → 2020-05-03 10:45 | Outpatient (BNVA) | payer MEDICAID, SELFPAY | PROVIDERS: PCP Nurse Practitioner Family; Visit Provider Anesthesiology Pain Medicine | DX: G89.18 Other acute postprocedural pain (principal); M51.36 Other intervertebral disc degeneration, lumbar region; M51.17 Intervertebral disc disorders with radiculopathy, lumbosacral region; M47.816 Spondylosis without myelopathy or radiculopathy, lumbar region; M43.06 Spondylolysis, lumbar region; M54.9 Dorsalgia, unspecified; F17.210 Nicotine dependence, cigarettes, uncomplicated; Z79.891 Long term (current) use of 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; M43.10 Spondylolisthesis, site unspecified | CPT/HCPCS: 99214 ==

== ENCOUNTER 2020-05-04 09:40 | Outpatient (CLI) | payer MEDICAID, SELFPAY ==
[2020-05-04 10:36] LABS: Vancomycin Trough 8.2 ug/mL (10-15)
[2020-05-04 10:39] LABS: Anion Gap 12.4 (5-19); Blood Urea Nitrogen 4 mg/dL (6-20); Calcium 8.8 mg/dL (8.5-10.5); Carbon Dioxide 30 mmol/L (22-29); Chloride 99 mmol/L (98-107); Glomerular Filtration Rate 85.9 mL/min (90-130); Glucose 257 mg/dL (65-115); Osmolality Calculated 292 mOsm/kg (285-295); Potassium 3.4 mmol/L (3.5-5.1); Sodium 138 mmol/L (136-145)
== END 2020-05-04 09:41 | disposition home or self-care (01) ==
PROVIDERS: PCP Nurse Practitioner Family; Visit Provider Nurse Practitioner Family
DX: T81.49XA Infection following a procedure, other surgical site, initial encounter (principal)
CPT/HCPCS: 80048; 80202

== ENCOUNTER 2020-05-10 16:32 | Outpatient (CLI) | payer MEDICAID, SELFPAY ==
[2020-05-10 17:07] LABS: Basophils % 0.6 %; Eosinophils # 0.6 10^3/uL (0.0-0.8); Eosinophils % 8.9 %; Hematocrit 36.4 % (37.0-47.0); Hemoglobin 11.2 g/dL (11.5-15.3); Lymphocytes % 15.1 %; Mean Corpuscular HGB Conc 30.8 g/dL (30.0-36.0); Mean Corpuscular Hemoglobin 25.2 pg (28.0-34.0); Mean Corpuscular Volume 81.8 fL (81-99); Mean Platelet Volume 11.1 fL (7.4-10.4); Monocytes # 0.4 10^3/uL (0.2-0.9); Monocytes % 6.1 %; Neutrophils # 4.44 10^3/uL (1.8-7.7); Neutrophils % 69.1 %; Nucleated Red Blood Cells % 0 %; Platelet Count 247 10^3/cmm (130-400); Red Blood Count 4.45 10^6/uL (4.1-5.3); Red Cell Distribution Width 13.1 % (12.1-15.1); White Blood Count 6.4 10^3/uL (4.0-10.0)
[2020-05-10 17:23] LABS: Anion Gap 12.5 (5-19); Blood Urea Nitrogen 4 mg/dL (6-20); Carbon Dioxide 29 mmol/L (22-29); Chloride 99 mmol/L (98-107); Glomerular Filtration Rate 102.7 mL/min (90-130); Glucose 263 mg/dL (65-115); Osmolality Calculated 290 mOsm/kg (285-295); Potassium 3.5 mmol/L (3.5-5.1); Sodium 137 mmol/L (136-145)
[2020-05-10 17:24] LABS: Vancomycin Trough 12.7 ug/mL (10-15)
== END 2020-05-10 16:33 | disposition home or self-care (01) ==
PROVIDERS: PCP Nurse Practitioner Family; Visit Provider Nurse Practitioner Family
DX: T81.49XA Infection following a procedure, other surgical site, initial encounter (principal)
CPT/HCPCS: 80048; 80202; 85025

== ENCOUNTER → 2020-05-31 10:48 | Outpatient (BNVA) | payer MEDICAID, SELFPAY | PROVIDERS: PCP Nurse Practitioner Family; Visit Provider Anesthesiology Pain Medicine | DX: M54.9 Dorsalgia, unspecified (principal); M51.36 Other intervertebral disc degeneration, lumbar region; M47.816 Spondylosis without myelopathy or radiculopathy, lumbar region; M43.06 Spondylolysis, lumbar region; F17.210 Nicotine dependence, cigarettes, uncomplicated; Z79.891 Long term (current) use of 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 | CPT/HCPCS: 99213 ==

== ENCOUNTER → 2020-06-05 11:40 | Outpatient (BNVA) | payer MEDICAID, SELFPAY | PROVIDERS: PCP Nurse Practitioner Family; Referring Provider Nurse Practitioner Family; Visit Provider Student in an Organized Health Care Education/Training Program | DX: T81.49XA Infection following a procedure, other surgical site, initial encounter (principal); G89.18 Other acute postprocedural pain; X58.XXXA Exposure to other specified factors, initial encounter | CPT/HCPCS: 85025; 85651 ==

== ENCOUNTER → 2020-06-28 14:11 | Outpatient (BNVA) | payer MEDICAID, SELFPAY | PROVIDERS: PCP Nurse Practitioner Family; Visit Provider Orthopaedic Surgery | DX: Z48.89 Encounter for other specified surgical aftercare (principal); M51.36 Other intervertebral disc degeneration, lumbar region; Z98.1 Arthrodesis status | CPT/HCPCS: 72100 ==

== ENCOUNTER → 2020-08-09 10:32 | Outpatient (BNVA) | payer MEDICAID, SELFPAY | PROVIDERS: PCP Nurse Practitioner Family; Visit Provider Orthopaedic Surgery | DX: Z48.89 Encounter for other specified surgical aftercare (principal); G89.18 Other acute postprocedural pain; Z98.1 Arthrodesis status | CPT/HCPCS: 72100 ==

== ENCOUNTER → 2020-10-23 11:07 | Outpatient (BNVA) | payer MEDICAID, SELFPAY | PROVIDERS: PCP Nurse Practitioner Family; Visit Provider Orthopaedic Surgery | DX: M43.06 Spondylolysis, lumbar region (principal); Z47.89 Encounter for other orthopedic aftercare; Z98.1 Arthrodesis status | CPT/HCPCS: 72100 ==

== ENCOUNTER → 2021-02-07 08:14 | Outpatient (BNVA) | payer MEDICAID, SELFPAY | PROVIDERS: PCP Nurse Practitioner Family; Visit Provider Orthopaedic Surgery | DX: G89.18 Other acute postprocedural pain (principal); Z98.1 Arthrodesis status; Z47.89 Encounter for other orthopedic aftercare | CPT/HCPCS: 72100 ==

== ENCOUNTER → 2021-08-22 07:50 | Outpatient (BNVA) | payer MEDICAID, SELFPAY | PROVIDERS: PCP Nurse Practitioner Family; Visit Provider Orthopaedic Surgery | DX: M43.16 Spondylolisthesis, lumbar region (principal); Z98.1 Arthrodesis status; M41.9 Scoliosis, unspecified | CPT/HCPCS: 72100; 99213 ==

== ENCOUNTER 2022-04-17 10:22 | Observation (INO) | payer MEDICAID, SELFPAY ==
[2022-04-17] VITALS (11 sets, daily range): BP systolic 113–163; BP diastolic 67–95; PULSE 71–116; RESP 14–20; TEMP 36.5–37.8; O2SAT 92–98; BMI 35.4
--- NOTE | 2022-04-17 10:45 | W.ED.ABDPA2 ---
Documented by User: RACHEL Tate 04/17/22 14:13 HPI - Abdominal Pain General: Chief Complaint: Nausea/Vomiting/Diarrhea Stated Complaint: N/V Time Seen by Provider: 04/17/22 10:28 Source: patient Mode of arrival: EMS Limitations: no limitations History of Present Illness: Patient is a 62-year-old female here for abdominal pain, nausea, vomiting, diarrhea. She states symptoms have been present over the past 5 days and states her abdominal pain seems to have progressively worsened. She is not having any blood in her emesis or stools. She reports vomiting anytime I try to eat or drink anything . Patient denies fevers but states she has had chills. No urinary complaints although later when asked she does endorse cloudy odorous urine. Patient reports she was told that she had her appendix out by her mother but states she does not have the abdominal scars for the surgery so isn't sure whether she has her appendix or not. She does have abdominal scars from a previous tubal ligation. MD elicited complaint: abdominal pain Pertinent past history: none Onset (ago): day(s) Pain Consistency: constant Location: RLQ Severity: moderate Quality: aching and sharp Radiation: none Migration to: no migration Exacerbating factors: eating Relieving factors: nothing Associated Symptoms: Reports chills, diarrhea, nausea and vomiting; Denies dysuria, fever(s), hematochezia, hematuria, hematemesis and melena Related Data: Patient : No Review of Systems Const: Reports: chills; Denies: fever(s), body aches, fatigue or malaise Card: Denies: chest pain Resp: Denies: dyspnea GI: Reports: abdominal pain, nausea, vomiting and diarrhea; Denies: hematemesis, hematochezia, melena or white/light colored stool : Denies: flank pain, dysuria or hematuria Musc: Reports: back pain (chronic); Denies: neck pain, extremity pain or joint pain Skin/Breast: Denies: rash Neuro: Denies: headache(s), numbness in extremities, weakness in extremities, sensory changes or dizziness FORMERLY [facility] ED PFSH: Medical History (Updated 04/21/22 @ 00:01 by CEDRICK Kruger) Diabetes mellitus Hypertension Intervertebral disc disorder with radiculopathy of lumbosacral 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 Lumbar spondylolysis Pain management contract signed Pyelonephritis of right kidney Sleep apnea Spondylolisthesis of lumbosacral region Surgical History H/O laminectomy H/O: hysterectomy Family History Family/Other Diabetes Colon cancer Social History Smoking and tobacco status: current every day smoker Alcohol intake: never Household members: family and other Details: son Marital status: Single Current occupational status: unemployed History of recent travel: No Physical Exam Const: COMMON NORMALS: no acute distress, patient oriented x3, no limitations and alert GENERAL APPEARANCE: cooperative NUTRITIONAL APPEARANCE: obese ORIENTATION/CONSCIOUSNESS: Yes awake, Yes oriented to person, Yes oriented to place and Yes oriented to time Resp: COMMON NORMALS: normal respiratory effort and clear to auscultation bilaterally AUSCULTATION: clear to auscultation bilaterally Cardio: COMMON NORMALS: regular rate and regular rhythm RATE: regular rate RHYTHM: regular rhythm GI: COMMON NORMALS: Normal to inspection, nondistended, normoactive bowel sounds present, Soft to palpation and no masses INSPECTION: Yes normal to inspection AUSCULTATION: Yes normoactive bowel sounds PALPATION: Yes Soft to palpation and Yes Tenderness to palpation present (GI) Details: RLQ OTHER: exam somewhat limited secondary to body habitus : BLADDER/KIDNEY EXAM: Yes CVA tenderness Back/Pelvis: COMMON NORMALS: thoracic and lumbar spine normal to inspection GENERAL BACK: Yes CVA tenderness CVA tenderness: right Extremity: COMMON NORMALS: normal to inspection GENERAL: Yes normal exam except as noted Neuro: YOSI COMA SCALE: document GCS findings [place] coma scale eye opening: Spontaneous [place]osi coma scale verbal response: Orientated [place] coma scale motor response: Obey commands Yosi coma scale total score: 15 COMMON NORMALS: patient oriented x3 SENSORIUM/ORIENTATION: Yes alert, Yes oriented to person, Yes oriented to place and Yes oriented to time Skin: COMMON NORMALS: no rashes or lesions noted GENERAL SKIN EXAM: no rashes or lesions noted Course Consultations: Consultation #1: Dr. Carbajal-accepts admission Vital Signs: Vital signs: Vital Signs Temperature 981 F H 04/20/22 11:30 Pulse Rate 57 L 04/20/22 11:30 Respiratory Rate 16 04/20/22 11:30 Blood Pressure 166/89 04/20/22 11:30 Pulse Oximetry 96 04/20/22 11:30 Oxygen Delivery Me thod 04/20/22 08:54 MDM - Abdominal Pain Medical Decision Making Patient has a right-sided pyelonephritis. Vital signs were initially normal upon arrival however during repeated re-examinations she is tachycardia in the 115's. Patient was able to hold down a very small amount of food/liquid but states she continues to feel very ill and nauseous-concern would be that she would not be able to hold down her oral antibiotics at home. Patient is a diabetic. Patient has a white count of 21.5. Lactate is normal. I think best course at this time would be hospitalization. She has anaphylactic reactions to penicillins thus tried to put her on IV Cipro but due to critical shortage we switched this to Levaquin. This was discussed with Dr. Garcia who agrees with decision to hospitalize. I will speak to Dr. Carbajal. Lab Data 04/17/22 10:35 04/17/22 10:35 Labs/Radiology: Radiology Impressions Abdomen/Pelvis CT 04/17/22 10:50 IMPRESSION: 1. Inflammatory stranding and edema about the RIGHT kidney and RIGHT proximal ureter with mild urothelial enhancement compatible with pyelonephritis. Mild RIGHT hydronephrosis. 2. No evidence of obstructing renal or ureteral calculi. 3. Mild bladder wall thickening with a partially decompressed bladder. 4. No hydronephrosis in the LEFT kidney. 5. Hepatomegaly with diffuse fatty infiltration. 6. Cholelithiasis. 7. Complex cystic lesion lower pole RIGHT kidney measuring 2.3 x 1.8 cm. Recommend interval follow-up with ultrasound. Notified RACHEL Tate at 04/17/2022 12:49 PM. Laboratory Results WBC 21.5 10^3/uL (4.0-10.0) H 04/17/22 10:35 RBC 4.85 10^6/uL (4.1-5.3) 04/17/22 10:35 Hgb 13.3 g/dL (11.5-15.3) 04/17/22 10:35 Hct 41.6 % (37.0-47.0) 04/17/22 10:35 MCV 85.8 fl (81-99) 04/17/22 10:35 MCH 27.4 pg (28.0-34.0) L 04/17/22 10:35 MCHC 32.0 g/dL (30.0-36.0) 04/17/22 10:35 RDW 13.6 % (12.1-15.1) 04/17/22 10:35 Plt Count 187 10^3/cmm (130-400) 04/17/22 10:35 MPV 13.0 fL (7.4-10.4) H 04/17/22 10:35 Neut % (Auto) 89.8 % 04/17/22 10:35 Lymph % (Auto) 4.7 % 04/17/22 10:35 [place] % (Auto) 4.0 % 04/17/22 10:35 Eos % (Auto) 0.5 % 04/17/22 10:35 Baso % (Auto) 0.3 % 04/17/22 10:35 Neut # (Auto) 19.30 10^3/uL (1.8-7.7) H 04/17/22 10:35 Lymph # (Auto) 1.0 10^3/uL (0.8-4.8) 04/17/22 10:35 [place] # (Auto) 0.9 10^3/uL (0.2-0.9) 04/17/22 10:35 Eos # (Auto) 0.1 10^3/uL (0.0-0.8) 04/17/22 10:35 Baso # (Auto) 0.1 10^3/uL (0.0-0.1) 04/17/22 10:35 Nucleated RBC % (auto) 0 % 04/17/22 10:35 Nucleated RBCs # 0.0 /100WBC 04/17/22 10:35 Sodium 129 mmol/L (136-145) L 04/17/22 10:35 Potassium 3.9 mmol/L (3.5-5.1) 04/17/22 10:35 Chloride 90 mmol/L (98-107) L 04/17/22 10:35 Carbon Dioxide 23 mmol/L (22-29) 04/17/22 10:35 Anion Gap 19.9 (5-19) H 04/17/22 10:35 BUN 18 mg/dL (8-23) 04/17/22 10:35 Creatinine 1.1 mg/dL (0.5-0.9) H 04/17/22 10:35 GFR Calculation 50.7 mL/min (90-130) L 04/17/22 10:35 Glucose 283 mg/dL (65-115) H 04/17/22 10:35 Calculated Osmolality 280 mOsm/kg (285-295) L 04/17/22 10:35 Lactic Acid 1.3 mmol/L (0.5-2.2) 04/17/22 11:25 Calcium 8.9 mg/dL (8.5-10.5) 04/17/22 10:35 Total Bilirubin 0.7 mg/dL (0.15-1.2) 04/17/22 10:35 AST 10 U/L (0-32) 04/17/22 10:35 ALT 8 U/L (0-33) 04/17/22 10:35 Alkaline Phosphatase 151 U/L (35-105) H 04/17/22 10:35 Total Protein 6.8 g/dL (6.6-8.7) 04/17/22 10:35 Albumin 3.8 g/dL (3.5-5.2) 04/17/22 10:35 Globulin 3.0 g/dL (1.3-4.6) 04/17/22 10:35 Lipase 15 U/L (13-60) 04/17/22 10:35 Procalcitonin 37.02 ng/mL (0-0.5) H 04/17/22 14:15 Urine Color Yellow (Yellow) 04/17/22 12:06 Urine Appearance Cloudy (CLEAR) A 04/17/22 12:06 Urine pH 5 (5-7) 04/17/22 12:06 Ur Specific [place] 1.010 (1.005-1.030) 04/17/22 12:06 Urine Protein 1+ (Negative) H 04/17/22 12:06 Urine Glucose (UA) 4+ (Normal) H 04/17/22 12:06 Urine Ketones 1+ (Negative) H 04/17/22 12:06 Urine Blood 3+ (Negative) H 04/17/22 12:06 Urine Nitrate Positive (Negative) H 04/17/22 12:06 Urine Bilirubin Neg (Negative) 04/17/22 12:06 Urine Urobilinogen Neg mg/dL (Negative) 04/17/22 12:06 Ur Leukocyte Esterase 2+ (Negative) H 04/17/22 12:06 Urine RBC 10-15 /hpf (0-2) H 04/17/22 12:06 Urine WBC >100 /hpf (0-5) H 04/17/22 12:06 Ur Squamous Epith Cells 0-4 /hpf (0-5) H 04/17/22 12:06 Amorphous Sediment Not Reportable 04/17/22 12:06 Urine Bacteria 1+ /hpf (NONE) H 04/17/22 12:06 Discharge Plan Discharge Patient Disposition: Admitted As Inpatient Admit Provider: Hipolito Carbajal Clinical Impression: Pyelonephritis of right kidney Condition: Stable Coding Level of Care Code ED 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 for Chg Fwd Exam Comprehensive Documented by User: Enzo Garcia MD 04/27/22 17:22 HPI - Abdominal Pain General: Chief Complaint: Nausea/Vomiting/Diarrhea Stated Complaint: N/V Time Seen by Provider: 04/17/22 10:28 [facility]LY [facility] ED PFSH: Medical History (Updated 04/21/22 @ 00:01 by CEDRICK Kruger) Diabetes mellitus Hypertension Intervertebral disc disorder with radiculopathy of lumbosacral 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 Lumbar spondylolysis Pain management contract signed Pyelonephritis of right kidney Sleep apnea Spondylolisthesis of lumbosacral region Surgical History H/O laminectomy H/O: hysterectomy Family History Family/Other Diabetes Colon cancer Social History Smoking and tobacco status: current every day smoker Alcohol intake: never Household members: family and other Details: son Marital status: Single Current occupational status: unemployed History of recent travel: No Physical Exam Neuro: YOSI COMA SCALE: document GCS findings [place] coma scale total score: 15 Course Vital Signs: Vital signs: Vital Signs Temperature 981 F H 04/20/22 11:30 Pulse Rate 57 L 04/20/22 11:30 Respiratory Rate 16 04/20/22 11:30 Blood Pressure 166/89 04/20/22 11:30 Pulse Oximetry 96 04/20/22 11:30 Oxygen Delivery Me thod 04/20/22 08:54 MDM - Abdominal Pain Medical Decision Making Patient has a right-sided pyelonephritis. Vital signs were initially normal upon arrival however during repeated re-examinations she is tachycardia in the 115's. Patient was able to hold down a very small amount of food/liquid but states she continues to feel very ill and nauseous-concern would be that she would not be able to hold down her oral antibiotics at home. Patient is a diabetic. Patient has a white count of 21.5. Lactate is normal. I think best course at this time would be hospitalization. She has anaphylactic reactions to penicillins thus tried to put her on IV Cipro but due to critical shortage we switched this to Levaquin. This was discussed with Dr. Garcia who agrees with decision to hospitalize. I will speak to Dr. Carbajal. I discussed this case with RACHEL Tate. I reviewed documentation, laboratory studies, imaging. Enzo Garcia MD Emergency Medicine Lab Data 04/17/22 10:35 04/17/22 10:35 Labs/Radiology: Radiology Impressions Abdomen/Pelvis CT 04/17/22 10:50
--- NOTE | 2022-04-17 10:50 | CT_ITS ---
WS: [id number] CT ABDOMEN PELVIS TECHNIQUE: Contrast-enhanced CT of the abdomen and pelvis with coronal and sagittal reformatted image s. Also noncontrast images obtained due to scanner malfunction/technical error CLINICAL INFORMATION: R lower ab pain, N/V/D COMPARISON: None. DLP: 3023.[address] scans at [facility] use at least one of these dose optimization techniques: automated e xposure control; mA and/or kV adjustment per patient size (includes targeted exams where dose is matc hed to clinical indication); or iterative reconstruction. FINDINGS: Enlarged RIGHT kidney with mild hydronephrosis and urothelial enhancement. Inflammatory stranding and edema about the RIGHT proximal ureter. No visualized obstructing renal or ureteral calculi. Inflamma tory stranding and edema about the RIGHT kidney compatible with pyelonephritis. No hydronephrosis LEFT kidney. Complex RIGHT lower pole renal lesion with a few septations measuring 2.3 x 1.8 cm. This can be followed up with ultrasound. Hepatomegaly. Diffuse fatty infiltration the l iver. Cholelithiasis. No gallbladder wall thickening or pericholecystic fluid. Normal portal vein and splenic vein. Normal spleen. Normal GE junction. Slight atelectasis in the lung bases. Normal calibe r abdominal aorta. Celiac and SMA are patent. Adrenal glands are normal. Normal caliber abdominal aorta. A few reactive periaortic and aortocaval lymph nodes. Normal sigmoid colon. No evidence of high-grade small or large bowel obstruction. Prior postoperative changes pedicl e screw fixation L5-S1 with interbody fusion graft. Slight anterolisthesis L5 on S1. Mild bladder wal l thickening. Recommend correlation for cystitis. No significant free fluid in the pelvis. CT/CT abdomen pelvis w con* [id number] IMPRESSION: 1. Inflammatory stranding and edema about the RIGHT kidney and RIGHT proximal ureter with mild urothelial enhancement compatible with pyelonephritis. Mild RI GHT hydronephrosis. 2. No evidence of obstructing renal or ureteral calculi. 3. Mild bladder wall thickening with a partially decompressed bladder. 4. No hydronephrosis in the LEFT kidney. 5. Hepatomegaly with diffuse fatty infiltration. 6. Cholelithiasis. 7. Complex cystic lesion lower pole RIGHT kidney measuring 2.3 x 1.8 cm. Recom mend interval follow-up with ultrasound. Notified RACHEL Tate at 04/17/2022 12:49 PM.
[2022-04-17 10:51] LABS: Basophils # 0.1 10^3/uL (0.0-0.1); Basophils % 0.3 %; Eosinophils # 0.1 10^3/uL (0.0-0.8); Eosinophils % 0.5 %; Hematocrit 41.6 % (37.0-47.0); Hemoglobin 13.3 g/dL (11.5-15.3); Lymphocytes % 4.7 %; Mean Corpuscular Hemoglobin 27.4 pg (28.0-34.0); Mean Corpuscular Volume 85.8 fl (81-99); Monocytes # 0.9 10^3/uL (0.2-0.9); Neutrophils % 89.8 %; Nucleated Red Blood Cells % 0 %; Platelet Count 187 10^3/cmm (130-400); Red Blood Count 4.85 10^6/uL (4.1-5.3); Red Cell Distribution Width 13.6 % (12.1-15.1); White Blood Count 21.5 10^3/uL (4.0-10.0)
[2022-04-17] MEDS: sodium chloride 0.9% 1,000 ML 999 ML IV (10:51)
[2022-04-17] MEDS: ondansetron 2 mg/ML SDV 2 mL 4 MG IVP (10:52)
[2022-04-17] MEDS: morphine 4 mg/mL SDV 1 mL IVP (11:05)
[2022-04-17 11:08] LABS: Alanine Aminotransferase 8 U/L (0-33); Albumin Level 3.8 g/dL (3.5-5.2); Alkaline Phosphatase 151 U/L (35-105); Anion Gap 19.9 (5-19); Aspartate Amino Transferase 10 U/L (0-32); Blood Urea Nitrogen 18 mg/dL (8-23); Calcium 8.9 mg/dL (8.5-10.5); Carbon Dioxide 23 mmol/L (22-29); Chloride 90 mmol/L (98-107); Glomerular Filtration Rate 50.7 mL/min (90-130); Glucose 283 mg/dL (65-115); Lipase 15 U/L (13-60); Osmolality Calculated 280 mOsm/kg (285-295); Potassium 3.9 mmol/L (3.5-5.1); Sodium 129 mmol/L (136-145); Total Bilirubin 0.7 mg/dL (0.15-1.2); Total Protein 6.8 g/dL (6.6-8.7)
[2022-04-17] MEDS: iohexol 350 mg/mL 500 mL Btl (per mL) IV (11:46)
[2022-04-17 11:54] LABS: Lactic Sepsis W/Reflex 1.3 mmol/L (0.5-2.2)
[2022-04-17 12:18] LABS: Add Urine Microscopic? YES; Bilirubin Urine Neg (Negative); Blood Urine 3+ (Negative); Glucose Urine UA 4+ (Normal); Ketones Urine 1+ (Negative); Leukocyte Esterase Urine 2+ (Negative); Nitrate Urine Positive (Negative); Protein Urine 1+ (Negative); Urine Appearance Cloudy (CLEAR); Urine Color Yellow (Yellow); Urobilinogen Urine Neg (Negative); pH Urine 5 (5-7)
[2022-04-17 12:28] LABS: Add Urine Culture? Yes; Bacteria Urine 1+ /hpf; Squamous Epithelial Cell Urine 0-4 /hpf (0-5); WBC Urine >100 /hpf (0-5)
[2022-04-17] MEDS: levofloxacin-dextrose 5 % 500 MG/100 ML PREMIX 100 MG IV (13:38)
--- NOTE | 2022-04-17 14:10 | P.HP_ITS ---
Providers/Chief Complaint Primary Care Provider: JEROME Smith Chief Complaint: N/V History of Present Illness Yoselyn Vallecillo is a 62 year old female who has been experiencing nausea vomiting improperly, today was a worsening of her symptoms very to come to the hospital for further management. In the ER she was diagnosed with pyelonephritis. She is afebrile without lactic acidemia Endorsing dysuria, nausea, vomiting and diarrhea, endorsing subjective fevers. She is diabetic, does not use oxygen. Non-smoker nonalcoholic. More than 10 episodes of vomiting in the last few days She is very dehydrated, no active chest pain or shortness of breath. Review of Systems Const: Reports: fever(s), chills and body aches Eyes: Denies: change in vision ENMT: Denies: throat pain Card: Denies: chest pain Resp: Denies: dyspnea GI: Reports: abdominal pain, nausea, vomiting and diarrhea : Denies: flank pain Musc: Denies: neck pain Skin/Breast: Denies: rash Neuro: Denies: headache(s) Psych: Reports: anxiety Endo: Denies: polyuria Jeff/Lymph: Denies: easy bruising All/Imm: Denies: urticaria Medications/Allergies Home Medications Medication Instructions Recorded Confirmed Last Taken Type gabapentin 300 mg capsule 300 mg PO TID pain #90 caps 05/31/20 02/07/21 Unknown Rx insulin aspart U-100 100 unit/mL 10 unit SUBCUT TID 05/31/20 02/07/21 Unknown History (3 mL) subcutaneous pen (Novolog FlexPen U-100 Insulin aspart) insulin glargine 100 unit/mL (3 10 unit SUBCUT TID 04/17/22 04/17/22 5 Days Ago History mL) subcutaneous pen (Lantus ~04/12/22 Solostar U-100 Insulin) see pharmacy comment Allergies Allergy/AdvReac Type Severity Reaction Status Date / Time Penicillins Allergy ALGY-Swell Verified 04/17/22 14:21 Lip/Tongue/Throat PFSH Acute PFSH: Medical History Diabetes mellitus Hypertension Intervertebral disc disorder with radiculopathy of lumbosacral region Lumbar spondylolysis Sleep apnea Spondylolisthesis of lumbosacral region Surgical History H/O laminectomy H/O: hysterectomy Family History Family/Other Diabetes Colon cancer Social History Smoking and tobacco status: current every day smoker Alcohol intake: never Household members: family and other Details: son Marital status: Single Current occupational status: unemployed History of recent travel: No Vitals/I&O/Wt Last Vital Signs Temp 97.7 F 04/17/22 10:25 Pulse 116 H 04/17/22 14:10 Resp 16 04/17/22 14:10 BP 142/67 04/17/22 14:10 Pulse Ox 97 04/17/22 14:10 O2 Del Method 04/17/22 10:25 Weight last 48 hrs Weight 108.862 kg Physical Exam Narrative: Patient is lying in right lateral position clinically dehydrated Abdomen soft, right flank tenderness positive Awake and alert Nonfocal neuro exam Immunoglobulin appropriate mood and affect Skin has dryness and dirt attached on feet S1, S2 sinus tachycardia Low-grade fever Hypotensive Appears stated age Data 04/17/22 10:35 04/17/22 10:35 A&P Assessment and plan (1) Pyelonephritis of right kidney: (2) Sleep apnea: (3) Diabetes mellitus: (4) Hypertension: Plan Acute pyonephritis Stress criteria met however no active signs of sepsis No signs of organ damage No sign of lactic acidemia We will put patient on IV fluids Aztreonam because of penicillin allergy Requested blood and urine culture Consistent carb diet, insulin, sliding scale Full code DVT prophylaxis on board Mild YVON likely related to pyelonephritis Attestations Medical Necessity Statement*: Continue medical management anticipating discharge within 48 hours Time Spent in Patient Care: 40 Coding Level of Care Code Acute Code for [facility] Fwd Diagnoses Pyelonephritis of right kidney N12 Sleep apnea G47.30 Diabetes mellitus E11.9 Hypertension I10
--- NOTE | 2022-04-17 14:26 | PC.PHAR ---
pt state she takes care of her own medications-pt states she still uses novolog flexpen u-100 15 units tid [facility] last filled 04/06/2021 10 units tid-pt also states she uses lantus solostar 10 units tid [facility] states last filled 04/06/2021 for 25 units tid-pt states she takes no otc meds-notes are made in the pharmacy comments
[2022-04-17 15:20] LABS: Procalcitonin 37.02 ng/mL (0-0.5)
[2022-04-17 16:02] LABS: Estmated Average Glucose 212
[2022-04-17 16:31] LABS: Glucose Point of Care 331 mg/dL (70-110)
[2022-04-17] MEDS: sodium chloride 0.9% 1,000 ML 75 ML IV (17:05)
[2022-04-17] MEDS: aztreonam 2,000 MG in sodium chloride 0.9% (plus) 100 ML 200 MG IV (17:05)
[2022-04-17] MEDS: heparin 5,000 unit/mL INJ 1 mL 5000 UNIT SUBCUT (17:08)
[2022-04-17] MEDS: insulin lispro 100 unit/1 mL SUBCUT (17:08)
[2022-04-17] MEDS: insulin glargine 100 units/1 mL 25 UNIT SUBCUT (17:09)
[2022-04-17] MEDS: morphine IR 15 mg Tablet PO (18:36)
[2022-04-17 20:54] LABS: Glucose Point of Care 331 mg/dL (70-110)
[2022-04-18] VITALS (12 sets, daily range): BP systolic 128–188; BP diastolic 70–85; PULSE 69–84; RESP 16–24; TEMP 36.9–37.6; O2SAT 92–97
[2022-04-18] MEDS: sodium chloride 0.9% 1,000 ML 75 ML IV ×2 (03:50→21:29)
[2022-04-18] MEDS: aztreonam 2,000 MG in sodium chloride 0.9% (plus) 100 ML 200 MG IV ×2 (03:51→16:38)
[2022-04-18] MEDS: heparin 5,000 unit/mL INJ 1 mL 5000 UNIT SUBCUT ×2 (03:51→14:58)
[2022-04-18 05:06] LABS: Basophils % 0.2 %; Eosinophils # 0.1 10^3/uL (0.0-0.8); Eosinophils % 0.5 %; Hematocrit 32.8 % (37.0-47.0); Lymphocytes % 7.3 %; Mean Corpuscular Hemoglobin 27.3 pg (28.0-34.0); Mean Corpuscular Volume 85.4 fl (81-99); Monocytes % 7.1 %; Neutrophils # 11.82 10^3/uL (1.8-7.7); Nucleated Red Blood Cells % 0 %; Platelet Count 130 10^3/cmm (130-400); Red Blood Count 3.84 10^6/uL (4.1-5.3); Red Cell Distribution Width 13.8 % (12.1-15.1); White Blood Count 14.1 10^3/uL (4.0-10.0)
[2022-04-18 05:08] LABS: Hemoglobin 10.5 g/dL (11.5-15.3)
[2022-04-18 05:37] LABS: Anion Gap 13.6 (5-19); Blood Urea Nitrogen 20 mg/dL (8-23); Calcium 8.4 mg/dL (8.5-10.5); Carbon Dioxide 25 mmol/L (22-29); Chloride 92 mmol/L (98-107); Glomerular Filtration Rate 50.7 mL/min (90-130); Glucose 228 mg/dL (65-115); Magnesium 1.7 mg/dL (1.7-2.3); Osmolality Calculated 274 mOsm/kg (285-295); Potassium 3.6 mmol/L (3.5-5.1); Sodium 127 mmol/L (136-145)
--- NOTE | 2022-04-18 06:37 | PM.PN ---
Subjective Subjective: Leukocytosis trending down Low-grade fever noted overnight Creatinine 1.1 sodium 127 with low chloride Vitals/I&O/Wt Last Vital Signs Temp 99.0 F 04/18/22 03:00 Pulse 84 04/18/22 03:00 Resp 24 H 04/18/22 03:00 BP 128/70 04/18/22 03:00 Pulse Ox 93 04/18/22 03:00 O2 Del Method 04/17/22 19:58 04/17/22 04/17/22 04/18/22 14:59 22:59 06:59 Intake Total 1100 / 1100 1060 / 2160 1146.25 / 3306.25 Output Total 150 / 150 180 / 330 Balance 1100 / 1100 2009 966.25 / 2976.25 Weight last 48 hrs Weight 108.862 kg Physical Exam Narrative: Pleasant cooperative female With stable Signs of dehydration slightly improving Abdomen soft nontender no signs of peritonitis Right CVA tenderness slightly better Awake and alert No audible stridor or wheezing Data 04/18/22 04:25 04/18/22 04:25 Micro: Microbiology 04/17/22 14:14 Blood Culture - Preliminary Blood SPECIMEN COLLECTED 04/17/22 14:20 Blood Culture - Preliminary Blood SPECIMEN COLLECTED A&P Assessment and plan (1) Pyelonephritis of right kidney: (2) Sleep apnea: (3) Diabetes mellitus: (4) Hypertension: Plan Right-sided pyelonephritis Nonobstructive urinary Pathway Low-grade fever Leukocytosis trending down I would keep her until this weekend, leukocytosis trending down Hemodynamically stable Continue IV fluids and antibiotics Hopefully her emesis will subside completely and she is able to tolerate diet then I will switch her to p.o. regimen Full code Diabetic, consistent carb diet continue insulin, hemoglobin A1c 9 DVT prophylaxis on board Attestations Medical Necessity Statement*: Continue medical management Time Spent in Patient Care: 30 Coding Level of Care Code Acute Code for [facility] Diagnoses Pyelonephritis of right kidney N12 Sleep apnea G47.30 Diabetes mellitus E11.9 Hypertension I10
[2022-04-18 06:43] LABS: Glucose Point of Care 229 mg/dL (70-110)
[2022-04-18] MEDS: insulin lispro 100 unit/1 mL SUBCUT ×3 (08:15→17:44)
--- NOTE | 2022-04-18 10:01 | PC.CHAP ---
Pastoral Care Encounter/Spiritual Assessment Type of Contact [] Declined barrel inspector tight visit [] Patient/Family/Request visit [] Outpatient visit [] Follow-up visit [] Physician referral [] Code/Alert [x] Routine visit [] Staff referral [] Actively dying [] Patient sleeping [] Family support [] [] Out of room [] Palliative care [] [] Receiving care in room [] Pre-surgical visit [] Trauma [] Long length of stay [] ICU visit [] Other: Relational/Emotional Strength [x] Patient feels connected with others/family/visitors/staff [] Distress [] Loneliness/isolation [] Abandonment Spirituality of Patient [x] Person of Margaret [] Attends Muslim of their Margaret [x] Believes in Prayer []x Reads Bible or Judaism materials [] There are Spiritual issues to be addressed Ventilation Worker Interventions [x] Prayer []x Active listening [x] Non-anxious presence [x] Spiritual/emotional support [] Crisis/trauma care [] Spiritual counseling [] Bereavement support [] Provided bereavement packet [] Provided Bible/devotional materials [] Provided toy/stuffed animal, coloring book to patient or family member [] Provided Communion [] Anointing/Ramona [] Salvation [x] Completed spiritual assessment [] Other: Impact on Illness or Injury [] Angry [] Fearful [] Anxious [] Often cries [] Exhaustion [] Unable to work [] Unable to attend gnosticism [] Unable to walk/stand [] Unable to read [] Unable to drive [] Unable to eat/drink [] Unable to sleep [] Unable to be with family [] Patient intubated [] Other: Summary Time spent with patient 10 min
[2022-04-18] MEDS: insulin glargine 100 units/1 mL 25 UNIT SUBCUT ×2 (10:07→17:45)
[2022-04-18 10:51] LABS: Glucose Point of Care 342 mg/dL (70-110)
[2022-04-18] MEDS: levofloxacin-dextrose 5 % 500 MG/100 ML PREMIX 100 MG IV (14:57)
[2022-04-18] MEDS: morphine IR 15 mg Tablet PO ×2 (14:58→23:12)
[2022-04-18 17:02] LABS: Glucose Point of Care 182 mg/dL (70-110)
[2022-04-18 21:42] LABS: Glucose Point of Care 214 mg/dL (70-110)
--- NOTE | 2022-04-18 22:17 | PC.NURSE ---
pt BP elevated, pt had been active with going to and from bathroom when VS was taken, rechecked BP is 156/74 pt sitting on the bed and playing game on phone.denied pain. verbalized having bad pain when ambulating but none with inactivity
[2022-04-19] VITALS (9 sets, daily range): BP systolic 147–183; BP diastolic 80–96; PULSE 62–83; RESP 13–20; TEMP 36.5–37.3; O2SAT 93–97
[2022-04-19] MEDS: heparin 5,000 unit/mL INJ 1 mL 5000 UNIT SUBCUT ×2 (03:03→16:30)
[2022-04-19] MEDS: aztreonam 2,000 MG in sodium chloride 0.9% (plus) 100 ML 200 MG IV (03:03)
[2022-04-19 06:01] LABS: Basophils % 0.3 %; Eosinophils # 0.3 10^3/uL (0.0-0.8); Eosinophils % 3.2 %; Hematocrit 34.8 % (37.0-47.0); Hemoglobin 10.9 g/dL (11.5-15.3); Lymphocytes % 9.9 %; Mean Corpuscular HGB Conc 31.3 g/dL (30.0-36.0); Mean Corpuscular Hemoglobin 26.8 pg (28.0-34.0); Mean Corpuscular Volume 85.7 fl (81-99); Mean Platelet Volume 12.1 fL (7.4-10.4); Monocytes # 0.9 10^3/uL (0.2-0.9); Monocytes % 9.2 %; Nucleated Red Blood Cells % 0 %; Platelet Count 164 10^3/cmm (130-400); Red Blood Count 4.06 10^6/uL (4.1-5.3)
[2022-04-19 06:23] LABS: Anion Gap 15.3 (5-19); Blood Urea Nitrogen 13 mg/dL (8-23); Calcium 8.8 mg/dL (8.5-10.5); Carbon Dioxide 25 mmol/L (22-29); Chloride 93 mmol/L (98-107); Creatinine Clr Calc Pharmacy 98.2987; Glomerular Filtration Rate 73.2 mL/min (90-130); Glucose 147 mg/dL (65-115); Osmolality Calculated 273 mOsm/kg (285-295); Potassium 3.3 mmol/L (3.5-5.1); Sodium 130 mmol/L (136-145)
[2022-04-19 06:58] LABS: Glucose Point of Care 174 mg/dL (70-110)
[2022-04-19] MEDS: insulin lispro 100 unit/1 mL SUBCUT ×3 (09:03→18:14)
[2022-04-19] MEDS: insulin glargine 100 units/1 mL 25 UNIT SUBCUT ×2 (09:04→20:59)
[2022-04-19 10:20] LABS: Glucose Point of Care 282 mg/dL (70-110)
--- NOTE | 2022-04-19 10:47 | P.PN_ITS ---
Subjective Subjective: Endorsing patient is endorsing feeling better No nausea vomiting Sodium 130 Chloride is still low along sodium Hemodynamic stable Gram-negative rods in urine culture Continue IV fluids, plan to discharge her berta Vitals/I&O/Wt Last Vital Signs Temp 98.7 F 04/19/22 07:53 Pulse 70 04/19/22 08:00 Resp 18 04/19/22 08:00 BP 168/96 04/19/22 07:53 Pulse Ox 96 04/19/22 08:00 O2 Del Method 04/19/22 08:00 04/18/22 04/19/22 04/19/22 22:59 06:59 14:59 Intake Total 1440 / 1920 1360 / 3280 220 / 220 Output Total 2500 / 2500 Balance 1440 / 1920 -1140 / 780 220 / 220 Physical Exam Narrative: Awake and alert Signs of dehydration improving Abdomen stable slightly tender right CVA Awake and alert nonfocal neuro exam Currently on room air Pleasant and cooperative No active emesis No acute distress Data 04/19/22 05:26 04/19/22 05:26 Micro: Microbiology 04/17/22 14:14 Blood Culture - Preliminary Blood NEGATIVE TO DATE 04/17/22 14:20 Blood Culture - Preliminary Blood NEGATIVE TO DATE 04/17/22 12:06 Urine Culture - Preliminary Urine,Clean Catch Gram Negative Rods A&P Assessment and plan (1) Pyelonephritis of right kidney: Plan Plan to discharge her tomorrow Discontinue IV antibiotics, switch to p.o. antibiotics Continue IV fluids for dehydration Hyponatremia improving Nausea and vomiting has improved Gram-negative rods on urine culture Full code Consistent carb diet Attestations Medical Necessity Statement*: Continue medical management Time Spent in Patient Care: 30 Coding Level of Care Code Acute Code for [facility] Fwd Diagnoses Pyelonephritis of right kidney N12
[2022-04-19] MEDS: sodium chloride 0.9% 1,000 ML 75 ML IV (12:15)
[2022-04-19 17:22] LABS: Glucose Point of Care 202 mg/dL (70-110)
[2022-04-19] MEDS: morphine IR 15 mg Tablet PO (20:15)
[2022-04-19 21:01] LABS: Glucose Point of Care 204 mg/dL (70-110)
[2022-04-20] VITALS: BP 153/79; PULSE 69; RESP 18; TEMP 37.4; O2SAT 97
[2022-04-20] MEDS: sodium chloride 0.9% 1,000 ML 75 ML IV (01:04)
[2022-04-20] MEDS: heparin 5,000 unit/mL INJ 1 mL 5000 UNIT SUBCUT (02:28)
[2022-04-20 04:00] VITALS: BP 173/75; PULSE 71; RESP 17; TEMP 36.9; O2SAT 96
[2022-04-20] MEDS: levoFLOXacin 750 mg Tablet PO (05:03)
[2022-04-20 05:29] VITALS: RESP 20
[2022-04-20] MEDS: morphine IR 15 mg Tablet PO (05:29)
[2022-04-20 07:28] LABS: Glucose Point of Care 108 mg/dL (70-110)
[2022-04-20 08:00] VITALS: BP 166/89; PULSE 61; RESP 18; TEMP 527.2; TEMP 981; O2SAT 96
[2022-04-20 08:54] VITALS: PULSE 57; RESP 16; O2SAT 96
[2022-04-20] MEDS: insulin glargine 100 units/1 mL 25 UNIT SUBCUT (09:08)
--- NOTE | 2022-04-20 10:23 | P.DS_ITS ---
Discharge Providers Date of Admission: 04/17/22 14:42 Date of Discharge: April 20, 2022 Attending Provider at Admission: Hipolito Carbajal MD Attending Provider at Discharge: Hipolito Carbajal MD Primary Care Provider: JEROME Smith Diagnoses at Discharge Discharge Diagnosis (1) Pyelonephritis of right kidney: Status: Acute Reason for Visit Reason for Visit: N/V Hospital Course Hospital Course 62-year-old female who was admitted to the hospital for recurrent nausea vomiting related to pyelonephritis, urine culture showed gram-negative rods, E. coli, no signs of bacteremia, no febrile episodes improved, no signs of sepsis, she did not experience any nausea vomiting or diarrhea during hospitalization, responded well to IV antibiotics. She will get Levaquin 7-day course at the time of discharge along opioids. She is still complaining of right-sided CVA tenderness. She was dehydrated hyponatremic, required normal saline for about 48 hours Physical Exam Narrative: Awake and alert Nonfocal neuro exam Eating breakfast Doing well on room air Nonfocal neuro exam Pleasant and cooperative Discharge Data Studies Completed and Pending Completed Studies During Hospitalization Category Date Time Status CT abdomen pelvis w con* [id number] Stat Cat Scan 04/17/22 10:50 Completed Pending at discharge Category Date Time Status Blood Culture Stat Lab 04/17/22 14:14 Results Radiology Impressions Abdomen/Pelvis CT 04/17/22 10:50 IMPRESSION: 1. Inflammatory stranding and edema about the RIGHT kidney and RIGHT proximal ureter with mild urothelial enhancement compatible with pyelonephritis. Mild RIGHT hydronephrosis. 2. No evidence of obstructing renal or ureteral calculi. 3. Mild bladder wall thickening with a partially decompressed bladder. 4. No hydronephrosis in the LEFT kidney. 5. Hepatomegaly with diffuse fatty infiltration. 6. Cholelithiasis. 7. Complex cystic lesion lower pole RIGHT kidney measuring 2.3 x 1.8 cm. Recommend interval follow-up with ultrasound. Notified RACHEL Tate at 04/17/2022 12:49 PM. Laboratory Results WBC 10.0 10^3/uL (4.0-10.0) 04/19/22 05:26 RBC 4.06 10^6/uL (4.1-5.3) L 04/19/22 05:26 Hgb 10.9 g/dL (11.5-15.3) L 04/19/22 05:26 Hct 34.8 % (37.0-47.0) L 04/19/22 05:26 MCV 85.7 fl (81-99) 04/19/22 05:26 MCH 26.8 pg (28.0-34.0) L 04/19/22 05:26 MCHC 31.3 g/dL (30.0-36.0) 04/19/22 05:26 RDW 14.0 % (12.1-15.1) 04/19/22 05:26 Plt Count 164 10^3/cmm (130-400) 04/19/22 05:26 MPV 12.1 fL (7.4-10.4) H 04/19/22 05:26 Neut % (Auto) 77.0 % 04/19/22 05:26 Lymph % (Auto) 9.9 % 04/19/22 05:26 [place] % (Auto) 9.2 % 04/19/22 05:26 Eos % (Auto) 3.2 % 04/19/22 05:26 Baso % (Auto) 0.3 % 04/19/22 05:26 Neut # (Auto) 7.70 10^3/uL (1.8-7.7) 04/19/22 05:26 Lymph # (Auto) 1.0 10^3/uL (0.8-4.8) 04/19/22 05:26 [place] # (Auto) 0.9 10^3/uL (0.2-0.9) 04/19/22 05:26 Eos # (Auto) 0.3 10^3/uL (0.0-0.8) 04/19/22 05:26 Baso # (Auto) 0.0 10^3/uL (0.0-0.1) 04/19/22 05:26 Nucleated RBC % (auto) 0 % 04/19/22 05:26 Nucleated RBCs # 0.0 /100WBC 04/19/22 05:26 Sodium 130 mmol/L (136-145) L 04/19/22 05:26 Potassium 3.3 mmol/L (3.5-5.1) L 04/19/22 05:26 Chloride 93 mmol/L (98-107) L 04/19/22 05:26 Carbon Dioxide 25 mmol/L (22-29) 04/19/22 05:26 Anion Gap 15.3 (5-19) 04/19/22 05:26 BUN 13 mg/dL (8-23) 04/19/22 05:26 Creatinine 0.8 mg/dL (0.5-0.9) 04/19/22 05:26 GFR Calculation 73.2 mL/min (90-130) L 04/19/22 05:26 Glucose 147 mg/dL (65-115) H 04/19/22 05:26 POC Glucose 108 mg/dL (70-110) 04/20/22 07:09 Estimat Average Glucose 212 04/17/22 15:21 Hemoglobin A1c 9.0 % (4.0-6.0) H 04/17/22 15:21 Calculated Osmolality 273 mOsm/kg (285-295) L 04/19/22 05:26 Lactic Acid 1.3 mmol/L (0.5-2.2) 04/17/22 11:25 Calcium 8.8 mg/dL (8.5-10.5) 04/19/22 05:26 Magnesium 1.7 mg/dL (1.7-2.3) 04/18/22 04:25 Total Bilirubin 0.7 mg/dL (0.15-1.2) 04/17/22 10:35 AST 10 U/L (0-32) 04/17/22 10:35 ALT 8 U/L (0-33) 04/17/22 10:35 Alkaline Phosphatase 151 U/L (35-105) H 04/17/22 10:35 C-Reactive Protein 256.0 mg/L (0.0-4.9) H 04/18/22 04:25 Total Protein 6.8 g/dL (6.6-8.7) 04/17/22 10:35 Albumin 3.8 g/dL (3.5-5.2) 04/17/22 10:35 Globulin 3.0 g/dL (1.3-4.6) 04/17/22 10:35 Lipase 15 U/L (13-60) 04/17/22 10:35 Procalcitonin 37.02 ng/mL (0-0.5) H 04/17/22 14:15 Urine Color Yellow (Yellow) 04/17/22 12:06 Urine Appearance Cloudy (CLEAR) A 04/17/22 12:06 Urine pH 5 (5-7) 04/17/22 12:06 Ur Specific [place] 1.010 (1.005-1.030) 04/17/22 12:06 Urine Protein 1+ (Negative) H 04/17/22 12:06 Urine Glucose (UA) 4+ (Normal) H 04/17/22 12:06 Urine Ketones 1+ (Negative) H 04/17/22 12:06 Urine Blood 3+ (Negative) H 04/17/22 12:06 Urine Nitrate Positive (Negative) H 04/17/22 12:06 Urine Bilirubin Neg (Negative) 04/17/22 12:06 Urine Urobilinogen Neg mg/dL (Negative) 04/17/22 12:06 Ur Leukocyte Esterase 2+ (Negative) H 04/17/22 12:06 Urine RBC 10-15 /hpf (0-2) H 04/17/22 12:06 Urine WBC >100 /hpf (0-5) H 04/17/22 12:06 Ur Squamous Epith Cells 0-4 /hpf (0-5) H 04/17/22 12:06 Amorphous Sediment Not Reportable 04/17/22 12:06 Urine Bacteria 1+ /hpf (NONE) H 04/17/22 12:06 Vitals Last Vital Signs Temp 981 F H 04/20/22 08:00 Pulse 57 L 04/20/22 08:54 Resp 16 04/20/22 08:54 BP 166/89 04/20/22 08:00 Pulse Ox 96 04/20/22 08:54 O2 Del Method 04/20/22 08:54 Discharge Plan Discharge Patient Disposition: Home Condition: Stable Prescriptions: New oxycodone-acetaminophen 5-325 mg tablet 1 tab PO Q8H PRN (Reason: pain) Qty: 10 0RF oxycodone-acetaminophen 5-325 mg tablet 1 tab PO Q8H PRN (Reason: pain) Qty: 10 0RF levofloxacin 750 mg Tablet 750 mg PO DAILY@0600 Qty: 7 0RF ondansetron HCl 4 mg tablet 4 mg PO DAILY Qty: 10 0RF Continued insulin aspart U-100 [Novolog FlexPen U-100 Insulin] 100 unit/mL (3 mL) insulin pen 15 unit SUBCUT TID gabapentin 300 mg capsule 300 mg PO TID Qty: 90 3RF Lantus Solostar U-100 Insulin 100 unit/mL (3 mL) Insulin Pen 10 unit SUBCUT TID Discharge Orders: Discharge Order (Routine); Ordered 04/20/22 Ordered By: Hipolito Carbajal Referrals: Lisa Welch FNP [Primary Care Provider] - 2 weeks Patient Instructions: Opioid Safety Discharge Attestations Time Spent in Discharge Care*: less than 30 min Quality Metrics Clinical Quality Measures [ No reported AMI, CVA or VTE this stay] Coding Level of Care Code Acute Chg FW DC note Diagnoses Pyelonephritis of right kidney N12
[2022-04-20 11:30] VITALS: BP 166/89; PULSE 57; RESP 16; TEMP 527.2; TEMP 981; O2SAT 96
--- NOTE | 2022-04-20 12:52 | PC.NURSE ---
1120 IV dc'd patient margret well, discharge instructions given to patient who voiced understanding. 1145 patient discharged to home with friend patient ambulated to private car, patient in stable condition
== END 2022-04-20 11:45 | disposition home or self-care (01) ==
LOC: ER 14:16 → MEDSURG 14:43
PROVIDERS: Admitting Provider Internal Medicine; Emergency Provider Physician Assistant; PCP Nurse Practitioner Family; Visit Provider Internal Medicine
DX: N12 Tubulo-interstitial nephritis, not specified as acute or chronic (principal); G47.30 Sleep apnea, unspecified; E11.9 Type 2 diabetes mellitus without complications; I10 Essential (primary) hypertension; Z79.4 Long term (current) use of insulin; F17.210 Nicotine dependence, cigarettes, uncomplicated
CPT/HCPCS: 36415; 36416; 74177; 80048; 80053; 81001; 82962; 83036; 83605; 83690; 83735; 84145; 85025; 86140; 87040; 87077; 87086; 87186; 96365; 96372; 96375; 99285; G0378; J1644; J1815; J1956; J2270; J2405; J3490; J7030; Q9967

== ENCOUNTER 2022-10-08 14:59 | Emergency (ER) | payer MEDICAID, SELFPAY ==
[2022-10-08 15:00] VITALS: PULSE 72; TEMP 37.1; O2SAT 97; BMI 36.5
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
[2022-10-08] MEDS: acetaminophen 500 mg Tablet 1000 MG PO (15:54)
[2022-10-08] MEDS: ketorolac 30 mg/mL INJ 15 MG IM (15:54)
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
--- NOTE | 2022-10-08 16:35 | PC.NURSE ---
PT TRANSFERRED TO [facility] PER RO. PT CARTENDER RIDE CAR.
== END 2022-10-08 16:42 | disposition home or self-care (01) ==
PROVIDERS: Emergency Provider Emergency Medicine; PCP Nurse Practitioner Family
DX: S20.219A Contusion of unspecified front wall of thorax, initial encounter (principal); S30.0XXA Contusion of lower back and pelvis, initial encounter; E11.9 Type 2 diabetes mellitus without complications; I10 Essential (primary) hypertension; F17.210 Nicotine dependence, cigarettes, uncomplicated; Y04.2XXA Assault by strike against or bumped into by another person, initial encounter
CPT/HCPCS: 71046; 71120; 72072; 72100; 96372; 99284; J1885

== ENCOUNTER 2022-11-20 11:00 | Outpatient (CLI) | payer MEDICAID, SELFPAY ==
--- NOTE | 2022-11-20 11:41 | XR_ITS ---
WS: [id number] Exam: XR lumbar spine 2-3V* [id number] Date/Time of Exam: 11/20/2022 12:09 PM Reason For Exam: Lumbar pain Comparison 10/08/2022 Posterior fusion of the spine at L5-S1 with pedicle screws and posterior rods. An intervening disc sp acer is noted. The fusion remains in good alignment without change. The remainder of the lumbar spine appears normal. IMPRESSION: 1. Stable L5-S1 fusion with hardware. No change or complication.
== END 2022-11-20 11:01 | disposition home or self-care (01) ==
LOC: RAD 11:02
PROVIDERS: PCP Nurse Practitioner Family; Visit Provider Orthopaedic Surgery
DX: M54.9 Dorsalgia, unspecified (principal)
CPT/HCPCS: 72100; 99214

== ENCOUNTER 2023-10-11 14:28 | Emergency (ER) | payer MEDICAID, SELFPAY ==
[2023-10-11 14:32] VITALS: BP 165/81; PULSE 75; TEMP 36.6; O2SAT 98
--- NOTE | 2023-10-11 15:11 | ED_ITS ---
HPI - General Adult 2 General: Chief complaint: Nausea/Vomiting/Diarrhea Stated complaint: N/V Time Seen by Provider: 10/11/23 14:33 History of Present Illness: 63-year-old female brought in by EMS. H er chief complaint is not feeling well. After several conversations we found that she has an abscess on her right shoulder. Patient reports that she was temporarily displaced from her apartment. She explains that they are doing pest control for bedbugs, roaches, and all other insects. They were asked to leave their apartments for 3 days. She has been essentially homeless for the last 3 days and has been without her insulin. She does not know what her blood sugar has been. She reports she has been overheated and sweating due to exposure. She just feels tired and unwell. She has not been able to sleep for the last 3 days because she has nowhere to safely get rest. She is also not been eating or drinking as much. The abscess on her right shoulder was reportedly diagnosed by her primary and she was given some antibiotics for it. It is unclear when her last dose of antibiotics was; we think about 3 days ago. Associated symptoms: Deny chest pain, dyspnea, headache(s), rash, syncope or vomiting Review of Systems 2 General: Reports: 10 or more systems reviewed and unremarkable except in HPI and below Narrative: Patient reports she was shaky this morning and wonders whether she was having chills. She has had nausea and reports she vomited once this morning. She has diffuse abdominal discomfort worse in the right mid abdomen. She has an abscess on her right posterior shoulder region. This afternoon she has had increased thirst. She endorses being overly tired and fatigued. Const: Denies: fever(s) Eyes: Denies: change in vision ENMT: Denies: throat pain Card: Denies: chest pain, edema or syncope Resp: Denies: dyspnea or productive cough GI: Denies: vomiting or diarrhea : Reports: dysuria; Denies: flank pain or urinary frequency Musc: Denies: neck pain, back pain, extremity pain or extremity swelling Skin/Breast: Denies: rash Neuro: Denies: headache(s), numbness in extremities, weakness in extremities, lack of coordination or difficulty walking [facility] ED 2 PFSH: Medical History Diabetes mellitus Hypertension Intervertebral disc disorder with radiculopathy of lumbosacral region 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) use of 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 Lumbar spondylolysis Pain management contract signed Pyelonephritis of right kidney Sleep apnea Spondylolisthesis of lumbosacral region Surgical History H/O laminectomy H/O: hysterectomy Family History Family/Other Diabetes Colon cancer Social History Smoking and tobacco/nicotine status: current every day tobacco/nicotine user Alcohol intake: never Substance/Drug Use: never Household members: family and other Details: son Marital status: Single Current occupational status: unemployed Physical Exam 2 Narrative: EXAM NARRATIVE: Erythematous, slightly indurated, tender fluctuant nodule on the right posterior shoulder consistent with abscess. Obese, alert, no acute distress. No diaphoresis. Radial pulse 2+. Abdomen soft but reportedly tender in the right mid abdomen. No rebound. Const: COMMON NORMALS: no limitations, alert and well nourished EXAM LIMITATIONS: no altered mental status HENMT: COMMON NORMALS: normocephalic, atraumatic and external ears normal H EAD & SCALP: normocephalic and atraumatic EXTERNAL EAR: Yes external ears normal MOUTH: no muffled voice Eye: COMMON NORMALS: EOMs intact bilaterally, conjunctivae normal and no scleral icterus CONJUNCTIVA: Yes conjunctivae normal Neck/C-Spine: COMMON NORMALS: no JVD GENERAL: Yes normal visual inspection and Yes trachea midline Resp: COMMON NORMALS: normal respiratory effort, No use of accessory muscles and clear to auscultation bilaterally AUSCULTATION: clear to auscultation bilaterally Cardio: COMMON NORMALS: no JVD, regular rate and regular rhythm RATE: r egular rate RHYTHM: regular rhythm GI: COMMON NORMALS: Soft to palpation PALPATION: Yes Soft to palpation and No Guarding due to palpation present (GI) Extremity: COMMON NORMALS: normal to inspection Neuro: COMMON NORMALS: moves all extremities, no focal motor deficits and no sensory deficits noted SENSORIUM/ORIENTATION: Yes alert SPEECH: speech normal Psych: COMMON NORMALS: mental status grossly normal, Normal thought process present, cooperative, normal affect and speech normal SPEECH: Yes normal speech THOUGHT PROCESS: Normal thought process present Skin: COMMON NORMALS: turgor normal and no jaundice GENERAL SKIN EXAM: t urgor normal Course 2 ED course: I&D was performed for the abscess. Packing was placed. Patient was started on Bactrim DS. She will continue this for 7 days. Patient's glucose is significantly elevated and her bicarb is relatively low but the anion gap is normal. The patient reports that she does have insulin at her apartment but has not been going there because of the spraying that is going on. I am going to go ahead and give her 1 L of IV fluids here as well as some insulin glargine and regular insulin. She says that the sprain will be done tomorrow. Patient's white blood cell count was mildly elevated. Her creatinine was mildly elevated. At this time there is no reason for admission so long as she can access her insulin and continue to take it. The nursing staff is looking into providing a Medicaid reimbursed ride for the patient. Vital Signs: Vital signs: Vital Signs Temperature 97.8 F 10/11/23 14:32 Pulse Rate 69 10/11/23 15:39 Blood Pressure 175/85 10/11/23 15:39 Pulse Oximetry 97 10/11/23 15:39 Oxygen Delivery Me thod Room Air 10/11/23 15:39 MDM - General Adult Medical Decision Making Differential diagnosis includes dehydration, homelessness, UTI, hyperglycemia or diabetic emergency, abscess, renal failure, electrolyte disturbance, metabolic acidosis, medication noncompliance due to situation, other. Lab Data 10/11/23 14:46 10/11/23 15:28 Laboratory Results WBC 10.48 10^3/uL (3.29-11.43) 10/11/23 14:46 RBC 5.30 10^6/uL (3.85-5.65) 10/11/23 14:46 Hgb 14.60 g/dL (11.27-16.99) 10/11/23 14:46 Hct 46.7 % (36-47) 10/11/23 14:46 MCV 88.1 fl (85-98) 10/11/23 14:46 MCH 27.5 pg (27-33) 10/11/23 14:46 MCHC 31.3 g/dL (30-55) 10/11/23 14:46 RDW 14.1 % (12.1-15.1) 10/11/23 14:46 Plt Count 234 10^3/cmm (157-399) 10/11/23 14:46 MPV 12.1 fL (7.4-10.4) H 10/11/23 14:46 Neut % (Auto) 88.3 % 10/11/23 14:46 Lymph % (Auto) 7.3 % 10/11/23 14:46 [place] % (Auto) 3.5 % 10/11/23 14:46 Eos % (Auto) 0.2 % 10/11/23 14:46 Baso % (Auto) 0.3 % 10/11/23 14:46 Neut # (Auto) 9.26 10^3/uL (1.8-7.7) H 10/11/23 14:46 Lymph # (Auto) 0.8 10^3/uL (0.8-4.8) 10/11/23 14:46 [place] # (Auto) 0.4 10^3/uL (0.2-0.9) 10/11/23 14:46 Eos # (Auto) 0.0 10^3/uL (0.0-0.8) 10/11/23 14:46 Baso # (Auto) 0.0 10^3/uL (0.0-0.1) 10/11/23 14:46 Nucleated RBC % (auto) 0 % 10/11/23 14:46 Nucleated RBCs # 0.0 /100WBC 10/11/23 14:46 Sodium 131 mmol/L (136-145) L 10/11/23 15:28 Potassium 4.8 mmol/L (3.5-5.1) 10/11/23 15:28 Chloride 101 mmol/L (98-107) 10/11/23 15:28 Carbon Dioxide 17 mmol/L (22-29) L 10/11/23 15:28 Anion Gap 17.8 (5-19) 10/11/23 15:28 BUN 12 mg/dL (8-23) 10/11/23 15:28 Creatinine 1.0 mg/dL (0.5-0.9) H 10/11/23 15:28 GFR Calculation 56.4 mL/min (90-130) L 10/11/23 15:28 Glucose 356 mg/dL (65-115) H 10/11/23 15:28 Calculated Osmolality 286 mOsm/kg (285-295) 10/11/23 15:28 Calcium 8.9 mg/dL (8.5-10.5) 10/11/23 15:28 Magnesium 1.8 mg/dL (1.7-2.3) 10/11/23 15:28 Total Bilirubin 0.4 mg/dL (0.15-1.2) 10/11/23 15:28 AST 17 U/L (0-32) 10/11/23 15:28 ALT 18 U/L (0-33) 10/11/23 15:28 Alkaline Phosphatase 139 U/L (35-105) H 10/11/23 15:28 Creatine Kinase 222 U/L (26-192) H 10/11/23 15:28 Total Protein 7.4 g/dL (6.6-8.7) 10/11/23 15:28 Albumin 3.4 g/dL (3.5-5.2) L 10/11/23 15:28 Globulin 4.0 g/dL (1.3-4.6) 10/11/23 15:28 No radiology studies performed this visit Discharge Plan Discharge Patient Disposition: Home Clinical Impression: Abscess, Acute hyperglycemia Condition: Stable Prescriptions: New Bactrim DS 800-160 mg tablet 1 tab PO BID 7 Days Qty: 14 0RF Discontinued tramadol 50 mg tablet 50 mg PO BID MDD 2 PRN (Reason: pain) Qty: 30 0RF levofloxacin 750 mg Tablet 750 mg PO DAILY@0600 Qty: 7 0RF ondansetron HCl 4 mg tablet 4 mg PO DAILY Qty: 10 0RF oxycodone-acetaminophen 5-325 mg tablet 1 tab PO Q8H PRN (Reason: pain) Qty: 10 0RF No Action insulin aspart U-100 [Novolog FlexPen U-100 Insulin] 100 unit/mL (3 mL) insulin pen 15 unit SUBCUT TID gabapentin 300 mg capsule 300 mg PO TID Qty: 90 3RF Lantus Solostar U-100 Insulin 100 unit/mL (3 mL) Insulin Pen 10 unit SUBCUT TID Discharge Orders: Discharge ED (Routine); Ordered 10/11/23 Ordered By: Sánchez Mata Referrals: Lisa Welch FNP [Primary Care Provider] - Discharge Diet: Diabetic Discharge Activity: Resume usual activity Patient Instructions: Abscess (ED), Diabetic Hyperglycemia (ED), Pain Management Activity Restrictions/Additional Instructions: 1. Please take your insulin as prescribed and eat a diabetic diet---if you have high blood sugar, it suppresses your immune system. 2. Return to clinic or ER in 3 days for wound check and packing removal. 3. Take bactrim as directed (2x daily for 7 days). 4. Go to ER if you have fever, confusion, vomiting, or worsening condition. Please read all discharge instructions and abide by recommendations and return precautions. Make an appointment to follow-up with your primary care doctor as directed for follow-up. Return to ER if getting worse or other emergent symptoms. Coding Level of Care Code ED Ornamental Bronze Worker for Joyce Keita
[2023-10-11] MEDS: sulfamethoxazole-trimeth DS 160-800 mg Tablet 1 TAB PO (15:36)
[2023-10-11] MEDS: sodium chloride 0.9% 1,000 ML 999 ML IV (15:37)
[2023-10-11 15:38] LABS: Basophils % 0.3 %; Eosinophils % 0.2 %; Hematocrit 46.7 % (36-47); Lymphocytes # 0.8 10^3/uL (0.8-4.8); Lymphocytes % 7.3 %; Mean Corpuscular HGB Conc 31.3 g/dL (30-55); Mean Corpuscular Hemoglobin 27.5 pg (27-33); Mean Corpuscular Volume 88.1 fl (85-98); Mean Platelet Volume 12.1 fL (7.4-10.4); Monocytes # 0.4 10^3/uL (0.2-0.9); Monocytes % 3.5 %; Neutrophils # 9.26 10^3/uL (1.8-7.7); Neutrophils % 88.3 %; Nucleated Red Blood Cells % 0 %; Platelet Count 234 10^3/cmm (157-399); Red Cell Distribution Width 14.1 % (12.1-15.1); White Blood Count 10.48 10^3/uL (3.29-11.43)
[2023-10-11] MEDS: ondansetron 2 mg/ML SDV 2 mL 4 MG IVP (15:38)
[2023-10-11 15:39] VITALS: BP 175/85; PULSE 69; O2SAT 97
[2023-10-11 16:00] LABS: Alanine Aminotransferase 18 U/L (0-33); Albumin Level 3.4 g/dL (3.5-5.2); Alkaline Phosphatase 139 U/L (35-105); Aspartate Amino Transferase 17 U/L (0-32); Blood Urea Nitrogen 12 mg/dL (8-23); Calcium 8.9 mg/dL (8.5-10.5); Carbon Dioxide 17 mmol/L (22-29); Chloride 101 mmol/L (98-107); Creatine Phosphokinase 222 U/L (26-192); Glomerular Filtration Rate 56.4 mL/min (90-130); Glucose 356 mg/dL (65-115); Magnesium 1.8 mg/dL (1.7-2.3); Osmolality Calculated 286 mOsm/kg (285-295); Sodium 131 mmol/L (136-145); Total Bilirubin 0.4 mg/dL (0.15-1.2); Total Protein 7.4 g/dL (6.6-8.7)
[2023-10-11 16:01] LABS: Anion Gap 17.8 (5-19); Potassium 4.8 mmol/L (3.5-5.1)
[2023-10-11] MEDS: BUPivacaine 0.5% INJ 10 mL 20 ML INJECTION (16:03)
[2023-10-11] MEDS: insulin glargine 100 units/1 mL 20 UNIT SUBCUT (16:42)
[2023-10-11] MEDS: insulin lispro 100 unit/1 mL 10 UNIT SUBCUT (16:43)
[2023-10-11 18:16] LABS: Glucose 330 mg/dL (65-115)
[2023-10-11 18:43] LABS: Glucose Point of Care 254 mg/dL (70-110)
[2023-10-11 19:02] VITALS: BP 175/85; PULSE 69; TEMP 36.6; O2SAT 97
== END 2023-10-11 19:01 | disposition home or self-care (01) ==
PROVIDERS: Emergency Provider Emergency Medicine; PCP Nurse Practitioner Family
DX: L02.413 Cutaneous abscess of right upper limb (principal); E11.65 Type 2 diabetes mellitus with hyperglycemia; Z79.4 Long term (current) use of insulin; I10 Essential (primary) hypertension; Z72.0 Tobacco use; Z59.00 Homelessness unspecified
CPT/HCPCS: 10060; 36415; 36416; 80053; 82550; 82947; 82962; 83735; 85025; 96361; 96372; 96374; 99284; J1815; J2405; J3490; J7030

== ENCOUNTER 2024-08-06 18:29 | Inpatient (IN) | payer MEDICAID, SELFPAY ==
[2024-08-06] VITALS (10 sets, daily range): BP systolic 168–234; BP diastolic 65–129; PULSE 71–79; RESP 18–20; TEMP 36.6; O2SAT 93–98; BMI 34.9
--- NOTE | 2024-08-06 20:43 | ECG_ITS ---
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 Measurements Intervals [place] Rate: 75 P: 47 [place]: 146 QRS: 52 QRSD: 88 T: 83 QT: 397 QTc: 443 Interpretive Statements SINUS RHYTHM Compared to ECG 08/18/2019 15:39:20 T-wave abnormality no longer present Electronically Signed On 08-07-2024 12:31:03 CDT by Zhou Bundy M.D. [email or web address]
--- NOTE | 2024-08-06 20:43 | XRR_ITS ---
PROCEDURE INFORMATION: Exam: XR Chest Exam date and time: 08/06/2024 9:24 PM Age: 64 years old Clinical indication: Injury or trauma; Blunt trauma (contusions or hematomas); Fall at home. Hypertensive. TECHNIQUE: Imaging protocol: Radiologic exam of the chest. Views: 1 view. COMPARISON: CR XR chest 2V* [id number] 10/08/2022 3:33 PM FINDINGS: Lungs: Unremarkable. No consolidation. Pleural spaces: Unremarkable. No pleural effusion. No pneumothorax. Heart/Mediastinum: Unremarkable. No cardiomegaly. Bones/joints: Unremarkable. XR/XR chest 1V portable [id number] IMPRESSION: No acute findings.
--- NOTE | 2024-08-06 20:43 | CTR_ITS ---
PROCEDURE INFORMATION: Exam: CT Head Without Contrast Exam date and time: 08/06/2024 9:21 PM Age: 64 years old Clinical indication: Injury or trauma; Blunt trauma (contusions or hematomas); Patient sustained fall at home. Was down thirty minutes before being able to get herself back up. Denies any loc. Focal C/O low back pain. Hypertensive. ; Additional info: Fall unknown cause TECHNIQUE: Imaging protocol: Computed tomography of the head without contrast. Radiation optimization: All CT scans at this facility use at least one of these dose optimization techniques: automated exposure control; mA and/or kV adjustment per patient size (includes targeted exams where dose is matched to clinical indication); or iterative reconstruction. COMPARISON: No relevant prior studies available. RADIATION DOSE METRICS: Total DLP (mGy-cm): 1035.35 FINDINGS: Brain: Moderate diffuse white matter disease likely reflecting chronic microvascular ischemic changes. Left occipital chronic infarct and encephalomalacia. Right frontal region 4.2 mm thick probable calcified meningioma without significant mass effect. Cerebral ventricles: No ventriculomegaly. Paranasal sinuses: Visualized sinuses are unremarkable. No fluid levels. Mastoid air cells: Visualized mastoid air cells are well aerated. Bones: Unremarkable. No acute fracture. Soft tissues: Unremarkable. CT/CT head wo con* [id number] IMPRESSION: 1. Negative for intracranial hemorrhage or mass effect. 2. Moderate diffuse white matter disease likely reflecting chronic microvascular ischemic changes. 3. Left occipital chronic infarct and encephalomalacia. 4. Right frontal region 4.2 mm thick probable calcified meningioma without significant mass effect.
--- NOTE | 2024-08-06 20:43 | CTR_ITS ---
PROCEDURE INFORMATION: Exam: CT Lumbar Spine Without Contrast Exam date and time: 08/06/2024 9:24 PM Age: 64 years old Clinical indication: Injury or trauma; Blunt trauma (contusions or hematomas); Prior surgery; Surgery date: 6+ months; Surgery type: Lumbar fusion; Patient sustained fall at home. Was down thirty minutes before being able to get herself back up. Denies any loc. Focal C/O low back pain. Hypertensive. ; Additional info: Fall low back pain TECHNIQUE: Imaging protocol: Computed tomography of the lumbar spine without contrast. Radiation optimization: All CT scans at this facility use at least one of these dose optimization techniques: automated exposure control; mA and/or kV adjustment per patient size (includes targeted exams where dose is matched to clinical indication); or iterative reconstruction. COMPARISON: MR lumbar spine wo con* [id number] 09/07/2019 11:59 AM RADIATION DOSE METRICS: Total DLP (mGy-cm): 1244.38 FINDINGS: Bones/joints: Chronic degenerative changes at L5-S1, status post posterior rosi and screw fusion, laminectomy, and intervertebral disc spacer. No distinct radiographic evidence of hardware complication. No evidence of acute osseous fracture. Soft tissues: Remote postsurgical changes of the lower lumbar posterior soft tissues. CT/CT lumbar spine wo con* [id number] IMPRESSION: 1. Chronic degenerative changes at L5-S1, status post posterior rosi and screw fusion, laminectomy, and intervertebral disc spacer. No distinct radiographic evidence of hardware complication. 2. No evidence of acute osseous fracture.
[2024-08-06 20:50] LABS: Basophils # 0.1 10^3/uL (0.0-0.1); Basophils % 0.5 %; Eosinophils # 0.1 10^3/uL (0.0-0.8); Hematocrit 39.6 % (36-47); Lymphocytes # 1.8 10^3/uL (0.8-4.8); Mean Corpuscular HGB Conc 33.1 g/dL (30-55); Mean Corpuscular Hemoglobin 30.3 pg (27-33); Mean Corpuscular Volume 91.5 fl (85-98); Monocytes # 0.6 10^3/uL (0.2-0.9); Monocytes % 5.7 %; Neutrophils # 8.32 10^3/uL (1.8-7.7); Neutrophils % 76.3 %; Nucleated Red Blood Cells % 0 %; Platelet Count 256 10^3/cmm (157-399); Red Blood Count 4.33 10^6/uL (3.85-5.65); Red Cell Distribution Width 14.7 % (12.1-15.1); White Blood Count 10.91 10^3/uL (3.29-11.43)
[2024-08-06] MEDS: morphine 4 mg/mL SDV 1 mL IVP (20:54)
[2024-08-06] MEDS: ondansetron 2 mg/ML SDV 2 mL 4 MG IVP (20:54)
[2024-08-06 21:09] LABS: INR 0.88 (0.8-1.2)
[2024-08-06 21:10] LABS: Partial Thromboplastin Time 25.7 SECONDS (23.9-36.7)
[2024-08-06 21:31] LABS: Troponin(5th) Baseline 19 ng/L (0-10)
[2024-08-06 21:31] LABS: Bilirubin Urine Negative (Negative); Blood Urine 1+ (Negative); Glucose Urine UA 2+ (Normal); Ketones Urine Negative (Negative); Leukocyte Esterase Urine 1+ (Negative); Nitrate Urine Positive (Negative); Protein Urine 3+ (Negative); Specific Gravity, Urine 1.021 (1.005-1.030); Urine Appearance Cloudy (CLEAR); Urine Color Yellow (Yellow); pH Urine 5.5 (5-7)
[2024-08-06] MEDS: amlodipine 10 mg Tablet PO (21:33)
[2024-08-06] MEDS: labetalol 5 mg/mL SDV 20mL 20 MG IVP (21:35)
[2024-08-06] MEDS: enalaprilat 2.5 mg/2 mL SDV 1.25 MG IVP (21:36)
[2024-08-06 21:37] LABS: Add Urine Microscopic? YES; Bacteria Urine 4+ /hpf; Hyaline Casts Urine 26.04 /lpf; RBC Urine 0-2 /hpf (0-2); Squamous Epithelial Cell Urine 0-5 /hpf (0-5); WBC Urine >100 /hpf (0-5)
[2024-08-06 21:38] LABS: Alanine Aminotransferase 10 U/L (0-33); Albumin Level 3.9 g/dL (3.5-5.2); Alkaline Phosphatase 121 U/L (35-105); Anion Gap 17.4 (5-19); Aspartate Amino Transferase 12 U/L (0-32); Blood Urea Nitrogen 14 mg/dL (8-23); Calcium 9.4 mg/dL (8.5-10.5); Carbon Dioxide 23 mmol/L (22-29); Chloride 100 mmol/L (98-107); Creatinine Clr Calc Pharmacy 81.9239; Globulin 2.5 g/dL (1.3-4.6); Glomerular Filtration Rate 63.4 mL/min (90-130); Glucose 175 mg/dL (65-115); NT Pro B Type Natriuretic Pept 1737 pg/mL (0-125); Osmolality Calculated 287 mOsm/kg (285-295); Potassium 4.4 mmol/L (3.5-5.1); Sodium 136 mmol/L (136-145); Total Bilirubin 0.3 mg/dL (0.15-1.2); Total Protein 6.4 g/dL (6.6-8.7)
[2024-08-06 22:04] LABS: UA Slide Review UA Slide Review Perf
[2024-08-06 22:05] LABS: Add Urine Culture? Yes
[2024-08-06] MEDS: levofloxacin-dextrose 5 % 500 MG/100 ML PREMIX 100 MG IV (22:57)
[2024-08-06 23:10] LABS: Troponin 5 2HR 17.36 ng/L (0-10)
[2024-08-06 23:14] LABS: Troponin 5 2HR Delta -1.64 ABS# (0-10)
--- NOTE | 2024-08-06 23:48 | W.ED.FALL ---
HPI - Fall General: Chief Complaint: Fall Stated Complaint: back pain s/p fall Time Seen by Provider: 08/06/24 20:34 History of Present Illness: 64-year-old female. She complains of a fall earlier today fall happened around 5 PM. She was on the floor for 30 minutes she said. She was able to get herself up to the couch. She called an ambulance. She is unable to tell me why she fell. She says that she did not trip. She says she is not dizzy. Related Data Home Medications ?Medication ?Instructions ?Recorded ?Confirmed insulin aspart U-100 100 unit/mL 15 unit SUBCUT TID 05/31/20 11/20/22 (3 mL) subcutaneous pen (Novolog FlexPen U-100 Insulin aspart) insulin glargine 100 unit/mL (3 10 unit SUBCUT TID 04/17/22 11/20/22 mL) subcutaneous pen (Lantus Solostar U-100 Insulin) Previous Rx's ?Medication ?Instructions ?Recorded gabapentin 300 mg capsule 300 mg PO TID pain #90 caps 05/31/20 Allergies Allergy/AdvReac Type Severity Reaction Status Date / Time Penicillins Allergy ALGY-Swell Verified 11/20/22 13:01 Lip/Tongue/Throat FORMERLY [facility] ED PFSH: Medical History assisted (current) use of 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 Pain management contract signed Pyelonephritis of right kidney Sleep apnea Hypertension Diabetes mellitus Lumbar spondylolysis Spondylolisthesis of lumbosacral region Intervertebral disc disorder with radiculopathy of lumbosacral region Surgical History H/O laminectomy H/O: hysterectomy Family History Family/Other Diabetes Colon cancer Social History Smoking and tobacco/nicotine status: current every day tobacco/nicotine user Alcohol intake: never Substance/Drug Use: never Household members: family and other Details: son Marital status: Single Current occupational status: unemployed Physical Exam Const: COMMON NORMALS: alert GENERAL APPEARANCE: cooperative; not frail appearing ORIENTATION/CONSCIOUSNESS: Yes awake, Yes oriented to person, Yes oriented to place and Yes oriented to time HENMT: COMMON NORMALS: normocephalic, atraumatic and Normal external nose present HEAD & SCALP: normocephalic and atraumatic FACE & SINUS: normal facial exam and face symmetric NOSE: Normal external nose present Eye: COMMON NORMALS: Equal, round and reactive pupils present, EOMs intact bilaterally and conjunctivae normal GENERAL EYE: appearance normal, both eyes and all related structures CONJUNCTIVA: Yes conjunctivae normal PUPIL: Yes Equal, round and reactive pupils present Chest: CHEST: Yes Symmetrical chest wall rise Resp: COMMON NORMALS: normal respiratory effort, No retractions, No use of accessory muscles and clear to auscultation bilaterally AUSCULTATION: clear to auscultation bilaterally Cardio: COMMON NORMALS: regular rate and regular rhythm RATE: regular rate RHYTHM: regular rhythm Extremity: GENERAL: Yes edema (1+) Neuro: YOSI COMA SCALE: document GCS findings [place] coma scale eye opening: Spontaneous [place] coma scale verbal response: Orientated [place] coma scale motor response: Obey commands Yosi coma scale total score: 15 COMMON NORMALS: CN's II-XII intact bilaterally and no sensory deficits noted SENSORIUM/ORIENTATION: Yes alert, Yes oriented to person, Yes oriented to place and Yes oriented to time COORDINATION/BALANCE: [id number] test normal SPEECH: abnormal speech Details: slurred and complete aphasia GAIT: Yes Unable to assess gait SENSORY EXAM: Yes extremities (intact) MOTOR EXAM: Pronator motor function not present COORDINATION: [id number] test normal PUPIL EXAM: Normal pupillary reactivity/response: bilateral Course Vital Signs: Vital signs: Vital Signs Temperature 97.8 F 08/06/24 18:34 Pulse Rate 86 08/07/24 03:23 Respiratory Rate 20 H 08/06/24 20:54 Blood Pressure 168/78 08/07/24 03:23 Pulse Oximetry 96 08/07/24 03:23 Oxygen Delivery Me thod Room Air 08/06/24 23:00 MDM - Fall Medical Decision Making Patient exhibits some right-sided upper extremity weakness, no significant lower extremity weakness. No sensation changes. No visual changes. Her speech is slurred. Upon sitting, she leans to the right. She has a chronic infarct with encephalomalacia on the left in the occipital lobe. She has white matter disease. No signs of acute or subacute stroke. On further interview, she had fallen multiple times since waking in the morning. She did not feel good the day prior, and was unsteady. Obviously occipital stroke with encephalomalacia of that degree is likely not even subacute. She is out of the window for any stroke treatment such as thrombolytic therapy or thrombectomy. She is incredibly hypertensive on arrival, which is improved with medication. She will be admitted. Suspicion of previous stroke, with unsteady gait and hypertensive crisis. Hospitalist agrees and will see the patient. Lab Data 08/06/24 20:40 08/06/24 20:40 Radiology Impressions Chest X-Ray 08/06/24:43 IMPRESSION: No acute findings. Head CT 08/06/24:43 IMPRESSION: 1. Negative for intracranial hemorrhage or mass effect. 2. Moderate diffuse white matter disease likely reflecting chronic microvascular ischemic changes. 3. Left occipital chronic infarct and encephalomalacia. 4. Right frontal region 4.2 mm thick probable calcified meningioma without significant mass effect. Lumbar Spine CT 08/06/24:43 IMPRESSION: 1. Chronic degenerative changes at L5-S1, status post posterior rosi and screw fusion, laminectomy, and intervertebral disc spacer. No distinct radiographic evidence of hardware complication. 2. No evidence of acute osseous fracture. Laboratory Results WBC 10.91 10^3/uL (3.29-11.43) 08/06/24 20:40 RBC 4.33 10^6/uL (3.85-5.65) 08/06/24 20:40 Hgb 13.10 g/dL (11.27-16.99) 08/06/24 20:40 Hct 39.6 % (36-47) 08/06/24 20:40 MCV 91.5 fl (85-98) 08/06/24 20:40 MCH 30.3 pg (27-33) 08/06/24 20:40 MCHC 33.1 g/dL (30-55) 08/06/24 20:40 RDW 14.7 % (12.1-15.1) 08/06/24 20:40 Plt Count 256 10^3/cmm (157-399) 08/06/24 20:40 MPV 11.0 fL (7.4-10.4) H 08/06/24 20:40 Neut % (Auto) 76.3 % 08/06/24 20:40 Lymph % (Auto) 16.0 % 08/06/24 20:40 [place] % (Auto) 5.7 % 08/06/24 20:40 Eos % (Auto) 1.0 % 08/06/24 20:40 Baso % (Auto) 0.5 % 08/06/24 20:40 Neut # (Auto) 8.32 10^3/uL (1.8-7.7) H 08/06/24 20:40 Lymph # (Auto) 1.8 10^3/uL (0.8-4.8) 08/06/24 20:40 [place] # (Auto) 0.6 10^3/uL (0.2-0.9) 08/06/24 20:40 Eos # (Auto) 0.1 10^3/uL (0.0-0.8) 08/06/24 20:40 Baso # (Auto) 0.1 10^3/uL (0.0-0.1) 08/06/24 20:40 Nucleated RBC % (auto) 0 % 08/06/24 20:40 Nucleated RBCs # 0.0 /100WBC 08/06/24 20:40 PT 12.60 SECONDS (12.1-14.9) 08/06/24 20:40 INR 0.88 (0.8-1.2) 08/06/24 20:40 APTT 25.7 SECONDS (23.9-36.7) 08/06/24 20:40 Sodium 136 mmol/L (136-145) 08/06/24 20:40 Potassium 4.4 mmol/L (3.5-5.1) 08/06/24 20:40 Chloride 100 mmol/L (98-107) 08/06/24 20:40 Carbon Dioxide 23 mmol/L (22-29) 08/06/24 20:40 Anion Gap 17.4 (5-19) 08/06/24 20:40 BUN 14 mg/dL (8-23) 08/06/24 20:40 Creatinine 0.9 mg/dL (0.5-0.9) 08/06/24 20:40 GFR Calculation 63.4 mL/min (90-130) L 08/06/24 20:40 Glucose 175 mg/dL (65-115) H 08/06/24 20:40 Calculated Osmolality 287 mOsm/kg (285-295) 08/06/24 20:40 Calcium 9.4 mg/dL (8.5-10.5) 08/06/24 20:40 Total Bilirubin 0.3 mg/dL (0.15-1.2) 08/06/24 20:40 AST 12 U/L (0-32) 08/06/24 20:40 ALT 10 U/L (0-33) 08/06/24 20:40 Alkaline Phosphatase 121 U/L (35-105) H 08/06/24 20:40 Troponin T Baseline 19 ng/L (0-10) H 08/06/24 20:40 Troponin T 120 Minute 17.36 ng/L (0-10) H 08/06/24 22:37 Delta Troponin T -1.64 ABS# (0-10) L 08/06/24 22:37 NT-Pro-B Natriuret Pep 1737 pg/mL (0-125) H 08/06/24 20:40 Total Protein 6.4 g/dL (6.6-8.7) L 08/06/24 20:40 Albumin 3.9 g/dL (3.5-5.2) 08/06/24 20:40 Globulin 2.5 g/dL (1.3-4.6) 08/06/24 20:40 Urine Color Yellow (Yellow) 08/06/24 21:10 Urine Appearance Cloudy (CLEAR) A 08/06/24 21:10 Urine pH 5.5 (5-7) 08/06/24 21:10 Ur Specific [place] 1.021 (1.005-1.030) 08/06/24 21:10 Urine Protein 3+ (Negative) A 08/06/24 21:10 Urine Glucose (UA) 2+ (Normal) H 08/06/24 21:10 Urine Ketones Negative (Negative) 08/06/24 21: Urine Blood 1+ (Negative) A 08/06/24 21: Urine Nitrate Positive (Negative) A 08/06/24 21: Urine Bilirubin Negative (Negative) 08/06/24 21: Urine Urobilinogen 1.0 mg/dL (Negative) 08/06/24 21: Ur Leukocyte Esterase 1+ (Negative) A 08/06/24 21:10 Urine RBC 0-2 /hpf (0-2) 08/06/24 21:10 Urine WBC >100 /hpf (0-5) H 08/06/24 21:10 Ur Squamous Epith Cells 0-5 /hpf (0-5) 08/06/24 21:10 Amorphous Sediment Not Reportable 08/06/24 21:10 Urine Bacteria 4+ /hpf (NONE) H 08/06/24 21:10 Hyaline Casts 26.04 /lpf 08/06/24 21:10 All radiology interpretation(s) finalized by discharge Discharge Plan Discharge Patient Disposition: Admitted As Inpatient Clinical Impression: Hypertensive crisis, Stroke Condition: Stable Coding Level of Care Code ED De Alcoholizer for Joyce Keita
[2024-08-07] VITALS (20 sets, daily range): BP systolic 134–199; BP diastolic 62–110; PULSE 62–86; RESP 16–19; TEMP 36.4–37.3; O2SAT 94–100; BMI 39.2
--- NOTE | 2024-08-07 01:08 | PC.NURSE ---
Patient moved to room closer to nurse's station, non-slip socks placed on patient, both side rails up, call light within reach.
--- NOTE | 2024-08-07 02:43 | ECG_ITS ---
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 Measurements Intervals [place] Rate: 69 P: 35 [place]: 146 QRS: 53 QRSD: 88 T: 99 QT: 406 QTc: 435 Interpretive Statements SINUS RHYTHM NONSPECIFIC T-WAVE ABNORMALITY Compared to ECG 08/06/2024 21:02:18 T-wave abnormality now present Electronically Signed On 08-07-2024 12:37:49 CDT by Zhou Bundy M.D. [email or web address] [id number]
--- NOTE | 2024-08-07 03:01 | PM.HP ---
Providers/Chief Complaint Admitting Physician: Tiffani Owens MD Primary Care Provider: JEROME Smith Chief Complaint: back pain s/p fall History of Present Illness Yoselyn Vallecillo is a 64 year old female w/ HTN, HLD, IDDM2, VIVIAN intolerable to CPAP, hx of an L5/S1 Interbody fusion with posterolateral fusion in 02/2020 complicated by a surgical site infection s/p I & D plus abx in 03/2020, who was brought to the ED on 08/06/2024 via EMS for a fall. The patient states that she was entering her house from outside the house when all of sudden, she could not feel her legs, so she fell. The fall was witnessed by her sister, who came earlier in the day for a planned routine visit. She states that she had back surgery and consequently she could not move or get up and walk nor could she feel her legs. She does not know if she sustained any head trauma, but she states that her sister told her that she did not lose consciousness. She endorses subjective fever, palpitations prior to falling. She denies headaches, dizziness, light headedness, abdominal pain, n/v, CP, palpitations, SOB, diarrhea, constipation, melena, hematochezia. SHe endorses increased urinary urgency/frequency and denies dysuria, hematuria. In the ED, vital signs were significant for HTN as high as 231/129 mmHg. her UA was concerning for UTI. Her EKG showed NSR with no ST changes and a QTc of 435. Her CXR showed no acute findings. A head CT was done with a history of a left occipital chronic infarct and encephalomalacia, as well as a 4.2 mm R. frontal meningioma, but it was negative for any intracranial hemorrhage or acute findings. A CT L-spine was ordered, and the patient was given labetalol 20 mg IVP x 1, enalaprilat 1.25 mg IVP x 1, amlodipine 10 mg p.o. x 1, levofloxacin 500 mg IVP x 1, morphine 4 mg IVP x 1 and Zofran 4 mg IVP x 1 prior to admission. Review of Systems Const: Reports: fever(s); Denies: chills or malaise Eyes: Denies: change in vision ENMT: Reports: nasal discharge and other (no dysphagia); Denies: odynophagia, ear or mastoid pain, ear discharge or nasal congestion Card: Reports: palpitations; Denies: chest pain, lightheadedness or syncope Resp: Denies: dyspnea, non-productive cough or wheezing GI: Denies: abdominal pain, nausea, vomiting, diarrhea, constipation, hematochezia or melena : Reports: difficulty voiding (chronic), urinary frequency and urinary urgency; Denies: dysuria or hematuria Musc: Reports: joint pain (no arthralgias) and other (no myalgias) Skin/Breast: Denies: rash or new lesions Neuro: Reports: Slurred speech present; Denies: headache(s) or other Psych: Denies: anxiety, depression, suicidal ideation or homicidal ideation Endo: Denies: cold intolerance or heat intolerance Jeff/Lymph: Denies: easy bruising or easy bleeding Medications/Allergies Home Medications ?Medication ?Instructions ?Recorded ?Confirmed ?Last Taken ?Type gabapentin 300 mg capsule 300 mg PO TID pain #90 caps 05/31/20 11/20/22 5 Days Ago Rx ~04/12/22 insulin aspart U-100 100 unit/mL 15 unit SUBCUT TID 05/31/20 11/20/22 5 Days Ago History (3 mL) subcutaneous pen (Novolog ~04/12/22 FlexPen U-100 Insulin aspart) see pharmacy comment insulin glargine 100 unit/mL (3 10 unit SUBCUT TID 04/17/22 11/20/22 5 Days Ago History mL) subcutaneous pen (Lantus ~04/12/22 Solostar U-100 Insulin) see pharmacy comment Allergies Allergy/AdvReac Type Severity Reaction Status Date / Time Penicillins Allergy OPAL-Swell Verified 11/20/22 13:01 Lip/Tongue/Throat PFSH Acute PFSH: Medical History retirement (current) use of 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 Pain management contract signed Pyelonephritis of right kidney Sleep apnea Hypertension Diabetes mellitus Lumbar spondylolysis Spondylolisthesis of lumbosacral region Intervertebral disc disorder with radiculopathy of lumbosacral region Surgical History H/O laminectomy H/O: hysterectomy Family History (Updated 08/07/24 @ 03:49 by Tiffani Owens MD) Family/Other Diabetes Colon cancer dx'ed in her Aunt Mother Diabetes Social History (Updated 08/07/24 @ 03:50 by Tiffani Owens MD) Smoking and tobacco/nicotine status: former use of tobacco/nicotine Quit status (tobacco/nicotine): has quit using Former quit date comment: quit over 10 - 50 yrs ago, Alcohol intake: never Substance/Drug Use: never Household members: family and other Details: son Marital status: Single Current occupational status: unemployed Vitals/I&O/Wt Last Vital Signs Temp 97.8 F 08/06/24 18:34 Pulse 66 08/07/24 02:21 Resp 20 H 08/06/24 20:54 BP 194/89 08/07/24 02:21 Pulse Ox 95 08/07/24 02:21 O2 Del Method Room Air 08/06/24 23:00 Weight last 48 hrs Weight 104.326 kg Physical Exam Const: GENERAL APPEARANCE: cooperative and comfortable ORIENTATION/CONSCIOUSNESS: Yes awake, Yes oriented to person, Yes oriented to place and Yes oriented to time HENMT: HEAD & SCALP: normocephalic and atraumatic NOSE: Normal external nose present EXTERNAL EAR: Yes external ears normal MOUTH: Normal oral and palatal mucosa present THROAT: posterior oropharynx normal Eye: CONJUNCTIVA: Yes conjunctivae normal PUPIL: Yes Equal, round and reactive pupils present EOM: No EOM abnormal Neck/C-Spine: THYROID: Thyroid normal CAROTIDS: No bruit CERVICAL SPINE: Yes cervical ROM normal Lymph: OTHER: no cervical or supraclavicular LAD Resp: OTHER: decreased breath sounds from the mid to lower lung bases b/l Cardio: OTHER: RRR, no m/r/g or clicks. 2+ radial and DP pulses. GI: OTHER: BS+, NT, ND, no guarding, no rigidity, no rebound tenderness, no hepatosplenomegaly. Extremity: GENERAL: No clubbing, No cyanosis and No edema Neuro: CRANIAL NERVES: Yes CN normal except as noted and Yes HiNTS Nystagmus: bidirectional SPEECH: speech normal SENSORY EXAM: No sensory level loss detected MOTOR EXAM: Normal motor muscle tone present throughout OTHER: weakness on extension of the R. LE. Psych: APPEARANCE: Yes grossly normal and Yes unkempt ATTITUDE: Yes calm and Yes engaged ACTIVITY/MOTOR BEHAVIOR: Yes appropriate eye contact SPEECH: Yes normal speech MOOD & AFFECT: Yes euthymic mood THOUGHT PROCESS: Normal thought process present ATTENTION/CONCENTRATION: Yes attention grossly intact MEMORY/COGNITION: Yes memory grossly intact Skin: GENERAL SKIN EXAM: no rashes or lesions noted Urinary Catheter Management: Ortiz: Cath Placed During This Visit: yes Urinary Catheter Date of Insertion: 08/07/24 Urinary Catheter Time of Insertion: 01:34 Data 08/07/24 06:49 08/07/24 06:49 A&P Assessment and plan (1) Hypertensive emergency: (2) Acute cystitis: Plan Yoselyn Vallecillo is a 64 year old female w/ HTN, HLD, IDDM2, VIVIAN intolerable to CPAP, hx of an L5/S1 Interbody fusion with posterolateral fusion in 02/2020 complicated by a surgical site infection s/p I & D plus abx in 03/2020, who was brought to the ED on 08/06/2024 via EMS for a fall. In the ED, vital signs were significant for HTN as high as 231/129 mmHg. her UA was concerning for UTI. Her EKG showed NSR with no ST changes and a QTc of 435. Her CXR showed no acute findings. A head CT was done with a history of a left occipital chronic infarct and encephalomalacia, as well as a 4.2 mm R. frontal meningioma, but it was negative for any intracranial hemorrhage or acute findings. A CT L-spine was ordered, and the patient was given labetalol 20 mg IVP x 1, enalaprilat 1.25 mg IVP x 1, amlodipine 10 mg p.o. x 1, levofloxacin 500 mg IVP x 1, morphine 4 mg IVP x 1 and Zofran 4 mg IVP x 1 prior to admission. #Concern for Acute vs Subacute CVA - Concern is based on physical exam and CT head findings. - She is outside TPA window. S/p Aspirin 325mg x 1 - s/p med administration in the ED. Allow the patient to remain HTN for 24hrs unless the patient's SBP is >220mmHg or DBP is >120mmHg. Differ medication administration to day Physician. - F/u MRI brain , A1c, lipids, TSH, b12, ECHO, CTA head and neck. Swallow study. - Start daily aspirin. Differ initiation of clopidogrel based on MRI and CTA results. #Possible Hypertensive emergency - See CVA section #Fall: #Debility - F/u CT L-spine - May likely benefit from PT/OT #UTI - F/u UCx, BCx - Started Cefepime #HTN #HLD #IDDM2 - See CVA section DVT ppx: SCDs PDMP PDMP Reviewed: Not Reviewed Attestations Medical Necessity Statement*: The patient will need to be hospitalized for greater than 2 midnights for her possible acute versus subacute CVA, possible hypertensive emergency, fall, UTI. Coding Level of Care Code 78381 High Time for a total of 80 minutes, includes reviewing past or interval history, examining/interviewing patient, placing orders, counseling patient/family/other support, updating patient/family/other support, discussing plan of care with staff, communicating with other healthcare providers, documenting encounter and coordinating care Other Coding Information Focused coding review requested Diagnoses Hypertensive emergency I16.1 Acute cystitis N30.00
[2024-08-07 03:31] LABS: Troponin 5 6HR 17.42 ng/L (0-10)
[2024-08-07 03:37] LABS: Troponin 5 6HR Delta -1.58 ng/L (0-12)
--- NOTE | 2024-08-07 04:13 | PC.NURSE ---
Report was called to Mariella MADDEN on [place]. All questions and concerns were addressed at time of report.
--- NOTE | 2024-08-07 04:33 | MRR_ITS ---
PROCEDURE INFORMATION: Exam: MR Head Without Contrast Exam date and time: 08/07/2024 3:36 PM Age: 64 years old Clinical indication: Weakness, facial; Additional info: Fall, hypertensive emergency, evaluate for CVA TECHNIQUE: Imaging protocol: Magnetic resonance imaging of the head without contrast. COMPARISON: CT angio headneck* [id number] 08/07/2024 5:58 AM FINDINGS: Brain: Acute left basal ganglia/trevizo radiata infarct. Subacute subcentimeter infarct in the left cerebellar hemisphere (image 7 of series 302). Faint increased signal on diffusion-weighted images in the right temporal lobe may also represent a subacute infarct (image 13 of series 302). Chronic right cerebellar hemispheric lacunar infarct. Background of periventricular and deep white matter T2 FLAIR hyperintensities compatible with sequela of moderate chronic microvascular ischemic changes. Focal left parieto-occipital encephalomalacia. No mass effect or midline shift. Cerebral ventricles: No hydrocephalus. Bones: Unremarkable. Paranasal sinuses: The visualized paranasal sinuses are well aerated. Mastoid air cells: The mastoids and middle ears are grossly clear without evidence of effusion. Orbital cavities: The visualized orbits are unremarkable. Soft tissues: Grossly unremarkable. MR/MR head wo con* [id number] IMPRESSION: 1. Acute left basal ganglia infarct. 2. Subacute subcentimeter left cerebellar hemispheric and right temporal lobe infarcts.
--- NOTE | 2024-08-07 04:40 | CTR_ITS ---
PROCEDURE INFORMATION: Exam: CTA Head With Contrast, Arteriography Exam date and time: 08/07/2024 5:58 AM Age: 64 years old Clinical indication: Weakness and other: Evaluate for CVA, bidirectional nystagmus on exam TECHNIQUE: Imaging protocol: Computed tomographic angiography of the head with contrast. Exam focused on the arteries. 3D rendering (Not supervised by radiologist): MIP and/or 3D reconstructed images were created by the technologist. Radiation optimization: All CT scans at this facility use at least one of these dose optimization techniques: automated exposure control; mA and/or kV adjustment per patient size (includes targeted exams where dose is matched to clinical indication); or iterative reconstruction. Contrast material: OMNI 350; Contrast volume: 100 ml; Contrast route: INTRAVENOUS (IV); COMPARISON: CT head wo con* [id number] 08/06/2024 9:21 PM RADIATION DOSE METRICS: Total DLP (mGy-cm): 520.12 FINDINGS: ANTERIOR CIRCULATION: Right internal carotid artery: Intracranial segment is patent with no significant stenosis. No aneurysm. Right middle cerebral artery: Short segment moderate to severe stenosis of the right M1 and the inferior M2 with distal reconstitution (series 4, image [id number]). Right anterior cerebral artery: No occlusion or significant stenosis. No aneurysm. Left internal carotid artery: Intracranial segment is patent with no significant stenosis. No aneurysm. Left middle cerebral artery: No occlusion or significant stenosis. No aneurysm. Left anterior cerebral artery: No occlusion or significant stenosis. No aneurysm. POSTERIOR CIRCULATION: Right vertebral artery: No occlusion or significant stenosis. No aneurysm. Left vertebral artery: No occlusion or significant stenosis. No aneurysm. Basilar artery: No occlusion or significant stenosis. No aneurysm. Right posterior cerebral artery: No occlusion or significant stenosis. No aneurysm. 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 Brain: No definite mass, mass effect, or midline shift. Cerebral ventricles: No ventriculomegaly. Bones/joints: Unremarkable. No acute fracture. Soft tissues: Unremarkable. PROCEDURE INFORMATION: Exam: CTA Neck With Contrast Exam date and time: 08/07/2024 5:58 AM Age: 64 years old Clinical indication: Weakness and other: Evaluate for CVA, bidirectional nystagmus on exam TECHNIQUE: Imaging protocol: Computed tomographic angiography of the neck with contrast. Exam focused on the cervical segments of the vasculature. 3D rendering (Not supervised by radiologist): MIP and/or 3D reconstructed images were created by the technologist. Radiation optimization: All CT scans at this facility use at least one of these dose optimization techniques: automated exposure control; mA and/or kV adjustment per patient size (includes targeted exams where dose is matched to clinical indication); or iterative reconstruction. Contrast material: OMNI 350; Contrast volume: 100 ml; Contrast route: INTRAVENOUS (IV); COMPARISON: CT head wo con* [id number] 08/06/2024 9:21 PM RADIATION DOSE METRICS: Total DLP (mGy-cm): 520.12 FINDINGS: Right common carotid artery: No stenosis. No dissection or occlusion. Right internal carotid artery: No stenosis of the extracranial segment. No dissection or occlusion. Right external carotid artery: No occlusion or stenosis of the origin. Left common carotid artery: No stenosis. No dissection or occlusion. Left internal carotid artery: No stenosis of the extracranial segment. No dissection or occlusion. Left external carotid artery: No occlusion or stenosis of the origin. Right vertebral artery: No stenosis. No dissection or occlusion. Left vertebral artery: No stenosis. No dissection or occlusion. Soft tissues: Normal. No significant soft tissue swelling. Bones/joints: No acute fracture. CT/CT angio headneck* [id number] IMPRESSION: 1. Short segment moderate to severe stenosis of the right M1 and the inferior M2 with distal reconstitution. 2. 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 IMPRESSION: No stenosis or occlusion. REFERENCES: NASCET CRITERIA. The degree of stenosis in the cervical segment of the internal carotid artery is based on NASCET criteria. Normal is no stenosis. Mild is less than 50% stenosis. Moderate is 50-69% stenosis. Severe is 70% to 99% stenosis. Total occlusion is no detectable patent lumen.
[2024-08-07] MEDS: aspirin 325 mg Tablet PO (04:47)
[2024-08-07] MEDS: iohexol 350 mg/mL 500 mL Btl (per mL) IV (06:03)
[2024-08-07 07:06] LABS: Basophils # 0.1 10^3/uL (0.0-0.1); Basophils % 0.6 %; Eosinophils % 0.4 %; Hematocrit 37.4 % (36-47); Lymphocytes # 1.4 10^3/uL (0.8-4.8); Lymphocytes % 13.3 %; Mean Corpuscular HGB Conc 32.9 g/dL (30-55); Mean Corpuscular Hemoglobin 30.4 pg (27-33); Mean Corpuscular Volume 92.3 fl (85-98); Mean Platelet Volume 11.3 fL (7.4-10.4); Monocytes # 0.5 10^3/uL (0.2-0.9); Monocytes % 5.2 %; Neutrophils # 8.13 10^3/uL (1.8-7.7); Neutrophils % 80.2 %; Nucleated Red Blood Cells % 0 %; Platelet Count 246 10^3/cmm (157-399); Red Blood Count 4.05 10^6/uL (3.85-5.65); Red Cell Distribution Width 14.9 % (12.1-15.1); White Blood Count 10.14 10^3/uL (3.29-11.43)
[2024-08-07 07:32] LABS: INR 0.97 (0.8-1.2)
[2024-08-07 07:33] LABS: Partial Thromboplastin Time 27.6 SECONDS (23.9-36.7)
[2024-08-07 07:55] LABS: Alanine Aminotransferase 9 U/L (0-33); Albumin Level 3.4 g/dL (3.5-5.2); Alkaline Phosphatase 111 U/L (35-105); Anion Gap 18.2 (5-19); Aspartate Amino Transferase 12 U/L (0-32); Blood Urea Nitrogen 14 mg/dL (8-23); Calcium 8.9 mg/dL (8.5-10.5); Carbon Dioxide 21 mmol/L (22-29); Chloride 101 mmol/L (98-107); Chol HDL Ratio 2.93 mg/dL (0.0-4.40); Cholesterol 135 mg/dL (0-200); Creatinine Clr Calc Pharmacy 90.0559; Globulin 2.9 g/dL (1.3-4.6); Glomerular Filtration Rate 63.4 mL/min (90-130); Glucose 205 mg/dL (65-115); HDL Cholesterol 46 mg/dL (60-100); LDL Cholesterol Calculated 70 mg/dL (50-129); LDL HDL Ratio 1.52 RATIO (0.00-3.22); Magnesium 1.6 mg/dL (1.7-2.3); Osmolality Calculated 288 mOsm/kg (285-295); Phosphorus 3.7 mg/dL (2.5-4.5); Potassium 4.2 mmol/L (3.5-5.1); Sodium 136 mmol/L (136-145); Thyroid Stimulating Hormone 16.13 uIU/mL (0.27-4.20); Total Bilirubin 0.4 mg/dL (0.15-1.2); Total Protein 6.3 g/dL (6.6-8.7); Triglycerides 95 mg/dL (0-150); Vitamin B12 321 pg/mL (232-1245)
[2024-08-07] MEDS: cefepime 2,000 mg SDV 2000 MG IVP (08:14)
[2024-08-07 08:16] LABS: Estmated Average Glucose 206; Hemoglobin A1C 8.8 % (4.0-6.0)
--- NOTE | 2024-08-07 10:55 | USCV_ITS ---
Yoselyn Vallecillo Age: 64 Gender: F : 1960 Exam Date: 08/07/2024 17:34 Ordering Phys: Tiffani Owens MD Technologist: Jason Harris Exam Location: [facility] [place] Indication: ECHO BP: 172 / 78 HR: 71 Rhythm: Sinus Technical Quality: Adequate MEASUREMENTS (Male / Female) Normal Values 2D ECHO LV Diastolic Diameter PLAX 5.2 cm 4.2 - 5.9 / 3.9 - 5.3 cm IVS Diastolic Thickness 1.8 cm 0.6 - 1.0 / 0.6 - 0.9 cm IVS Systolic Thickness 2.1 cm LVPW Diastolic Thickness 1.9 cm 0.6 - 1.0 / 0.6 - 0.9 cm LVPW Systolic Thickness 2.2 cm LVOT Diameter 2.0 cm LV Ejection Fraction 2D Teich 66.3 % LV Ejection Fraction MOD 4C 58.4 % LV Ejection Fraction MOD 2C 51.3 % LV Ejection Fraction 2C AL 54.3 % LA Diameter 3.1 cm RA Systolic Volume 4C AL 41.7 ml RA Systolic Volume 4C MOD 41.2 ml LA Sys Volume AL 41.0 cm cubed LA Sys Volume Index AL 16.6 cm cubed/m squared Aorta at Sinotubular Diameter 2.4 cm IVC Diameter 1.7 cm M-MODE LA Ao Ratio MM 1.3 AV Cusp Separation MM 2.1 cm DOPPLER AV Peak Velocity 174.7 cm/s LVOT Peak Velocity 105.0 cm/s AV Area Cont Eq vti 2.1 cm squared AV Area Cont Eq pk 1.9 cm squared MV Peak Velocity 118.0 cm/s MV Area PHT 3.7 cm squared Mitral E to A Ratio 0.8 TV Peak Velocity 218.5 cm/s TR Peak Velocity 243.0 cm/s TR Peak Gradient 23.6 mmHg TR Mean Velocity 181.0 cm/s TR Mean Gradient 14.6 mmHg TR Velocity Time Integral 55.5 cm PV Peak Velocity 119.0 cm/s RV Ejection Time 0.3 s FINDINGS Left Ventricle Mild concentric LVH. Normal LV systolic function with no regional wall motion abnormalities. Estimated LVEF is normal at 60%. Grade 1 diastolic dysfunction. Right Ventricle Normal right ventricular size and systolic function. Right Atrium Normal right atrial size. Left Atrium Mildly increased left atrial size. Mitral Valve Structurally normal mitral valve. Trace mitral valve regurgitation. Aortic Valve Mildly thickened aortic valve. No aortic valve stenosis. Tricuspid Valve Structurally normal tricuspid valve. Trace tricuspid valve regurgitation. Pulmonic Valve Pulmonic valve not well visualized. Trace pulmonary valve regurgitation. Pericardium No pericardial effusion. Aorta Normal size aortic root and proximal ascending aorta. IVC Normal inferior vena cava. CONCLUSIONS Mild concentric LVH. Normal LV systolic function. LVEF normal 60%. Normal RV size and RV systolic function. No significant valvular abnormality noted. Normal right heart and pulmonary pressures. Zhou Bundy MD (Electronically Signed) Final Date: 07 Aug 2024 18:37 S
[2024-08-07 11:45] LABS: Glucose Point of Care 197 mg/dL (70-110)
[2024-08-07] MEDS: insulin lispro 100 unit/1 mL SUBCUT ×2 (11:51→18:08)
--- NOTE | 2024-08-07 12:11 | PM.MISC ---
Miscellaneous Note Purpose of Documentation: Cross coverage Note: Admitted overnight. Today morning seen laying comfortably in bed. Unable to move right upper limb and lower limb appropriately. Power 2/5. Does have a facial drooping as well on the same side. Denies any nausea, ting, headache. Minimal dysuria. Plan: Permissible hypertension. Will treat for systolic blood pressure of more than [address] head and CTA head and neck. MRI pending. PT/OT/speech evaluation. Follow-up blood culture and urine culture. Appreciate cultures from the past. Switch from cefepime to IV ceftriaxone. TSH elevated more than 10. Check free T3 and free T4. Empirically start on levothyroxine 50 mcg daily. Continue baby aspirin. Start on atorvastatin 40 mg daily. Other Coding Information Prolonged care (total time indicated above or notated here) (Gathering history, ordering PT/OT/speech evaluation in her diet, monitoring blood pressures)
[2024-08-07 12:43] LABS: Free T4 Free Thyroxine 1.03 ng/dL (0.82-1.77); T3 Free 2.9 PG/ML (2.0-4.4)
[2024-08-07] MEDS: cefTRIAXone 1,000 mg SDV 1000 MG IVP (12:44)
[2024-08-07] MEDS: heparin 5,000 unit/mL INJ 1 mL 5000 UNIT SUBCUT (12:44)
[2024-08-07 17:10] LABS: Glucose Point of Care 147 mg/dL (70-110)
[2024-08-07] MEDS: atorvastatin 40 mg Tablet PO (20:39)
[2024-08-07 20:56] LABS: Glucose Point of Care 68 mg/dL (70-110)
[2024-08-07 21:23] LABS: Glucose Point of Care 87 mg/dL (70-110)
[2024-08-08] VITALS (18 sets, daily range): BP systolic 148–189; BP diastolic 68–98; PULSE 60–86; RESP 16–98; TEMP 36.4–36.9; O2SAT 94–98
[2024-08-08] MEDS: heparin 5,000 unit/mL INJ 1 mL 5000 UNIT SUBCUT ×3 (00:17→23:31)
[2024-08-08 03:42] LABS: Basophils % 0.4 %; Eosinophils # 0.1 10^3/uL (0.0-0.8); Eosinophils % 1.1 %; Hematocrit 38.8 % (36-47); Lymphocytes # 1.8 10^3/uL (0.8-4.8); Lymphocytes % 19.1 %; Mean Corpuscular Hemoglobin 30.2 pg (27-33); Mean Corpuscular Volume 91.5 fl (85-98); Mean Platelet Volume 11.5 fL (7.4-10.4); Monocytes # 0.5 10^3/uL (0.2-0.9); Monocytes % 5.1 %; Neutrophils # 6.81 10^3/uL (1.8-7.7); Nucleated Red Blood Cells % 0 %; Platelet Count 251 10^3/cmm (157-399); Red Blood Count 4.24 10^6/uL (3.85-5.65); Red Cell Distribution Width 15.2 % (12.1-15.1); White Blood Count 9.21 10^3/uL (3.29-11.43)
[2024-08-08 04:01] LABS: Alanine Aminotransferase 9 U/L (0-33); Albumin Level 3.6 g/dL (3.5-5.2); Alkaline Phosphatase 121 U/L (35-105); Anion Gap 14.8 (5-19); Aspartate Amino Transferase 14 U/L (0-32); Blood Urea Nitrogen 12 mg/dL (8-23); Calcium 9.4 mg/dL (8.5-10.5); Carbon Dioxide 26 mmol/L (22-29); Chloride 97 mmol/L (98-107); Creatinine Clr Calc Pharmacy 90.0559; Globulin 3.4 g/dL (1.3-4.6); Glomerular Filtration Rate 63.4 mL/min (90-130); Glucose 158 mg/dL (65-115); Osmolality Calculated 281 mOsm/kg (285-295); Phosphorus 3.9 mg/dL (2.5-4.5); Potassium 3.8 mmol/L (3.5-5.1); Sodium 134 mmol/L (136-145); Total Bilirubin 0.5 mg/dL (0.15-1.2)
[2024-08-08] MEDS: levothyroxine 50 mcg Tablet PO (05:04)
[2024-08-08 07:04] LABS: Glucose Point of Care 161 mg/dL (70-110)
[2024-08-08] MEDS: insulin glargine 100 units/1 mL 10 UNIT SUBCUT ×2 (08:56→20:25)
[2024-08-08] MEDS: insulin lispro 100 unit/1 mL SUBCUT ×4 (08:57→20:25)
[2024-08-08] MEDS: aspirin 81 mg Chew Tablet PO (08:57)
--- NOTE | 2024-08-08 09:00 | FL_ITS ---
WS: [id number] MODIFIED BARIUM SWALLOW HISTORY: Oropharyngeal dysphagia FLUOROSCOPY TIME: 3min [id number] # of spot films: [id number] Modified barium swallow was performed by the speech pathologist. Fluoroscopy was provided with the patient in a lateral projection. Multiple food consistencies were provided. Several episodes of laryngeal penetration were noted during the examination with the thinner liquids. Chin tuck maneuver with thicker liquids did aluminate the laryngeal penetration. No aspiration. Mild residual coating of the vocal cords throughout the examination with thin liquids. Patient was able to swallow the solid foods and the barium tablet without difficulty. FL/FL barium swallow modifd [id number] IMPRESSION: 1. Several episodes of laryngeal penetration with liquids. Resolved with chin tuck maneuver. 2. No aspiration. Please see speech therapist report also for recommendations.
--- NOTE | 2024-08-08 09:39 | P.PN_ITS ---
Subjective 2 Subjective: No acute events overnight. Today morning patient seen sitting at the edge of the bed. States feeling better. Able to move her arms and limbs better. Denies any nausea, vomiting, headache. Appreciate blood pressures. Has remained elevated. Vitals/I&O/Wt Last Vital Signs Temp 97.9 F 08/08/24 04:00 Pulse 60 08/08/24 04:42 Resp 16 08/08/24 04:00 BP 180/82 08/08/24 04:00 Pulse Ox 94 08/08/24 04:00 O2 Del Method Room Air 08/08/24 00:00 08/07/24 08/08/24 08/08/24 22:59 06:59 14:59 Intake Total 360 / 600 Output Total 1050 / 1050 400 / 1450 Balance -690 / -450 -400 / -850 Weight last 48 hrs Weight 121.109 kg Weight 120.746 kg Weight 120.656 kg Weight 104.326 kg Physical Exam 2 Narrative: General: No acute distress, AO x3 HEENT: PERRLA, pupils bilaterally equal and reactive Chest: Normal vesicular breath sounds, mild coarse crackles present in right lower zone CVS: S1-S2 regular, no murmurs, no tachycardia, no gallops, no rubs Abdomen: Soft, nontender, no organomegaly, bowel sounds present Neuro: Right upper limb and lower limb power 3/5, left upper limb and lower limb 5/5, minimal right-sided facial droop, slurred speech but improving, AO x 3 Urinary Catheter Management: Ortiz: Cath Placed During This Visit: yes Reason for Continuing Indwelling Catheter: Other Urinary Catheter Date of Insertion: 08/07/24 Urinary Catheter Time of Insertion: 01:34 Data 08/08/24 02:42 08/08/24 02:42 Micro: Microbiology 08/06/24 21:10 Urine Culture - Preliminary Urine,Clean Catch Gram Negative Rods 08/07/24 06:45 Blood Culture - Preliminary Blood NEGATIVE TO DATE 08/07/24 06:49 Blood Culture - Preliminary Blood NEGATIVE TO DATE A&P Assessment and plan (1) Cerebrovascular accident (CVA) of left basal ganglia: Seen on MRI. PT/OT/speech evaluation. Has finished 24 hours of permissible hypertension. Goal blood pressure of less than 140/90 mmHg. Appreciate A1c, lipid panel. Continue baby aspirin and statin. (2) Uncontrolled hypertension: Goal blood pressure less than 140/90 mmHg. Blood pressure is elevated. Start on losartan 100 mg oral daily. Uptitrate as per goal blood pressures. (3) Hypertensive emergency: (4) Diabetes mellitus: A1c of 8.8. Continue with Lantus 10 units twice daily. Sliding scale. (5) Acute cystitis: Follow-up with blood culture, urine culture. Continue with IV ceftriaxone for now. De-escalate per culture sensitivities. Plan Full code Advance diet as per speech evaluation Heparin for DVT prophylaxis Famotidine for PUD prophylaxis. PDMP PDMP Reviewed: Not Reviewed Attestations 2 Medical Necessity Statement*: Requires further hospitalization for management of left basal ganglia stroke, UTI, uncontrolled hypertension Diagnoses Cerebrovascular accident (CVA) of left basal ganglia I63.81 Uncontrolled hypertension I10 Hypertensive emergency I16.1 Diabetes mellitus E11.9 Acute cystitis N30.00
--- NOTE | 2024-08-08 10:14 | PC.CHAP ---
Pastoral Care Encounter/Spiritual Assessment Type of Contact [] Declined tours captain visit [] Patient/Family/Request visit [] Outpatient visit [] Follow-up visit [] Physician referral [] Code/Alert [x] Routine visit [] Staff referral [] Actively dying [] Patient sleeping [] Family support [] [] Out of room [] Palliative care [] [x] Receiving care in room [] Pre-surgical visit [] Trauma [] Long length of stay [] ICU visit [] Other: Relational/Emotional Strength [] Patient feels connected with others/family/visitors/staff [] Distress [] Loneliness/isolation [] Abandonment Spirituality of Patient [] Person of Margaret [] Attends Adventism of their Margaret [] Believes in Prayer [] Reads Bible or Evangelical materials [] There are Spiritual issues to be addressed Lawn And Garden Technician Interventions [x] Prayer [] Active listening [] Non-anxious presence [] Spiritual/emotional support [] Crisis/trauma care [] Spiritual counseling [] Bereavement support [] Provided bereavement packet [] Provided Bible/devotional materials [] Provided toy/stuffed animal, coloring book to patient or family member [] Provided Communion [] Anointing/[place] [] Salvation [] Completed spiritual assessment [] Other: Impact on Illness or Injury [] Angry [] Fearful [] Anxious [] Often cries [] Exhaustion [] Unable to work [] Unable to attend alevism [] Unable to walk/stand [] Unable to read [] Unable to drive [] Unable to eat/drink [] Unable to sleep [] Unable to be with family [] Patient intubated [] Other: Summary Time spent with patient
[2024-08-08] MEDS: losartan 50 mg Tablet 100 MG PO (10:26)
--- NOTE | 2024-08-08 10:38 | PC.NURSE ---
access coordinator rounds at 0945- patient sitting on the edge of the bed, gave patient stroke education book.
[2024-08-08 10:44] LABS: Glucose Point of Care 157 mg/dL (70-110)
[2024-08-08] MEDS: cefTRIAXone 1,000 mg SDV 1000 MG IVP (12:23)
[2024-08-08 16:22] LABS: Glucose Point of Care 169 mg/dL (70-110)
[2024-08-08] MEDS: famotidine 20 mg Tablet PO (17:40)
[2024-08-08 20:16] LABS: Glucose Point of Care 222 mg/dL (70-110)
[2024-08-08] MEDS: atorvastatin 40 mg Tablet PO (20:25)
[2024-08-09] VITALS (12 sets, daily range): BP systolic 154–186; BP diastolic 72–95; PULSE 63–77; RESP 16–18; TEMP 36.4–37.5; O2SAT 97–98
[2024-08-09] MEDS: TRAMadol 50 mg Tablet PO (00:09)
[2024-08-09 05:21] LABS: Basophils % 0.4 %; Eosinophils # 0.2 10^3/uL (0.0-0.8); Eosinophils % 2.5 %; Hematocrit 36.2 % (36-47); Lymphocytes # 1.9 10^3/uL (0.8-4.8); Lymphocytes % 25.1 %; Mean Corpuscular HGB Conc 33.4 g/dL (30-55); Mean Corpuscular Hemoglobin 30.7 pg (27-33); Mean Corpuscular Volume 91.9 fl (85-98); Mean Platelet Volume 11.4 fL (7.4-10.4); Monocytes # 0.5 10^3/uL (0.2-0.9); Monocytes % 7.1 %; Neutrophils % 64.4 %; Nucleated Red Blood Cells % 0 %; Platelet Count 243 10^3/cmm (157-399); Red Blood Count 3.94 10^6/uL (3.85-5.65); Red Cell Distribution Width 15.2 % (12.1-15.1); White Blood Count 7.46 10^3/uL (3.29-11.43)
[2024-08-09] MEDS: levothyroxine 125 mcg Tablet PO (05:23)
[2024-08-09 06:00] LABS: Alanine Aminotransferase 9 U/L (0-33); Albumin Level 3.5 g/dL (3.5-5.2); Alkaline Phosphatase 107 U/L (35-105); Anion Gap 13.9 (5-19); Aspartate Amino Transferase 13 U/L (0-32); Blood Urea Nitrogen 16 mg/dL (8-23); Calcium 8.9 mg/dL (8.5-10.5); Carbon Dioxide 25 mmol/L (22-29); Chloride 102 mmol/L (98-107); Glomerular Filtration Rate 56.2 mL/min (90-130); Glucose 141 mg/dL (65-115); Magnesium 1.9 mg/dL (1.7-2.3); Osmolality Calculated 288 mOsm/kg (285-295); Potassium 3.9 mmol/L (3.5-5.1); Sodium 137 mmol/L (136-145); Total Bilirubin 0.4 mg/dL (0.15-1.2); Total Protein 6.5 g/dL (6.6-8.7)
[2024-08-09 06:55] LABS: Glucose Point of Care 138 mg/dL (70-110)
--- NOTE | 2024-08-09 08:08 | P.DS_ITS ---
Discharge Providers Date of Admission: 08/07/24 00:41 Date of Discharge: August 09, 2024 Attending Provider at Admission: Tiffani Owens MD Attending Provider at Discharge: Milad Bocanegra MD Primary Care Provider: JEROME Smith Diagnoses at Discharge Discharge Diagnosis (1) Cerebrovascular accident (CVA) of left basal ganglia: Status: Acute (2) Uncontrolled hypertension: Status: Acute (3) Hypertensive emergency: Status: Acute (4) Diabetes mellitus: Status: Acute (5) Acute cystitis: Status: Acute Reason for Visit Reason for Visit: back pain s/p fall Brief History: History as per HPI: Yoselyn Vallecillo is a 64 year old female w/ HTN, HLD, IDDM2, VIVIAN intolerable to CPAP, hx of an L5/S1 Interbody fusion with posterolateral fusion in 02/2020 complicated by a surgical site infection s/p I & D plus abx in 03/2020, who was brought to the ED on 08/06/2024 via EMS for a fall. The patient states that she was entering her house from outside the house when all of sudden, she could not feel her legs, so she fell. The fall was witnessed by her sister, who came earlier in the day for a planned routine visit. She states that she had back surgery and consequently she could not move or get up and walk nor could she feel her legs. She does not know if she sustained any head trauma, but she states that her sister told her that she did not lose consciousness. She endorses subjective fever, palpitations prior to falling. She denies headaches, dizziness, light headedness, abdominal pain, n/v, CP, palpitations, SOB, diarrhea, constipation, melena, hematochezia. SHe endorses increased urinary urgency/frequency and denies dysuria, hematuria. In the ED, vital signs were significant for HTN as high as 231/129 mmHg. her UA was concerning for UTI. Her EKG showed NSR with no ST changes and a QTc of 435. Her CXR showed no acute findings. A head CT was done with a history of a left occipital chronic infarct and encephalomalacia, as well as a 4.2 mm R. frontal meningioma, but it was negative for any intracranial hemorrhage or acute findings. A CT L-spine was ordered, and the patient was given labetalol 20 mg IVP x 1, enalaprilat 1.25 mg IVP x 1, amlodipine 10 mg p.o. x 1, levofloxacin 500 mg IVP x 1, morphine 4 mg IVP x 1 and Zofran 4 mg IVP x 1 prior to admiss ion. Hospital Course Hospital Course Patient was admitted to the hospital further evaluation and management of uncont rolled hypertension, UTI. On admission [facility] physical examination was concerning for stroke. CT head and CTA head and neck were negative though MRI was consistent with left basal ganglia stroke. She worked well with PT/OT and diet was advanced as a speech evaluation. Her antihypertensives were adjusted with goal of less than 140/90 mmHg. During hospitalization blood culture remain negative and urine culture growing gram-negative rods to sensitivities are awaited. She has been discharged in medically stable condition after cultures are confirmed on oral antihypertensive with losartan and amlodipine with advised to check her blood pressure daily at home and maintain a blood pressure diary and follow-up with her primary care provider within next 1 week for further adjustment of antihypertensive as needed. She is to follow-up with neurology team as an outpatient within next 2 weeks. Discharged delayed as awaiting urine culture sensitivities. Physical Exam Narrative: General: No acute distress, AO x3 HEENT: PERRLA, pupils bilaterally equal and reactive Chest: Normal vesicular breath sounds, mild coarse crackles present in right lower zone CVS: S1-S2 regular, no murmurs, no tachycardia, no gallops, no rubs Abdomen: Soft, nontender, no organomegaly, bowel sounds present Neuro: Right upper limb and lower limb power 3/5, left upper limb and lower limb 5/5, minimal right-sided facial droop, slurred speech but improving, AO x 3 Urinary Catheter Management: Ortiz: Cath Placed During This Visit: yes Reason for Continuing Indwelling Catheter: Other Urinary Catheter Date of Insertion: 08/07/24 Urinary Catheter Time of Insertion: 01:34 Discharge Data Studies Completed and Pending Completed Studies During Hospitalization Category Date Time Status CT head wo con* [id number] Stat Cat Scan 08/06/24 20:[address] lumbar spine wo con* [id number] Stat Cat Scan 08/06/24 20:43 Completed CTA head neck [CT angio headneck* [id number]] Routine Cat Scan 08/07/24 04:40 Completed FL barium swallow modifd [id number] Routine Exams 08/08/24 09:00 Completed XR chest 1V portable [id number] Stat Exams 08/06/24 20:43 Completed MR head wo con* [id number] Routine MRI 08/07/24 04:33 Completed CV. echo complete* [id number] Routine Ultrasound 08/07/24 10:55 Completed Pending at discharge Category Date Time Status Blood Culture Stat Lab 08/07/24 06:45 Results Complete Blood Count w/Auto AM LABS Lab 08/10/24 04:00 Ordered Comprehensive Metabolic Panel AM LABS Lab 08/10/24 04:00 Ordered Magnesium AM LABS Lab 08/10/24 04:00 Ordered Phosphorus AM LABS Lab 08/10/24 04:00 Ordered Urine Culture Stat Lab 08/06/24 21:10 Results Radiology Impressions Chest X-Ray 08/06/24 20:43 IMPRESSION: No acute findings. Head CT 08/06/24 20:43 IMPRESSION: 1. Negative for intracranial hemorrhage or mass effect. 2. Moderate diffuse white matter disease likely reflecting chronic microvascular ischemic changes. 3. Left occipital chronic infarct and encephalomalacia. 4. Right frontal region 4.2 mm thick probable calcified meningioma without significant mass effect. Lumbar Spine CT 08/06/24 20:43 IMPRESSION: 1. Chronic degenerative changes at L5-S1, status post posterior rosi and screw fusion, laminectomy, and intervertebral disc spacer. No distinct radiographic evidence of hardware complication. 2. No evidence of acute osseous fracture. Head MRI 08/07/24 04:33 IMPRESSION: 1. Acute left basal ganglia infarct. 2. Subacute subcentimeter left cerebellar hemispheric and right temporal lobe infarcts. ADDENDUM: 08/07/24 [id number] The findings were verbally communicated by telephone with Dr. Bocanegra at 4:12 PM CDT on 08/07/2024. Head/Neck CTA 08/07/24 04:40 IMPRESSION: 1. Short segment moderate to severe stenosis of the right M1 and the inferior M2 with distal reconstitution. 2. Multifocal areas of severe stenosis of the P1 and P2 segments of the left DIFFERENTIAL SPECIALIST. IMPRESSION: No stenosis or occlusion. REFERENCES: NASCET CRITERIA. The degree of stenosis in the cervical segment of the internal carotid artery is based on NASCET criteria. Normal is no stenosis. Mild is less than 50% stenosis. Moderate is 50-69% stenosis. Severe is 70% to 99% stenosis. Total occlusion is no detectable patent lumen. Modified Barium Swallow 08/08/24 09:00 IMPRESSION: 1. Several episodes of laryngeal penetration with liquids. Resolved with chin tuck maneuver. 2. No aspiration. Please see speech therapist report also for recommendations. Echocardiogram: CONCLUSIONS Mild concentric LVH. Normal LV systolic function. LVEF normal 60%. Normal RV size and RV systolic function. No significant valvular abnormality noted. Normal right heart and pulmonary pressures. Zhou Bundy MD (Electronically Signed) Final Date: 07 Aug 2024 18:37 Microbiology 08/06/24 21:10 Urine,Clean Catch Urine Culture - Preliminary Gram Negative Rods 08/07/24 06:45 Blood Blood Culture - Preliminary NEGATIVE TO DATE 08/07/24 06:49 Blood Blood Culture - Preliminary NEGATIVE TO DATE Laboratory Results WBC 7.46 10^3/uL (3.29-11.43) 08/09/24 04:44 RBC 3.94 10^6/uL (3.85-5.65) 08/09/24 04:44 Hgb 12.10 g/dL (11.27-16.99) 08/09/24 04:44 Hct 36.2 % (36-47) 08/09/24 04:44 MCV 91.9 fl (85-98) 08/09/24 04:44 MCH 30.7 pg (27-33) 08/09/24 04:44 MCHC 33.4 g/dL (30-55) 08/09/24 04:44 RDW 15.2 % (12.1-15.1) H 08/09/24 04:44 Plt Count 243 10^3/cmm (157-399) 08/09/24 04:44 MPV 11.4 fL (7.4-10.4) H 08/09/24 04:44 Neut % (Auto) 64.4 % 08/09/24 04:44 Lymph % (Auto) 25.1 % 08/09/24 04:44 Kings % (Auto) 7.1 % 08/09/24 04:44 Eos % (Auto) 2.5 % 08/09/24 04:44 Baso % (Auto) 0.4 % 08/09/24 04:44 Neut # (Auto) 4.80 10^3/uL (1.8-7.7) 08/09/24 04:44 Lymph # (Auto) 1.9 10^3/uL (0.8-4.8) 08/09/24 04:44 Kings # (Auto) 0.5 10^3/uL (0.2-0.9) 08/09/24 04:44 Eos # (Auto) 0.2 10^3/uL (0.0-0.8) 08/09/24 04:44 Baso # (Auto) 0.0 10^3/uL (0.0-0.1) 08/09/24 04:44 Nucleated RBC % (auto) 0 % 08/09/24 04:44 Nucleated RBCs # 0.0 /100WBC 08/09/24 04:44 PT 13.60 SECONDS (12.1-14.9) 08/07/24 06:49 INR 0.97 (0.8-1.2) 08/07/24 06:49 APTT 27.6 SECONDS (23.9-36.7) 08/07/24 06:49 Sodium 137 mmol/L (136-145) 08/09/24 04:44 Potassium 3.9 mmol/L (3.5-5.1) 08/09/24 04:44 Chloride 102 mmol/L (98-107) 08/09/24 04:44 Carbon Dioxide 25 mmol/L (22-29) 08/09/24 04:44 Anion Gap 13.9 (5-19) 08/09/24 04:44 BUN 16 mg/dL (8-23) 08/09/24 04:44 Creatinine 1.0 mg/dL (0.5-0.9) H 08/09/24 04:44 GFR Calculation 56.2 mL/min (90-130) L 08/09/24 04:44 Glucose 141 mg/dL (65-115) H 08/09/24 04:44 POC Glucose 138 mg/dL (70-110) H 08/09/24 06:23 Estimat Average Glucose 206 08/07/24 06:49 Hemoglobin A1c 8.8 % (4.0-6.0) H 08/07/24 06:49 Calculated Osmolality 288 mOsm/kg (285-295) 08/09/24 04:44 Calcium 8.9 mg/dL (8.5-10.5) 08/09/24 04:44 Phosphorus 4.0 mg/dL (2.5-4.5) 08/09/24 04:44 Magnesium 1.9 mg/dL (1.7-2.3) 08/09/24 04:44 Total Bilirubin 0.4 mg/dL (0.15-1.2) 08/09/24 04:44 AST 13 U/L (0-32) 08/09/24 04:44 ALT 9 U/L (0-33) 08/09/24 04:44 Alkaline Phosphatase 107 U/L (35-105) H 08/09/24 04:44 Troponin T Baseline 19 ng/L (0-10) H 08/06/24 20:40 Troponin T 120 Minute 17.36 ng/L (0-10) H 08/06/24 22:37 Delta Troponin T -1.64 ABS# (0-10) L 08/06/24 22:37 Troponin T Hi Sens 6Hr 17.42 ng/L (0-10) H 08/07/24 03:00 Troponin T Hi Sens 6Hr Delta -1.58 ng/L (0-12) L 08/07/24 03:00 NT-Pro-B Natriuret Pep 1737 pg/mL (0-125) H 08/06/24 20:40 Total Protein 6.5 g/dL (6.6-8.7) L 08/09/24 04:44 Albumin 3.5 g/dL (3.5-5.2) 08/09/24 04:44 Globulin 3.0 g/dL (1.3-4.6) 08/09/24 04:44 Triglycerides 95 mg/dL (0-150) 08/07/24 06:49 Cholesterol 135 mg/dL (0-200) 08/07/24 06:49 LDL Cholesterol, Calc 70 mg/dL (50-129) 08/07/24 06:49 HDL Cholesterol 46 mg/dL (60-100) L 08/07/24 06:49 LDL/HDL Ratio 1.52 RATIO (0.00-3.22) 08/07/24 06:49 Cholesterol/HDL Ratio 2.93 mg/dL (0.0-4.40) 08/07/24 06:49 Vitamin B12 321 pg/mL (232-1245) 08/07/24 06:49 TSH 16.13 uIU/mL (0.27-4.20) H 08/07/24 06:49 Free T4 1.03 ng/dL (0.82-1.77) 08/07/24 06:49 Free T3 2.9 PG/ML (2.0-4.4) 08/07/24 06:49 Urine Color Yellow (Yellow) 08/06/24 21:10 Urine Appearance Cloudy (CLEAR) A 08/06/24 21:10 Urine pH 5.5 (5-7) 08/06/24 21:10 Ur Specific [place] 1.021 (1.005-1.030) 08/06/24 21:10 Urine Protein 3+ (Negative) A 08/06/24 21:10 Urine Glucose (UA) 2+ (Normal) H 08/06/24 21:10 Urine Ketones Negative (Negative) 08/06/24 21:10 Urine Blood 1+ (Negative) A 08/06/24 21:10 Urine Nitrate Positive (Negative) A 08/06/24 21:10 Urine Bilirubin Negative (Negative) 08/06/24 21:10 Urine Urobilinogen 1.0 mg/dL (Negative) 08/06/24 21:10 Ur Leukocyte Esterase 1+ (Negative) A 08/06/24 21:10 Urine RBC 0-2 /hpf (0-2) 08/06/24 21:10 Urine WBC >100 /hpf (0-5) H 08/06/24 21:10 Ur Squamous Epith Cells 0-5 /hpf (0-5) 08/06/24 21:10 Amorphous Sediment Not Reportable 08/06/24 21:10 Urine Bacteria 4+ /hpf (NONE) H 08/06/24 21:10 Hyaline Casts 26.04 /lpf 08/06/24 21:10 Vitals Last Vital Signs Temp 97.6 F 08/09/24 04:00 Pulse 63 08/09/24 05:09 Resp 18 08/09/24 04:00 BP 163/72 08/09/24 04:00 Pulse Ox 97 08/09/24 04:00 O2 Del Method Room Air 08/09/24 04:00 Discharge Plan Discharge Patient Disposition: Home Condition: Stable Prescriptions: New aspirin 81 mg Tablet,Chewable 81 mg PO DAILY Qty: 30 0RF losartan 50 mg Tablet 100 mg PO DAILY Qty: 60 0RF levothyroxine 175 mcg capsule 175 mcg PO DAILY Qty: 60 0RF amlodipine 10 mg tablet 10 mg PO DAILY Qty: 30 0RF levofloxacin 500 mg tablet 500 mg PO Q24H 7 Days Qty: 7 0RF Continued gabapentin 600 mg tablet 600 mg PO TID tramadol 50 mg tablet See Rx Instructions .ROUTE .COMPLEX Rx Instructions: TAKE 1-2 TABLETS ORALLY EVERY 6 HOURS; DO NOT EXCEED 300MG/DAY NEEDED FOR PAIN insulin lispro 100 unit/mL insulin pen See Rx Instructions .ROUTE .COMPLEX Rx Instructions: Inject 10 units Subcutaneous; 15 minutes before or immediately after a meal three times daily insulin glargine [Lantus Solostar U-100 Insulin] 100 unit/mL (3 mL) insulin pen 20 unit SUBCUT BID atorvastatin 40 mg tablet 40 mg PO DAILY Jardiance 10 mg tablet 10 mg PO QAM Discontinued levothyroxine 125 mcg tablet 125 mcg PO DAILY ibuprofen 800 mg tablet 800 mg PO TID cyclobenzaprine 5 mg tablet 5 mg PO TID Discharge Orders: Discharge Order (Routine); Ordered 08/09/24 Ordered By: Milad Bocanegra Other Ambulatory Orders: DME: [facility] (Order) Location: None Selected Ordered By: Milad Bocanegra Referrals: Kelle Jimenez MD [Referring, Neurological Surgery] Referral Note: We have notified your physician's clinic of the need for a follow-up appointment to be scheduled. If you have not heard from them within the next 2 business days, please call them directly. Cori Delcid PA [Physician, [facility] Sales Representative] - 08/11/24 9:40 am Discharge Diet: As Directed and Cardiac Discharge Activity: Resume usual activity and Increase activity as tolerated Patient Instructions: Levothyroxine (By mouth), Amlodipine (By mouth), Opioid Safety, Stroke Stoplight Activity Restrictions/Additional Instructions: Dysphagia level 6 soft and bite-size diet. Please check your blood pressure daily at home and maintain blood pressure diary. Follow-up with a primary care provider within next 2 weeks for further adjustment of antihypertensive. Goal blood pressure is less than 140/90 MAG. Losartan and amlodipine are the antihypertensive which has been added to your medication list. Dose of levothyroxine has been increased to 175 mcg daily. Please recheck thyro id panel in 2 months. Follow-up with neurology team in 2 weeks. Discharge Attestations Time Spent in Discharge Care*: greater than 30 min Specific Discharge Activities: educating patient, educating and/or supporting family/caregiver, discussing with pcp/other providers, discussing with child welfare caseworker/social workers/dc planners, documenting/other paperwork and evaluating patient/reviewing data Status at Discharge: Cognitive status at discharge: cognitively intact , Behavioral status at discharge: cooperative , Functional status at discharge: uses cane/walker , Overall status at discharge: patient is progressing back to baseline Quality Metrics Clinical Quality Measures [ Cerebrovascular Accident { Contraindication to Antithrombotic: None; antithrombotic prescribed; Contraindication to Anticoagulation: Overlap treatment not indicated; Contraindication to Statin: None; Statin prescribed;}. No reported AMI, CVA or VTE this stay] Coding Level of Care Code Acute Code for Chg Fwd Diagnoses Cerebrovascular accident (CVA) of left basal ganglia I63.81 Uncontrolled hypertension I10 Hypertensive emergency I16.1 Diabetes mellitus E11.9 Acute cystitis N30.00
[2024-08-09] MEDS: losartan 50 mg Tablet 100 MG PO (08:57)
[2024-08-09] MEDS: aspirin 81 mg Chew Tablet PO (08:57)
[2024-08-09] MEDS: famotidine 20 mg Tablet PO ×2 (08:58→17:44)
[2024-08-09] MEDS: insulin glargine 100 units/1 mL 10 UNIT SUBCUT ×2 (09:02→21:48)
--- NOTE | 2024-08-09 10:05 | PC.CHAP ---
Pastoral Care Encounter/Spiritual Assessment Type of Contact [] Declined discount clerk visit [] Patient/Family/Request visit [] Outpatient visit [] Follow-up visit [] Physician referral [] Code/Alert [x] Routine visit [] Staff referral [] Actively dying [] Patient sleeping [] Family support [] [] Out of room [] Palliative care [] [] Receiving care in room [] Pre-surgical visit [] Trauma [] Long length of stay [] ICU visit [] Other: Relational/Emotional Strength [x] Patient feels connected with others/family/visitors/staff [] Distress [] Loneliness/isolation [] Abandonment Spirituality of Patient [x] Person of Margaret [] Attends Judaism of their Margaret [x] Believes in Prayer [] Reads Bible or Mu-Ism materials [] There are Spiritual issues to be addressed Quality Assurance Consultant Interventions [x] Prayer [x] Active listening [x] Non-anxious presence [x] Spiritual/emotional support [] Crisis/trauma care [] Spiritual counseling [] Bereavement support [] Provided bereavement packet [] Provided Bible/devotional materials [] Provided toy/stuffed animal, coloring book to patient or family member [] Provided Communion [] Anointing/[place] [] Salvation [x] Completed spiritual assessment [] Other: Impact on Illness or Injury [] Angry [] Fearful [] Anxious [] Often cries [] Exhaustion [] Unable to work [] Unable to attend episcopal [] Unable to walk/stand [] Unable to read [] Unable to drive [] Unable to eat/drink [] Unable to sleep [] Unable to be with family [] Patient intubated [] Other: Summary Time spent with patient 5 min
[2024-08-09 11:53] LABS: Glucose Point of Care 184 mg/dL (70-110)
[2024-08-09] MEDS: insulin lispro 100 unit/1 mL SUBCUT ×2 (12:57→21:49)
[2024-08-09] MEDS: cefTRIAXone 1,000 mg SDV 1000 MG IVP (14:07)
[2024-08-09] MEDS: heparin 5,000 unit/mL INJ 1 mL 5000 UNIT SUBCUT (14:08)
--- NOTE | 2024-08-09 14:08 | PC.NURSE ---
Medications late due to being in a room with wound care placing a wound vac.
[2024-08-09 17:18] LABS: Glucose Point of Care 97 mg/dL (70-110)
[2024-08-09 20:15] LABS: Glucose Point of Care 248 mg/dL (70-110)
[2024-08-09] MEDS: atorvastatin 40 mg Tablet PO (21:50)
[2024-08-10] VITALS (8 sets, daily range): BP systolic 164–195; BP diastolic 53–94; PULSE 66–80; RESP 15–18; TEMP 36.5–36.6; O2SAT 97–100
[2024-08-10] MEDS: heparin 5,000 unit/mL INJ 1 mL 5000 UNIT SUBCUT (00:14)
[2024-08-10] MEDS: levothyroxine 125 mcg Tablet PO (05:04)
[2024-08-10 05:44] LABS: Basophils % 0.4 %; Eosinophils # 0.2 10^3/uL (0.0-0.8); Eosinophils % 3.3 %; Hematocrit 34.3 % (36-47); Lymphocytes # 1.8 10^3/uL (0.8-4.8); Lymphocytes % 24.3 %; Mean Corpuscular HGB Conc 33.5 g/dL (30-55); Mean Corpuscular Hemoglobin 30.7 pg (27-33); Mean Corpuscular Volume 91.5 fl (85-98); Mean Platelet Volume 10.9 fL (7.4-10.4); Monocytes # 0.5 10^3/uL (0.2-0.9); Monocytes % 6.5 %; Neutrophils # 4.68 10^3/uL (1.8-7.7); Neutrophils % 65.1 %; Nucleated Red Blood Cells % 0 %; Platelet Count 226 10^3/cmm (157-399); Red Blood Count 3.75 10^6/uL (3.85-5.65); Red Cell Distribution Width 15.1 % (12.1-15.1)
[2024-08-10 06:19] LABS: Alanine Aminotransferase 9 U/L (0-33); Albumin Level 3.3 g/dL (3.5-5.2); Alkaline Phosphatase 100 U/L (35-105); Anion Gap 14.1 (5-19); Aspartate Amino Transferase 14 U/L (0-32); Blood Urea Nitrogen 19 mg/dL (8-23); Calcium 8.8 mg/dL (8.5-10.5); Carbon Dioxide 24 mmol/L (22-29); Chloride 102 mmol/L (98-107); Creatinine Clr Calc Pharmacy 81.0171; Globulin 2.9 g/dL (1.3-4.6); Glomerular Filtration Rate 56.2 mL/min (90-130); Glucose 180 mg/dL (65-115); Magnesium 1.8 mg/dL (1.7-2.3); Osmolality Calculated 289 mOsm/kg (285-295); Phosphorus 4.5 mg/dL (2.5-4.5); Potassium 4.1 mmol/L (3.5-5.1); Sodium 136 mmol/L (136-145); Total Bilirubin 0.3 mg/dL (0.15-1.2); Total Protein 6.2 g/dL (6.6-8.7)
[2024-08-10 06:58] LABS: Glucose Point of Care 193 mg/dL (70-110)
[2024-08-10] MEDS: insulin lispro 100 unit/1 mL SUBCUT (09:45)
[2024-08-10] MEDS: famotidine 20 mg Tablet PO (09:45)
[2024-08-10] MEDS: losartan 50 mg Tablet 100 MG PO (09:45)
[2024-08-10] MEDS: aspirin 81 mg Chew Tablet PO (09:45)
--- NOTE | 2024-08-10 10:00 | PC.NURSE ---
Discharge: Medicaid ride to be placed by CM
--- NOTE | 2024-08-10 10:25 | P.PN_ITS ---
Subjective 2 Subjective: No acute events overnight. Patient has remained hemodynamically stable and afebrile. Working with physical therapy today. Could not be discharged yesterday as culture results are not finalized. Verbalizes frustration in staying in the hospital a day extra. Vitals/I&O/Wt Last Vital Signs Temp 97.7 F 08/10/24 07:35 Pulse 76 08/10/24 07:35 Resp 15 08/10/24 07:35 BP 164/94 08/10/24 09:45 Pulse Ox 100 08/10/24 07:35 O2 Del Method Room Air 08/10/24 07:35 08/09/24 08/10/24 08/10/24 22:59 06:59 14:59 Intake Total 240 / 720 240 / 240 Balance 240 / 720 240 / 240 Weight last 48 hrs Weight 120.656 kg Weight 120.656 kg Physical Exam 2 Narrative: General: No acute distress, AO x3 HEENT: PERRLA, pupils bilaterally equal and reactive Chest: Normal vesicular breath sounds, mild coarse crackles present in right lower zone CVS: S1-S2 regular, no murmurs, no tachycardia, no gallops, no rubs Abdomen: Soft, nontender, no organomegaly, bowel sounds present Neuro: Right upper limb and lower limb power 3/5, left upper limb and lower limb 5/5, minimal right-sided facial droop, slurred speech but improving, AO x 3 Urinary Catheter Management: Ortiz: Cath Placed During This Visit: yes Reason for Continuing Indwelling Catheter: Other Urinary Catheter Date of Insertion: 08/07/24 Urinary Catheter Time of Insertion: 01:34 Data 08/10/24 05:33 08/10/24 05:33 A&P Assessment and plan (1) Cerebrovascular accident (CVA) of left basal ganglia: Seen on MRI. PT/OT/speech evaluation. Has finished 24 hours of permissible hypertension. Goal blood pressure of less than 140/90 mmHg. Appreciate A1c, lipid panel. Continue baby aspirin and statin. (2) Uncontrolled hypertension: Goal blood pressure less than 140/90 mmHg. Blood pressure is elevated. Start on losartan 100 mg oral daily. Uptitrate as per goal blood pressures. (3) Hypertensive emergency: (4) Diabetes mellitus: A1c of 8.8. Continue with Lantus 10 units twice daily. Sliding scale. (5) Acute cystitis: Follow-up with blood culture, urine culture. Continue with IV ceftriaxone for now. De-escalate per culture sensitivities. Plan Full code Advance diet as per speech evaluation Heparin for DVT prophylaxis Famotidine for PUD prophylaxis. Plan for the day: Repeat discharge today though the cultures are still not finalized. Discussed in detail with the patient that for now we will discharge her on Levaquin. Will follow-up the cultures if needed any changes will call with the new antibiotic prescription as needed. Patient is agreeable. Will discharge on amlodipine, losartan, aspirin, statin. Patient to see her PCP in 1 week and neurology in 2 weeks. PDMP PDMP Reviewed: Not Reviewed Attestations 2 Medical Necessity Statement*: Plan for discharge today. Received treatment for UTI, new stroke as doing well with physical therapy and diet is advanced as per speech evaluation. Diagnoses Cerebrovascular accident (CVA) of left basal ganglia I63.81 Uncontrolled hypertension I10 Hypertensive emergency I16.1 Diabetes mellitus E11.9 Acute cystitis N30.00
[2024-08-10 21:14] LABS: Glucose Point of Care 140 mg/dL (70-110)
== END 2024-08-10 13:33 | disposition home or self-care (01) | DRG 65 ==
LOC: ER 08-07 03:42 → MEDSURG 08-07 04:02
PROVIDERS: Admitting Provider Internal Medicine; Emergency Provider Emergency Medicine; PCP Nurse Practitioner Family; Visit Provider Student in an Organized Health Care Education/Training Program
DX: I63.22 Cerebral infarction due to unspecified occlusion or stenosis of basilar artery (principal); G81.91 Hemiplegia, unspecified affecting right dominant side; I16.1 Hypertensive emergency; N30.00 Acute cystitis without hematuria; R47.81 Slurred speech; R29.810 Facial weakness; I10 Essential (primary) hypertension; E11.9 Type 2 diabetes mellitus without complications; W01.0XXA Fall on same level from slipping, tripping and stumbling without subsequent striking against object, initial encounter; F17.200 Nicotine dependence, unspecified, uncomplicated; G93.89 Other specified disorders of brain; G47.33 Obstructive sleep apnea (adult) (pediatric); Z79.891 Long term (current) use of 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; Z79.4 Long term (current) use of insulin; Z79.84 Long term (current) use of oral hypoglycemic drugs; Z86.73 Personal history of transient ischemic attack (TIA), and cerebral infarction without residual deficits; Z98.1 Arthrodesis status
CPT/HCPCS: 36415; 36416; 51702; 70450; 70496; 70498; 70551; 71045; 72131; 74230; 80053; 80061; 81001; 82607; 82962; 83036; 83735; 83880; 84100; 84439; 84443; 84481; 84484; 85025; 85610; 85730; 87040; 87077; 87086; 87186; 92507; 92523; 92526; 92610; 92611; 93005; 93306; 96365; 96372; 96375; 97110; 97116; 97161; 97167; 99285; J0692; J0696; J1644; J1815; J1956; J2270; J2405; J3490; J9999

== ENCOUNTER 2024-10-02 16:43 | Emergency (ER) | payer MEDICAID, SELFPAY ==
--- NOTE | 2024-10-02 16:45 | XRR_ITS ---
PROCEDURE INFORMATION: Exam: XR Chest Exam date and time: 10/02/2024 5:26 PM Age: 64 years old Clinical indication: Other: Dizziness; Additional info: Dizzy TECHNIQUE: Imaging protocol: Radiologic exam of the chest. Views: 1 view. COMPARISON: CR (CHEST, ) 08/06/2024 9:24 PM FINDINGS: Lungs: Unremarkable. No consolidation. Pleural spaces: Unremarkable. No pleural effusion. No pneumothorax. Heart/Mediastinum: Unremarkable. No cardiomegaly. Prominent central pulmonary vessels likely relate to AP projection. Bones/joints: Unremarkable. XR/XR chest 1V portable [id number] IMPRESSION: No acute findings.
[2024-10-02 16:50] VITALS: BP 126/94; PULSE 80; TEMP 36.7; O2SAT 98; BMI 38.4
--- OUTSIDE RECORDS SUMMARY | 2024-10-02 16:51 | XMS_ITS | Encounter Summary ---
Author Organization [facility] Address [address] [place] [address] Care Team Providers Care Grocery Clerk Name Role Phone Unavailable Primary Care Provider Unavailabl e Encounter Details Date Type Department Care Team (Latest Contact Info) Description 10/25/2001 Outpatient Historical [facility] [address], [place] [address] Haroldo Garay MD [address] [phone] ADV EFFECT MED/BIOL SUB NOS (Primary Dx) Social History Tobacco Use Types Packs/Day Years Used Date Smoking Tobacco: Never Assessed Comments Unknown Sex and Gender Information Value Date Recorded Sex Assigned at Not on file Legal Sex Female 5:57 AM CORRECTION LIEUTENANT Gender Identity Not on file Sexual Orientation Not on file documented as of this encounter Plan of Treatment Not on file documented as of this encounter Visit Diagnoses Diagnosis Other and unspecified adverse effect of drug, medicinal and biological substance- Primary documented in this encounter
--- OUTSIDE RECORDS SUMMARY | 2024-10-02 16:51 | XMS_ITS | Encounter Summary ---
Author Organization [facility] Address [address] [place] [address] Care Team Providers Care Gravity Meter Observer Name Role Phone Unavailable Primary Care Provider Unavailabl e Encounter Details Date Type Department Care Team (Latest Contact Info) Description 11/05/2004 [facility] [address] [place] [id number] Boogie Simmons LUMBOSACRAL NEURITIS NOS (Primary Dx) Social History Tobacco Use Types Packs/Day Years Used Date Smoking Tobacco: Never Assessed Comments Unknown Sex and Gender Information Value Date Recorded Sex Assigned at Not on file Legal Sex Female 5:57 AM CREDIT CARD CLERK Gender Identity Not on file Sexual Orientation Not on file documented as of this encounter Plan of Treatment Not on file documented as of this encounter Visit Diagnoses Diagnosis Thoracic or lumbosacral neuritis or radiculitis, unspecified- Primary documented in this encounter
--- OUTSIDE RECORDS SUMMARY | 2024-10-02 16:51 | XMS_ITS | Encounter Summary ---
Author Organization [facility] Address [address] [place] [address] Care Team Providers Care Expressive Therapist Name Role Phone Unavailable Primary Care Provider Unavailabl e Encounter Details Date Type Department Care Team (Latest Contact Info) Description 06/24/2002 Outpatient Historical [facility] [place] [address], [place] [address] Haroldo Garay MD [address] [phone] CELLULITIS OF TRUNK (Primary Dx) Social History Tobacco Use Types Packs/Day Years Used Date Smoking Tobacco: Never Assessed Comments Unknown Sex and Gender Information Value Date Recorded Sex Assigned at Not on file Legal Sex Female 5:57 AM HOME SALES CONSULTANT Gender Identity Not on file Sexual Orientation Not on file documented as of this encounter Plan of Treatment Not on file documented as of this encounter Visit Diagnoses Diagnosis Cellulitis and abscess of trunk- Primary documented in this encounter
--- OUTSIDE RECORDS SUMMARY | 2024-10-02 16:51 | XMS_ITS | Encounter Summary ---
Author Organization [facility] Address [address] [place] [address] Care Team Providers Care Porcelain Waxer Name Role Phone Unavailable Primary Care Provider Unavailabl e Encounter Details Date Type Department Care Team (Latest Contact Info) Description 04/28/2002 Outpatient Historical [facility] [address], [place] [address] Haroldo Garay MD [address] [phone] URIN TRACT INFECTION NOS (Primary Dx); ACUTE FRONTAL SINUSITIS Social History Tobacco Use Types Packs/Day Years Used Date Smoking Tobacco: Never Assessed Comments Unknown Sex and Gender Information Value Date Recorded Sex Assigned at Not on file Legal Sex Female 5:57 AM RACEHORSE TRAINER Gender Identity Not on file Sexual Orientation Not on file documented as of this encounter Plan of Treatment Not on file documented as of this encounter Visit Diagnoses Diagnosis Urinary tract infection, site not specified- Primary Acute frontal sinusitis documented in this encounter
--- OUTSIDE RECORDS SUMMARY | 2024-10-02 16:51 | XMS_ITS | Encounter Summary ---
Author Organization [facility] Address [address] [place] [address] Care Team Providers Care Short Order Cook Name Role Phone Unavailable Primary Care Provider Unavailabl e Encounter Details Date Type Department Care Team (Latest Contact Info) Description 03/22/2002 Outpatient Historical [facility] [place] [address] [phone] Joselin Stephenson, [facility] [address] [phone] HYPOTHYROIDISM NOS (Primary Dx) Social History Tobacco Use Types Packs/Day Years Used Date Smoking Tobacco: Never Assessed Comments Unknown Sex and Gender Information Value Date Recorded Sex Assigned at Not on file Legal Sex Female 5:57 AM SITE INSPECTOR Gender Identity Not on file Sexual Orientation Not on file documented as of this encounter Plan of Treatment Not on file documented as of this encounter Visit Diagnoses Diagnosis Unspecified hypothyroidism- Primary documented in this encounter
--- OUTSIDE RECORDS SUMMARY | 2024-10-02 16:51 | XMS_ITS | Encounter Summary ---
Author Organization [facility] Address [address] [place] [address] Care Team Providers Care Customer Program Specialist Name Role Phone Unavailable Primary Care Provider Unavailabl e Encounter Details Date Type Department Care Team (Latest Contact Info) Description 12/29/2001 Outpatient Historical [facility] [address], [place] [address] Haroldo Garay MD [address] [phone] ABNORMAL WEIGHT GAIN (Primary Dx); Dietary surveil/pet counselor Social History Tobacco Use Types Packs/Day Years Used Date Smoking Tobacco: Never Assessed Comments Unknown Sex and Gender Information Value Date Recorded Sex Assigned at Not on file Legal Sex Female 5:57 AM SCIENTIFIC AIDE Gender Identity Not on file Sexual Orientation Not on file documented as of this encounter Plan of Treatment Not on file documented as of this encounter Visit Diagnoses Diagnosis Abnormal weight gain- Primary Dietary surveil/pet counselor Dietary surveillance and counseling documented in this encounter
--- OUTSIDE RECORDS SUMMARY | 2024-10-02 16:51 | XMS_ITS | Encounter Summary ---
Author Organization [facility] Address [address] [place] [address] Care Team Providers Care Crotch Piece Baster Name Role Phone Unavailable Primary Care Provider Unavailabl e Encounter Details Date Type Department Care Team (Latest Contact Info) Description 10/29/2001 Outpatient Historical [facility] [address] [address] Haroldo Garay MD [address], [place] [phone] JOINT PAIN-L/LEG (Primary Dx); BACKACHE NOS Social History Tobacco Use Types Packs/Day Years Used Date Smoking Tobacco: Never Assessed Comments Unknown Sex and Gender Information Value Date Recorded Sex Assigned at Not on file Legal Sex Female 5:57 AM CENTRAL STERILE TECH Gender Identity Not on file Sexual Orientation Not on file documented as of this encounter Plan of Treatment Not on file documented as of this encounter Visit Diagnoses Diagnosis Pain in joint, lower leg- Primary Backache, unspecified documented in this encounter
--- OUTSIDE RECORDS SUMMARY | 2024-10-02 16:51 | XMS_ITS | Encounter Summary ---
Author Organization [facility] Address [address] [place] [address] Care Team Providers Care Windows Server Architect Name Role Phone Unavailable Primary Care Provider Unavailabl e Encounter Details Date Type Department Care Team (Latest Contact Info) Description 10/12/[address] 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
--- OUTSIDE RECORDS SUMMARY | 2024-10-02 16:51 | XMS_ITS | Encounter Summary ---
Author Organization [facility] Address [address] [facility] Attn: [place] [address] Care Team Providers Care Timber Management Technician Name Role Phone Unavailable Primary Care Provider Unavailabl e Encounter Details Date Type Department Care Team (Late st Contact Info) Description 11/05/2001 Outpatient Historical Haroldo Garay MD [address] [place] [address] Social History Tobacco Use Types Packs/Day Years Used Date Smoking Tobacco: Never Assessed Comments Unknown Sex and Gender Information Value Date Recorded Sex Assigned at Not on file Legal Sex Female 5:57 AM LEAN PROCESS DEPLOYMENT CONSULTANT Gender Identity Not on file Sexual Orientation Not on file documented as of this encounter Plan of Treatment Not on file documented as of this encounter Visit Diagnoses Not on filedocumented in this encounter
--- OUTSIDE RECORDS SUMMARY | 2024-10-02 16:51 | XMS_ITS | Encounter Summary ---
Author Organization [facility] Address [address] [place] [address] Care Team Providers Care Agronomy Internship Name Role Phone Unavailable Primary Care Provider Unavailabl e Encounter Details Date Type Department Care Team (Latest Contact Info) Description 02/11/2002 Outpatient Historical [facility] [address] [address] Haroldo Garay MD [address] [phone] URIN TRACT INFECTION NOS (Primary Dx) Social History Tobacco Use Types Packs/Day Years Used Date Smoking Tobacco: Never Assessed Comments Unknown Sex and Gender Information Value Date Recorded Sex Assigned at Not on file Legal Sex Female 5:57 AM HOG RINGER Gender Identity Not on file Sexual Orientation Not on file documented as of this encounter Plan of Treatment Not on file documented as of this encounter Visit Diagnoses Diagnosis Urinary tract infection, site not specified- Primary documented in this encounter
--- OUTSIDE RECORDS SUMMARY | 2024-10-02 16:51 | XMS_ITS | Encounter Summary ---
Author Organization [facility] Address [address] [place] [address] Care Team Providers Care Weight Trainer Name Role Phone Unavailable Primary Care Provider Unavailabl e Encounter Details Date Type Department Care Team (Latest Contact Info) Description 11/19/2004 Outpatient Historical [facility] Procedures [address] [place] [phone] Boogie Simmons LUMBOSACRAL NEURITIS NOS (Primary Dx) Social History Tobacco Use Types Packs/Day Years Used Date Smoking Tobacco: Never Assessed Comments Unknown Sex and Gender Information Value Date Recorded Sex Assigned at Not on file Legal Sex Female 5:57 AM CLINICAL VETERINARIAN Gender Identity Not on file Sexual Orientation Not on file documented as of this encounter Plan of Treatment Not on file documented as of this encounter Visit Diagnoses Diagnosis Thoracic or lumbosacral neuritis or radiculitis, unspecified- Primary documented in this encounter
--- OUTSIDE RECORDS SUMMARY | 2024-10-02 16:51 | XMS_ITS | Encounter Summary ---
Author Organization [facility] Address [address] [place] [address] Care Team Providers Care Weight Inspector Name Role Phone Unavailable Primary Care Provider Unavailabl e Encounter Details Date Type Department Care Team (Latest Contact Info) Description 07/18/2004 Outpatient Historical [facility] [address] [phone] Anahi Harrison MD [address] [place] [phone] ALLERGIC RHINITIS NOS (Primary Dx); ACUTE FRONTAL SINUSITIS Social History Tobacco Use Types Packs/Day Years Used Date Smoking Tobacco: Never Assessed Comments Unknown Sex and Gender Information Value Date Recorded Sex Assigned at Not on file Legal Sex Female 5:57 AM LIFE SCIENCE TAXONOMIST Gender Identity Not on file Sexual Orientation Not on file documented as of this encounter Plan of Treatment Not on file documented as of this encounter Visit Diagnoses Diagnosis Allergic rhinitis, cause unspecified- Primary Acute frontal sinusitis documented in this encounter
--- OUTSIDE RECORDS SUMMARY | 2024-10-02 16:51 | XMS_ITS | Encounter Summary ---
Author Organization [facility] Address [address] [place] [address] Care Team Providers Care Mayonnaise Mixer Name Role Phone Unavailable Primary Care Provider Unavailabl e Encounter Details Date Type Department Care Team (Latest Contact Info) Description 11/19/2004 [facility]patient [facility] [address] [place] [phone] Boogie Simmons LUMBOSACRAL NEURITIS NOS (Primary Dx) Social History Tobacco Use Types Packs/Day Years Used Date Smoking Tobacco: Never Assessed Comments Unknown Sex and Gender Information Value Date Recorded Sex Assigned at Not on file Legal Sex Female 5:57 AM SCIENTIFIC RESEARCH MANAGER Gender Identity Not on file Sexual Orientation Not on file documented as of this encounter Plan of Treatment Not on file documented as of this encounter Visit Diagnoses Diagnosis Thoracic or lumbosacral neuritis or radiculitis, unspecified- Primary documented in this encounter
--- OUTSIDE RECORDS SUMMARY | 2024-10-02 16:51 | XMS_ITS | Encounter Summary ---
Author Organization [facility] Address [address] [place] [address] Care Team Providers Care Centrifugal Casting Machine Operator Name Role Phone Unavailable Primary Care Provider Unavailabl e Encounter Details Date Type Department Care Team (Latest Contact Info) Description 03/22/2002 Outpatient Historical [facility] [place] [address] [address] Anahi Harrison MD [address] [place] [phone] JOINT PAIN-L/LEG (Primary Dx); SCIATICA; HYPOTHYROIDISM NOS Social History Tobacco Use Types Packs/Day Years Used Date Smoking Tobacco: Never Assessed Comments Unknown Sex and Gender Information Value Date Recorded Sex Assigned at Not on file Legal Sex Female 5:57 AM BOTTLER 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
--- OUTSIDE RECORDS SUMMARY | 2024-10-02 16:51 | XMS_ITS | Encounter Summary ---
Author Organization [facility] Address [address] [place] [address] Care Team Providers Care Senior Interactive Developer Name Role Phone Unavailable Primary Care Provider Unavailabl e Encounter Details Date Type Department Care Team (Latest Contact Info) Description 06/29/2002 Outpatient Historical [facility] [address], [place] [address] Haroldo Garay MD [address] [place] [phone] SCIATICA (Primary Dx); CELLULITIS NOS Social History Tobacco Use Types Packs/Day Years Used Date Smoking Tobacco: Never Assessed Comments Unknown Sex and Gender Information Value Date Recorded Sex Assigned at Not on file Legal Sex Female 5:57 AM SOFTWARE RELIABILITY ENGINEER Gender Identity Not on file Sexual Orientation Not on file documented as of this encounter Plan of Treatment Not on file documented as of this encounter Visit Diagnoses Diagnosis Sciatica- Primary Cellulitis and abscess of unspecified site documented in this encounter
--- OUTSIDE RECORDS SUMMARY | 2024-10-02 16:51 | XMS_ITS | Encounter Summary ---
Author Organization [facility] Address [address] [place] [address] Care Team Providers Care Tank Charger Name Role Phone Unavailable Primary Care Provider Unavailabl e Encounter Details Date Type Department Care Team (Latest Contact Info) Description 11/13/2004 Outpatient Historical [address] [address] Wally Ventura, LINE CLEARANCE FOREMAN [address] [place] [address] BACKACHE NOS (Primary Dx) Social History Tobacco Use Types Packs/Day Years Used Date Smoking Tobacco: Never Assessed Comments Unknown Sex and Gender Information Value Date Recorded Sex Assigned at Not on file Legal Sex Female 5:57 AM PIPE RECOVERY SPECIALIST Gender Identity Not on file Sexual Orientation Not on file documented as of this encounter Plan of Treatment Not on file documented as of this encounter Visit Diagnoses Diagnosis Backache, unspecified- Primary documented in this encounter
--- OUTSIDE RECORDS SUMMARY | 2024-10-02 16:51 | XMS_ITS | Encounter Summary ---
Author Organization [facility] Address [address] [place] [address] Care Team Providers Care Automobile Mechanic Radiator Name Role Phone Unavailable Primary Care Provider Unavailabl e Encounter Details Date Type Department Care Team (Latest Contact Info) Description 07/07/2002 Outpatient Historical [facility] [address], [place] [address] Haroldo Garay MD [address] [phone] SCIATICA (Primary Dx); BACKACHE NOS Social History Tobacco Use Types Packs/Day Years Used Date Smoking Tobacco: Never Assessed Comments Unknown Sex and Gender Information Value Date Recorded Sex Assigned at Not on file Legal Sex Female 5:57 AM THAI MASSEUR Gender Identity Not on file Sexual Orientation Not on file documented as of this encounter Plan of Treatment Not on file documented as of this encounter Visit Diagnoses Diagnosis Sciatica- Primary Backache, unspecified documented in this encounter
--- OUTSIDE RECORDS SUMMARY | 2024-10-02 16:51 | XMS_ITS | Encounter Summary ---
Author Organization [facility] Address [address] [place] [address] Care Team Providers Care Tree Fruit And Nut Crops Farmer Name Role Phone Unavailable Primary Care Provider Unavailabl e Encounter Details Date Type Department Care Team (Latest Contact Info) Description 05/08/2005 Outpatient Historical [facility] [address] [place] [address] AMBULANCE, [facility] CHEST PAIN NOS (Primary Dx) Social History Tobacco Use Types Packs/Day Years Used Date Smoking Tobacco: Never Assessed Comments Unknown Sex and Gender Information Value Date Recorded Sex Assigned at Not on file Legal Sex Female 5:57 AM PRODUCTION HAND Gender Identity Not on file Sexual Orientation Not on file documented as of this encounter Plan of Treatment Not on file documented as of this encounter Visit Diagnoses Diagnosis Chest pain, unspecified- Primary documented in this encounter
--- OUTSIDE RECORDS SUMMARY | 2024-10-02 16:51 | XMS_ITS | Encounter Summary ---
Author Organization [facility] Address [address] [place] [address] Care Team Providers Care Health And Safety Inspector Name Role Phone Unavailable Primary Care Provider Unavailabl e Encounter Details Date Type Department Care Team (Late st Contact Info) Description 10/08/2001 Outpatient Historical [facility] [place] [address] [place] [address] Social History Tobacco Use Types Packs/Day Years Used Date Smoking Tobacco: Never Assessed Comments Unknown Sex and Gender Information Value Date Recorded Sex Assigned at Not on file Legal Sex Female 5:57 AM CEILING INSULATION BLOWER Gender Identity Not on file Sexual Orientation Not on file documented as of this encounter Plan of Treatment Not on file documented as of this encounter Visit Diagnoses Not on filedocumented in this encounter
--- OUTSIDE RECORDS SUMMARY | 2024-10-02 16:51 | XMS_ITS | Encounter Summary ---
Author Organization [facility] Address [address] [place] [address] Care Team Providers Care Regional Sales Consultant Name Role Phone Unavailable Primary Care Provider Unavailabl e Encounter Details Date Type Department Care Team (Latest Contact Info) Description 12/09/2001 Outpatient Historical [facility] [address] [address] Haroldo Garay MD [address] [phone] JOINT PAIN-L/LEG (Primary Dx); ABNORMAL WEIGHT GAIN Social History Tobacco Use Types Packs/Day Years Used Date Smoking Tobacco: Never Assessed Comments Unknown Sex and Gender Information Value Date Recorded Sex Assigned at Not on file Legal Sex Female 5:57 AM CENTER MEDICAL SPECIALIST Gender Identity Not on file Sexual Orientation Not on file documented as of this encounter Plan of Treatment Not on file documented as of this encounter Visit Diagnoses Diagnosis Pain in joint, lower leg- Primary Abnormal weight gain documented in this encounter
--- OUTSIDE RECORDS SUMMARY | 2024-10-02 16:51 | XMS_ITS | Encounter Summary ---
Author Organization [facility] Address [address] [place] [address] Care Team Providers Care Returned Goods Receiving Clerk Name Role Phone Unavailable Primary Care Provider Unavailabl e Encounter Details Date Type Department Care Team (Latest Contact Info) Description 11/05/2004 Outpatient Historical [facility] Pain Management Procedures [address] [place] [phone] Boogie Simmons LUMBAGO (Primary Dx) Social History Tobacco Use Types Packs/Day Years Used Date Smoking Tobacco: Never Assessed Comments Unknown Sex and Gender Information Value Date Recorded Sex Assigned at Not on file Legal Sex Female 5:57 AM SAFETY COUNSELOR Gender Identity Not on file Sexual Orientation Not on file documented as of this encounter Plan of Treatment Not on file documented as of this encounter Visit Diagnoses Diagnosis Lumbago- Primary documented in this encounter
--- OUTSIDE RECORDS SUMMARY | 2024-10-02 16:51 | XMS_ITS | Encounter Summary ---
Author Organization [facility] Address [address] [place] [address] Care Team Providers Care Retail Greeter Name Role Phone Unavailable Primary Care Provider Unavailabl e Encounter Details Date Type Department Care Team (Latest Contact Info) Description 05/02/2007 Outpatient Historical [facility] [address] [place] [address] [facility]BULANCE, [facility] Unspecified Essential Hypertension; Unspecified Heart Disease; Encounter for Long-Term (Current) Use of Other Medications Social History Tobacco Use Types Packs/Day Years Used Date Smoking Tobacco: Never Assessed Comments Unknown Sex and Gender Information Value Date Recorded Sex Assigned at Not on file Legal Sex Female 5:57 AM BOTTOM CAGER Gender Identity Not on file Sexual Orientation Not on file documented as of this encounter Plan of Treatment Not on file documented as of this encounter Visit Diagnoses Diagnosis Unspecified essential hypertension Heart disease, unspecified Encounter for long-term (current) use of other medications documented in this encounter
--- OUTSIDE RECORDS SUMMARY | 2024-10-02 16:51 | XMS_ITS | Encounter Summary ---
Author Organization [facility] Address [address] [place] [address] Care Team Providers Care Automobile And Property Underwriter Name Role Phone Unavailable Primary Care Provider Unavailabl e Encounter Details Date Type Department Care Team (Latest Contact Info) Description 08/04/2002 Outpatient Historical [facility] [address] [address] Haroldo Garay MD [address], [place] [phone] POSTCONCUSSION SYNDROME (Primary Dx) Social History Tobacco Use Types Packs/Day Years Used Date Smoking Tobacco: Never Assessed Comments Unknown Sex and Gender Information Value Date Recorded Sex Assigned at Not on file Legal Sex Female 5:57 AM FURNACE FIRER Gender Identity Not on file Sexual Orientation Not on file documented as of this encounter Plan of Treatment Not on file documented as of this encounter Visit Diagnoses Diagnosis Postconcussion syndrome- Primary documented in this encounter
--- OUTSIDE RECORDS SUMMARY | 2024-10-02 16:51 | XMS_ITS | Encounter Summary ---
Author Organization [facility] Address [address] [place] [address] Care Team Providers Care Trial Justice Name Role Phone Unavailable Primary Care Provider Unavailabl e Encounter Details Date Type Department Care Team (Latest Contact Info) Description 05/18/2002 Outpatient Historical [facility] [address] [address] Haroldo Garay MD [address], [place] [phone] OPEN WOUND KNEE/LEG/ANKLE (Primary Dx); TETANUS TOXOID INOCULAT Social History Tobacco Use Types Packs/Day Years Used Date Smoking Tobacco: Never Assessed Comments Unknown Sex and Gender Information Value Date Recorded Sex Assigned at Not on file Legal Sex Female 5:57 AM NUCLEAR POWERPLANT MECHANIC HELPER Gender Identity Not on file Sexual Orientation Not on file documented as of this encounter Plan of Treatment Not on file documented as of this encounter Visit Diagnoses Diagnosis Open wound of knee, leg (except thigh), and ankle, without mention of complication- Primary Need for prophylactic vaccination with tetanus toxoid alone documented in this encounter
--- OUTSIDE RECORDS SUMMARY | 2024-10-02 16:51 | XMS_ITS | Clinical Summary ---
Author Organization [facility] Address [address] [place] [address] Phone Care Team Providers Care Gas Collection System Operator Name Role Phone Unavailable Primary Care Provider Unavailabl e Immunizations Immunization Administration Dates Next Due (TDVAX)(7 YRS UP) TETANUS AN D DIPHTHERIA TOXOIDS, ADSORBED (2 LF OF TETANUS TOXOID AND 2 LF OF DIPHTHERIA TOXOID), 0.5ML (PF), IM 05/18/2002 Social History Tobacco Use Types Packs/Day Years Used Date Smoking Tobacco: Never Assessed Comments Unknown Sex and Gender Information Value Date Recorded Sex Assigned at Not on file Legal Sex Female 5:57 AM CORK TIPPER Gender Identity Not on file Sexual Orientation Not on file Plan of Treatment Health Maintenance Due Date Last Done Comments HPV/Cotest (21-29) 1983 CERVICAL CANCER SCREENING 02/17/1992 HPV/Cotest (30-65) 02/17/1992 PAP SMEAR 02/17/1992 BREAST CANCER SCREENING 2002 DTAP/TDAP/TD VACCINES (1 - Tdap) 05/19/2002 05/18/19 03 COLORECTAL SCREENING 2007 Colorectal Cancer Screening 2007 FIT-DNA Q 3 years 2007 FIT/FOBT Q 1 year 2007 Flex Sig/CT Colonography Q 5 years 2007 ZOSTER VACCINE (1 of 2) 02/17/2012 INFLUENZA VACCINE (#1) 2024 RSV VACCINE (60+ or ) (1 - 1-dose 75+ series) 2037 Insurance [place]ICAID [place]
--- OUTSIDE RECORDS SUMMARY | 2024-10-02 16:51 | XMS_ITS | Encounter Summary ---
Author Organization [facility] Address [address] [place] [address] Care Team Providers Care Service Observer Chief Name Role Phone Unavailable Primary Care Provider Unavailabl e Encounter Details Date Type Department Care Team (Latest Contact Info) Description 05/05/2002 Outpatient Historical [facility] [address], [place] [address] Haroldo Garay MD [address] [phone] LUMP OR MASS IN BREAST (Primary Dx) Social History Tobacco Use Types Packs/Day Years Used Date Smoking Tobacco: Never Assessed Comments Unknown Sex and Gender Information Value Date Recorded Sex Assigned at Not on file Legal Sex Female 5:57 AM NURSING CARE PARTNER Gender Identity Not on file Sexual Orientation Not on file documented as of this encounter Plan of Treatment Not on file documented as of this encounter Visit Diagnoses Diagnosis Lump or mass in breast- Primary documented in this encounter
--- OUTSIDE RECORDS SUMMARY | 2024-10-02 16:51 | XMS_ITS | Encounter Summary ---
Author Organization [facility] Address [address] [place] [address] Care Team Providers Care Mailing Machine Assistant Name Role Phone Unavailable Primary Care Provider Unavailabl e Encounter Details Date Type Department Care Team (Latest Contact Info) Description 11/29/1998 Outpatient Historical [facility] Adi Larkin NO ADDRESS ON FILE Pain in joint, lower leg (Primary Dx) Social History Tobacco Use Types Packs/Day Years Used Date Smoking Tobacco: Never Assessed Comments Unknown Sex and Gender Information Value Date Recorded Sex Assigned at Not on file Legal Sex Female 5:57 AM SENIOR PRODUCTION PLANNER Gender Identity Not on file Sexual Orientation Not on file documented as of this encounter Plan of Treatment Not on file documented as of this encounter Visit Diagnoses Diagnosis Pain in joint, lower leg- Primary documented in this encounter
--- OUTSIDE RECORDS SUMMARY | 2024-10-02 16:51 | XMS_ITS | Encounter Summary ---
Author Organization [facility] Address [address] [place] [address] Care Team Providers Care Painter Rough Name Role Phone Unavailable Primary Care Provider Unavailabl e Encounter Details Date Type Department Care Team (Latest Contact Info) Description 07/31/2002 Outpatient Historical [facility] [address] [place] [address] AMBULANCE, [facility] OPEN WOUND OF FOREHEAD (Primary Dx) Social History Tobacco Use Types Packs/Day Years Used Date Smoking Tobacco: Never Assessed Comments Unknown Sex and Gender Information Value Date Recorded Sex Assigned at Not on file 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
--- OUTSIDE RECORDS SUMMARY | 2024-10-02 16:51 | XMS_ITS | Encounter Summary ---
Author Organization [facility] Address [address] [place] [address] Care Team Providers Care Associate Juvenile Court Judge Name Role Phone Unavailable Primary Care Provider Unavailabl e Encounter Details Date Type Department Care Team (Latest Contact Info) Description 08/17/2002 Outpatient Historical [facility] [address], [place] [address] Haroldo Garay MD [address] [phone] POSTCONCUSSION SYNDROME (Primary Dx); HYPERTENSION NOS Social History Tobacco Use Types Packs/Day Years Used Date Smoking Tobacco: Never Assessed Comments Unknown Sex and Gender Information Value Date Recorded Sex Assigned at Not on file Legal Sex Female 5:57 AM 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
--- OUTSIDE RECORDS SUMMARY | 2024-10-02 16:51 | XMS_ITS | Encounter Summary ---
Author Organization [facility] Address [address] [place] [address] Care Team Providers Care Riverboat Captain Name Role Phone Unavailable Primary Care Provider Unavailabl e Encounter Details Date Type Department Care Team (Latest Contact Info) Description 03/30/2002 Outpatient Historical [facility] [address] [address] Haroldo Garay MD [address] [phone] ACUTE FRONTAL SINUSITIS (Primary Dx); DIZZINESS AND GIDDINESS Social History Tobacco Use Types Packs/Day Years Used Date Smoking Tobacco: Never Assessed Comments Unknown Sex and Gender Information Value Date Recorded Sex Assigned at Not on file Legal Sex Female 5:57 AM 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
--- OUTSIDE RECORDS SUMMARY | 2024-10-02 16:51 | XMS_ITS | Encounter Summary ---
Author Organization [facility] Address [address] [place] [address] Care Team Providers Care Editorial Specialist Name Role Phone Unavailable Primary Care Provider Unavailabl e Encounter Details Date Type Department Care Team (Latest Contact Info) Description 05/28/1998 Outpatient Historical [facility] [place] [address], [place] [address] Haroldo Garay MD [address] [phone] Unspecified essential hypertension (Primary Dx) Social History Tobacco Use Types Packs/Day Years Used Date Smoking Tobacco: Never Assessed Comments Unknown Sex and Gender Information Value Date Recorded Sex Assigned at Not on file 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
--- OUTSIDE RECORDS SUMMARY | 2024-10-02 16:51 | XMS_ITS | Encounter Summary ---
Author Organization [facility] Address [address] [place] [address] Care Team Providers Care Wildlife Enforcement Major Name Role Phone Unavailable Primary Care Provider Unavailabl e Encounter Details Date Type Department Care Team (Latest Contact Info) Description 02/24/2002 Outpatient Historical [facility] [address] [address] Haroldo Garay MD [address], [place] [phone] OPEN WOUND OF HAND (Primary Dx) Social History Tobacco Use Types Packs/Day Years Used Date Smoking Tobacco: Never Assessed Comments Unknown Sex and Gender Information Value Date Recorded Sex Assigned at Not on file Legal Sex Female 5:57 AM SPINE SUPERVISOR Gender Identity Not on file Sexual Orientation Not on file documented as of this encounter Plan of Treatment Not on file documented as of this encounter Visit Diagnoses Diagnosis Open wound of hand except finger(s) alone, without mention of complication- Primary documented in this encounter
--- OUTSIDE RECORDS SUMMARY | 2024-10-02 16:51 | XMS_ITS | Encounter Summary ---
Author Organization [facility] Address [address] [place] [address] Care Team Providers Care Business Intelligence Etl Developer Name Role Phone Unavailable Primary Care Provider Unavailabl e Encounter Details Date Type Department Care Team (Late st Contact Info) Description 12/11/2004 Outpatient Historical [facility] Boogie Simmons Social History Tobacco Use Types Packs/Day Years Used Date Smoking Tobacco: Never Assessed Comments Unknown Sex and Gender Information Value Date Recorded Sex Assigned at Not on file Legal Sex Female 5:57 AM HORIZONTAL RESAW OPERATOR Gender Identity Not on file Sexual Orientation Not on file documented as of this encounter Plan of Treatment Not on file documented as of this encounter Visit Diagnoses Not on filedocumented in this encounter
--- OUTSIDE RECORDS SUMMARY | 2024-10-02 16:51 | XMS_ITS | Encounter Summary ---
Author Organization [facility] Address [address] [place] [address] Care Team Providers Care Courtesy Bus Driver Name Role Phone Unavailable Primary Care Provider Unavailabl e Encounter Details Date Type Department Care Team (Latest Contact Info) Description 08/24/2002 Outpatient Historical [facility] [address] [address] Haroldo Garay MD [address], [place] [phone] FOREIGN BODY FOOT & TOE (Primary Dx) Social History Tobacco Use Types Packs/Day Years Used Date Smoking Tobacco: Never Assessed Comments Unknown Sex and Gender Information Value Date Recorded Sex Assigned at Not on file Legal Sex Female 5:57 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
--- OUTSIDE RECORDS SUMMARY | 2024-10-02 16:51 | XMS_ITS | Encounter Summary ---
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
--- OUTSIDE RECORDS SUMMARY | 2024-10-02 16:51 | XMS_ITS | Encounter Summary ---
Author Organization [facility] Address [address] [place] [address] Care Team Providers Care Marketing Liaison Name Role Phone Unavailable Primary Care Provider Unavailabl e Encounter Details Date Type Department Care Team (Late st Contact Info) Description 11/05/2001 Outpatient Historical [facility] [address] [place] [address] Social History Tobacco Use Types Packs/Day Years Used Date Smoking Tobacco: Never Assessed Comments Unknown Sex and Gender Information Value Date Recorded Sex Assigned at Not on file Legal Sex Female 5:57 AM ANIMAL NUTRITIONIST Gender Identity Not on file Sexual Orientation Not on file documented as of this encounter Plan of Treatment Not on file documented as of this encounter Visit Diagnoses Not on filedocumented in this encounter
--- OUTSIDE RECORDS SUMMARY | 2024-10-02 16:51 | XMS_ITS | Encounter Summary ---
Author Organization [facility] Address [address] [place] [address] Care Team Providers Care Motion And Time Study Teacher Name Role Phone Unavailable Primary Care Provider Unavailabl e Encounter Details Date Type Department Care Team (Latest Contact Info) Description 11/12/2004 Outpatient Historical [facility] [address] [place] [phone] Boogie Simmons LUMBOSACRAL NEURITIS NOS (Primary Dx) Social History Tobacco Use Types Packs/Day Years Used Date Smoking Tobacco: Never Assessed Comments Unknown Sex and Gender Information Value Date Recorded Sex Assigned at Not on file Legal Sex Female 5:57 AM HEALTH INFORMATION ASSISTANT Gender Identity Not on file Sexual Orientation Not on file documented as of this encounter Plan of Treatment Not on file documented as of this encounter Visit Diagnoses Diagnosis Thoracic or lumbosacral neuritis or radiculitis, unspecified- Primary documented in this encounter
--- OUTSIDE RECORDS SUMMARY | 2024-10-02 16:51 | XMS_ITS | Encounter Summary ---
Author Organization [facility] Address [address] [place] [address] Care Team Providers Care Knot Saw Operator Name Role Phone Unavailable Primary Care Provider Unavailabl e Encounter Details Date Type Department Care Team (Latest Contact Info) Description 11/12/2004 Outpatient Historical [facility] [address] 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
--- OUTSIDE RECORDS SUMMARY | 2024-10-02 16:51 | XMS_ITS | Encounter Summary ---
Author Organization [facility] Address [address] [place] [address] Care Team Providers Care Regulatory Affairs Strategy Specialist Name Role Phone Unavailable Primary Care Provider Unavailabl e Encounter Details Date Type Department Care Team (Latest Contact Info) Description 06/24/2004 Outpatient Historical [facility] 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
--- OUTSIDE RECORDS SUMMARY | 2024-10-02 16:51 | XMS_ITS | Encounter Summary ---
Author Organization [facility] Address [address] [place] [address] Care Team Providers Care Ice Scraper Name Role Phone Unavailable Primary Care Provider Unavailabl e Encounter Details Date Type Department Care Team (Latest Contact Info) Description 09/20/2002 Outpatient Historical [facility] [address] [address] Haroldo Garay MD [address] [phone] JOINT PAIN-L/LEG (Primary Dx) Social History Tobacco Use Types Packs/Day Years Used Date Smoking Tobacco: Never Assessed Comments Unknown Sex and Gender Information Value Date Recorded Sex Assigned at Not on file Legal Sex Female 5:57 AM EXTRUDER OPERATOR HORIZONTAL Gender Identity Not on file Sexual Orientation Not on file documented as of this encounter Plan of Treatment Not on file documented as of this encounter Visit Diagnoses Diagnosis Pain in joint, lower leg- Primary documented in this encounter
--- OUTSIDE RECORDS SUMMARY | 2024-10-02 16:52 | XMS_ITS | Encounter Summary ---
Author Organization [facility] Address [address] [place] [address] Care Team Providers Care Review Trainer Name Role Phone Unavailable Primary Care Provider Unavailabl e Encounter Details Date Type Department Care Team (Latest Contact Info) Description 06/03/2004 Outpatient Historical [facility] [address] [address] Anahi Harrison MD [address] [place] [phone] ACUTE FRONTAL SINUSITIS (Primary Dx); ACUTE BRONCHITIS; OTITIS MEDIA NOS Social History Tobacco Use Types Packs/Day Years Used Date Smoking Tobacco: Never Assessed Comments Unknown Sex and Gender Information Value Date Recorded Sex Assigned at Not on file 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
--- OUTSIDE RECORDS SUMMARY | 2024-10-02 16:52 | XMS_ITS | Encounter Summary ---
Author Organization [facility] Address [address] [place] [address] Care Team Providers Care Radio Producer Name Role Phone Unavailable Primary Care Provider Unavailabl e Encounter Details Date Type Department Care Team (Latest Contact Info) Description 03/05/2004 Outpatient Historical [facility] [address] [address] Haroldo Garay MD [address], [place] [phone] TEAR MED MENISC KNEE-CURRENT (Primary Dx) Social History Tobacco Use Types Packs/Day Years Used Date Smoking Tobacco: Never Assessed Comments Unknown Sex and Gender Information Value Date Recorded Sex Assigned at Not on file Legal Sex Female 5:57 AM ARCHITECTURAL EXAMINER Gender Identity Not on file Sexual Orientation Not on file documented as of this encounter Plan of Treatment Not on file documented as of this encounter Visit Diagnoses Diagnosis Tear of medial cartilage or meniscus of knee, current- Primary documented in this encounter
--- OUTSIDE RECORDS SUMMARY | 2024-10-02 16:52 | XMS_ITS | Encounter Summary ---
Author Organization [facility] Address [address] [place] [address] Care Team Providers Care Drop Shipment Clerk Name Role Phone Unavailable Primary Care Provider Unavailabl e Encounter Details Date Type Department Care Team (Latest Contact Info) Description 06/19/2004 Outpatient Historical [facility] [address] [address] Anahi Harrison MD [address] [place] [phone] ALLERGIC RHINITIS NOS (Primary Dx) Social History Tobacco Use Types Packs/Day Years Used Date Smoking Tobacco: Never Assessed Comments Unknown Sex and Gender Information Value Date Recorded Sex Assigned at Not on file Legal Sex Female 5:57 AM SEXUAL ASSAULT COUNSELOR Gender Identity Not on file Sexual Orientation Not on file documented as of this encounter Plan of Treatment Not on file documented as of this encounter Visit Diagnoses Diagnosis Allergic rhinitis, cause unspecified- Primary documented in this encounter
--- OUTSIDE RECORDS SUMMARY | 2024-10-02 16:52 | XMS_ITS | Encounter Summary ---
Author Organization [facility] Address [address] [place] [address] Care Team Providers Care Buggy Loader Name Role Phone Unavailable Primary Care Provider Unavailabl e Encounter Details Date Type Department Care Team (Latest Contact Info) Description 08/17/2001 Outpatient Historical [facility] [address] [address] Haroldo Garay MD [address] [phone] HYPERTENSION NOS (Primary Dx) Social History Tobacco Use Types Packs/Day Years Used Date Smoking Tobacco: Never Assessed Comments Unknown Sex and Gender Information Value Date Recorded Sex Assigned at Not on file Legal Sex Female 5:57 AM PROPERTY DAMAGE CLAIMS ADJUSTOR Gender Identity Not on file Sexual Orientation Not on file documented as of this encounter Plan of Treatment Not on file documented as of this encounter Visit Diagnoses Diagnosis Unspecified essential hypertension- Primary documented in this encounter
--- OUTSIDE RECORDS SUMMARY | 2024-10-02 16:52 | XMS_ITS | Encounter Summary ---
Author Organization [facility] Address [address] [place] [address] Care Team Providers Care Timber Rider Name Role Phone Unavailable Primary Care Provider Unavailabl e Encounter Details Date Type Department Care Team (Late st Contact Info) Description 11/08/2003 Outpatient Historical [facility] [address] [place] [phone] Dustin Alvarado MD [address] [place] [address] Sprain of neck (Primary Dx); HEADACHE Social History Tobacco Use Types Packs/Day Years Used Date Smoking Tobacco: Never Assessed Comments Unknown Sex and Gender Information Value Date Recorded Sex Assigned at Not on file 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
--- OUTSIDE RECORDS SUMMARY | 2024-10-02 16:52 | XMS_ITS | Encounter Summary ---
Author Organization [facility] Address [address] [place] [address] Care Team Providers Care Warehouse Person Name Role Phone Unavailable Primary Care Provider Unavailabl e Encounter Details Date Type Department Care Team (Late st Contact Info) Description 08/14/2004 Outpatient Historical [facility] [address] [facility] [address] [place] [address] Dustin Alvarado MD [address] [place] [address] DISORDERS OF SACRUM (Primary Dx) Social History Tobacco Use Types Packs/Day Years Used Date Smoking Tobacco: Never Assessed Comments Unknown Sex and Gender Information Value Date Recorded Sex Assigned at Not on file Legal Sex Female 5:57 AM 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
--- OUTSIDE RECORDS SUMMARY | 2024-10-02 16:52 | XMS_ITS | Encounter Summary ---
Author Organization [facility] Address [address] [place] [address] Care Team Providers Care Dietary Director Name Role Phone Unavailable Primary Care Provider Unavailabl e Encounter Details Date Type Department Care Team (Latest Contact Info) Description 09/04/2004 Outpatient Historical [facility] [address] [place] [address] Boogie Cardona MD [address] [facility] [address] [place] [address] REFERRED PAIN OF EAR (Primary Dx); TMJ arthralgia Social History Tobacco Use Types Packs/Day Years Used Date Smoking Tobacco: Never Assessed Comments Unknown Sex and Gender Information Value Date Recorded Sex Assigned at Not on file Legal Sex Female 5:[address] AND BUILDING DECORATOR Gender Identity Not on file Sexual Orientation Not on file documented as of this encounter Plan of Treatment Not on file documented as of this encounter Visit Diagnoses Diagnosis 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
--- OUTSIDE RECORDS SUMMARY | 2024-10-02 16:52 | XMS_ITS | Encounter Summary ---
Author Organization [facility] Address [address] [place] [address] Care Team Providers Care Mortgage Operations Manager Name Role Phone Unavailable Primary Care Provider Unavailabl e Encounter Details Date Type Department Care Team (Latest Contact Info) Description 10/31/2004 Outpatient Historical [facility] [address] [place] [address] [facility] [address] [place] [phone] Boogie Simmons LUMBOSACRAL NEURITIS NOS (Primary Dx) Social History Tobacco Use Types Packs/Day Years Used Date Smoking Tobacco: Never Assessed Comments Unknown Sex and Gender Information Value Date Recorded Sex Assigned at Not on file Legal Sex Female 5:57 AM STAFF ANESTHESIOLOGIST Gender Identity Not on file Sexual Orientation Not on file documented as of this encounter Plan of Treatment Not on file documented as of this encounter Visit Diagnoses Diagnosis Thoracic or lumbosacral neuritis or radiculitis, unspecified- Primary documented in this encounter
--- OUTSIDE RECORDS SUMMARY | 2024-10-02 16:52 | XMS_ITS | Encounter Summary ---
Author Organization [facility] Address [address] [place] [address] Care Team Providers Care Cartography Supervisor Name Role Phone Unavailable Primary Care Provider Unavailabl e Encounter Details Date Type Department Care Team (Late st Contact Info) Description 09/26/2004 Outpatient Historical [facility] Imaging Services-[facility] [place] [address] [place] [address] Dustin Alvarado MD [facility] [place] [address] LUMB/LUMBOSAC DISC DEGEN (Primary Dx) Social History Tobacco Use Types Packs/Day Years Used Date Smoking Tobacco: Never Assessed Comments Unknown Sex and Gender Information Value Date Recorded Sex Assigned at Not on file Legal Sex Female 5:57 AM INFORMATION OFFICER Gender Identity Not on file Sexual Orientation Not on file documented as of this encounter Plan of Treatment Not on file documented as of this encounter Visit Diagnoses Diagnosis Degeneration of lumbar or lumbosacral intervertebral disc- Primary documented in this encounter
--- OUTSIDE RECORDS SUMMARY | 2024-10-02 16:52 | XMS_ITS | Encounter Summary ---
Author Organization [facility] Address [address] [place] [address] Care Team Providers Care Restaurant Host/Hostess Name Role Phone Unavailable Primary Care Provider Unavailabl e Encounter Details Date Type Department Care Team (Latest Contact Info) Description 08/10/2001 Outpatient Historical [facility] [address] [address] Haroldo Garay MD [address] [place] [phone] JOINT PAIN-L/LEG (Primary Dx); HYPERTENSION NOS; POLYDIPSIA Social History Tobacco Use Types Packs/Day Years Used Date Smoking Tobacco: Never Assessed Comments Unknown Sex and Gender Information Value Date Recorded Sex Assigned at Not on file Legal Sex Female 5:57 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
--- OUTSIDE RECORDS SUMMARY | 2024-10-02 16:52 | XMS_ITS | Encounter Summary ---
Author Organization [facility] Address [address] [place] [address] Care Team Providers Care Erp Technical Lead Name Role Phone Unavailable Primary Care Provider Unavailabl e Encounter Details Date Type Department Care Team (Latest Contact Info) Description 08/29/2004 Outpatient Historical [facility], Nose [facility] Throat [address] [place] [address] [place] [phone] [facility] Department of Nursing [address] [place] [address] REFERRED PAIN OF EAR (Primary Dx) Social History Tobacco Use Types Packs/Day Years Used Date Smoking Tobacco: Never Assessed Comments Unknown Sex and Gender Information Value Date Recorded Sex Assigned at Not on file Legal Sex Female 5:57 AM SUPPORT MERCHANDISER Gender Identity Not on file Sexual Orientation Not on file documented as of this encounter Plan of Treatment Not on file documented as of this encounter Visit Diagnoses Diagnosis Referred otogenic pain- Primary documented in this encounter
--- OUTSIDE RECORDS SUMMARY | 2024-10-02 16:52 | XMS_ITS | Encounter Summary ---
Author Organization [facility] Address [address] [place] [address] Care Team Providers Care Potato Chip Frier Name Role Phone Unavailable Primary Care Provider Unavailabl e Encounter Details Date Type Department Care Team (Latest Contact Info) Description 09/10/2001 Outpatient Historical [facility] [address] [address] Haroldo Garay MD [address] [phone] DISORDERS OF SACRUM (Primary Dx) Social History Tobacco Use Types Packs/Day Years Used Date Smoking Tobacco: Never Assessed Comments Unknown Sex and Gender Information Value Date Recorded Sex Assigned at Not on file 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
--- OUTSIDE RECORDS SUMMARY | 2024-10-02 16:52 | XMS_ITS | Encounter Summary ---
Author Organization [facility] Address [address] [place] [address] Care Team Providers Care Data Administrator Name Role Phone Unavailable Primary Care Provider Unavailabl e Encounter Details Date Type Department Care Team (Latest Contact Info) Description 07/02/2001 Outpatient Historical [facility] [address] [address] Haroldo Garay MD [address] [place] [phone] OSTEOARTHROS NOS-L/LEG (Primary Dx) Social History Tobacco Use Types Packs/Day Years Used Date Smoking Tobacco: Never Assessed Comments Unknown Sex and Gender Information Value Date Recorded Sex Assigned at Not on file 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
--- OUTSIDE RECORDS SUMMARY | 2024-10-02 16:52 | XMS_ITS | Encounter Summary ---
Author Organization [facility] Address [address] [place] [address] Care Team Providers Care Substitute Teacher Name Role Phone Unavailable Primary Care Provider Unavailabl e Encounter Details Date Type Department Care Team (Late st Contact Info) Description 11/08/2003 Outpatient Historical [facility] [address] [facility] [address] [place] [address] Dustin Alvarado MD [address] [place] [address] CERVICAL SPONDYLOSIS (Primary Dx) Social History Tobacco Use Types Packs/Day Years Used Date Smoking Tobacco: Never Assessed Comments Unknown Sex and Gender Information Value Date Recorded Sex Assigned at Not on file 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
--- OUTSIDE RECORDS SUMMARY | 2024-10-02 16:52 | XMS_ITS | Encounter Summary ---
Author Organization [facility] Address [address] [place] [address] Care Team Providers Care Convention Planner Name Role Phone Unavailable Primary Care Provider Unavailabl e Encounter Details Date Type Department Care Team (Late st Contact Info) Description 10/28/2004 Outpatient Historical [facility]oped[facility]- [address] [place] 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
--- OUTSIDE RECORDS SUMMARY | 2024-10-02 16:52 | XMS_ITS | Encounter Summary ---
Author Organization [facility] Address [address] [place] [address] Care Team Providers Care Uranium Processing Supervisor Name Role Phone Unavailable Primary Care Provider Unavailabl e Encounter Details Date Type Department Care Team (Latest Contact Info) Description 02/01/2004 Outpatient Historical [facility] Medicine [place] [address] [phone] Anahi Harrison MD [address] [place] [phone] URIN TRACT INFECTION NOS (Primary Dx) Social History Tobacco Use Types Packs/Day Years Used Date Smoking Tobacco: Never Assessed Comments Unknown Sex and Gender Information Value Date Recorded Sex Assigned at Not on file Legal Sex Female 5:57 AM CLIENT PROJECT COORDINATOR Gender Identity Not on file Sexual Orientation Not on file documented as of this encounter Plan of Treatment Not on file documented as of this encounter Visit Diagnoses Diagnosis Urinary tract infection, site not specified- Primary documented in this encounter
--- OUTSIDE RECORDS SUMMARY | 2024-10-02 16:52 | XMS_ITS | Encounter Summary ---
Author Organization [facility] Address [address] [place] [address] Care Team Providers Care Metallurgical Analyst Name Role Phone Unavailable Primary Care Provider Unavailabl e Encounter Details Date Type Department Care Team (Late st Contact Info) Description 08/29/2004 Outpatient Historical [facility] Orthopedics- 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
--- OUTSIDE RECORDS SUMMARY | 2024-10-02 16:52 | XMS_ITS | Encounter Summary ---
Author Organization [facility] Address [address] [place] [address] Care Team Providers Care Lunch Truck Driver Name Role Phone Unavailable Primary Care Provider Unavailabl e Encounter Details Date Type Department Care Team (Latest Contact Info) Description 06/14/2004 Outpatient Historical [facility] Medicine [place] [address] [phone] Anahi Harrison MD [address] [place] [phone] OTITIS MEDIA NOS (Primary Dx) Social History Tobacco Use Types Packs/Day Years Used Date Smoking Tobacco: Never Assessed Comments Unknown Sex and Gender Information Value Date Recorded Sex Assigned at Not on file 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
--- OUTSIDE RECORDS SUMMARY | 2024-10-02 16:52 | XMS_ITS | Encounter Summary ---
Author Organization [facility] Address [address] [place] [address] Care Team Providers Care Human Factors Specialist Name Role Phone Unavailable Primary Care Provider Unavailabl e Encounter Details Date Type Department Care Team (Latest Contact Info) Description 09/17/[address] 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
--- OUTSIDE RECORDS SUMMARY | 2024-10-02 16:52 | XMS_ITS | Encounter Summary ---
Author Organization [facility] Address [address] [facility] Attn: [place] [address] Care Team Providers Care Car Tester Name Role Phone Unavailable Primary Care Provider Unavailabl e Encounter Details Date Type Department Care Team (Late st Contact Info) Description 10/08/2001 Outpatient Historical Haroldo Garay MD [address] [place] [address] Social History Tobacco Use Types Packs/Day Years Used Date Smoking Tobacco: Never Assessed Comments Unknown Sex and Gender Information Value Date Recorded Sex Assigned at Not on file Legal Sex Female 5:57 AM REMOTE ENCODING 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
--- OUTSIDE RECORDS SUMMARY | 2024-10-02 16:52 | XMS_ITS | Encounter Summary ---
Author Organization [facility] Address [address] [place] [address] Care Team Providers Care Content Designer Name Role Phone Unavailable Primary Care Provider Unavailabl e Encounter Details Date Type Department Care Team (Latest Contact Info) Description 10/24/2004 Outpatient Historical [facility] [address] [place] [phone] Sadia Alexandre FNP NO ADDRESS ON FILE Lumbosacral spondylosis (Primary Dx) Social History Tobacco Use Types Packs/Day Years Used Date Smoking Tobacco: Never Assessed Comments Unknown Sex and Gender Information Value Date Recorded Sex Assigned at Not on file Legal Sex Female 5:57 AM COMMAND POST SUPERINTENDENT Gender Identity Not on file Sexual Orientation Not on file documented as of this encounter Plan of Treatment Not on file documented as of this encounter Visit Diagnoses Diagnosis Lumbosacral spondylosis- Primary Lumbosacral spondylosis without myelopathy documented in this encounter
--- OUTSIDE RECORDS SUMMARY | 2024-10-02 16:52 | XMS_ITS | Encounter Summary ---
Author Organization [facility] Address [address] [place] [address] Care Team Providers Care Energy Director Name Role Phone Unavailable Primary Care Provider Unavailabl e Encounter Details Date Type Department Care Team (Latest Contact Info) Description 03/11/2004 Outpatient Historical [facility] Medicine [place] [address] [address] Anahi Harrison MD [address] [place] [phone] JOINT PAIN-L/LEG (Primary Dx) Social History Tobacco Use Types Packs/Day Years Used Date Smoking Tobacco: Never Assessed Comments Unknown Sex and Gender Information Value Date Recorded Sex Assigned at Not on file 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
--- OUTSIDE RECORDS SUMMARY | 2024-10-02 16:52 | XMS_ITS | Encounter Summary ---
Author Organization [facility] Address [address] [place] [address] Care Team Providers Care Maintenance Shop Technician Name Role Phone Unavailable Primary Care Provider Unavailabl e Encounter Details Date Type Department Care Team (Late st Contact Info) Description 10/04/2003 Outpatient Historical [facility] Spine [facility] [address] [place] [phone] Dustin Alvarado MD [address] [place] [address] LUMBAGO (Primary Dx); CERVICAL DISC DEGEN; Sprain of neck; TENSION HEADACHE Social History Tobacco Use Types Packs/Day Years Used Date Smoking Tobacco: Never Assessed Comments Unknown Sex and Gender Information Value Date Recorded Sex Assigned at Not on file Legal Sex Female 5:57 AM 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
--- OUTSIDE RECORDS SUMMARY | 2024-10-02 16:52 | XMS_ITS | Encounter Summary ---
Author Organization [facility] Address [address] [place] [address] Care Team Providers Care Hardscape Foreman Name Role Phone Unavailable Primary Care Provider Unavailabl e Encounter Details Date Type Department Care Team (Latest Contact Info) Description 10/24/2004 Outpatient Historical [facility] [address] [facility] [address] [place] [address] Sadia Alexandre FNP NO ADDRESS ON FILE LUMBOSACRAL SPONDYLOSIS (Primary Dx) Social History Tobacco Use Types Packs/Day Years Used Date Smoking Tobacco: Never Assessed Comments Unknown Sex and Gender Information Value Date Recorded Sex Assigned at Not on file 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
--- OUTSIDE RECORDS SUMMARY | 2024-10-02 16:52 | XMS_ITS | Encounter Summary ---
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 Gender Identity Not on file Sexual Orientation Not on file documented as of this encounter Plan of Treatment Not on file documented as of this encounter Procedures Procedure Name Priority Date/Time Associated Diagnosis Comments CBC WITH DIFFERENTIAL Routine 09/18/2004 3:57 PM CDT SEDIMENTATION RATE Routine 09/18/2004 3: 57 PM CDT documented in this encounter Results * (ABNORMAL) SEDIMENTATION RATE (09/18/2004 3:57 PM CDT) ESR (SEDIMENTATION RATE) 32(H) 0 - 22 mm/hr INTERFACE SYSTEM 09/18/2004 3:57 PM CDT us Dustin Alvarado MD HEMATOLOGY ORDERABLES Final Resu lt INTERFACE SYSTEM Refer to clinic/hospital department * (ABNORMAL) CBC WITH DIFFERENTIAL (09/18/2004 3:57 PM CDT) WBC 7.8 4.5 - 11.0 K/ul INTERFACE SYSTEM RBC 4.53 4.20 - 5.40 Mil/ul INTERFACE SYSTEM HEMOGLOBIN 12.4 12.0 - 16.0 g/dL INTERFACE SYSTEM HEMATOCRIT 38.3 36.0 - 46.0 % INTERFACE SYSTEM MCV 84.5 84.0 - 103.0 Fl INTERFACE SYSTEM MCH 27.4 27.0 - 34.0 pg INTERFACE SYSTEM MCHC 32.4 30.0 - 35.0 g/dL INTERFACE SYSTEM RDW 13.5 11.0 - 14.5 % INTERFACE SYSTEM PLATELETS 224 140 - 440 K/ul INTERFACE SYSTEM MPV 11.4 8.9 - 12.8 Fl INTERFACE SYSTEM NEUTROPHILS 66.5 42.2 - 75.2 % INTERFACE SYSTEM LYMPHOCYTES 23.6(L) 24.0 - 44.0 % INTERFACE SYSTEM MONOCYTES 6.6 2.0 - 10.0 % INTERFACE SYSTEM EOSINOPHILS 2.8 0.0 - 7.0 % INTERFACE SYSTEM BASOPHILS 0.5 0.0 - 1.0 % INTERFACE SYSTEM NEUTROPHIL ABSOLUTE 5.2 2.0 - 8.0 K/uL INTERFACE SYSTEM LYMPHOCYTE ABSOLUTE 1.8 1.2 - 4.0 K/ul INTERFACE SYSTEM MONOCYTE ABSOLUTE 0.5 0.1 - 0.6 K/ul INTERFACE SYSTEM EOSINOPHIL ABSOLUTE 0.2 0.0 - 0.7 K/ul INTERFACE SYSTEM BASOPHILS ABSOLUTE 0.0 0.0 - 0.2 K/ul INTERFACE SYSTEM PERIPHERAL BLOOD SMEAR REVIEW Smear Reviewed INTERFACE SYSTEM 09/18/2004 3:57 PM CDT us Dustin Alvarado MD HEMATOLOGY ORDERABLES Final Resu lt INTERFACE SYSTEM Refer to clinic/hospital department documented in this encounter Visit Diagnoses Diagnosis Lumbago- Primary documented in this encounter
--- OUTSIDE RECORDS SUMMARY | 2024-10-02 16:52 | XMS_ITS | Encounter Summary ---
Author Organization [facility] Address [address] [facility] Attn: [place] [address] Care Team Providers Care Medical Lab Tech Instructor Name Role Phone Unavailable Primary Care Provider Unavailabl e Encounter Details Date Type Department Care Team (Late st Contact Info) Description 03/27/2000 Outpatient Historical Dustin Monroe MD [address] [place] [address] Social History Tobacco Use Types Packs/Day Years Used Date Smoking Tobacco: Never Assessed Comments Unknown Sex and Gender Information Value Date Recorded Sex Assigned at Not on file Legal Sex Female 5:57 AM AUTOMATIC SEAMER Gender Identity Not on file Sexual Orientation Not on file documented as of this encounter Plan of Treatment Not on file documented as of this encounter Visit Diagnoses Not on filedocumented in this encounter
--- OUTSIDE RECORDS SUMMARY | 2024-10-02 16:52 | XMS_ITS | Encounter Summary ---
Author Organization [facility] Address [address] [place] [address] Care Team Providers Care Testing Coordinator Name Role Phone Unavailable Primary Care Provider Unavailabl e Encounter Details Date Type Department Care Team (Late st Contact Info) Description 03/18/2004 Outpatient Historical [facility] Orthopedics- [address] [place] [phone] Rigo Welch MD [address] [place] [address] JOINT PAIN-L/LEG (Primary Dx); DERANG POST MED MENISCUS; OBESITY NOS Social History Tobacco Use Types Packs/Day Years Used Date Smoking Tobacco: Never Assessed Comments Unknown Sex and Gender Information Value Date Recorded Sex Assigned at Not on file Legal Sex Female 5:57 AM LUMP RECEIVER Gender Identity Not on file Sexual Orientation Not on file documented as of this encounter Plan of Treatment Not on file documented as of this encounter Visit Diagnoses Diagnosis Pain in joint, lower leg- Primary Derangement of posterior horn of medial meniscus Obesity, unspecified documented in this encounter
--- OUTSIDE RECORDS SUMMARY | 2024-10-02 16:52 | XMS_ITS | Encounter Summary ---
Author Organization [facility] Address [address] [place] [address] Care Team Providers Care Ornamental Machine Operator Name Role Phone Unavailable Primary Care Provider Unavailabl e Encounter Details Date Type Department Care Team (Latest Contact Info) Description 09/18/2004 Outpatient Historical [facility] [address] [place] [phone] Dustin Alvarado MD [address] [place] [address] LUMBAGO (Primary Dx); LACK OF COORDINATION Social History Tobacco Use Types Packs/Day Years Used Date Smoking Tobacco: Never Assessed Comments Unknown Sex and Gender Information Value Date Recorded Sex Assigned at Not on file 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
--- OUTSIDE RECORDS SUMMARY | 2024-10-02 16:52 | XMS_ITS | Encounter Summary ---
Author Organization [facility] Address [address] [place] [address] Care Team Providers Care Child Psychiatrist Name Role Phone Unavailable Primary Care Provider Unavailabl e Encounter Details Date Type Department Care Team (Latest Contact Info) Description 08/20/2001 Outpatient Historical [facility] [address], [place] [address] Haroldo Garay MD [address] [phone] POLYDIPSIA (Primary Dx); HYPERTENSION NOS; DISORDERS OF SACRUM Social History Tobacco Use Types Packs/Day Years Used Date Smoking Tobacco: Never Assessed Comments Unknown Sex and Gender Information Value Date Recorded Sex Assigned at Not on file Legal Sex Female 5:57 AM 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
--- OUTSIDE RECORDS SUMMARY | 2024-10-02 16:52 | XMS_ITS | Encounter Summary ---
Author Organization [facility] Address [address] [place] [address] Care Team Providers Care Boarding Room Fixer Name Role Phone Unavailable Primary Care Provider Unavailabl e Encounter Details Date Type Department Care Team (Late st Contact Info) Description 12/20/2003 Outpatient Historical [facility] [address] 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
--- OUTSIDE RECORDS SUMMARY | 2024-10-02 16:52 | XMS_ITS | Encounter Summary ---
Author Organization [facility] Address [address] [place] [address] Care Team Providers Care Data Modeling Specialist Name Role Phone Unavailable Primary Care Provider Unavailabl e Encounter Details Date Type Department Care Team (Late st Contact Info) Description 08/14/2004 Outpatient Historical [facility] Dustin Alvarado MD [address] [place] [address] BACKACHE NOS (Primary Dx) Social History Tobacco Use Types Packs/Day Years Used Date Smoking Tobacco: Never Assessed Comments Unknown Sex and Gender Information Value Date Recorded Sex Assigned at Not on file Legal Sex Female 5:57 AM IOS ARCHITECT Gender Identity Not on file Sexual Orientation Not on file documented as of this encounter Plan of Treatment Not on file documented as of this encounter Procedures Procedure Name Priority Date/Time Associated Diagnosis Comments HLA B27 Routine 08/14/2004 10:28 AM CDT COMPREHENSIVE METABOLIC PANEL Routine 08/14/2004 10:28 AM CDT CBC WITH DIFFERENTIAL Routine 08/14/2004 10:15 AM CDT SEDIMENTATION RATE Routine 08/14/2004 10 :15 AM CDT PEPE SCREEN W/REFLEX Routine 08/14/2004 1 0:15 AM CDT PROTEIN ELECTROPHORESIS W/REFLEX,SERUM Routine 08/14/2004 10:15 AM CDT documented in this encounter Results * HLA B27 (08/14/2004 10:28 AM CDT) HLA B27 See Sep Report INTERFACE SYSTEM 08/14/2004 10:2 8 AM CDT Dustin Alvarado MD CHEMISTRY ORDERABLES Final Resul t Performing Organization Address [facility] Phone Number INTERFACE SYSTEM Refer to clinic/hospital department * COMPREHENSIVE METABOLIC PANEL (08/14/2004 10:28 AM CDT) GLUCOSE 87 70 - 110 mg/dL INTERFACE SYSTEM BUN 8 7 - 17 mg/dL INTERFACE SYSTEM CREATININE 1.1 0.7 - 1.2 mg/dL INTERFACE SYSTEM SODIUM 142 136 - 145 mEq/L INTERFACE SYSTEM POTASSIUM 4.0 3.5 - 5.0 mEq/L INTERFACE SYSTEM CO2 28 22 - 32 mmol/l INTERFACE SYSTEM CHLORIDE 106 95 - 110 mEq/L INTERFACE SYSTEM CALCIUM 8.9 8.4 - 10.5 mg/dL INTERFACE SYSTEM ALKALINE PHOSPHATASE 106 38 - 126 IU/L INTERFACE SYSTEM TOTAL PROTEIN 7.1 6.3 - 8.2 g/dL INTERFACE SYSTEM ALBUMIN 3.7 3.5 - 5.0 g/dL INTERFACE SYSTEM AST 20 14 - 36 IU/L INTERFACE SYSTEM ALT 24 9 - 52 IU/L INTERFACE SYSTEM BILIRUBIN TOTAL 0.3 0.2 - 1.4 mg/dL INTERFACE SYSTEM GLOBULIN (CALC) 3.4 2.4 - 3.9 g/dL INTERFACE SYSTEM ANION GAP 12 9 - 20 mEq/L INTERFACE SYSTEM ALBUMIN/GLOBULIN RATIO 1.1 1.0 - 2.3 INTERFACE SYSTEM OSMOLALITY, CALCULATED 289 275 - 295 mOsm/Kg INTERFACE SYSTEM 08/14/2004 10:2 8 AM CDT Dustin Alvarado MD CHEMISTRY ORDERABLES Final Resul t Performing Organization Address [facility] Phone Number INTERFACE SYSTEM Refer to clinic/hospital department * (ABNORMAL) PROTEIN ELECTROPHORESIS, SERUM (08/14/2004 10:15 AM CDT) SPE INTERP INTERFACE SYSTEM Comment: Essentially normal pattern Interpreted by: Christiane Burrows PROTEIN TOTAL, SPE 6.50 6.10 - 7.80 g/dL INTERFACE SYSTEM ALBUMIN SPE 3.86 3.50 - 5.30 g/dL INTERFACE SYSTEM ALPHA 1 GLOBULIN SPE .26 0.11 - 0.31 INTERFACE SYSTEM ALPHA 2 GLOBULIN SPE .75 0.58 - 1.16 g/dL INTERFACE SYSTEM BETA GLOBULIN .64 0.59 - 0.88 g/dL INTERFACE SYSTEM GAMMA GLOBULIN .98 0.50 - 1.35 g/dL INTERFACE SYSTEM ALBUMIN %, 59.4 57.4 - 65.5 % INTERFACE SYSTEM % ALPHA 1 GLOBULIN 4.0(H) 1.8 - 3.8 % INTERFACE SYSTEM % ALPHA 2 GLOBULIN 11.5 9.5 - 14.3 % INTERFACE SYSTEM % Beta Globulin 9.8 9.1 - 10.9 % INTERFACE SYSTEM % GAMMA GLOBULIN 15.1 8.2 - 16.7 % INTERFACE SYSTEM ALBUMIN/GLOBUL IN RATIO 1.46 g/dL INTERFACE SYSTEM 08/14/2004 10:1 5 AM CDT Dustin Alvarado MD CHEMISTRY ORDERABLES Final Resul t Performing Organization Address [facility] Phone Number INTERFACE SYSTEM Refer to clinic/hospital department * PEPE (08/14/2004 10:15 AM CDT) PEPE Negative Negative INTERFACE SYSTEM 08/14/2004 10:1 5 AM CDT Dustin Alvarado MD CHEMISTRY ORDERABLES Final Resul t Performing Organization Address [facility] Number INTERFACE SYSTEM Refer to clinic/hospital department * (ABNORMAL) SEDIMENTATION RATE (08/14/2004 10:15 AM CDT) ESR (SEDIMENTATION RATE) 39(H) 0 - 22 mm/hr INTERFACE SYSTEM 08/14/2004 10:1 5 AM CDT Dustin Alvarado MD HEMATOLOGY ORDERABLES Final Resu lt Performing Organization Address [facility] Phone Number INTERFACE SYSTEM Refer to clinic/hospital department * CBC WITH DIFFERENTIAL (08/14/2004 10:15 AM CDT) WBC 7.0 4.5 - 11.0 K/ul INTERFACE SYSTEM RBC 4.33 4.20 - 5.40 Mil/ul INTERFACE SYSTEM HEMOGLOBIN 12.2 12.0 - 16.0 g/dL INTERFACE SYSTEM HEMATOCRIT 37.9 36.0 - 46.0 % INTERFACE SYSTEM MCV 87.5 84.0 - 103.0 Fl INTERFACE SYSTEM MCH 28.2 27.0 - 34.0 pg INTERFACE SYSTEM MCHC 32.2 30.0 - 35.0 g/dL INTERFACE SYSTEM RDW 13.4 11.0 - 14.5 % INTERFACE SYSTEM PLATELETS 223 140 - 440 K/ul INTERFACE SYSTEM MPV 11.3 8.9 - 12.8 Fl INTERFACE SYSTEM NEUTROPHILS 63.4 42.2 - 75.2 % INTERFACE SYSTEM LYMPHOCYTES 25.8 24.0 - 44.0 % INTERFACE SYSTEM MONOCYTES 6.7 2.0 - 10.0 % INTERFACE SYSTEM EOSINOPHILS 3.7 0.0 - 7.0 % INTERFACE SYSTEM BASOPHILS 0.4 0.0 - 1.0 % INTERFACE SYSTEM NEUTROPHIL ABSOLUTE 4.4 2.0 - 8.0 K/uL INTERFACE SYSTEM LYMPHOCYTE ABSOLUTE 1.8 1.2 - 4.0 K/ul INTERFACE SYSTEM MONOCYTE ABSOLUTE 0.5 0.1 - 0.6 K/ul INTERFACE SYSTEM EOSINOPHIL ABSOLUTE 0.3 0.0 - 0.7 K/ul INTERFACE SYSTEM BASOPHILS ABSOLUTE 0.0 0.0 - 0.2 K/ul INTERFACE SYSTEM 08/14/2004 10:1 5 AM CDT us Dustin Alvarado MD HEMATOLOGY ORDERABLES Final Resu lt INTERFACE SYSTEM Refer to clinic/hospital department documented in this encounter Visit Diagnoses Diagnosis Backache, unspecified- Primary documented in this encounter
--- OUTSIDE RECORDS SUMMARY | 2024-10-02 16:52 | XMS_ITS | Encounter Summary ---
Author Organization [facility] Address [address] [place] [address] Care Team Providers Care Vice President Corporate Communications Name Role Phone Unavailable Primary Care Provider Unavailabl e Encounter Details Date Type Department Care Team (Latest Contact Info) Description 10/31/2004 Outpatient Historical [facility] [address] [place] [phone] Boogie Simmons LUMBOSACRAL NEURITIS NOS (Primary Dx) Social History Tobacco Use Types Packs/Day Years Used Date Smoking Tobacco: Never Assessed Comments Unknown Sex and Gender Information Value Date Recorded Sex Assigned at Not on file Legal Sex Female 5:57 AM LEATHER HEEL BREASTER Gender Identity Not on file Sexual Orientation Not on file documented as of this encounter Plan of Treatment Not on file documented as of this encounter Visit Diagnoses Diagnosis Thoracic or lumbosacral neuritis or radiculitis, unspecified- Primary documented in this encounter
--- OUTSIDE RECORDS SUMMARY | 2024-10-02 16:52 | XMS_ITS | Encounter Summary ---
Author Organization [facility] Address [address] [place] [address] Care Team Providers Care Dining Room Busser Name Role Phone Unavailable Primary Care Provider Unavailabl e Encounter Details Date Type Department Care Team (Latest Contact Info) Description 09/18/2004 Outpatient Historical [facility] [address] [facility] [address] [place] [address] Sadia Alexandre FNP NO ADDRESS ON FILE LUMBAGO (Primary Dx) Social History Tobacco Use Types Packs/Day Years Used Date Smoking Tobacco: Never Assessed Comments Unknown Sex and Gender Information Value Date Recorded Sex Assigned at Not on file Legal Sex Female 5:57 AM SAFETY INTERN Gender Identity Not on file Sexual Orientation Not on file documented as of this encounter Plan of Treatment Not on file documented as of this encounter Visit Diagnoses Diagnosis Lumbago- Primary documented in this encounter
--- OUTSIDE RECORDS SUMMARY | 2024-10-02 16:52 | XMS_ITS | Encounter Summary ---
Author Organization [facility] Address [address] [place] [address] Care Team Providers Care Medical Records Specialist Name Role Phone Unavailable Primary Care Provider Unavailabl e Encounter Details Date Type Department Care Team (Latest Contact Info) Description 09/02/2004 Outpatient Historical [facility] Abhinav [address] [place] [phone] Boogie Cardona MD [address] [place] [address] REFERRED PAIN OF EAR (Primary Dx) Social History Tobacco Use Types Packs/Day Years Used Date Smoking Tobacco: Never Assessed Comments Unknown Sex and Gender Information Value Date Recorded Sex Assigned at Not on file Legal Sex Female 5:57 AM PATIENT CARE Gender Identity Not on file Sexual Orientation Not on file documented as of this encounter Plan of Treatment Not on file documented as of this encounter Visit Diagnoses Diagnosis Referred otogenic pain- Primary documented in this encounter
--- OUTSIDE RECORDS SUMMARY | 2024-10-02 16:52 | XMS_ITS | Encounter Summary ---
Author Organization [facility] Address [address] [place] [address] Care Team Providers Care Health Care Aide Name Role Phone Unavailable Primary Care Provider Unavailabl e Encounter Details Date Type Department Care Team (Latest Contact Info) Description 08/12/[address] [facility] [address] [phone] Anahi Harrison MD [address] [place] [address] DYSURIA (Primary Dx); HYPOTHYROIDISM NOS Social History Tobacco Use Types Packs/Day Years Used Date Smoking Tobacco: Never Assessed Comments Unknown Sex and Gender Information Value Date Recorded Sex Assigned at Not on file Legal Sex Female 5:57 AM POWERPLANT OPERATOR Gender Identity Not on file Sexual Orientation Not on file documented as of this encounter Plan of Treatment Not on file documented as of this encounter Visit Diagnoses Diagnosis Dysuria- Primary Unspecified hypothyroidism documented in this encounter
--- OUTSIDE RECORDS SUMMARY | 2024-10-02 16:52 | XMS_ITS | Encounter Summary ---
Author Organization [facility] Address [address] [facility] Attn: [place] [address] Care Team Providers Care Pipeline Dispatch Operator Name Role Phone Unavailable Primary Care Provider Unavailabl e Encounter Details Date Type Department Care Team (Late st Contact Info) Description 08/17/2001 Outpatient Historical Haroldo Garay MD [address] [place] [address] Social History Tobacco Use Types Packs/Day Years Used Date Smoking Tobacco: Never Assessed Comments Unknown Sex and Gender Information Value Date Recorded Sex Assigned at Not on file Legal Sex Female 5:57 AM CAGE FIGHTER Gender Identity Not on file Sexual Orientation Not on file documented as of this encounter Plan of Treatment Not on file documented as of this encounter Visit Diagnoses Not on filedocumented in this encounter
--- OUTSIDE RECORDS SUMMARY | 2024-10-02 16:52 | XMS_ITS | Encounter Summary ---
Author Organization [facility] Address [address] [place] [address] Care Team Providers Care Formula Technician Name Role Phone Unavailable Primary Care Provider Unavailabl e Encounter Details Date Type Department Care Team (Latest Contact Info) Description 07/19/2001 Outpatient Historical [facility] [address] [address] Haroldo Garay MD [address] [phone] OSTEOARTHROS NOS-OTHER SITE (Primary Dx) Social History Tobacco Use Types Packs/Day Years Used Date Smoking Tobacco: Never Assessed Comments Unknown Sex and Gender Information Value Date Recorded Sex Assigned at Not on file Legal Sex Female 5:57 AM TRUCK CRANE OPERATOR HELPER Gender Identity Not on file Sexual Orientation Not on file documented as of this encounter Plan of Treatment Not on file documented as of this encounter Visit Diagnoses Diagnosis Osteoarthrosis, unspecified whether generalized or localized, other specified sites- Primary documented in this encounter
--- OUTSIDE RECORDS SUMMARY | 2024-10-02 16:52 | XMS_ITS | Encounter Summary ---
Author Organization [facility] Address [address] [place] [address] Care Team Providers Care Certified Nurse Name Role Phone Unavailable Primary Care Provider Unavailabl e Encounter Details Date Type Department Care Team (Latest Contact Info) Description 12/06/2003 Outpatient Historical [facility] [address] [phone] Anahi Harrison MD [address] [place] [phone] ALLERGIC RHINITIS NOS (Primary Dx); ACUTE URI NOS; OTITIS MEDIA NOS Social History Tobacco Use Types Packs/Day Years Used Date Smoking Tobacco: Never Assessed Comments Unknown Sex and Gender Information Value Date Recorded Sex Assigned at Not on file Legal Sex Female 5:57 AM DEFENSE ATTORNEY Gender Identity Not on file Sexual Orientation Not on file documented as of this encounter Plan of Treatment Not on file documented as of this encounter Visit Diagnoses Diagnosis Allergic rhinitis, cause unspecified- Primary Acute upper respiratory infections of unspecified site Unspecified otitis media documented in this encounter
--- OUTSIDE RECORDS SUMMARY | 2024-10-02 16:52 | XMS_ITS | Encounter Summary ---
Author Organization [facility] Address [address] [place] [address] Care Team Providers Care Ghost Writer Name Role Phone Unavailable Primary Care Provider Unavailabl e Encounter Details Date Type Department Care Team (Latest Contact Info) Description 05/30/2004 Outpatient Historical [facility] Medicine [place] [address] [address] Anahi Harrison MD [address] [place] [phone] HYPOTHYROIDISM NOS (Primary Dx) Social History Tobacco Use Types Packs/Day Years Used Date Smoking Tobacco: Never Assessed Comments Unknown Sex and Gender Information Value Date Recorded Sex Assigned at Not on file Legal Sex Female 5:57 AM THRESHING MACHINE OPERATOR Gender Identity Not on file Sexual Orientation Not on file documented as of this encounter Plan of Treatment Not on file documented as of this encounter Visit Diagnoses Diagnosis Unspecified hypothyroidism- Primary documented in this encounter
--- OUTSIDE RECORDS SUMMARY | 2024-10-02 16:52 | XMS_ITS | Encounter Summary ---
Author Organization [facility] Address [address] [place] [address] Care Team Providers Care Executive Director Of Nursing Name Role Phone Unavailable Primary Care Provider Unavailabl e Encounter Details Date Type Department Care Team (Late st Contact Info) Description 08/14/2004 Outpatient Historical [facility] [address] [place] [address] Dustin Alvarado MD [address] [place] [address] Sprain of neck (Primary Dx); LUMBAGO; Sciatic nerve lesion Social History Tobacco Use Types Packs/Day Years Used Date Smoking Tobacco: Never Assessed Comments Unknown Sex and Gender Information Value Date Recorded Sex Assigned at Not on file Legal Sex Female 5:57 AM INVESTMENT ANALYST Gender Identity Not on file Sexual Orientation Not on file documented as of this encounter Plan of Treatment Not on file documented as of this encounter Visit Diagnoses Diagnosis Sprain of neck- Primary Neck sprain and strain Lumbago Sciatic nerve lesion Lesion of sciatic nerve documented in this encounter
--- OUTSIDE RECORDS SUMMARY | 2024-10-02 16:52 | XMS_ITS | Encounter Summary ---
Author Organization [facility] Address [address] [place] [address] Care Team Providers Care Vegetable Loader Name Role Phone Unavailable Primary Care Provider Unavailabl e Encounter Details Date Type Department Care Team (Latest Contact Info) Description 04/02/2004 Outpatient Historical [facility] Operating Room [address] [place] [address] Rigo Welch MD [address] [place] [address] [facility] M[facility]ISC[facility] (Primary Dx) Social History Tobacco Use Types Packs/Day Years Used Date Smoking Tobacco: Never Assessed Comments Unknown Sex and Gender Information Value Date Recorded Sex Assigned at Not on file Legal Sex Female 5:57 AM OPTICAL GOODS DRILLING MACHINE OPERATOR Gender Identity Not on file Sexual Orientation Not on file documented as of this encounter Plan of Treatment Not on file documented as of this encounter Procedures Procedure Name Priority Date/Time Associated Diagnosis Comments POC GLUCOSE Routine 04/02/2004 3:34 PM OPTICAL GOODS DRILLING MACHINE OPERATOR CBC WITHOUT DIFFERENTIAL Routine 04/02/2004 6:24 AM OPTICAL GOODS DRILLING MACHINE OPERATOR BASIC METABOLIC PANEL Routine 04/02/2004 6:24 AM OPTICAL GOODS DRILLING MACHINE OPERATOR documented in this encounter Results * (ABNORMAL) POC GLUCOSE (04/02/2004 3:34 PM OPTICAL GOODS DRILLING MACHINE OPERATOR) GLUCOSE POC 104(H) 60 - 100 mg/dL INTERFACE SYSTEM 04/02/2004 3:34 PM OPTICAL GOODS DRILLING MACHINE OPERATOR us Rigo Welch MD POINT OF CARE TESTING F inal Result Performing Organization Address [facility] de Phone Number INTERFACE SYSTEM Refer to clinic/hospital department * BASIC METABOLIC PANEL (04/02/2004 6:24 AM OPTICAL GOODS DRILLING MACHINE OPERATOR) GLUCOSE 100 70 - 110 mg/dL INTERFACE SYSTEM BUN 8 7 - 17 mg/dL INTERFACE SYSTEM CREATININE 0.8 0.7 - 1.2 mg/dL (inactive) INTERFACE SYSTEM SODIUM 139 136 - 145 mEq/L INTERFACE SYSTEM POTASSIUM 4.0 3.5 - 5.0 mEq/L INTERFACE SYSTEM CHLORIDE 103 95 - 110 mEq/L INTERFACE SYSTEM CO2 27 22 - 32 mmol/l INTERFACE SYSTEM ANION GAP 13 9 - 20 mEq/L INTERFACE SYSTEM OSMOLALITY, CALCULATED 284 275 - 295 mOsm/Kg INTERFACE SYSTEM CALCIUM 8.8 8.4 - 10.5 mg/dL INTERFACE SYSTEM 04/02/2004 6:24 AM OPTICAL GOODS DRILLING MACHINE OPERATOR Rigo Welch MD CHEMISTRY ORDERABLES Fi nal Result Performing Organization Address [facility] de Phone Number INTERFACE SYSTEM Refer to clinic/hospital department * (ABNORMAL) CBC WITHOUT DIFFERENTIAL (04/02/2004 6:24 AM OPTICAL GOODS DRILLING MACHINE OPERATOR) Pathologist [facility] WBC 6.8 4.5 - 11.0 K/ul INTERFACE SYSTEM RBC 4.67 4.20 - 5.40 Mil/ul INTERFACE SYSTEM HEMOGLOBIN 13.1 12.0 - 16.0 g/dL INTERFACE SYSTEM HEMATOCRIT 40.4 36.0 - 46.0 % INTERFACE SYSTEM MCV 86.5 84.0 - 103.0 Fl INTERFACE SYSTEM MCH 28.1 27.0 - 34.0 pg INTERFACE SYSTEM MCHC 32.4 30.0 - 35.0 g/dL INTERFACE SYSTEM RDW 13.6 11.0 - 14.5 percent(in active) INTERFACE SYSTEM PLATELETS 216 140 - 440 K/ul INTERFACE SYSTEM MPV 11.8 8.9 - 12.8 Fl INTERFACE SYSTEM NEUTROPHILS 55.0 42.2 - 75.2 percent(in active) INTERFACE SYSTEM LYMPHOCYTES 31.0 24.0 - 44.0 percent(in active) INTERFACE SYSTEM MONOCYTES 10.0 2.0 - 10.0 percent(in active) INTERFACE SYSTEM EOSINOPHILS 3.4 0.0 - 7.0 % INTERFACE SYSTEM BASOPHILS 0.6 0.0 - 1.0 percent(in active) INTERFACE SYSTEM NEUTROPHIL ABSOLUTE 3.8 2.0 - 8.0 K/uL INTERFACE SYSTEM LYMPHOCYTE ABSOLUTE 2.1 1.2 - 4.0 K/ul INTERFACE SYSTEM MONOCYTE ABSOLUTE 0.7(H) 0.1 - 0.6 K/ul INTERFACE SYSTEM EOSINOPHIL ABSOLUTE 0.2 0.0 - 0.7 K/ul INTERFACE SYSTEM BASOPHILS ABSOLUTE 0.0 0.0 - 0.2 K/ul INTERFACE SYSTEM 04/02/2004 6:24 AM OPTICAL GOODS DRILLING MACHINE OPERATOR us Rigo Welch MD HEMATOLOGY ORDERABLES F inal Result INTERFACE SYSTEM Refer to clinic/hospital department documented in this encounter Visit Diagnoses Diagnosis Other and unspecified derangement of medial meniscus- Primary documented in this encounter
--- OUTSIDE RECORDS SUMMARY | 2024-10-02 16:52 | XMS_ITS | Encounter Summary ---
Author Organization [facility] Address [address] [place] [address] Care Team Providers Care Attendance Clerk Name Role Phone Unavailable Primary Care Provider Unavailabl e Encounter Details Date Type Department Care Team (Latest Contact Info) Description 07/11/2004 Outpatient Historical [facility] Medicine [place] [address] [address] Anahi Harrison MD [address] [place] [phone] HYPOTHYROIDISM NOS (Primary Dx) Social History Tobacco Use Types Packs/Day Years Used Date Smoking Tobacco: Never Assessed Comments Unknown Sex and Gender Information Value Date Recorded Sex Assigned at Not on file Legal Sex Female 5:57 AM 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
--- OUTSIDE RECORDS SUMMARY | 2024-10-02 16:52 | XMS_ITS | Encounter Summary ---
Author Organization [facility] Address [address] [place] [address] Care Team Providers Care Water Conservationist Name Role Phone Unavailable Primary Care Provider Unavailabl e Encounter Details Date Type Department Care Team (Late st Contact Info) Description 10/04/2003 Outpatient Historical [facility] [address] [facility] [address] [place] [phone] Dustin Alvarado MD [address] [place] [address] CERVICAL DISC DEGEN (Primary Dx) Social History Tobacco Use Types Packs/Day Years Used Date Smoking Tobacco: Never Assessed Comments Unknown Sex and Gender Information Value Date Recorded Sex Assigned at Not on file Legal Sex Female 5:57 AM WOODWORKING MACHINE FEEDER Gender Identity Not on file Sexual Orientation Not on file documented as of this encounter Plan of Treatment Not on file documented as of this encounter Visit Diagnoses Diagnosis Degeneration of cervical intervertebral disc- Primary documented in this encounter
--- OUTSIDE RECORDS SUMMARY | 2024-10-02 16:52 | XMS_ITS | Encounter Summary ---
Author Organization [facility] Address [address] [place] [address] Care Team Providers Care Housing Case Manager Name Role Phone Unavailable Primary Care Provider Unavailabl e Encounter Details Date Type Department Care Team (Late st Contact Info) Description 04/10/2004 Outpatient Historical [facility] Orthopedics- [address] [place] [address] [place] [phone] Rigo Welch MD [address] [place] [address] DERANG ANT MED MENISCUS (Primary Dx) Social History Tobacco Use Types Packs/Day Years Used Date Smoking Tobacco: Never Assessed Comments Unknown Sex and Gender Information Value Date Recorded Sex Assigned at Not on file Legal Sex Female 5:57 AM KERSEY DEPARTMENT SUPERVISOR Gender Identity Not on file Sexual Orientation Not on file documented as of this encounter Plan of Treatment Not on file documented as of this encounter Visit Diagnoses Diagnosis Derangement of anterior horn of medial meniscus- Primary documented in this encounter
--- OUTSIDE RECORDS SUMMARY | 2024-10-02 16:52 | XMS_ITS | Encounter Summary ---
Author Organization [facility] Address [address] [place] [address] Care Team Providers Care Facilities Maintenance Assistant Name Role Phone Unavailable Primary Care Provider Unavailabl e Encounter Details Date Type Department Care Team (Latest Contact Info) Description 06/24/2004 Outpatient Historical [facility] Ear, Nose and Throat [address] [place] [phone] Diamond Juarez AU.D NO ADDRESS ON FILE Dysfunct eustachian tube (Primary Dx) Social History Tobacco Use Types Packs/Day Years Used Date Smoking Tobacco: Never Assessed Comments Unknown Sex and Gender Information Value Date Recorded Sex Assigned at Not on file Legal Sex Female 5:57 AM DEPUTY PROSECUTING ATTORNEY Gender Identity Not on file Sexual Orientation Not on file documented as of this encounter Plan of Treatment Not on file documented as of this encounter Visit Diagnoses Diagnosis Dysfunct eustachian tube- Primary Dysfunction of Eustachian tube documented in this encounter
--- OUTSIDE RECORDS SUMMARY | 2024-10-02 16:52 | XMS_ITS | Encounter Summary ---
Author Organization [facility] Address [address] [place] [address] Care Team Providers Care Water Taxi Captain Name Role Phone Unavailable Primary Care Provider Unavailabl e Encounter Details Date Type Department Care Team (Latest Contact Info) Description 10/15/2004 Outpatient Historical [facility] Medicine [place] [address] [phone] Joselin Stephenson, [facility] [address] [phone] ABDOMINAL PAIN UNSPEC SITE (Primary Dx) Social History Tobacco Use Types Packs/Day Years Used Date Smoking Tobacco: Never Assessed Comments Unknown Sex and Gender Information Value Date Recorded Sex Assigned at Not on file Legal Sex Female 5:57 AM LUMBER SALVAGER Gender Identity Not on file Sexual Orientation Not on file documented as of this encounter Plan of Treatment Not on file documented as of this encounter Visit Diagnoses Diagnosis Abdominal pain, unspecified site- Primary documented in this encounter
--- OUTSIDE RECORDS SUMMARY | 2024-10-02 16:52 | XMS_ITS | Encounter Summary ---
Author Organization [facility] Address [address] [place] [address] Care Team Providers Care Program Manager Name Role Phone Unavailable Primary Care Provider Unavailabl e Encounter Details Date Type Department Care Team (Latest Contact Info) Description 08/23/2004 Outpatient Historical [facility] Medicine [place] [address] [address] Anahi Harrison MD [address] [place] [phone] INFEC OTITIS EXTERNA NOS (Primary Dx) Social History Tobacco Use Types Packs/Day Years Used Date Smoking Tobacco: Never Assessed Comments Unknown Sex and Gender Information Value Date Recorded Sex Assigned at Not on file 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
--- OUTSIDE RECORDS SUMMARY | 2024-10-02 16:52 | XMS_ITS | Encounter Summary ---
Author Organization [facility] Address [address] [place] [address] Care Team Providers Care Concrete Block Molder Name Role Phone Unavailable Primary Care Provider Unavailabl e Encounter Details Date Type Department Care Team (Latest Contact Info) Description 09/11/2004 Outpatient Historical [facility] [address], [place] [address] Haroldo Garay MD [address] [phone] OTALGIA NOS (Primary Dx) Social History Tobacco Use Types Packs/Day Years Used Date Smoking Tobacco: Never Assessed Comments Unknown Sex and Gender Information Value Date Recorded Sex Assigned at Not on file 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
--- OUTSIDE RECORDS SUMMARY | 2024-10-02 16:52 | XMS_ITS | Encounter Summary ---
Author Organization [facility] Address [address] [place] [address] Care Team Providers Care Retail Store Manager Name Role Phone Unavailable Primary Care Provider Unavailabl e Encounter Details Date Type Department Care Team (Latest Contact Info) Description 06/26/2004 Outpatient Historical [facility] Medicine [place] [address] [phone] Anahi Harrison MD [address] [place] [phone] JOINT PAIN-L/LEG (Primary Dx); URINARY FREQUENCY Social History Tobacco Use Types Packs/Day Years Used Date Smoking Tobacco: Never Assessed Comments Unknown Sex and Gender Information Value Date Recorded Sex Assigned at Not on file 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
--- OUTSIDE RECORDS SUMMARY | 2024-10-02 16:52 | XMS_ITS | Encounter Summary ---
Author Organization [facility] Address [address] [place] [address] Care Team Providers Care Customer Business Manager Name Role Phone Unavailable Primary Care Provider Unavailabl e Encounter Details Date Type Department Care Team (Late st Contact Info) Description 10/24/2004 Emergency [facility] Emergency Department [address] 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
--- OUTSIDE RECORDS SUMMARY | 2024-10-02 16:52 | XMS_ITS | Encounter Summary ---
Author Organization [facility] Address [address] [place] [address] Care Team Providers Care Fruit Ii Farmworker Name Role Phone Unavailable Primary Care Provider Unavailabl e Encounter Details Date Type Department Care Team (Late st Contact Info) Description 05/08/2004 Outpatient Historical [facility] Orthopedics- [address] [place] 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
--- OUTSIDE RECORDS SUMMARY | 2024-10-02 16:52 | XMS_ITS | Encounter Summary ---
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
--- OUTSIDE RECORDS SUMMARY | 2024-10-02 16:52 | XMS_ITS | Encounter Summary ---
Author Organization [facility] Address [address] [place] [address] Care Team Providers Care Raw Hide Trimmer Name Role Phone Unavailable Primary Care Provider Unavailabl e Encounter Details Date Type Department Care Team (Latest Contact Info) Description 09/19/2004 Outpatient Historical [facility] Imaging Services-[place] [address] [place] [address] Dustin Alvarado MD [address] [place] [address] ADMINISTRTVE ENCOUNT NOS (Primary Dx) Social History Tobacco Use Types Packs/Day Years Used Date Smoking Tobacco: Never Assessed Comments Unknown Sex and Gender Information Value Date Recorded Sex Assigned at Not on file Legal Sex Female 5:[address] LOCKSMITH Gender Identity Not on file Sexual Orientation Not on file documented as of this encounter Plan of Treatment Not on file documented as of this encounter Visit Diagnoses Diagnosis Encounters for unspecified administrative purpose- Primary documented in this encounter
--- OUTSIDE RECORDS SUMMARY | 2024-10-02 16:52 | XMS_ITS | Encounter Summary ---
Author Organization [facility] Address [address] [place] [address] Care Team Providers Care Cardiopulmonary Technician Name Role Phone Unavailable Primary Care Provider Unavailabl e Encounter Details Date Type Department Care Team (Latest Contact Info) Description 04/17/2004 Outpatient Historical [facility] Medicine [place] [address] [address] Anahi Harrison MD [address] [place] [phone] JOINT PAIN-L/LEG (Primary Dx); HYPOTHYROIDISM NOS Social History Tobacco Use Types Packs/Day Years Used Date Smoking Tobacco: Never Assessed Comments Unknown Sex and Gender Information Value Date Recorded Sex Assigned at Not on file 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
--- OUTSIDE RECORDS SUMMARY | 2024-10-02 16:52 | XMS_ITS | Encounter Summary ---
Author Organization [facility] Address [address] [place] [address] Care Team Providers Care Board Certified Behavioral Analyst Name Role Phone Unavailable Primary Care Provider Unavailabl e Encounter Details Date Type Department Care Team (Late st Contact Info) Description 12/20/2003 Outpatient Historical [facility] [address] [place] [phone] Dustin Alvarado MD [address] [place] [address] Sprain of neck (Primary Dx); LUMBAGO; Sciatic nerve lesion Social History Tobacco Use Types Packs/Day Years Used Date Smoking Tobacco: Never Assessed Comments Unknown Sex and Gender Information Value Date Recorded Sex Assigned at Not on file Legal Sex Female 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
--- OUTSIDE RECORDS SUMMARY | 2024-10-02 16:52 | XMS_ITS | Encounter Summary ---
Author Organization [facility] Address [address] [place] [address] Care Team Providers Care Elevator Service Technician Name Role Phone Unavailable Primary Care Provider Unavailabl e Encounter Details Date Type Department Care Team (Latest Contact Info) Description 07/30/2004 Outpatient Historical [facility] [address] [address] Haroldo Garay MD [address] [phone] BACKACHE NOS (Primary Dx); HYPOTHYROIDISM NOS Social History Tobacco Use Types Packs/Day Years Used Date Smoking Tobacco: Never Assessed Comments Unknown Sex and Gender Information Value Date Recorded Sex Assigned at Not on file 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
--- OUTSIDE RECORDS SUMMARY | 2024-10-02 16:53 | XMS_ITS | Encounter Summary ---
Author Organization [facility] Address [address] [place] [address] Care Team Providers Care Inpatient Pharmacist Name Role Phone Unavailable Primary Care Provider Unavailabl e Encounter Details Date Type Department Care Team (Latest Contact Info) Description 03/13/2003 Outpatient Historical [facility] [address] [address] Haroldo Garay MD [address] [phone] URIN TRACT INFECTION NOS (Primary Dx) Social History Tobacco Use Types Packs/Day Years Used Date Smoking Tobacco: Never Assessed Comments Unknown Sex and Gender Information Value Date Recorded Sex Assigned at Not on file 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
--- OUTSIDE RECORDS SUMMARY | 2024-10-02 16:53 | XMS_ITS | Encounter Summary ---
Author Organization [facility] Address [address] [place] [address] Care Team Providers Care Film Processing Supervisor Name Role Phone Unavailable Primary Care Provider Unavailabl e Encounter Details Date Type Department Care Team (Late st Contact Info) Description 06/14/2003 Outpatient Historical [facility] [address] [place] [address] [facility] [address] [place] [address] Dustin Alvarado MD [address] [place] [address] LUMBAGO (Primary Dx) Social History Tobacco Use Types Packs/Day Years Used Date Smoking Tobacco: Never Assessed Comments Unknown Sex and Gender Information Value Date Recorded Sex Assigned at Not on file Legal Sex Female 5:57 AM PAINTINGS CONSERVATOR Gender Identity Not on file Sexual Orientation Not on file documented as of this encounter Plan of Treatment Not on file documented as of this encounter Visit Diagnoses Diagnosis Lumbago- Primary documented in this encounter
--- OUTSIDE RECORDS SUMMARY | 2024-10-02 16:53 | XMS_ITS | Encounter Summary ---
Author Organization [facility] Address [address] [place] [address] Care Team Providers Care Public Speaking Teacher Name Role Phone Unavailable Primary Care Provider Unavailabl e Encounter Details Date Type Department Care Team (Latest Contact Info) Description 11/16/2002 Outpatient Historical [facility] [address], [place] [address] Haroldo Garay MD [address] [phone] URIN TRACT INFECTION NOS (Primary Dx); Sprain lumbar region Social History Tobacco Use Types Packs/Day Years Used Date Smoking Tobacco: Never Assessed Comments Unknown Sex and Gender Information Value Date Recorded Sex Assigned at Not on file 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
--- OUTSIDE RECORDS SUMMARY | 2024-10-02 16:53 | XMS_ITS | Encounter Summary ---
Author Organization [facility] Address [address] [place] [address] Care Team Providers Care National Account Representative Name Role Phone Unavailable Primary Care Provider Unavailabl e Encounter Details Date Type Department Care Team (Late st Contact Info) Description 05/17/2003 Outpatient Historical [facility] Spine 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
--- OUTSIDE RECORDS SUMMARY | 2024-10-02 16:53 | XMS_ITS | Encounter Summary ---
Author Organization [facility] Address [address] [place] [address] Care Team Providers Care Bobtailer Name Role Phone Unavailable Primary Care Provider Unavailabl e Encounter Details Date Type Department Care Team (Latest Contact Info) Description 05/19/2003 Outpatient Historical [facility] Imaging Services-[place] [address] [place] [address] Dustin Alvarado MD [address] [place] [address] LUMBAR DISC DISPLACEMENT (Primary Dx) Social History Tobacco Use Types Packs/Day Years Used Date Smoking Tobacco: Never Assessed Comments Unknown Sex and Gender Information Value Date Recorded Sex Assigned at Not on file Legal Sex Female 5:57 AM IMAGING CENTER MANAGER Gender Identity Not on file Sexual Orientation Not on file documented as of this encounter Plan of Treatment Not on file documented as of this encounter Visit Diagnoses Diagnosis Displacement of lumbar intervertebral disc without myelopathy- Primary documented in this encounter
--- OUTSIDE RECORDS SUMMARY | 2024-10-02 16:53 | XMS_ITS | Encounter Summary ---
Author Organization [facility] Address [address] [place] [address] Care Team Providers Care Hospitalist Nocturnist Physician Name Role Phone Unavailable Primary Care Provider Unavailabl e Encounter Details Date Type Department Care Team (Latest Contact Info) Description 01/24/2003 Outpatient Historical [facility] [address] [address] Haroldo Garay MD [address] [phone] HYPOTHYROIDISM NOS (Primary Dx) Social History Tobacco Use Types Packs/Day Years Used Date Smoking Tobacco: Never Assessed Comments Unknown Sex and Gender Information Value Date Recorded Sex Assigned at Not on file 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
--- OUTSIDE RECORDS SUMMARY | 2024-10-02 16:53 | XMS_ITS | Encounter Summary ---
Author Organization [facility] Address [address] [place] [address] Care Team Providers Care Mobile Security Specialist Name Role Phone Unavailable Primary Care Provider Unavailabl e Encounter Details Date Type Department Care Team (Late st Contact Info) Description 05/19/2003 Outpatient Historical [facility] Imaging Services-[place] [address] [place] [address] Social History Tobacco Use Types Packs/Day Years Used Date Smoking Tobacco: Never Assessed Comments Unknown Sex and Gender Information Value Date Recorded Sex Assigned at Not on file Legal Sex Female 5:57 AM CLEANER AND TRIMMER Gender Identity Not on file Sexual Orientation Not on file documented as of this encounter Plan of Treatment Not on file documented as of this encounter Visit Diagnoses Not on filedocumented in this encounter
--- OUTSIDE RECORDS SUMMARY | 2024-10-02 16:53 | XMS_ITS | Encounter Summary ---
Author Organization [facility] Address [address] [place] [address] Care Team Providers Care Film Painter Name Role Phone Unavailable Primary Care Provider Unavailabl e Encounter Details Date Type Department Care Team (Late st Contact Info) Description 07/26/2003 Outpatient Historical [facility] Dustin Alvarado MD [address] [place] [address] LUMBOSACRAL NEURITIS NOS (Primary Dx) Social History Tobacco Use Types Packs/Day Years Used Date Smoking Tobacco: Never Assessed Comments Unknown Sex and Gender Information Value Date Recorded Sex Assigned at Not on file Legal Sex Female 5:57 AM OR FIRST ASSIST REGISTERED NURSE Gender Identity Not on file Sexual Orientation Not on file documented as of this encounter Plan of Treatment Not on file documented as of this encounter Visit Diagnoses Diagnosis Thoracic or lumbosacral neuritis or radiculitis, unspecified- Primary documented in this encounter
--- OUTSIDE RECORDS SUMMARY | 2024-10-02 16:53 | XMS_ITS | Encounter Summary ---
Author Organization [facility] Address [address] [place] [address] Care Team Providers Care Crop Grain Or Livestock Farmer Name Role Phone Unavailable Primary Care Provider Unavailabl e Encounter Details Date Type Department Care Team (Late st Contact Info) Description 07/26/2003 Outpatient Historical [facility] Spine [facility] [address] [place] [address] Dustin Alvarado MD [address] [place] [address] LUMBAGO (Primary Dx); LUMBOSACRAL NEURITIS NOS Social History Tobacco Use Types Packs/Day Years Used Date Smoking Tobacco: Never Assessed Comments Unknown Sex and Gender Information Value Date Recorded Sex Assigned at Not on file Legal Sex Female 5:57 AM FINANCIAL ANALYSIS ADVISOR Gender Identity Not on file Sexual Orientation Not on file documented as of this encounter Plan of Treatment Not on file documented as of this encounter Visit Diagnoses Diagnosis Lumbago- Primary Thoracic or lumbosacral neuritis or radiculitis, unspecified documented in this encounter
--- OUTSIDE RECORDS SUMMARY | 2024-10-02 16:53 | XMS_ITS | Encounter Summary ---
Author Organization [facility] Address [address] [place] [address] Care Team Providers Care Steel Chipper Name Role Phone Unavailable Primary Care Provider Unavailabl e Encounter Details Date Type Department Care Team (Late st Contact Info) Description 08/02/2003 Outpatient Historical [facility] Spine [facility] [address] [place] [address] Dustin Alvarado MD [address] [place] [address] LUMBAGO (Primary Dx); LUMBOSACRAL NEURITIS NOS Social History Tobacco Use Types Packs/Day Years Used Date Smoking Tobacco: Never Assessed Comments Unknown Sex and Gender Information Value Date Recorded Sex Assigned at Not on file Legal Sex Female 5:57 AM COMMUNITY SERVICE TECHNICIAN Gender Identity Not on file Sexual Orientation Not on file documented as of this encounter Plan of Treatment Not on file documented as of this encounter Visit Diagnoses Diagnosis Lumbago- Primary Thoracic or lumbosacral neuritis or radiculitis, unspecified documented in this encounter
--- OUTSIDE RECORDS SUMMARY | 2024-10-02 16:53 | XMS_ITS | Clinical Summary ---
Author Organization [facility] Address [address] [facility] Attn: Epic Prelude ADT EMILIANA MALHOTRA [address] Care Team Providers Care Dcs Engineer Name Role Phone Arturo Davila MD Primary Care Provider [phone] Allergies Active Allergy Reactions Criticality Noted Date Comments Penicillin Unknown 10/30/2022 Medications hydroCHLOROthiaz salena (MICROZIDE) 12.5 mg capsuleIndicatio ns:Benign hypertension Take 1 Capsule (12.5 mg) by mouth daily. 90 Capsule 3 3 Active blood sugar diagnostic StripIndications :Type 2 diabetes mellitus without complication, with long-term current use of insulin ([facility]) Use with glucose meter 100 Strip 3 Active mupirocin (BACTROBAN) 2 % OintmentIndicati ons:Infected insect bite or sting Apply to affected area daily. 30 Gram 3 Active Blood-Glucose Meter KitIndications:T ype 2 diabetes mellitus without complication, with long-term current use of insulin ([facility]) To take blood sugar before meals 1 Kit 3 Active levothyroxine 50 mcg tabletIndication s:Hypothyroidism , unspecified type Take 1 Tablet (50 mcg) by mouth daily in the morning. Need labs prior to refill 60 Tablet 3 Active insulin glargine (LANTUS) 100 unit/mL injection Inject 10 Units by subcutaneous injection daily at bedtime. 3 mL 5 3 Active hydrOXYzine HCL (ATARAX) 25 mg tabletIndication s:Insomnia, unspecified type Take 1 Tablet (25 mg) by mouth daily at bedtime. 30 Tablet 1 3 Active gabapentin (NEURONTIN) 300 mg capsule Take 1 Capsule (300 mg) by mouth 3 times daily. 90 Capsule 1 3 Active atorvastatin (LIPITOR) 40 mg tablet Take 1 Tablet (40 mg) by mouth daily. 90 Tablet 2 3 Active alcohol (Alcohol Prep Pads) Pads, Medicated Use with glucose meter to check blood sugar 250 Each 5 3 Active insulin glargine (LANTUS) 100 unit/mL vial Inject 10 Units by subcutaneous injection daily at bedtime. 10 mL 5 3 Active losartan (COZAAR) 50 mg tabletIndication s:Benign hypertension Take 1 Tablet (50 mg) by mouth daily. 90 Tablet 3 3 Active losartan (COZAAR) 25 mg tabletIndication s:Benign hypertension Take 1 Tablet (25 mg) by mouth daily. 100 Tablet 3 3 Active insulin aspart U-100 (NovoLOG FlexPen U-100 Insulin) 100 unit/mL pen syringe Inject 10 Units by subcutaneous injection 3 times daily with meals. 3 mL 5 3 Active Active Problems Problem Noted Date Diagnosed Date Type 2 diabetes mellitus wit hout complication, with long-term current use of insulin 10/30/2022 Benign hypertension 10/30/2022 Mixed hyperlipidemia 10/30/2022 Hypothyroidism 10/30/2022 Insomnia 10/30/2022 Immunizations Immunization Administration Dates Next Due (TDVAX)(7 YRS UP) TETANUS AN D DIPHTHERIA TOXOIDS, ADSORBED (2 LF OF TETANUS TOXOID AND 2 LF OF DIPHTHERIA TOXOID), 0.5ML (PF), IM 05/18/2002 Social History Tobacco Use Types Packs/Day Years Used Date Smoking Tobacco: Never Passive Smoke Exposure: Never Smokeless Tobacco: Never Tobacco Cessation:Counseling Given: No Alcohol Use Standard Drinks/Week Comments Not Currently 0 (1 standard drink = 0.6 oz pur e alcohol) Comments No Sex and Gender Information Value Date Recorded Sex Assigned at Not on file Legal Sex Female 8:47 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 Gender Identity Not on file Sexual Orientation Not on file Last Filed Vital Signs Vital Sign Reading Time Taken Comments Blood Pressure 144/80 11/19/2022 10:49 AM CDT Pulse 55 11/19/2022 10:49 AM CDT Temperature 36.2 C (97.1 F) 11/19/2022 10:49 AM CDT Respiratory Rate 18 11/19/2022 10:49 AM CDT Oxygen Saturation 98% 11/19/2022 10:49 AM CDT Inhaled Oxygen Concentration - - Weight 118.4 kg (261 lb) 11/19/2022 10:49 AM CDT Height 172.7 cm (5' 8 ) 11/19/2022 10:49 AM CDT Body Mass Index 39.68 11/19/2022 10:49 AM CDT Plan of Treatment Health Maintenance Due Date Last Done Comments DIABETES ANNUAL FOOT EXAM 02/17/1980 DIABETES ANNUAL RETINAL EXAM 02/17/1980 DIABETES MICROALBUMIN ANNUAL SCREEN 02/17/1980 Preventative Visit-Managed Medicaid 1981 HPV/Cotest (21-29) 1983 CERVICAL CANCER SCREENING 02/17/1992 HPV/Cotest (30-65) 02/17/1992 PAP SMEAR 02/17/1992 BREAST CANCER SCREENING 2002 COLORECTAL SCREENING 2007 Colorectal Cancer Screening 2007 FIT-DNA Q 3 years 2007 FIT/FOBT Q 1 year 2007 Flex Sig/CT Colonography Q 5 years 2007 ZOSTER VACCINE (1 of 2) 02/17/2012 DTAP/TDAP/TD VACCINES (1 - Tdap) 05/16/2020 05/15/19 21, 05/18/2002 RSV VACCINE (60+ or ) (1 - Risk 60-74 years 1-dose series) 2022 DIABETES HBA1C Q 6 MONTHS 05/03/2023 10/31/2022 LDL CHOLESTEROL ANNUAL 11/01/2023 10/31/2022 INFLUENZA VACCINE (#1) 2024 Procedures Procedure Name Priority Date/Time Associated Diagnosis Comments LIPID PANEL Routine 10/31/2022 8:51 AM CDT Mixed hyperlipidemia HEMOGLOBIN A1C Routine 10/31/2022 8:51 AM CDT Benign hypertension Type 2 diabetes mellitus without complication, with long-term current use of insulin ([facility]) from Last 3 Months or Most Recently Relevant to Health Maintenance Results * (ABNORMAL) HEMOGLOBIN A1C (10/31/2022 8:51 AM CDT) HEMOGLOBIN A1C 6.7(H) <5.7 % of total Hgb [facility] Comment: For someone without known diabetes, a hemoglobin A1c value of 6.5% or greater indicates that they may have diabetes and this should be confirmed with a follow-up test. For someone with known diabetes, a value <7% indicates that their diabetes is well controlled and a value greater than or equal to 7% indicates suboptimal control. A1c targets should be individualized based on duration of diabetes, age, comorbid conditions, and other considerations. Currently, no consensus exists regarding use of hemoglobin A1c for diagnosis of diabetes for children. ESTIMATED AVERAGE GLUCOSE (MG/DL) 146 mg/dL [facility] ESTIMATED AVERAGE GLUCOSE (MMOL/L) 8.1 mmol/L [facility] Comment: Test Performed at: [facility] [address] [facility] [place] [address] Rimma Leahy MD Blood 10/31/2022 8:51 AM CDT 11/01/2022 3:30 AM CDT Fabiana Ellencal Lugo ELECTRICAL INSTALLER CHEMISTRY ORDERABLES Fin al Result [facility] [phone] [facility] [address] [facility] [place] [address] * LIPID PANEL (10/31/2022 8:51 AM CDT) CHOLESTEROL 123 <200 mg/dL [facility] HDL 53 > OR = 50 mg/dL [facility] TRIGLYCERIDE 90 <150 mg/dL [facility] LDL CALCULATED 53 mg/dL (calc) [facility] Comment: Reference range: <100 Desirable range <100 mg/dL for primary prevention; <70 mg/dL for patients with CHD or diabetic patients with > or = 2 CHD risk factors. LDL-C is now calculated using the Ruel calculation, which is a validated novel method providing better accuracy than the Friedewald equation in the estimation of LDL-C. Luis Felipe FERRARI et al. LISA. 2013;310(67): 8693-9509 (http://education.[facility].[employer]/faq/YYS282) CHOL/HDL RATIO 2.3 <5.0 (calc) [facility] TOTAL NON-HDL CHOL(LDL+VLDL) 70 <130 mg/dL (calc) [facility] Comment: For patients with diabetes plus 1 major ASCVD risk factor, treating to a non-HDL-C goal of <100 mg/dL (LDL-C of <70 mg/dL) is considered a therapeutic option. Test Performed at: [facility] [id number] [facility] [place] [address] Rimma Leahy MD Blood 10/31/2022 8:51 AM CDT 11/01/2022 3:30 AM CDT Fabiana Lugo ELECTRICAL INSTALLER CHEMISTRY ORDERABLES Fin al Result [facility] [phone] [facility] [address] [place] [address] from Last 3 Months or Most Recently Relevant to Health Maintenance Insurance [place]ICAID [place] Care Teams Dcs Engineer Relationship Specialty Start Date End Date Arturo Davila MD [address] [facility] [facility] [address] [place] [phone] PCP - General Family Practice 10/30/22
--- OUTSIDE RECORDS SUMMARY | 2024-10-02 16:53 | XMS_ITS | Encounter Summary ---
Author Organization [facility] Address [address] [place] [address] Care Team Providers Care Computer Technician Name Role Phone Unavailable Primary Care Provider Unavailabl e Encounter Details Date Type Department Care Team (Late st Contact Info) Description 08/30/2003 Outpatient Historical [facility] Spine [facility] [address] [place] [address] Dustin Alvarado MD [address] [place] [address] JOINT PAIN-SHLDER (Primary Dx); CERVICALGIA; Cervical disc displacmnt; LUMBAGO Social History Tobacco Use Types Packs/Day Years Used Date Smoking Tobacco: Never Assessed Comments Unknown Sex and Gender Information Value Date Recorded Sex Assigned at Not on file 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
--- OUTSIDE RECORDS SUMMARY | 2024-10-02 16:53 | XMS_ITS | Encounter Summary ---
Author Organization [facility] Address [address] [place] [address] Care Team Providers Care Setter Automatic Spinning Lathe Name Role Phone Unavailable Primary Care Provider Unavailabl e Encounter Details Date Type Department Care Team (Latest Contact Info) Description 04/06/2003 Outpatient Historical [facility] [address], [place] [address] Haroldo Garay MD [address], [place] [phone] SPRAIN NOS (Primary Dx); SPASM OF MUSCLE Social History Tobacco Use Types Packs/Day Years Used Date Smoking Tobacco: Never Assessed Comments Unknown Sex and Gender Information Value Date Recorded Sex Assigned at Not on file Legal Sex Female 5:57 AM CARTON STENCILER Gender Identity Not on file Sexual Orientation Not on file documented as of this encounter Plan of Treatment Not on file documented as of this encounter Visit Diagnoses Diagnosis Unspecified site of sprain and strain- Primary Spasm of muscle documented in this encounter
--- OUTSIDE RECORDS SUMMARY | 2024-10-02 16:53 | XMS_ITS | Encounter Summary ---
Author Organization [facility] Address [address] [place] [address] Care Team Providers Care Quality Tester Name Role Phone Unavailable Primary Care Provider Unavailabl e Encounter Details Date Type Department Care Team (Late st Contact Info) Description 06/14/2003 Outpatient Historical [facility] [address] [place] [address] Dustin Alvarado MD [address] [place] [address] LUMBAGO (Primary Dx) Social History Tobacco Use Types Packs/Day Years Used Date Smoking Tobacco: Never Assessed Comments Unknown Sex and Gender Information Value Date Recorded Sex Assigned at Not on file 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
--- OUTSIDE RECORDS SUMMARY | 2024-10-02 16:53 | XMS_ITS | Encounter Summary ---
Author Organization [facility] Address [address] [place] [address] Care Team Providers Care Churn Operator Name Role Phone Unavailable Primary Care Provider Unavailabl e Encounter Details Date Type Department Care Team (Late st Contact Info) Description 08/02/2003 Outpatient Historical [facility] [address] [place] [address] [facility] [address] [place] [address] Dustin Alvarado MD [address] [place] [address] CERVICALGIA (Primary Dx) Social History Tobacco Use Types Packs/Day Years Used Date Smoking Tobacco: Never Assessed Comments Unknown Sex and Gender Information Value Date Recorded Sex Assigned at Not on file 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
--- OUTSIDE RECORDS SUMMARY | 2024-10-02 16:53 | XMS_ITS | Encounter Summary ---
Author Organization [facility] Address [address] [place] [address] Care Team Providers Care Welder Plastic Name Role Phone Unavailable Primary Care Provider Unavailabl e Encounter Details Date Type Department Care Team (Latest Contact Info) Description 01/24/2003 Outpatient Historical [facility] [address] [address] Haroldo Garay MD [address] [place] [phone] CONTUSION OF KNEE (Primary Dx); HYPOTHYROIDISM NOS Social History Tobacco Use Types Packs/Day Years Used Date Smoking Tobacco: Never Assessed Comments Unknown Sex and Gender Information Value Date Recorded Sex Assigned at Not on file 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
--- OUTSIDE RECORDS SUMMARY | 2024-10-02 16:53 | XMS_ITS | Encounter Summary ---
Author Organization [facility] Address [address] [place] [address] Care Team Providers Care 4Th Grade Math Teacher Name Role Phone Unavailable Primary Care Provider Unavailabl e Encounter Details Date Type Department Care Team (Latest Contact Info) Description 06/07/2003 Outpatient Historical [facility] [address] [address] Haroldo Garay MD [address] [phone] MASTODYNIA (Primary Dx) Social History Tobacco Use Types Packs/Day Years Used Date Smoking Tobacco: Never Assessed Comments Unknown Sex and Gender Information Value Date Recorded Sex Assigned at Not on file 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
--- OUTSIDE RECORDS SUMMARY | 2024-10-02 16:53 | XMS_ITS | Encounter Summary ---
Author Organization [facility] Address [address] [place] [address] Care Team Providers Care Check Writing Machine Operator Name Role Phone Unavailable Primary Care Provider Unavailabl e Encounter Details Date Type Department Care Team (Latest Contact Info) Description 07/17/2003 Outpatient Historical [address] [address] Melba Aguayo MD [address], [address] JOINT PAIN-L/LEG (Primary Dx); OSTEOARTHROS NOS-OTHER SITE Social History Tobacco Use Types Packs/Day Years Used Date Smoking Tobacco: Never Assessed Comments Unknown Sex and Gender Information Value Date Recorded Sex Assigned at Not on file Legal Sex Female 5:57 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
--- OUTSIDE RECORDS SUMMARY | 2024-10-02 16:53 | XMS_ITS | Encounter Summary ---
Author Organization [facility] Address [address] [place] [address] Care Team Providers Care Sawmill Equipment Operator Name Role Phone Unavailable Primary Care Provider Unavailabl e Encounter Details Date Type Department Care Team (Late st Contact Info) Description 05/24/2003 Outpatient Historical [facility] Spine [facility] [address] [place] [phone] Dustin Alvarado MD [address] [place] [address] LUMBOSACRAL NEURITIS NOS (Primary Dx); ARTHROPATHY NOS-OTHER SITE; MYALGIA AND MYOSITIS NOS Social History Tobacco Use Types Packs/Day Years Used Date Smoking Tobacco: Never Assessed Comments Unknown Sex and Gender Information Value Date Recorded Sex Assigned at Not on file Legal Sex Female 5:57 AM CORRECTIVE AND MANUAL ARTS THERAPIST Gender Identity Not on file Sexual Orientation Not on file documented as of this encounter Plan of Treatment Not on file documented as of this encounter Visit Diagnoses Diagnosis Thoracic or lumbosacral neuritis or radiculitis, unspecified- Primary Arthropathy, unspecified, other specified sites Myalgia and myositis, unspecified Mylagia and myositis, unspecified documented in this encounter
--- OUTSIDE RECORDS SUMMARY | 2024-10-02 16:53 | XMS_ITS | Encounter Summary ---
Author Organization [facility] Address [address] [place] [address] Care Team Providers Care Money Room Teller Name Role Phone Unavailable Primary Care Provider Unavailabl e Encounter Details Date Type Department Care Team (Latest Contact Info) Description 03/20/2003 Outpatient Historical [facility] [address], [place] [address] Haroldo Garay MD [address], [place] [phone] Sprain lumbar region (Primary Dx); Sprain thoracic region; INSOMNIA NEC; GENERALIZED ANXIETY DIS Social History Tobacco Use Types Packs/Day Years Used Date Smoking Tobacco: Never Assessed Comments Unknown Sex and Gender Information Value Date Recorded Sex Assigned at Not on file 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
--- OUTSIDE RECORDS SUMMARY | 2024-10-02 16:53 | XMS_ITS | Encounter Summary ---
Author Organization [facility] Address [address] [place] [address] Care Team Providers Care Shopper'S Aide Name Role Phone Unavailable Primary Care Provider Unavailabl e Encounter Details Date Type Department Care Team (Late st Contact Info) Description 05/17/2003 Outpatient Historical [facility] [address] [place] [address] [facility] [address] [place] [address] Dustin Alvarado MD [address] [place] [address] LUMBAGO (Primary Dx) Social History Tobacco Use Types Packs/Day Years Used Date Smoking Tobacco: Never Assessed Comments Unknown Sex and Gender Information Value Date Recorded Sex Assigned at Not on file 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
--- OUTSIDE RECORDS SUMMARY | 2024-10-02 16:53 | XMS_ITS | Encounter Summary ---
Author Organization [facility] Address [address] [place] [address] Care Team Providers Care Health And Human Performance Professor Name Role Phone Unavailable Primary Care Provider Unavailabl e Encounter Details Date Type Department Care Team (Latest Contact Info) Description 02/09/2003 Outpatient Historical [facility] [address] [address] Haroldo Garay MD [address] [phone] CARBUNCLE NOS (Primary Dx) Social History Tobacco Use Types Packs/Day Years Used Date Smoking Tobacco: Never Assessed Comments Unknown Sex and Gender Information Value Date Recorded Sex Assigned at Not on file Legal Sex Female 5:57 AM TOOL OPERATOR Gender Identity Not on file Sexual Orientation Not on file documented as of this encounter Plan of Treatment Not on file documented as of this encounter Visit Diagnoses Diagnosis Carbuncle and furuncle of unspecified site- Primary documented in this encounter
--- OUTSIDE RECORDS SUMMARY | 2024-10-02 16:53 | XMS_ITS | Encounter Summary ---
Author Organization [facility] Address [address] [place] [address] Care Team Providers Care Kiln Door Repairer Name Role Phone Unavailable Primary Care Provider Unavailabl e Encounter Details Date Type Department Care Team (Latest Contact Info) Description 08/25/2003 Outpatient Historical [facility] [address] [address] Anahi Harrison MD [address] [place] [address] URIN TRACT INFECTION NOS (Primary Dx) Social History Tobacco Use Types Packs/Day Years Used Date Smoking Tobacco: Never Assessed Comments Unknown Sex and Gender Information Value Date Recorded Sex Assigned at Not on file Legal Sex Female 5:57 AM TAX RECORD CLERK Gender Identity Not on file Sexual Orientation Not on file documented as of this encounter Plan of Treatment Not on file documented as of this encounter Visit Diagnoses Diagnosis Urinary tract infection, site not specified- Primary documented in this encounter
--- OUTSIDE RECORDS SUMMARY | 2024-10-02 16:53 | XMS_ITS | Encounter Summary ---
Author Organization [facility] Address [address] [place] [address] Care Team Providers Care Insulation Mechanic Name Role Phone Unavailable Primary Care Provider Unavailabl e Encounter Details Date Type Department Care Team (Late st Contact Info) Description 08/02/2003 Outpatient Historical [facility] Services Natalia [address] 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
--- OUTSIDE RECORDS SUMMARY | 2024-10-02 16:53 | XMS_ITS | Encounter Summary ---
Author Organization [facility] Address [address] [place] [address] Care Team Providers Care Rodbuster Name Role Phone Unavailable Primary Care Provider Unavailabl e Encounter Details Date Type Department Care Team (Late st Contact Info) Description 08/30/2003 Outpatient Historical [facility] [address] [place] [address] [facility] [address] [place] [address] Dustin Alvarado MD [address] [place] [address] LUMBAGO (Primary Dx) Social History Tobacco Use Types Packs/Day Years Used Date Smoking Tobacco: Never Assessed Comments Unknown Sex and Gender Information Value Date Recorded Sex Assigned at Not on file Legal Sex Female 5:57 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
--- OUTSIDE RECORDS SUMMARY | 2024-10-02 16:53 | XMS_ITS | Encounter Summary ---
Author Organization [facility] Address [address] [place] [address] Care Team Providers Care Facility Environmental Technician Name Role Phone Unavailable Primary Care Provider Unavailabl e Encounter Details Date Type Department Care Team (Late st Contact Info) Description 05/24/2003 Outpatient Historical [facility] [address] [place] [address] [facility] [address] [place] [address] Dustin Alvarado MD [address] [place] [address] LUMBOSACRAL NEURITIS NOS (Primary Dx) Social History Tobacco Use Types Packs/Day Years Used Date Smoking Tobacco: Never Assessed Comments Unknown Sex and Gender Information Value Date Recorded Sex Assigned at Not on file 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
--- OUTSIDE RECORDS SUMMARY | 2024-10-02 16:53 | XMS_ITS | Encounter Summary ---
Author Organization [facility] Address [address] [place] [address] Care Team Providers Care Solar Photovoltaic Electrician Name Role Phone Unavailable Primary Care Provider Unavailabl e Encounter Details Date Type Department Care Team (Latest Contact Info) Description 04/14/2003 Outpatient Historical [facility] [address], [place] [address] Haroldo Garay MD [address] [place] [phone] SCIATICA (Primary Dx) Social History Tobacco Use Types Packs/Day Years Used Date Smoking Tobacco: Never Assessed Comments Unknown Sex and Gender Information Value Date Recorded Sex Assigned at Not on file Legal Sex Female 5:57 AM TELEVISION ANNOUNCER Gender Identity Not on file Sexual Orientation Not on file documented as of this encounter Plan of Treatment Not on file documented as of this encounter Visit Diagnoses Diagnosis Sciatica- Primary documented in this encounter
--- NOTE | 2024-10-02 16:56 | ECG_ITS ---
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 Measurements Intervals [place] Rate: 83 P: 54 CO: 133 QRS: 39 QRSD: 86 T: 72 QT: 363 QTc: 427 Interpretive Statements SINUS RHYTHM NONSPECIFIC T-WAVE ABNORMALITY Compared to ECG 08/07/2024 04:47:37 No significant changes Electronically Signed On 10-04-2024 09:59:23 CDT by Murphy Jewell M.D. [email or web address]
--- NOTE | 2024-10-02 18:20 | CTR_ITS ---
PROCEDURE INFORMATION: Exam: CT Head Without Contrast Exam date and time: 10/02/2024 7:04 PM Age: 64 years old Clinical indication: Dizziness with hypertension. History of left posterior CVA. TECHNIQUE: Imaging protocol: Computed tomography of the head without contrast. Radiation optimization: All CT scans at this facility use at least one of these dose optimization techniques: automated exposure control; mA and/or kV adjustment per patient size (includes targeted exams where dose is matched to clinical indication); or iterative reconstruction. COMPARISON: MR head wo con* [id number] 08/07/2024 3:36 PM RADIATION DOSE METRICS: Total DLP (mGy-cm): 1146.86 FINDINGS: Brain: 5 cm chronic left parieto-occipital is unchanged. Bilateral periventricular and basal ganglia lacunar infarcts are again noted. Confluent bilateral white matter hypodensity is compatible with chronic small-vessel ischemic changes, as noted on prior exam. An 8 mm hypodensity has developed in the right alirio. Other portions brainstem are obscured by skull base streak artifact. Small, chronic cerebellar infarcts appear unchanged. No mass effect or midline shift. No intracranial hemorrhage. Cerebral ventricles: Ventricle size is normal. Paranasal sinuses: Mild mucosal thickening ethmoid air cells. Mastoid air cells: Mastoid air cells are clear. Bones: No suspicious osseous lesions. Soft tissues: Unremarkable. CT/CT head wo con* [id number] IMPRESSION: 1. 8 mm hypodensity has developed in the right alirio, which could represent subacute or old infarct. MRI evaluation of this finding is recommended to assess acuity. 2. Numerous additional cerebral and cerebellar infarcts are again noted.
--- NOTE | 2024-10-02 18:34 | W.ED.DIZZY ---
HPI - Dizziness General: Chief Complaint: Dizziness Stated Complaint: dizzy Time Seen by Provider: 10/02/24 18:15 History of Present Illness: HPI Narrative: 64-year-old female with a history of a recently diagnosed stroke, obesity and diabetes who presents emergency room with dizziness. She says she got dizzy and fell. Still feels a little bit dizzy but otherwise has no focal deficits. No slurred speech. No altered mental status. Related Data Home Medications ?Medication ?Instructions ?Recorded ?Confirmed atorvastatin 40 mg tablet 40 mg PO DAILY 08/07/24 08/07/24 empagliflozin 10 mg tablet 10 mg PO QAM 08/07/24 08/07/24 (Jardiance) gabapentin 600 mg tablet 600 mg PO TID 08/07/24 08/07/24 insulin glargine 100 unit/mL (3 20 unit SUBCUT BID 08/07/24 08/07/24 mL) subcutaneous pen (Lantus Solostar U-100 Insulin) insulin lispro 100 unit/mL See Rx Instructions .Route .COMPLEX 08/07/24 08/07/24 subcutaneous pen tramadol 50 mg tablet See Rx Instructions .Route .COMPLEX 08/07/24 08/07/24 Previous Rx's ?Medication ?Instructions ?Recorded amlodipine 10 mg tablet 10 mg PO DAILY #30 tabs 08/09/24 aspirin 81 mg chewable tablet 81 mg PO DAILY #30 tabs 08/09/24 levothyroxine 175 mcg capsule 175 mcg PO DAILY #60 caps 08/09/24 losartan 50 mg tablet 100 mg (2 x 50 mg) PO DAILY #60 08/09/24 tabs atorvastatin 80 mg tablet (Lipitor) 80 mg PO DAILY #30 tabs 10/02/24 clopidogrel 75 mg tablet (Plavix) 75 mg PO DAILY #30 tabs 10/02/24 Allergies Allergy/AdvReac Type Severity Reaction Status Date / Time Penicillins Allergy ALGY-Swell Verified 10/02/24 17:01 Lip/Tongue/Throat Review of Systems Narrative: Constitutional symptoms: Negative except as documented in HPI. Skin symptoms: Negative except as documented in HPI. Eye symptoms: Negative except as documented in HPI. ENMT symptoms: Negative except as documented in HPI. Respiratory symptoms: Negative except as documented in HPI. Cardiovascular symptoms: Negative except as documented in HPI. Gastrointestinal symptoms: Negative except as documented in HPI. Genitourinary symptoms: Negative except as documented in HPI. Musculoskeletal symptoms: Negative except as documented in HPI. Neurologic symptoms: Negative except as documented in HPI. Psychiatric symptoms: Negative except as documented in HPI. Endocrine symptoms: Negative except as documented in HPI. 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 Pain management contract signed Pyelonephritis of right kidney Sleep apnea Hypertension Lumbar spondylolysis Spondylolisthesis of lumbosacral region Intervertebral disc disorder with radiculopathy of lumbosacral region Surgical History H/O laminectomy H/O: hysterectomy Family History (Updated 08/07/24 @ 03:49 by Tiffani Owens MD) Family/Other Diabetes Colon cancer dx'ed in her Aunt Mother Diabetes Social History (Updated 08/07/24 @ 03:50 by Tiffani Owens MD) Smoking and tobacco/nicotine status: former use of tobacco/nicotine Quit status (tobacco/nicotine): has quit using Former quit date comment: quit over 10 - 50 yrs ago, Alcohol intake: never Substance/Drug Use: never Household members: family and other Details: son Marital status: Single Current occupational status: unemployed Physical Exam Narrative: EXAM NARRATIVE: General: Alert, no acute distress. Skin: Warm, dry. Head: Normocephalic, atraumatic. Neck: Supple, trachea midline. Eye: Extraocular movements are intact. Ears, nose, mouth and throat: mucosa moist. Cardiovascular: Regular, Normal peripheral perfusion. Respiratory: Lungs are clear to auscultation, respirations are non-labored, breath sounds are equal, Symmetrical chest wall expansion. Gastrointestinal: Soft, Nontender, Non distended Musculoskeletal: Normal ROM, no deformity. Neurological: Alert and oriented, No focal neurological deficit observed. Psychiatric: Cooperative, appropriate mood & affect. Course Vital Signs: Vital signs: Vital Signs Temperature 98.1 F 10/02/24 16:50 Pulse Rate 70 10/02/24 18:53 Respiratory Rate 20 H 10/02/24 18:53 Blood Pressure 126/94 10/02/24 16:50 Pulse Oximetry 98 10/02/24 18:53 Oxygen Delivery Me thod Room Air 10/02/24 18:53 MDM - Dizziness Medical Decision Making Medical decision making: Differential diagnosis including but not limited to and based on the above HPI, review of systems and physical exam: for patient with complaint of dizziness: stroke, hypotension, hypertension, infection, vertigo, orthostasis Orders placed to evaluate differential diagnosis based on the above differential, HPI and physical exam EKG: Time 1856. Rate 83. Normal sinus rhythm, No ST-T changes, no ectopy, normal HI & QRS intervals, This was reviewed and interpreted by myself the ER physician at 1900. Chest x-ray: No acute process. No infiltrate. No pneumothorax. This was reviewed and interpreted by myself the emergency room physician. I also reviewed the radiology report. CT of the head without contrast: 8 mm hypodensity is developed in the right alirio which could be a subacute or old infarct. This was not present 6 weeks ago. This could very well be the cause of the patient's dizziness. Lab Review: Laboratory results were reviewed and interpreted by myself the emergency room physician. No leukocytosis. No anemia. No renal failure. I reviewed the patient's medical record. Patient had recent admission with echocardiogram and CT angiogram and MRI. She does have fairly extensive small vessel disease in the M&P distributions. She had just been started on aspirin at discharge at that time as this was her first diagnosis with a stroke and she had not been on anything previously. Consultation: I spoke with Dr. Rosado who is on-call for neurology. He does not feel the patient needs readmitted since she had all the studies done previously. He recommends increasing of her statin to 40 mg daily and the addition of Plavix. Reexamination: Patient remained stable. No increased work of breathing. No altered mental status. No focal motor deficits. Assessment and plan: Recurrent CVA ?First dose of Plavix in the emergency room - Discharged home - Discussed plan with patient. Answered any questions. - Evaluation and treatment of this problem were appropriate in the emergency setting. Lab Data 10/02/24 18:45 10/02/24 18:45 Radiology Impressions Chest X-Ray 10/02/24 16:45 IMPRESSION: No acute findings. Head CT 10/02/24 18:20 IMPRESSION: 1. 8 mm hypodensity has developed in the right alirio, which could represent subacute or old infarct. MRI evaluation of this finding is recommended to assess acuity. 2. Numerous additional cerebral and cerebellar infarcts are again noted. ADDENDUM: 10/02/241946 Findings were discussed with SUSAN YUNG at 10/02/2024 7:46 PM CDT. Laboratory Results WBC 9.72 10^3/uL (3.29-11.43) 10/02/24 18:45 RBC 5.05 10^6/uL (3.85-5.65) 10/02/24 18:45 Hgb 15.00 g/dL (11.27-16.99) 10/02/24 18:45 Hct 44.7 % (36-47) 10/02/24 18:45 MCV 88.5 fl (85-98) 10/02/24 18:45 MCH 29.7 pg (27-33) 10/02/24 18:45 MCHC 33.6 g/dL (30-55) 10/02/24 18:45 RDW 13.6 % (12.1-15.1) 10/02/24 18:45 Plt Count 226 10^3/cmm (157-399) 10/02/24 18:45 MPV 11.6 fL (7.4-10.4) H 10/02/24 18:45 Neut % (Auto) 74.5 % 10/02/24 18:45 Lymph % (Auto) 18.4 % 10/02/24 18:45 [place]er % (Auto) 4.8 % 10/02/24 18:45 Eos % (Auto) 1.5 % 10/02/24 18:45 Baso % (Auto) 0.6 % 10/02/24 18:45 Neut # (Auto) 7.23 10^3/uL (1.8-7.7) 10/02/24 18:45 Lymph # (Auto) 1.8 10^3/uL (0.8-4.8) 10/02/24 18:45 [place]tinger # (Auto) 0.5 10^3/uL (0.2-0.9) 10/02/24 18:45 Eos # (Auto) 0.2 10^3/uL (0.0-0.8) 10/02/24 18:45 Baso # (Auto) 0.1 10^3/uL (0.0-0.1) 10/02/24 18:45 Nucleated RBC % (auto) 0 % 10/02/24 18:45 Nucleated RBCs # 0.0 /100WBC 10/02/24 18:45 Sodium 137 mmol/L (136-145) 10/02/24 18:45 Potassium 4.1 mmol/L (3.5-5.1) 10/02/24 18:45 Chloride 99 mmol/L (98-107) 10/02/24 18:45 Carbon Dioxide 24 mmol/L (22-29) 10/02/24 18:45 Anion Gap 18.1 (5-19) 10/02/24 18:45 BUN 14 mg/dL (8-23) 10/02/24 18:45 Creatinine 1.0 mg/dL (0.5-0.9) H 10/02/24 18:45 GFR Calculation 56.2 mL/min (90-130) L 10/02/24 18:45 Glucose 185 mg/dL (65-115) H 10/02/24 18:45 Calculated Osmolality 289 mOsm/kg (285-295) 10/02/24 18:45 Lactic Acid 0.9 mmol/L (0.5-2.2) 10/02/24 18:45 Calcium 10.0 mg/dL (8.5-10.5) 10/02/24 18:45 Total Bilirubin 0.4 mg/dL (0.15-1.2) 10/02/24 18:45 AST 14 U/L (0-32) 10/02/24 18:45 ALT 11 U/L (0-33) 10/02/24 18:45 Alkaline Phosphatase 144 U/L (35-105) H 10/02/24 18:45 C-Reactive Protein 24.5 mg/L (0.0-4.9) H 10/02/24 18:45 Total Protein 7.4 g/dL (6.6-8.7) 10/02/24 18:45 Albumin 4.1 g/dL (3.5-5.2) 10/02/24 18:45 Globulin 3.3 g/dL (1.3-4.6) 10/02/24 18:45 TSH 6.46 uIU/mL (0.27-4.20) H 10/02/24 18:45 Amorphous Sediment Not Reportable 10/02/24 19:50 All radiology interpretation(s) finalized by discharge Discharge Plan Discharge Patient Disposition: Home Clinical Impression: Cerebrovascular accident Condition: Stable Prescriptions: New atorvastatin [Lipitor] 80 mg tablet 80 mg PO DAILY Qty: 30 1RF clopidogrel [Plavix] 75 mg tablet 75 mg PO DAILY Qty: 30 1RF No Action gabapentin 600 mg tablet 600 mg PO TID tramadol 50 mg tablet See Rx Instructions .ROUTE .COMPLEX Rx Instructions: TAKE 1-2 TABLETS ORALLY EVERY 6 HOURS; DO NOT EXCEED 300MG/DAY NEEDED FOR PAIN insulin lispro 100 unit/mL insulin pen See Rx Instructions .ROUTE .COMPLEX Rx Instructions: Inject 10 units Subcutaneous; 15 minutes before or immediately after a meal three times daily insulin glargine [Lantus Solostar U-100 Insulin] 100 unit/mL (3 mL) insulin pen 20 unit SUBCUT BID atorvastatin 40 mg tablet 40 mg PO DAILY Jardiance 10 mg tablet 10 mg PO QAM losartan 50 mg Tablet 100 mg PO DAILY Qty: 60 0RF levothyroxine 175 mcg capsule 175 mcg PO DAILY Qty: 60 0RF amlodipine 10 mg tablet 10 mg PO DAILY Qty: 30 0RF aspirin 81 mg Tablet,Chewable 81 mg PO DAILY Qty: 30 0RF Discharge Orders: Discharge ED (Routine); Ordered 10/02/24 Ordered By: Susan Yung Referrals: Manuelito Rosado MD [Physician, Neurology] - 7-10 days Referral Note: Please call for a follow-up appointment tomorrow morning. Lisa Welch FNP [Primary Care Provider, Unknown] Discharge Diet: Usual diet Discharge Activity: Increase activity as tolerated Patient Instructions: Opioid Safety, Pain Management, Patient Portal & Candice Instructions Activity Restrictions/Additional Instructions: Discontinue 40 mg atorvastatin and start 80 mg. Continue baby aspirin along with the addition of Plavix. Call the neurology office for follow-up. They like to work you in in the next 1 to 2 weeks. Thank you for choosing [facility] for your healthcare needs today. You have been screened and evaluated and felt safe for discharge. Health conditions do change or evolve sometimes and as such it is important that you follow up with your Primary Doctor to be re checked, 3-5 days is a general good time frame for follow up. You are always welcome to return to the ED for re assessment if your symptoms are worsening or you have new concerns Print Language: Mongolian Coding Level of Care Code ED Drop Press Hand for Joyce Keita
[2024-10-02 18:53] VITALS: PULSE 70; RESP 20; O2SAT 98
[2024-10-02 19:00] LABS: Hematocrit 44.7 % (36-47); Hemoglobin 15.00 g/dL (11.27-16.99); Mean Corpuscular HGB Conc 33.6 g/dL (30-55); Mean Corpuscular Hemoglobin 29.7 pg (27-33); Mean Corpuscular Volume 88.5 fl (85-98); Nucleated Red Blood Cells % 0 %; Platelet Count 226 10^3/cmm (157-399); Red Blood Count 5.05 10^6/uL (3.85-5.65); White Blood Count 9.72 10^3/uL (3.29-11.43)
[2024-10-02 19:16] LABS: Lactic Sepsis W/Reflex 0.9 mmol/L (0.5-2.2)
[2024-10-02 19:29] LABS: Alanine Aminotransferase 11 U/L (0-33); Albumin Level 4.1 g/dL (3.5-5.2); Alkaline Phosphatase 144 U/L (35-105); Anion Gap 18.1 (5-19); Aspartate Amino Transferase 14 U/L (0-32); Blood Urea Nitrogen 14 mg/dL (8-23); Calcium 10.0 mg/dL (8.5-10.5); Carbon Dioxide 24 mmol/L (22-29); Chloride 99 mmol/L (98-107); Creatinine Clr Calc Pharmacy 80.0145; Globulin 3.3 g/dL (1.3-4.6); Glucose 185 mg/dL (65-115); Osmolality Calculated 289 mOsm/kg (285-295); Potassium 4.1 mmol/L (3.5-5.1); Sodium 137 mmol/L (136-145); Thyroid Stimulating Hormone 6.46 uIU/mL (0.27-4.20); Total Protein 7.4 g/dL (6.6-8.7)
[2024-10-02 20:02] LABS: Glucose Urine UA 1+ (Normal); Nitrate Urine Negative (Negative); Specific Gravity, Urine 1.027 (1.005-1.030)
[2024-10-02 20:16] VITALS: BP 197/103; PULSE 76; RESP 20; O2SAT 96
[2024-10-02 20:32] LABS: UA Slide Review UA Slide Review Perf
== END 2024-10-02 20:18 | disposition home or self-care (01) ==
PROVIDERS: Emergency Medicine; Emergency Provider Emergency Medicine; PCP Nurse Practitioner Family
DX: I63.9 Cerebral infarction, unspecified (principal); Z79.82 Long term (current) use of aspirin; Z79.4 Long term (current) use of insulin; Z87.891 Personal history of nicotine dependence; E11.9 Type 2 diabetes mellitus without complications; I10 Essential (primary) hypertension
CPT/HCPCS: 36415; 70450; 71045; 80053; 81001; 83605; 84443; 85025; 86140; 87040; 87086; 93005; 99285; J9999

== ENCOUNTER 2024-10-06 08:15 | Emergency (ER) | payer MEDICAID, SELFPAY ==
--- NOTE | 2024-10-06 08:21 | XR_ITS ---
WS: [id number] XR hip LT 2-3V wo/w pel* [id number] REASON FOR EXAM: pain FINDINGS: Suboptimal technique. The right hip appears unchanged compared to 12/14/2018. No fracture identified. Mild to moderate osteoarthritis. XR/XR hip LT 2-3V wo/w pel* [id number] IMPRESSION: Suboptimal technique with no fracture identified.
[2024-10-06 08:22] VITALS: BP 204/98; PULSE 71; RESP 16; TEMP 36.6; O2SAT 98; BMI 36.9
--- NOTE | 2024-10-06 08:24 | W.ED.GENADLT ---
HPI - General Adult General: Chief complaint: Extremity Injury, Lower Stated complaint: back pain Time Seen by Provider: 10/06/24 08:16 History of Present Illness: 64-year-old female presents emergency room complaining of low back pain and left hip pain. Is been going on for several days she was seen a few days ago at [facility] diagnosed a UTI started on oral antibiotics she denies any fever sweats chills or morning she rolled out of bed has worsening hip pain she did not strike her head there is no loss conscious denies any other injuries Associated symptoms: Deny chest pain, dyspnea or rash Related Data Home Medications ?Medication ?Instructions ?Recorded ?Confirmed atorvastatin 40 mg tablet 40 mg PO DAILY 08/07/24 08/07/24 empagliflozin 10 mg tablet 10 mg PO QAM 08/07/24 08/07/24 (Jardiance) gabapentin 600 mg tablet 600 mg PO TID 08/07/24 08/07/24 insulin glargine 100 unit/mL (3 20 unit SUBCUT BID 08/07/24 08/07/24 mL) subcutaneous pen (Lantus Solostar U-100 Insulin) insulin lispro 100 unit/mL See Rx Instructions .Route .COMPLEX 08/07/24 08/07/24 subcutaneous pen tramadol 50 mg tablet See Rx Instructions .Route .COMPLEX 08/07/24 08/07/24 Previous Rx's ?Medication ?Instructions ?Recorded amlodipine 10 mg tablet 10 mg PO DAILY #30 tabs 08/09/24 aspirin 81 mg chewable tablet 81 mg PO DAILY #30 tabs 08/09/24 levothyroxine 175 mcg capsule 175 mcg PO DAILY #60 caps 08/09/24 losartan 50 mg tablet 100 mg (2 x 50 mg) PO DAILY #60 08/09/24 tabs atorvastatin 80 mg tablet (Lipitor) 80 mg PO DAILY #30 tabs 10/02/24 clopidogrel 75 mg tablet (Plavix) 75 mg PO DAILY #30 tabs 10/02/24 Allergies Allergy/AdvReac Type Severity Reaction Status Date / Time Penicillins Allergy ALGY-Swell Verified 10/02/24 17:01 Lip/Tongue/Throat Review of Systems Const: Denies: fever(s) or chills Card: Denies: chest pain Resp: Denies: dyspnea GI: Denies: abdominal pain : Denies: dysuria, urinary frequency or urinary urgency Musc: Reports: joint pain; Denies: neck pain or back pain Skin/Breast: Denies: rash PFSH ED PFSH: Medical History (Updated 10/06/24 @ 09:33 by Bautista Ordaz DO) Diabetes mellitus 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 Pain management contract signed Pyelonephritis of right kidney Sleep apnea Hypertension Lumbar spondylolysis Spondylolisthesis of lumbosacral region Intervertebral disc disorder with radiculopathy of lumbosacral region Surgical History H/O laminectomy H/O: hysterectomy Family History (Updated 08/07/24 @ 03:49 by Tiffani Owens MD) Family/Other Diabetes Colon cancer dx'ed in her Aunt Mother Diabetes Social History (Updated 08/07/24 @ 03:50 by Tiffani Owens MD) Smoking and tobacco/nicotine status: former use of tobacco/nicotine Quit status (tobacco/nicotine): has quit using Former quit date comment: quit over 10 - 50 yrs ago, Alcohol intake: never Substance/Drug Use: never Household members: family and other Details: son Marital status: Single Current occupational status: unemployed Physical Exam Const: COMMON NORMALS: no acute distress GENERAL APPEARANCE: cooperative and comfortable ORIENTATION/CONSCIOUSNESS: Yes awake, Yes oriented to person, Yes oriented to place and Yes oriented to time HENMT: COMMON NORMALS: normocephalic, atraumatic and hearing grossly normal bilaterally HEAD & SCALP: normocephalic and atraumatic Resp: COMMON NORMALS: normal respiratory effort, No retractions, No use of accessory muscles and clear to auscultation bilaterally AUSCULTATION: clear to auscultation bilaterally Cardio: COMMON NORMALS: regular rate, regular rhythm and No murmurs present (Cardio) RATE: regular rate RHYTHM: regular rhythm GI: COMMON NORMALS: Soft to palpation and No hepatosplenomegaly present AUSCULTATION: Yes normoactive bowel sounds PALPATION: Yes Soft to palpation, No Tenderness to palpation present (GI), No Guarding due to palpation present (GI) and Yes No hepatosplenomegaly present Extremity: COMMON NORMALS: normal to inspection, capillary refill normal, no clubbing, cyanosis or edema, no calf tenderness and no pedal edema Neuro: SENSORIUM/ORIENTATION: Yes oriented to person, Yes oriented to place and Yes oriented to time Skin: COMMON NORMALS: no rashes or lesions noted GENERAL SKIN EXAM: no rashes or lesions noted Course Vital Signs: Vital signs: Vital Signs Temperature 97.8 F 10/06/24 08:22 Pulse Rate 66 10/06/24 09:35 Respiratory Rate 16 10/06/24 09:35 Blood Pressure 170/78 10/06/24 09:35 Pulse Oximetry 99 10/06/24 09:35 Oxygen Delivery Me thod Room Air 10/06/24 08:22 MDM - General Adult Medical Decision Making No acute fractures will discharge home. Follow-up with primary care continue antibiotics for her cystitis. These were prescribed previously Lab Data 10/06/24 09:10 10/06/24 09:10 Radiology Impressions Hip/Pelvis X-Ray 10/06/24 08:21 IMPRESSION: Suboptimal technique with no fracture identified. Lumbar Spine X-Ray 10/06/24 08:43 IMPRESSION: Stable posterior lumbar fusion with no acute abnormality. Laboratory Results WBC 6.27 10^3/uL (3.29-11.43) 10/06/24 09:10 RBC 4.41 10^6/uL (3.85-5.65) 10/06/24 09:10 Hgb 13.00 g/dL (11.27-16.99) 10/06/24 09:10 Hct 39.2 % (36-47) 10/06/24 09:10 MCV 88.9 fl (85-98) 10/06/24 09:10 MCH 29.5 pg (27-33) 10/06/24 09:10 MCHC 33.2 g/dL (30-55) 10/06/24 09:10 RDW 13.5 % (12.1-15.1) 10/06/24 09:10 Plt Count 186 10^3/cmm (157-399) 10/06/24 09:10 MPV 11.7 fL (7.4-10.4) H 10/06/24 09:10 Neut % (Auto) 68.9 % 10/06/24 09:10 Lymph % (Auto) 19.8 % 10/06/24 09:10 [place] % (Auto) 7.5 % 10/06/24 09:10 Eos % (Auto) 2.9 % 10/06/24 09:10 Baso % (Auto) 0.6 % 10/06/24 09:10 Neut # (Auto) 4.32 10^3/uL (1.8-7.7) 10/06/24 09:10 Lymph # (Auto) 1.2 10^3/uL (0.8-4.8) 10/06/24 09:10 [place] # (Auto) 0.5 10^3/uL (0.2-0.9) 10/06/24 09:10 Eos # (Auto) 0.2 10^3/uL (0.0-0.8) 10/06/24 09:10 Baso # (Auto) 0.0 10^3/uL (0.0-0.1) 10/06/24 09:10 Nucleated RBC % (auto) 0 % 10/06/24 09:10 Nucleated RBCs # 0.0 /100WBC 10/06/24 09:10 Sodium 138 mmol/L (136-145) 10/06/24 09:10 Potassium 3.6 mmol/L (3.5-5.1) 10/06/24 09:10 Chloride 102 mmol/L (98-107) 10/06/24 09:10 Carbon Dioxide 24 mmol/L (22-29) 10/06/24 09:10 Anion Gap 15.6 (5-19) 10/06/24 09:10 BUN 8 mg/dL (8-23) 10/06/24 09:10 Creatinine 1.0 mg/dL (0.5-0.9) H 10/06/24 09:10 GFR Calculation 56.2 mL/min (90-130) L 10/06/24 09:10 Glucose 156 mg/dL (65-115) H 10/06/24 09:10 Calculated Osmolality 288 mOsm/kg (285-295) 10/06/24 09:10 Calcium 8.7 mg/dL (8.5-10.5) 10/06/24 09:10 Total Bilirubin 0.7 mg/dL (0.15-1.2) 10/06/24 09:10 AST 19 U/L (0-32) 10/06/24 09:10 ALT 14 U/L (0-33) 10/06/24 09:10 Alkaline Phosphatase 108 U/L (35-105) H 10/06/24 09:10 Total Protein 6.2 g/dL (6.6-8.7) L 10/06/24 09:10 Albumin 3.5 g/dL (3.5-5.2) 10/06/24 09:10 Globulin 2.7 g/dL (1.3-4.6) 10/06/24 09:10 All radiology interpretation(s) finalized by discharge Discharge Plan Discharge Patient Disposition: Home Clinical Impression: Low back pain, Fall, Cystitis Condition: Stable Prescriptions: No Action gabapentin 600 mg tablet 600 mg PO TID tramadol 50 mg tablet See Rx Instructions .ROUTE .COMPLEX Rx Instructions: TAKE 1-2 TABLETS ORALLY EVERY 6 HOURS; DO NOT EXCEED 300MG/DAY NEEDED FOR PAIN insulin lispro 100 unit/mL insulin pen See Rx Instructions .ROUTE .COMPLEX Rx Instructions: Inject 10 units Subcutaneous; 15 minutes before or immediately after a meal three times daily insulin glargine [Lantus Solostar U-100 Insulin] 100 unit/mL (3 mL) insulin pen 20 unit SUBCUT BID atorvastatin 40 mg tablet 40 mg PO DAILY Jardiance 10 mg tablet 10 mg PO QAM losartan 50 mg Tablet 100 mg PO DAILY Qty: 60 0RF levothyroxine 175 mcg capsule 175 mcg PO DAILY Qty: 60 0RF amlodipine 10 mg tablet 10 mg PO DAILY Qty: 30 0RF aspirin 81 mg Tablet,Chewable 81 mg PO DAILY Qty: 30 0RF atorvastatin [Lipitor] 80 mg tablet 80 mg PO DAILY Qty: 30 1RF clopidogrel [Plavix] 75 mg tablet 75 mg PO DAILY Qty: 30 1RF Discharge Orders: Discharge ED (Routine); Ordered 10/06/24 Ordered By: Bautista Ordaz Referrals: Lisa Welch FNP [Primary Care Provider, Unknown] Discharge Diet: Usual diet Discharge Activity: Increase activity as tolerated Patient Instructions: Opioid Safety, Pain Management, Patient Portal & Candice Instructions Activity Restrictions/Additional Instructions: Thank you for choosing [facility] for your healthcare needs today. It is very important that you follow up as instructed or that you return to the Emergency Department should you have concerns or if your condition changes or worsens in any way. You are seen in the emergency room after a fall from your bed. X-rays your back and your knee did not show any acute fractures. Continue to take the antibiotics you are recently prescribed for bladder infection follow-up with your primary care doctor. You can use Tylenol or ibuprofen [id number] for aches and pains resulting from the fall. Print Language: Ukrainian Coding Level of Care Code ED Slunk Skin Curer for Joyce Keita
[2024-10-06 08:32] VITALS: BP 178/76; PULSE 73; RESP 16; O2SAT 99
--- OUTSIDE RECORDS SUMMARY | 2024-10-06 08:32 | XMS_ITS | Encounter Summary ---
Author Organization [facility] Address [address] [place] [address] Care Team Providers Care Watch Manufacturing Supervisor Name Role Phone Unavailable Primary Care Provider Unavailabl e Encounter Details Date Type Department Care Team (Latest Contact Info) Description 05/28/1998 Outpatient Historical [facility] Medicine [place] [address], [place] [address] Haroldo Garay MD [address] [phone] Unspecified essential hypertension (Primary Dx) Social History Tobacco Use Types Packs/Day Years Used Date Smoking Tobacco: Never Assessed Comments Unknown Sex and Gender Information Value Date Recorded Sex Assigned at Not on file 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
--- OUTSIDE RECORDS SUMMARY | 2024-10-06 08:32 | XMS_ITS | Encounter Summary ---
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
--- OUTSIDE RECORDS SUMMARY | 2024-10-06 08:32 | XMS_ITS | Encounter Summary ---
Author Organization [facility] Address [address] [place] [address] Care Team Providers Care Environmental Health Sanitarian Name Role Phone Unavailable Primary Care Provider Unavailabl e Encounter Details Date Type Department Care Team (Latest Contact Info) Description 11/19/2004 Outpatient Historical [facility] Pain Management Procedures [address] [place] [phone] Boogie Simmons LUMBOSACRAL NEURITIS NOS (Primary Dx) Social History Tobacco Use Types Packs/Day Years Used Date Smoking Tobacco: Never Assessed Comments Unknown Sex and Gender Information Value Date Recorded Sex Assigned at Not on file Legal Sex Female 5:57 AM OFFICE SUPPORT ASSOCIATE Gender Identity Not on file Sexual Orientation Not on file documented as of this encounter Plan of Treatment Not on file documented as of this encounter Visit Diagnoses Diagnosis Thoracic or lumbosacral neuritis or radiculitis, unspecified- Primary documented in this encounter
--- OUTSIDE RECORDS SUMMARY | 2024-10-06 08:32 | XMS_ITS | Encounter Summary ---
Author Organization [facility] Address [address] [place] [address] Care Team Providers Care Sales And Training Specialist Name Role Phone Unavailable Primary Care Provider Unavailabl e Encounter Details Date Type Department Care Team (Latest Contact Info) Description 10/12/2002 Outpatient Historical [facility] [address] [address] Haroldo Garay MD [address] [phone] URIN TRACT INFECTION NOS (Primary Dx) Social History Tobacco Use Types Packs/Day Years Used Date Smoking Tobacco: Never Assessed Comments Unknown Sex and Gender Information Value Date Recorded Sex Assigned at Not on file Legal Sex Female 5:57 AM SHIPPING AGENT Gender Identity Not on file Sexual Orientation Not on file documented as of this encounter Plan of Treatment Not on file documented as of this encounter Visit Diagnoses Diagnosis Urinary tract infection, site not specified- Primary documented in this encounter
--- OUTSIDE RECORDS SUMMARY | 2024-10-06 08:32 | XMS_ITS | Encounter Summary ---
Author Organization [facility] Address [address] [place] [address] Care Team Providers Care Private Watchman Name Role Phone Unavailable Primary Care Provider Unavailabl e Encounter Details Date Type Department Care Team (Latest Contact Info) Description 05/08/2005 Outpatient Historical [facility] Ambulance [address] [place] [address] [facility] CHEST PAIN NOS (Primary Dx) Social History Tobacco Use Types Packs/Day Years Used Date Smoking Tobacco: Never Assessed Comments Unknown Sex and Gender Information Value Date Recorded Sex Assigned at Not on file Legal Sex Female 5:57 AM DIGITAL MEDIA REPRESENTATIVE Gender Identity Not on file Sexual Orientation Not on file documented as of this encounter Plan of Treatment Not on file documented as of this encounter Visit Diagnoses Diagnosis Chest pain, unspecified- Primary documented in this encounter
--- OUTSIDE RECORDS SUMMARY | 2024-10-06 08:32 | XMS_ITS | Encounter Summary ---
Author Organization [facility] Address [address] [place] [address] Care Team Providers Care Fixing Carpenter Name Role Phone Unavailable Primary Care Provider Unavailabl e Encounter Details Date Type Department Care Team (Late st Contact Info) Description 11/05/2001 Outpatient Historical [facility] [place] [address] [place] [address] Social History Tobacco Use Types Packs/Day Years Used Date Smoking Tobacco: Never Assessed Comments Unknown Sex and Gender Information Value Date Recorded Sex Assigned at Not on file Legal Sex Female 5:57 AM ACCOUNT SUPPORT ANALYST Gender Identity Not on file Sexual Orientation Not on file documented as of this encounter Plan of Treatment Not on file documented as of this encounter Visit Diagnoses Not on filedocumented in this encounter
--- OUTSIDE RECORDS SUMMARY | 2024-10-06 08:32 | XMS_ITS | Clinical Summary ---
Author Organization [facility] Address [address] [facility] [address] [place] [address] Phone Care Team Providers Care Histology Tech Name Role Phone Unavailable Primary Care Provider [...] on file Legal Sex Female 5:57 AM TUBE PUSHER Gender Identity Not on file Sexual Orientation [...] - 1-dose 75+ series) 2037 Insurance MEDICAID [place]
--- OUTSIDE RECORDS SUMMARY | 2024-10-06 08:32 | XMS_ITS | Encounter Summary ---
Author Organization [facility] Address [address] [place] [address] Care Team Providers Care Operating System Designer Name Role Phone Unavailable Primary Care Provider Unavailabl e Encounter Details Date Type Department Care Team (Latest Contact Info) Description 07/07/2002 Outpatient Historical [facility] [address] [address] Haroldo Garay MD [address] [phone] SCIATICA (Primary Dx); BACKACHE NOS Social History Tobacco Use Types Packs/Day Years Used Date Smoking Tobacco: Never Assessed Comments Unknown Sex and Gender Information Value Date Recorded Sex Assigned at Not on file Legal Sex Female 5:57 AM SAMPLE DYE MIXER Gender Identity Not on file Sexual Orientation Not on file documented as of this encounter Plan of Treatment Not on file documented as of this encounter Visit Diagnoses Diagnosis Sciatica- Primary Backache, unspecified documented in this encounter
--- OUTSIDE RECORDS SUMMARY | 2024-10-06 08:32 | XMS_ITS | Encounter Summary ---
Author Organization [facility] Address [address] [place] [address] Care Team Providers Care Highway Landscape Architect Name Role Phone Unavailable Primary Care Provider Unavailabl e Encounter Details Date Type Department Care Team (Latest Contact Info) Description 11/19/2004 Outpatient Historical [facility] [address] [place] [phone] Boogie Simmons LUMBOSACRAL NEURITIS NOS (Primary Dx) Social History Tobacco Use Types Packs/Day Years Used Date Smoking Tobacco: Never Assessed Comments Unknown Sex and Gender Information Value Date Recorded Sex Assigned at Not on file Legal Sex Female 5:57 AM EAR FLAP BINDER Gender Identity Not on file Sexual Orientation Not on file documented as of this encounter Plan of Treatment Not on file documented as of this encounter Visit Diagnoses Diagnosis Thoracic or lumbosacral neuritis or radiculitis, unspecified- Primary documented in this encounter
--- OUTSIDE RECORDS SUMMARY | 2024-10-06 08:32 | XMS_ITS | Encounter Summary ---
Author Organization [facility] Address [address] [place] [address] Care Team Providers Care Tetryl Nitrator Operator Name Role Phone Unavailable Primary Care Provider Unavailabl e Encounter Details Date Type Department Care Team (Latest Contact Info) Description 12/09/2001 Outpatient Historical [facility] [address] [phone] Haroldo Garay MD [address] [phone] JOINT PAIN-L/LEG (Primary Dx); ABNORMAL WEIGHT GAIN Social History Tobacco Use Types Packs/Day Years Used Date Smoking Tobacco: Never Assessed Comments Unknown Sex and Gender Information Value Date Recorded Sex Assigned at Not on file Legal Sex Female 5:57 AM ASSEMBLY SUPERVISOR Gender Identity Not on file Sexual Orientation Not on file documented as of this encounter Plan of Treatment Not on file documented as of this encounter Visit Diagnoses Diagnosis Pain in joint, lower leg- Primary Abnormal weight gain documented in this encounter
--- OUTSIDE RECORDS SUMMARY | 2024-10-06 08:32 | XMS_ITS | Encounter Summary ---
Author Organization [facility] Address [address] [place] [address] Care Team Providers Care Stemhole Borer And Topper Name Role Phone Unavailable Primary Care Provider Unavailabl e Encounter Details Date Type Department Care Team (Latest Contact Info) Description 05/02/2007 Outpatient Historical [facility] [address] [place] [address] AMBULANCE, [facility] Unspecified Essential Hypertension; Unspecified Heart Disease; Encounter for Long-Term (Current) Use of Other Medications Social History Tobacco Use Types Packs/Day Years Used Date Smoking Tobacco: Never Assessed Comments Unknown Sex and Gender Information Value Date Recorded Sex Assigned at Not on file Legal Sex Female 5:57 AM NETWORK DESIGNER Gender Identity Not on file Sexual Orientation Not on file documented as of this encounter Plan of Treatment Not on file documented as of this encounter Visit Diagnoses Diagnosis Unspecified essential hypertension Heart disease, unspecified Encounter for long-term (current) use of other medications documented in this encounter
--- OUTSIDE RECORDS SUMMARY | 2024-10-06 08:32 | XMS_ITS | Encounter Summary ---
Author Organization [facility] Address [address] [place] [address] Care Team Providers Care Manager Loan Name Role Phone Unavailable Primary Care Provider Unavailabl e Encounter Details Date Type Department Care Team (Latest Contact Info) Description 08/04/2002 Outpatient Historical [facility] [address] [address] Haroldo Garay MD [address], [place] [phone] POSTCONCUSSION SYNDROME (Primary Dx) Social History Tobacco Use Types Packs/Day Years Used Date Smoking Tobacco: Never Assessed Comments Unknown Sex and Gender Information Value Date Recorded Sex Assigned at Not on file Legal Sex Female 5:[address] REPORTER Gender Identity Not on file Sexual Orientation Not on file documented as of this encounter Plan of Treatment Not on file documented as of this encounter Visit Diagnoses Diagnosis Postconcussion syndrome- Primary documented in this encounter
--- OUTSIDE RECORDS SUMMARY | 2024-10-06 08:32 | XMS_ITS | Encounter Summary ---
Author Organization [facility] Address [address] [place] [address] Care Team Providers Care Synthetic Filament Extruder Name Role Phone Unavailable Primary Care Provider Unavailabl e Encounter Details Date Type Department Care Team (Latest Contact Info) Description 02/11/2002 Outpatient Historical [facility] [address] [address] Haroldo Garay MD [address] [phone] URIN TRACT INFECTION NOS (Primary Dx) Social History Tobacco Use Types Packs/Day Years Used Date Smoking Tobacco: Never Assessed Comments Unknown Sex and Gender Information Value Date Recorded Sex Assigned at Not on file Legal Sex Female 5:57 AM 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
--- OUTSIDE RECORDS SUMMARY | 2024-10-06 08:32 | XMS_ITS | Encounter Summary ---
Author Organization [facility] Address [address] [place] [address] Care Team Providers Care Devops Consultant Name Role Phone Unavailable Primary Care Provider Unavailabl e Encounter Details Date Type Department Care Team (Latest Contact Info) Description 04/28/2002 Outpatient Historical [facility] [address] [address] Haroldo Garay MD [address] [phone] URIN TRACT INFECTION NOS (Primary Dx); ACUTE FRONTAL SINUSITIS Social History Tobacco Use Types Packs/Day Years Used Date Smoking Tobacco: Never Assessed Comments Unknown Sex and Gender Information Value Date Recorded Sex Assigned at Not on file Legal Sex Female 5:57 AM DESTATICIZER FEEDER Gender Identity Not on file Sexual Orientation Not on file documented as of this encounter Plan of Treatment Not on file documented as of this encounter Visit Diagnoses Diagnosis Urinary tract infection, site not specified- Primary Acute frontal sinusitis documented in this encounter
--- OUTSIDE RECORDS SUMMARY | 2024-10-06 08:32 | XMS_ITS | Encounter Summary ---
Author Organization [facility] Address [address] [place] [address] Care Team Providers Care Climbing Guide Name Role Phone Unavailable Primary Care Provider Unavailabl e Encounter Details Date Type Department Care Team (Latest Contact Info) Description 02/24/2002 Outpatient Historical [facility] [address] [address] Haroldo Garay MD [address], [place] [phone] OPEN WOUND OF HAND (Primary Dx) Social History Tobacco Use Types Packs/Day Years Used Date Smoking Tobacco: Never Assessed Comments Unknown Sex and Gender Information Value Date Recorded Sex Assigned at Not on file 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
--- OUTSIDE RECORDS SUMMARY | 2024-10-06 08:32 | XMS_ITS | Encounter Summary ---
Author Organization [facility] Address [address] [place] [address] Care Team Providers Care Wheel Lacer And Truer Name Role Phone Unavailable Primary Care Provider Unavailabl e Encounter Details Date Type Department Care Team (Latest Contact Info) Description 03/22/2002 Outpatient Historical [facility] Medicine [place] [address] [phone] Joselin Stephenson, [facility] [address] [phone] HYPOTHYROIDISM NOS (Primary Dx) Social History Tobacco Use Types Packs/Day Years Used Date Smoking Tobacco: Never Assessed Comments Unknown Sex and Gender Information Value Date Recorded Sex Assigned at Not on file Legal Sex Female 5:57 AM MANAGER HARBOR Gender Identity Not on file Sexual Orientation Not on file documented as of this encounter Plan of Treatment Not on file documented as of this encounter Visit Diagnoses Diagnosis Unspecified hypothyroidism- Primary documented in this encounter
--- OUTSIDE RECORDS SUMMARY | 2024-10-06 08:32 | XMS_ITS | Encounter Summary ---
Author Organization [facility] Address [address] [place] [address] Care Team Providers Care Machine Stone Polisher Apprentice Name Role Phone Unavailable Primary Care Provider Unavailabl e Encounter Details Date Type Department Care Team (Latest Contact Info) Description 06/29/2002 Outpatient Historical [facility] [address], [place] [address] Haroldo Garay MD [address], [place] [phone] SCIATICA (Primary Dx); CELLULITIS NOS Social History Tobacco Use Types Packs/Day Years Used Date Smoking Tobacco: Never Assessed Comments Unknown Sex and Gender Information Value Date Recorded Sex Assigned at Not on file Legal Sex Female 5:57 AM 4TH GRADE MATH TEACHER Gender Identity Not on file Sexual Orientation Not on file documented as of this encounter Plan of Treatment Not on file documented as of this encounter Visit Diagnoses Diagnosis Sciatica- Primary Cellulitis and abscess of unspecified site documented in this encounter
--- OUTSIDE RECORDS SUMMARY | 2024-10-06 08:32 | XMS_ITS | Encounter Summary ---
Author Organization [facility] Address [address] [place] [address] Care Team Providers Care Aircraft Fueler Name Role Phone Unavailable Primary Care Provider Unavailabl e Encounter Details Date Type Department Care Team (Latest Contact Info) Description 08/24/2002 Outpatient Historical [facility] [address], [place] [address] Haroldo Garay MD [address], [place] [phone] FOREIGN BODY FOOT & TOE (Primary Dx) Social History Tobacco Use Types Packs/Day Years Used Date Smoking Tobacco: Never Assessed Comments Unknown Sex and Gender Information Value Date Recorded Sex Assigned at Not on file Legal Sex Female 5:57 AM PRETZEL TWISTER Gender Identity Not on file Sexual Orientation Not on file documented as of this encounter Plan of Treatment Not on file documented as of this encounter Visit Diagnoses Diagnosis Foot and toe(s), superficial foreign body (splinter), without major open wound and without mention of infection- Primary documented in this encounter
--- OUTSIDE RECORDS SUMMARY | 2024-10-06 08:32 | XMS_ITS | Encounter Summary ---
Author Organization [facility] Address [address] [place] [address] Care Team Providers Care Hot Saw Helper Name Role Phone Unavailable Primary Care Provider Unavailabl e Encounter Details Date Type Department Care Team (Latest Contact Info) Description 05/05/2002 Outpatient Historical [facility] [address], [place] [address] Haroldo Garay MD [address] [phone] LUMP OR MASS IN BREAST (Primary Dx) Social History Tobacco Use Types Packs/Day Years Used Date Smoking Tobacco: Never Assessed Comments Unknown Sex and Gender Information Value Date Recorded Sex Assigned at Not on file Legal Sex Female 5:57 AM DATA SCIENCES DIRECTOR Gender Identity Not on file Sexual Orientation Not on file documented as of this encounter Plan of Treatment Not on file documented as of this encounter Visit Diagnoses Diagnosis Lump or mass in breast- Primary documented in this encounter
--- OUTSIDE RECORDS SUMMARY | 2024-10-06 08:32 | XMS_ITS | Encounter Summary ---
Author Organization [facility] Address [address] [place] [address] Care Team Providers Care Pst Specialist Name Role Phone Unavailable Primary Care [...] file Legal Sex Female 5:57 AM TOOL CRIB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
--- OUTSIDE RECORDS SUMMARY | 2024-10-06 08:32 | XMS_ITS | Encounter Summary ---
Author Organization [facility] Address [address] [place] [address] Care Team Providers Care Plastic Surgery Assistant Name Role Phone Unavailable Primary Care Provider Unavailabl e Encounter Details Date Type Department Care Team (Latest Contact Info) Description 07/31/2002 Outpatient Historical [facility] [address] [place] [address] AMBULANCE, [facility] OPEN WOUND OF FOREHEAD (Primary Dx) Social History Tobacco Use Types Packs/Day Years Used Date Smoking Tobacco: Never Assessed Comments Unknown Sex and Gender Information Value Date Recorded Sex Assigned at Not on file Legal Sex Female 5:57 AM 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
--- OUTSIDE RECORDS SUMMARY | 2024-10-06 08:32 | XMS_ITS | Encounter Summary ---
Author Organization [facility] Address [address] [place] [address] Care Team Providers Care Anesthesiology Resident Name Role Phone Unavailable Primary Care Provider Unavailabl e Encounter Details Date Type Department Care Team (Latest Contact Info) Description 11/29/1998 Outpatient Historical [facility] Adi Larkin NO ADDRESS ON FILE Pain in joint, lower leg (Primary Dx) Social History Tobacco Use Types Packs/Day Years Used Date Smoking Tobacco: Never Assessed Comments Unknown Sex and Gender Information Value Date Recorded Sex Assigned at Not on file Legal Sex Female 5:57 AM RECORDER HELPER GRAVITY PROSPECTING Gender Identity Not on file Sexual Orientation Not on file documented as of this encounter Plan of Treatment Not on file documented as of this encounter Visit Diagnoses Diagnosis Pain in joint, lower leg- Primary documented in this encounter
--- OUTSIDE RECORDS SUMMARY | 2024-10-06 08:32 | XMS_ITS | Encounter Summary ---
Author Organization [facility] Address [address] [place] [address] Care Team Providers Care Group Therapist Name Role Phone Unavailable Primary Care Provider Unavailabl e Encounter Details Date Type Department Care Team (Latest Contact Info) Description 12/29/2001 Outpatient Historical [facility] [address] [address] Haroldo Garay MD [address] [phone] ABNORMAL WEIGHT GAIN (Primary Dx); Dietary surveil/academic counselor Social History Tobacco Use Types Packs/Day Years Used Date Smoking Tobacco: Never Assessed Comments Unknown Sex and Gender Information Value Date Recorded Sex Assigned at Not on file Legal Sex Female 5:57 AM HAT TRIMMER Gender Identity Not on file Sexual Orientation Not on file documented as of this encounter Plan of Treatment Not on file documented as of this encounter Visit Diagnoses Diagnosis Abnormal weight gain- Primary Dietary surveil/academic counselor Dietary surveillance and counseling documented in this encounter
--- OUTSIDE RECORDS SUMMARY | 2024-10-06 08:32 | XMS_ITS | Encounter Summary ---
Author Organization [facility] Address [address] [place] [address] Care Team Providers Care General Inspector Name Role Phone Unavailable Primary Care Provider Unavailabl e Encounter Details Date Type Department Care Team (Latest Contact Info) Description 08/17/2002 Outpatient Historical [facility] [address] [address] Haroldo Garay MD [address] [phone] POSTCONCUSSION SYNDROME (Primary Dx); HYPERTENSION NOS Social History Tobacco Use Types Packs/Day Years Used Date Smoking Tobacco: Never Assessed Comments Unknown Sex and Gender Information Value Date Recorded Sex Assigned at Not on file Legal Sex Female 5:57 AM BREAD AND PASTRY BAKER Gender Identity Not on file Sexual Orientation Not on file documented as of this encounter Plan of Treatment Not on file documented as of this encounter Visit Diagnoses Diagnosis Postconcussion syndrome- Primary Unspecified essential hypertension documented in this encounter
--- OUTSIDE RECORDS SUMMARY | 2024-10-06 08:32 | XMS_ITS | Encounter Summary ---
Author Organization [facility] Address [address] [place] [address] Care Team Providers Care Autocad Technician Name Role Phone Unavailable Primary Care Provider Unavailabl e Encounter Details Date Type Department Care Team (Latest Contact Info) Description 06/24/2002 Outpatient Historical [facility] Medicine [place] [address] [address] Haroldo Garay MD [address] [phone] CELLULITIS OF TRUNK (Primary Dx) Social History Tobacco Use Types Packs/Day Years Used Date Smoking Tobacco: Never Assessed Comments Unknown Sex and Gender Information Value Date Recorded Sex Assigned at Not on file Legal Sex Female 5:57 AM ENVIRONMENTAL GEOLOGIST Gender Identity Not on file Sexual Orientation Not on file documented as of this encounter Plan of Treatment Not on file documented as of this encounter Visit Diagnoses Diagnosis Cellulitis and abscess of trunk- Primary documented in this encounter
--- OUTSIDE RECORDS SUMMARY | 2024-10-06 08:32 | XMS_ITS | Encounter Summary ---
Author Organization [facility] Address [address] [place] [address] Care Team Providers Care Hemmer Automatic Name Role Phone Unavailable Primary Care Provider Unavailabl e Encounter Details Date Type Department Care Team (Latest Contact Info) Description 05/18/2002 Outpatient Historical [facility] [address] [address] Haroldo Garay MD [address], [place] [phone] OPEN WOUND KNEE/LEG/ANKLE (Primary Dx); TETANUS TOXOID INOCULAT Social History Tobacco Use Types Packs/Day Years Used Date Smoking Tobacco: Never Assessed Comments Unknown Sex and Gender Information Value Date Recorded Sex Assigned at Not on file Legal Sex Female 5:57 AM PAN GREASER Gender Identity Not on file Sexual Orientation Not on file documented as of this encounter Plan of Treatment Not on file documented as of this encounter Visit Diagnoses Diagnosis Open wound of knee, leg (except thigh), and ankle, without mention of complication- Primary Need for prophylactic vaccination with tetanus toxoid alone documented in this encounter
--- OUTSIDE RECORDS SUMMARY | 2024-10-06 08:32 | XMS_ITS | Encounter Summary ---
Author Organization [facility] Address [address] [place] [address] Care Team Providers Care Reverse Logistics Analyst Name Role Phone Unavailable Primary Care Provider Unavailabl e Encounter Details Date Type Department Care Team (Latest Contact Info) Description 11/12/2004 Outpatient Historical [facility] Pain Management Procedures [address] [place] [phone] Boogie Simmons LUMBOSACRAL NEURITIS NOS (Primary Dx) Social History Tobacco Use Types Packs/Day Years Used Date Smoking Tobacco: Never Assessed Comments Unknown Sex and Gender Information Value Date Recorded Sex Assigned at Not on file Legal Sex Female 5:57 AM BUSINESS TRANSFORMATION CONSULTANT Gender Identity Not on file Sexual Orientation Not on file documented as of this encounter Plan of Treatment Not on file documented as of this encounter Visit Diagnoses Diagnosis Thoracic or lumbosacral neuritis or radiculitis, unspecified- Primary documented in this encounter
--- OUTSIDE RECORDS SUMMARY | 2024-10-06 08:32 | XMS_ITS | Encounter Summary ---
Author Organization [facility] Address [address] [place] [address] Care Team Providers Care Strap Cutter Name Role Phone Unavailable Primary Care Provider Unavailabl e Encounter Details Date Type Department Care Team (Latest Contact Info) Description 03/30/2002 Outpatient Historical [facility] [address] [address] Haroldo Garay MD [address] [phone] ACUTE FRONTAL SINUSITIS (Primary Dx); DIZZINESS AND GIDDINESS Social History Tobacco Use Types Packs/Day Years Used Date Smoking Tobacco: Never Assessed Comments Unknown Sex and Gender Information Value Date Recorded Sex Assigned at Not on file Legal Sex Female 5:57 AM CHIEF CRNA Gender Identity Not on file Sexual Orientation Not on file documented as of this encounter Plan of Treatment Not on file documented as of this encounter Visit Diagnoses Diagnosis Acute frontal sinusitis- Primary Dizziness and giddiness documented in this encounter
--- OUTSIDE RECORDS SUMMARY | 2024-10-06 08:32 | XMS_ITS | Encounter Summary ---
Author Organization [facility] Address [address] [place] [address] Care Team Providers Care Renal Medicine Physician Name Role Phone Unavailable Primary Care Provider Unavailabl e Encounter Details Date Type Department Care Team (Latest Contact Info) Description 03/22/2002 Outpatient Historical [facility] Medicine [place] [address] [address] Anahi Harrison MD [address] [place] [phone] JOINT PAIN-L/LEG (Primary Dx); SCIATICA; HYPOTHYROIDISM NOS Social History Tobacco Use Types Packs/Day Years Used Date Smoking Tobacco: Never Assessed Comments Unknown Sex and Gender Information Value Date Recorded Sex Assigned at Not on file Legal Sex Female 5:57 AM 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
--- OUTSIDE RECORDS SUMMARY | 2024-10-06 08:32 | XMS_ITS | Encounter Summary ---
Author Organization [facility] Address [address] [place] [address] Care Team Providers Care Lower School Music Teacher Name Role Phone Unavailable Primary Care Provider Unavailabl e Encounter Details Date Type Department Care Team (Latest Contact Info) Description 09/20/[address] [facility] [address] [address] Haroldo Garay MD [address] [phone] JOINT PAIN-L/LEG (Primary Dx) Social History Tobacco Use Types Packs/Day Years Used Date Smoking Tobacco: Never Assessed Comments Unknown Sex and Gender Information Value Date Recorded Sex Assigned at Not on file Legal Sex Female 5:57 AM DISTRICT CAPTAIN Gender Identity Not on file Sexual Orientation Not on file documented as of this encounter Plan of Treatment Not on file documented as of this encounter Visit Diagnoses Diagnosis Pain in joint, lower leg- Primary documented in this encounter
--- OUTSIDE RECORDS SUMMARY | 2024-10-06 08:32 | XMS_ITS | Encounter Summary ---
Author Organization [facility] Address [address] [place] [address] Care Team Providers Care Respite Provider Name Role Phone Unavailable Primary Care Provider Unavailabl e Encounter Details Date Type Department Care Team (Latest Contact Info) Description 11/13/2004 Outpatient Historical [address] [address] Wally Ventura, ELECTRICIAN MARINE [address] [place] [address] BACKACHE NOS (Primary Dx) Social History Tobacco Use Types Packs/Day Years Used Date Smoking Tobacco: Never Assessed Comments Unknown Sex and Gender Information Value Date Recorded Sex Assigned at Not on file Legal Sex Female 5:57 AM SAFETY AND SECURITY MANAGER Gender Identity Not on file Sexual Orientation Not on file documented as of this encounter Plan of Treatment Not on file documented as of this encounter Visit Diagnoses Diagnosis Backache, unspecified- Primary documented in this encounter
--- OUTSIDE RECORDS SUMMARY | 2024-10-06 08:33 | XMS_ITS | Encounter Summary ---
Author Organization [facility] Address [address] [place] [address] Care Team Providers Care Cyber Security Architect Name Role Phone Unavailable Primary Care Provider Unavailabl e Encounter Details Date Type Department Care Team (Latest Contact Info) Description 08/29/2004 Outpatient Historical [facility] Ear, Nose and Throat [address] [place] [phone] Bonita Aguilar NP [facility] Department of Nursing [facility] [address] [place] [address] REFERRED PAIN OF EAR (Primary Dx) Social History Tobacco Use Types Packs/Day Years Used Date Smoking Tobacco: Never Assessed Comments Unknown Sex and Gender Information Value Date Recorded Sex Assigned at Not on file Legal Sex Female 5:57 AM THORACIC SURGEON Gender Identity Not on file Sexual Orientation Not on file documented as of this encounter Plan of Treatment Not on file documented as of this encounter Visit Diagnoses Diagnosis Referred otogenic pain- Primary documented in this encounter
--- OUTSIDE RECORDS SUMMARY | 2024-10-06 08:33 | XMS_ITS | Encounter Summary ---
Author Organization [facility] Address [address] [place] [address] Care Team Providers Care Thermal Cutter Hand Name Role Phone Unavailable Primary Care Provider Unavailabl e Encounter Details Date Type Department Care Team (Latest Contact Info) Description 09/10/2001 Outpatient Historical [facility] [address] [address] Haroldo Garay MD [address] [phone] DISORDERS OF SACRUM (Primary Dx) Social History Tobacco Use Types Packs/Day Years Used Date Smoking Tobacco: Never Assessed Comments Unknown Sex and Gender Information Value Date Recorded Sex Assigned at Not on file Legal Sex Female 5:57 AM HOST AND HOSTESS Gender Identity Not on file Sexual Orientation Not on file documented as of this encounter Plan of Treatment Not on file documented as of this encounter Visit Diagnoses Diagnosis Disorders of sacrum- Primary documented in this encounter
--- OUTSIDE RECORDS SUMMARY | 2024-10-06 08:33 | XMS_ITS | Encounter Summary ---
Author Organization [facility] Address [address] [place] [address] Care Team Providers Care Custom Framing Specialist Name Role Phone Unavailable Primary Care Provider Unavailabl e Encounter Details Date Type Department Care Team (Latest Contact Info) Description 09/18/2004 Outpatient Historical [facility] [address] [place] [phone] Dustin Alvarado MD [address] [place] [address] LUMBAGO (Primary Dx); LACK OF COORDINATION Social History Tobacco Use Types Packs/Day Years Used Date Smoking Tobacco: Never Assessed Comments Unknown Sex and Gender Information Value Date Recorded Sex Assigned at Not on file Legal Sex Female 5:57 AM TEST AND RESEARCH REACTOR OPERATOR Gender Identity Not on file Sexual Orientation Not on file documented as of this encounter Plan of Treatment Not on file documented as of this encounter Visit Diagnoses Diagnosis Lumbago- Primary Lack of coordination documented in this encounter
--- OUTSIDE RECORDS SUMMARY | 2024-10-06 08:33 | XMS_ITS | Encounter Summary ---
Author Organization [facility] Address [address] [place] [address] Care Team Providers Care Biomedical Equipment Technician Name Role Phone Unavailable Primary Care Provider Unavailabl e Encounter Details Date Type Department Care Team (Latest Contact Info) Description 10/25/2001 Outpatient Historical [facility] [address], [place] [address] Haroldo Garay MD [address] [phone] ADV EFFECT MED/BIOL SUB NOS (Primary Dx) Social History Tobacco Use Types Packs/Day Years Used Date Smoking Tobacco: Never Assessed Comments Unknown Sex and Gender Information Value Date Recorded Sex Assigned at Not on file Legal Sex Female 5:57 AM IT SYSTEMS ANALYST CONSULTANT Gender Identity Not on file Sexual Orientation Not on file documented as of this encounter Plan of Treatment Not on file documented as of this encounter Visit Diagnoses Diagnosis Other and unspecified adverse effect of drug, medicinal and biological substance- Primary documented in this encounter
--- OUTSIDE RECORDS SUMMARY | 2024-10-06 08:33 | XMS_ITS | Encounter Summary ---
Author Organization [facility] Address [address] [place] [address] Care Team Providers Care Film Painter Name Role Phone Unavailable Primary Care Provider Unavailabl e Encounter Details Date Type Department Care Team (Latest Contact Info) Description 06/24/2004 Outpatient Historical [facility] Ear, Nose and Throat [address] [place] [phone] Bonita Aguilar NP [facility] Department of Nursing [address] [place], [place] [address] Dysfunct eustachian tube (Primary Dx) Social History Tobacco Use Types Packs/Day Years Used Date Smoking Tobacco: Never Assessed Comments Unknown Sex and Gender Information Value Date Recorded Sex Assigned at Not on file Legal Sex Female 5:57 AM FONDANT COOKER Gender Identity Not on file Sexual Orientation Not on file documented as of this encounter Plan of Treatment Not on file documented as of this encounter Visit Diagnoses Diagnosis Dysfunct eustachian tube- Primary Dysfunction of Eustachian tube documented in this encounter
--- OUTSIDE RECORDS SUMMARY | 2024-10-06 08:33 | XMS_ITS | Encounter Summary ---
Author Organization [facility] Address [address] [place] [address] Care Team Providers Care Religious Leader Name Role Phone Unavailable Primary Care Provider Unavailabl e Encounter Details Date Type Department Care Team (Latest Contact Info) Description 08/20/2001 Outpatient Historical [facility] [address] [address] Haroldo Garay MD [address] [phone] POLYDIPSIA (Primary Dx); HYPERTENSION NOS; DISORDERS OF SACRUM Social History Tobacco Use Types Packs/Day Years Used Date Smoking Tobacco: Never Assessed Comments Unknown Sex and Gender Information Value Date Recorded Sex Assigned at Not on file Legal Sex Female 5:57 AM SERVICE DESK MANAGER Gender Identity Not on file Sexual Orientation Not on file documented as of this encounter Plan of Treatment Not on file documented as of this encounter Visit Diagnoses Diagnosis Polydipsia- Primary Unspecified essential hypertension Disorders of sacrum documented in this encounter
--- OUTSIDE RECORDS SUMMARY | 2024-10-06 08:33 | XMS_ITS | Encounter Summary ---
Author Organization [facility] Address [address] [place] [address] Care Team Providers Care Deposition Operator Name Role Phone Unavailable Primary Care Provider Unavailabl e Encounter Details Date Type Department Care Team (Latest Contact Info) Description 08/10/2001 Outpatient Historical [facility] [address] [address] Haroldo Garay MD [address] [place] [phone] JOINT PAIN-L/LEG (Primary Dx); HYPERTENSION NOS; POLYDIPSIA Social History Tobacco Use Types Packs/Day Years Used Date Smoking Tobacco: Never Assessed Comments Unknown Sex and Gender Information Value Date Recorded Sex Assigned at Not on file Legal Sex Female 5:57 AM 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
--- OUTSIDE RECORDS SUMMARY | 2024-10-06 08:33 | XMS_ITS | Encounter Summary ---
Author Organization [facility] Address [address] [place] [address] Care Team Providers Care Toddler Teacher Name Role Phone Unavailable Primary Care Provider Unavailabl e Encounter Details Date Type Department Care Team (Latest Contact Info) Description 08/17/2001 Outpatient Historical [facility] [address] [address] Haroldo Garay MD [address] [phone] HYPERTENSION NOS (Primary Dx) Social History Tobacco Use Types Packs/Day Years Used Date Smoking Tobacco: Never Assessed Comments Unknown Sex and Gender Information Value Date Recorded Sex Assigned at Not on file Legal Sex Female 5:57 AM CORPORATE DRIVER Gender Identity Not on file Sexual Orientation Not on file documented as of this encounter Plan of Treatment Not on file documented as of this encounter Visit Diagnoses Diagnosis Unspecified essential hypertension- Primary documented in this encounter
--- OUTSIDE RECORDS SUMMARY | 2024-10-06 08:33 | XMS_ITS | Encounter Summary ---
Author Organization [facility] Address [address] [place] [address] Care Team Providers Care Floor Representative Name Role Phone Unavailable Primary Care Provider Unavailabl e Encounter Details Date Type Department Care Team (Latest Contact Info) Description 11/12/2004 Outpatient Historical [facility] [address] [place] [phone] Boogie Simmons LUMBOSACRAL NEURITIS NOS (Primary Dx) Social History Tobacco Use Types Packs/Day Years Used Date Smoking Tobacco: Never Assessed Comments Unknown Sex and Gender Information Value Date Recorded Sex Assigned at Not on file Legal Sex Female 5:57 AM LABORATORY SAMPLE CARRIER Gender Identity Not on file Sexual Orientation Not on file documented as of this encounter Plan of Treatment Not on file documented as of this encounter Visit Diagnoses Diagnosis Thoracic or lumbosacral neuritis or radiculitis, unspecified- Primary documented in this encounter
--- OUTSIDE RECORDS SUMMARY | 2024-10-06 08:33 | XMS_ITS | Encounter Summary ---
Author Organization [facility] Address [address] [place] [address] Care Team Providers Care Blue Print Control Clerk Name Role Phone Unavailable Primary Care Provider Unavailabl e Encounter Details Date Type Department Care Team (Late st Contact Info) Description 09/26/2004 Outpatient Historical [facility] Imaging Services-Ren [place] [address] [place] [address] Dustin Alvarado MD [facility] [place] [address] LUMB/LUMBOSAC DISC DEGEN (Primary Dx) Social History Tobacco Use Types Packs/Day Years Used Date Smoking Tobacco: Never Assessed Comments Unknown Sex and Gender Information Value Date Recorded Sex Assigned at Not on file Legal Sex Female 5:57 AM TEST DESKMAN Gender Identity Not on file Sexual Orientation Not on file documented as of this encounter Plan of Treatment Not on file documented as of this encounter Visit Diagnoses Diagnosis Degeneration of lumbar or lumbosacral intervertebral disc- Primary documented in this encounter
--- OUTSIDE RECORDS SUMMARY | 2024-10-06 08:33 | XMS_ITS | Encounter Summary ---
Author Organization [facility] Address [address] [place] [address] Care Team Providers Care Motorcycle Racer Name Role Phone Unavailable Primary Care Provider Unavailabl e Encounter Details Date Type Department Care Team (Latest Contact Info) Description 07/11/2004 Outpatient Historical [facility] [address] [address] Anahi Harrison MD [address] [place] [phone] HYPOTHYROIDISM NOS (Primary Dx) Social History Tobacco Use Types Packs/Day Years Used Date Smoking Tobacco: Never Assessed Comments Unknown Sex and Gender Information Value Date Recorded Sex Assigned at Not on file Legal Sex Female 5:57 AM SUPPLY CHAIN PLANNER Gender Identity Not on file Sexual Orientation Not on file documented as of this encounter Plan of Treatment Not on file documented as of this encounter Visit Diagnoses Diagnosis Unspecified hypothyroidism- Primary documented in this encounter
--- OUTSIDE RECORDS SUMMARY | 2024-10-06 08:33 | XMS_ITS | Encounter Summary ---
Author Organization [facility] Address [address] [place] [address] Care Team Providers Care Research Manufacturing Operator Name Role Phone Unavailable Primary Care Provider Unavailabl e Encounter Details Date Type Department Care Team (Latest Contact Info) Description 06/26/2004 Outpatient Historical [facility] Medicine [place] [address] [address] Anahi Harrison MD [address] [place] [phone] JOINT PAIN-L/LEG (Primary Dx); URINARY FREQUENCY Social History Tobacco Use Types Packs/Day Years Used Date Smoking Tobacco: Never Assessed Comments Unknown Sex and Gender Information Value Date Recorded Sex Assigned at Not on file Legal Sex Female 5:57 AM CLINICAL TRIAL SPECIALIST Gender Identity Not on file Sexual Orientation Not on file documented as of this encounter Plan of Treatment Not on file documented as of this encounter Visit Diagnoses Diagnosis Pain in joint, lower leg- Primary Urinary frequency documented in this encounter
--- OUTSIDE RECORDS SUMMARY | 2024-10-06 08:33 | XMS_ITS | Encounter Summary ---
Author Organization [facility] Address [address] [place] [address] Care Team Providers Care Photoengraving Proofer Name Role Phone Unavailable Primary Care Provider Unavailabl e Encounter Details Date Type Department Care Team (Latest Contact Info) Description 03/11/2004 Outpatient Historical [facility] Medicine [place] [address] [phone] Anahi Harrison MD [address] [place] [address] JOINT PAIN-L/LEG (Primary Dx) Social History Tobacco Use Types Packs/Day Years Used Date Smoking Tobacco: Never Assessed Comments Unknown Sex and Gender Information Value Date Recorded Sex Assigned at Not on file Legal Sex Female 5:57 AM RESEARCH WORKER ENCYCLOPEDIA Gender Identity Not on file Sexual Orientation Not on file documented as of this encounter Plan of Treatment Not on file documented as of this encounter Visit Diagnoses Diagnosis Pain in joint, lower leg- Primary documented in this encounter
--- OUTSIDE RECORDS SUMMARY | 2024-10-06 08:33 | XMS_ITS | Encounter Summary ---
Author Organization [facility] Address [address] [place] [address] Care Team Providers Care Billing And Insurance Coordinator Name Role Phone Unavailable Primary Care Provider Unavailabl e Encounter Details Date Type Department Care Team (Late st Contact Info) Description 10/08/2001 Outpatient Historical [facility] Imaging Services-Ren [facility] [place] [address] [place] [address] Social History Tobacco Use Types Packs/Day Years Used Date Smoking Tobacco: Never Assessed Comments Unknown Sex and Gender Information Value Date Recorded Sex Assigned at Not on file Legal Sex Female 5:57 AM COFFEE PLANTATION WORKER Gender Identity Not on file Sexual Orientation Not on file documented as of this encounter Plan of Treatment Not on file documented as of this encounter Visit Diagnoses Not on filedocumented in this encounter
--- OUTSIDE RECORDS SUMMARY | 2024-10-06 08:33 | XMS_ITS | Encounter Summary ---
Author Organization [facility] Address [address] [place] [address] Care Team Providers Care Field Service Tech Name Role Phone Unavailable Primary Care Provider Unavailabl e Encounter Details Date Type Department Care Team (Latest Contact Info) Description 07/18/2004 Outpatient Historical [facility] [address] [address] Anahi Harrison MD [address] [place] [phone] ALLERGIC RHINITIS NOS (Primary Dx); ACUTE FRONTAL SINUSITIS Social History Tobacco Use Types Packs/Day Years Used Date Smoking Tobacco: Never Assessed Comments Unknown Sex and Gender Information Value Date Recorded Sex Assigned at Not on file Legal Sex Female 5:57 AM PROP SAWYER Gender Identity Not on file Sexual Orientation Not on file documented as of this encounter Plan of Treatment Not on file documented as of this encounter Visit Diagnoses Diagnosis Allergic rhinitis, cause unspecified- Primary Acute frontal sinusitis documented in this encounter
--- OUTSIDE RECORDS SUMMARY | 2024-10-06 08:33 | XMS_ITS | Encounter Summary ---
Author Organization [facility] Address [address] [place] [address] Care Team Providers Care Tint Layer Name Role Phone Unavailable Primary Care Provider Unavailabl e Encounter Details Date Type Department Care Team (Latest Contact Info) Description 09/04/2004 Outpatient Historical [facility], Nose and Throat [address] [place] [address] Boogie Cardona MD [address] [facility] [address] [place] [address] REFERRED PAIN OF EAR (Primary Dx); TMJ arthralgia Social History Tobacco Use Types Packs/Day Years Used Date Smoking Tobacco: Never Assessed Comments Unknown Sex and Gender Information Value Date Recorded Sex Assigned at Not on file Legal Sex Female 5:57 AM PASSENGER TIRE BUILDER Gender Identity Not on file Sexual Orientation Not on file documented as of this encounter Plan of Treatment Not on file documented as of this encounter Visit Diagnoses Diagnosis 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
--- OUTSIDE RECORDS SUMMARY | 2024-10-06 08:33 | XMS_ITS | Encounter Summary ---
Author Organization [facility] Address [address] [place] [address] Care Team Providers Care Architectural Administrative Assistant Name Role Phone Unavailable Primary Care Provider Unavailabl e Encounter Details Date Type Department Care Team (Late st Contact Info) Description 04/10/2004 Outpatient Historical [facility] Orthopedics- [address] [place] [phone] Rigo Welch MD [address] [place] [address] DERANG ANT MED MENISCUS (Primary Dx) Social History Tobacco Use Types Packs/Day Years Used Date Smoking Tobacco: Never Assessed Comments Unknown Sex and Gender Information Value Date Recorded Sex Assigned at Not on file Legal Sex Female 5:57 AM POT PUSHER Gender Identity Not on file Sexual Orientation Not on file documented as of this encounter Plan of Treatment Not on file documented as of this encounter Visit Diagnoses Diagnosis Derangement of anterior horn of medial meniscus- Primary documented in this encounter
--- OUTSIDE RECORDS SUMMARY | 2024-10-06 08:33 | XMS_ITS | Encounter Summary ---
Author Organization [facility] Address [address] [facility] Attn: [place] [address] Care Team Providers Care Syrup Blender Name Role Phone Unavailable Primary Care Provider Unavailabl e Encounter Details Date Type Department Care Team (Late st Contact Info) Description 11/05/2001 Outpatient Historical Haroldo Garay MD [address] [place] [address] Social History Tobacco Use Types Packs/Day Years Used Date Smoking Tobacco: Never Assessed Comments Unknown Sex and Gender Information Value Date Recorded Sex Assigned at Not on file Legal Sex Female 5:57 AM COMFORT STATION ATTENDANT Gender Identity Not on file Sexual Orientation Not on file documented as of this encounter Plan of Treatment Not on file documented as of this encounter Visit Diagnoses Not on filedocumented in this encounter
--- OUTSIDE RECORDS SUMMARY | 2024-10-06 08:33 | XMS_ITS | Encounter Summary ---
Author Organization [facility] Address [address] [place] [address] Care Team Providers Care Talent Development Specialist Name Role Phone Unavailable Primary Care Provider Unavailabl e Encounter Details Date Type Department Care Team (Latest Contact Info) Description 09/02/2004 Outpatient Historical [facility] Imaging Services-Ren C[place] [place] [address] [place] [phone] Boogie Cardona MD [address] [facility] [address] [place] [address] REFERRED PAIN OF EAR (Primary Dx) Social History Tobacco Use Types Packs/Day Years Used Date Smoking Tobacco: Never Assessed Comments Unknown Sex and Gender Information Value Date Recorded Sex Assigned at Not on file Legal Sex Female 5:57 AM API ARCHITECT Gender Identity Not on file Sexual Orientation Not on file documented as of this encounter Plan of Treatment Not on file documented as of this encounter Visit Diagnoses Diagnosis Referred otogenic pain- Primary documented in this encounter
--- OUTSIDE RECORDS SUMMARY | 2024-10-06 08:33 | XMS_ITS | Encounter Summary ---
Author Organization [facility] Address [address] [place] [address] Care Team Providers Care Pool Hall Inspector Name Role Phone Unavailable Primary Care Provider Unavailabl e Encounter Details Date Type Department Care Team (Latest Contact Info) Description 06/24/2004 Outpatient Historical [facility] Throat 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
--- OUTSIDE RECORDS SUMMARY | 2024-10-06 08:33 | XMS_ITS | Encounter Summary ---
Author Organization [facility] Address [address] [place] [address] Care Team Providers Care Flat Clothier Name Role Phone Unavailable Primary Care Provider Unavailabl e Encounter Details Date Type Department Care Team (Latest Contact Info) Description 10/24/2004 Outpatient Historical [facility] [address] [place] [address] Sadia Alexandre FNP NO ADDRESS ON FILE Lumbosacral spondylosis (Primary Dx) Social History Tobacco Use Types Packs/Day Years Used Date Smoking Tobacco: Never Assessed Comments Unknown Sex and Gender Information Value Date Recorded Sex Assigned at Not on file Legal Sex Female 5:57 AM END MAKER Gender Identity Not on file Sexual Orientation Not on file documented as of this encounter Plan of Treatment Not on file documented as of this encounter Visit Diagnoses Diagnosis Lumbosacral spondylosis- Primary Lumbosacral spondylosis without myelopathy documented in this encounter
--- OUTSIDE RECORDS SUMMARY | 2024-10-06 08:33 | XMS_ITS | Encounter Summary ---
Author Organization [facility] Address [address] [place] [address] Care Team Providers Care Plumber Name Role Phone Unavailable Primary Care Provider Unavailabl e Encounter Details Date Type Department Care Team (Latest Contact Info) Description 04/17/2004 Outpatient Historical [facility] Medicine [place] [address] [address] Anahi Harrison MD [address] [place] [phone] JOINT PAIN-L/LEG (Primary Dx); HYPOTHYROIDISM NOS Social History Tobacco Use Types Packs/Day Years Used Date Smoking Tobacco: Never Assessed Comments Unknown Sex and Gender Information Value Date Recorded Sex Assigned at Not on file Legal Sex Female 5:57 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
--- OUTSIDE RECORDS SUMMARY | 2024-10-06 08:33 | XMS_ITS | Encounter Summary ---
Author Organization [facility] Address [address] [place] [address] Care Team Providers Care Script Supervisor Name Role Phone Unavailable Primary Care Provider Unavailabl e Encounter Details Date Type Department Care Team (Latest Contact Info) Description 09/11/2004 Outpatient Historical [facility] [address] [address] Haroldo Garay MD [address] [phone] OTALGIA NOS (Primary Dx) Social History Tobacco Use Types Packs/Day Years Used Date Smoking Tobacco: Never Assessed Comments Unknown Sex and Gender Information Value Date Recorded Sex Assigned at Not on file 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
--- OUTSIDE RECORDS SUMMARY | 2024-10-06 08:33 | XMS_ITS | Encounter Summary ---
Author Organization [facility] Address [address] [facility] Attn: [place] [address] Care Team Providers Care Culinary Director Name Role Phone Unavailable Primary Care Provider Unavailabl e Encounter Details Date Type Department Care Team (Late st Contact Info) Description 03/27/2000 Outpatient Historical Dustin Monroe MD [address] [place] [address] Social History Tobacco Use Types Packs/Day Years Used Date Smoking Tobacco: Never Assessed Comments Unknown Sex and Gender Information Value Date Recorded Sex Assigned at Not on file Legal Sex Female 5:57 AM RN CRITICAL CARE Gender Identity Not on file Sexual Orientation Not on file documented as of this encounter Plan of Treatment Not on file documented as of this encounter Visit Diagnoses Not on filedocumented in this encounter
--- OUTSIDE RECORDS SUMMARY | 2024-10-06 08:33 | XMS_ITS | Encounter Summary ---
Author Organization [facility] Address [address] [place] [address] Care Team Providers Care Baggage Clerk Name Role Phone Unavailable Primary Care Provider Unavailabl e Encounter Details Date Type Department Care Team (Latest Contact Info) Description 06/14/2004 Outpatient Historical [facility] Medicine [place] [address] [address] Anahi Harrsion MD [address] [place] [phone] OTITIS MEDIA NOS (Primary Dx) Social History Tobacco Use Types Packs/Day Years Used Date Smoking Tobacco: Never Assessed Comments Unknown Sex and Gender Information Value Date Recorded Sex Assigned at Not on file 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
--- OUTSIDE RECORDS SUMMARY | 2024-10-06 08:33 | XMS_ITS | Encounter Summary ---
Author Organization [facility] Address [address] [place] [address] Care Team Providers Care Plasma Specialist Name Role Phone Unavailable Primary Care Provider Unavailabl e Encounter Details Date Type Department Care Team (Latest Contact Info) Description 06/19/2004 Outpatient Historical [facility] [address] [address] Anahi Harrison MD [address] [place] [phone] ALLERGIC RHINITIS NOS (Primary Dx) Social History Tobacco Use Types Packs/Day Years Used Date Smoking Tobacco: Never Assessed Comments Unknown Sex and Gender Information Value Date Recorded Sex Assigned at Not on file Legal Sex Female 5:57 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
--- OUTSIDE RECORDS SUMMARY | 2024-10-06 08:33 | XMS_ITS | Encounter Summary ---
Author Organization [facility] Address [address] [place] [address] Care Team Providers Care Health Spa Manager Name Role Phone Unavailable Primary Care Provider Unavailabl e Encounter Details Date Type Department Care Team (Late st Contact Info) Description 10/24/2004 Emergency [facility] Emergency Department [address] [place] [address] Ryan Hall D, DO [address] [place] [address] JOINT PAIN-L/LEG (Primary Dx) Social History Tobacco Use Types Packs/Day Years Used Date Smoking Tobacco: Never Assessed Comments Unknown Sex and Gender Information Value Date Recorded Sex Assigned at Not on file Legal Sex Female 5:57 AM ARTIFICIAL CANDY MAKER Gender Identity Not on file Sexual Orientation Not on file documented as of this encounter Plan of Treatment Not on file documented as of this encounter Visit Diagnoses Diagnosis Pain in joint, lower leg- Primary documented in this encounter
--- OUTSIDE RECORDS SUMMARY | 2024-10-06 08:33 | XMS_ITS | Encounter Summary ---
Author Organization [facility] Address [address] [place] [address] Care Team Providers Care Correctional Corporal Name Role Phone Unavailable Primary Care Provider Unavailabl e Encounter Details Date Type Department Care Team (Latest Contact Info) Description 10/31/2004 Outpatient Historical [facility] [address] 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
--- OUTSIDE RECORDS SUMMARY | 2024-10-06 08:33 | XMS_ITS | Encounter Summary ---
Author Organization [facility] Address [address] [place] [address] Care Team Providers Care Civil Engineer Land Development Name Role Phone Unavailable Primary Care Provider Unavailabl e Encounter Details Date Type Department Care Team (Latest Contact Info) Description 09/19/2004 Outpatient Historical [facility] Imaging Services-Ren Cuevas Abhinav [address] [place] [address] Dustin Alvarado MD [address] [place] [address] ADMINISTRTVE ENCOUNT NOS (Primary Dx) Social History Tobacco Use Types Packs/Day Years Used Date Smoking Tobacco: Never Assessed Comments Unknown Sex and Gender Information Value Date Recorded Sex Assigned at Not on file Legal Sex Female 5:57 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
--- OUTSIDE RECORDS SUMMARY | 2024-10-06 08:33 | XMS_ITS | Encounter Summary ---
Author Organization [facility] Address [address] [place] [address] Care Team Providers Care Chili Pepper Grinder Name Role Phone Unavailable Primary Care Provider Unavailabl e Encounter Details Date Type Department Care Team (Latest Contact Info) Description 05/30/2004 Outpatient Historical [facility] [place] [address] [address] Anahi Harrison MD [address] [place] [phone] HYPOTHYROIDISM NOS (Primary Dx) Social History Tobacco Use Types Packs/Day Years Used Date Smoking Tobacco: Never Assessed Comments Unknown Sex and Gender Information Value Date Recorded Sex Assigned at Not on file Legal Sex Female 5:57 AM FISHER POT Gender Identity Not on file Sexual Orientation Not on file documented as of this encounter Plan of Treatment Not on file documented as of this encounter Visit Diagnoses Diagnosis Unspecified hypothyroidism- Primary documented in this encounter
--- OUTSIDE RECORDS SUMMARY | 2024-10-06 08:33 | XMS_ITS | Encounter Summary ---
Author Organization [facility] Address [address] [place] [address] Care Team Providers Care Dry Cell Tester Name Role Phone Unavailable Primary Care Provider Unavailabl e Encounter Details Date Type Department Care Team (Latest Contact Info) Description 07/02/2001 Outpatient Historical [facility] [address], [place] [address] Haroldo Garay MD [address] [phone] OSTEOARTHROS NOS-L/LEG (Primary Dx) Social History Tobacco Use Types Packs/Day Years Used Date Smoking Tobacco: Never Assessed Comments Unknown Sex and Gender Information Value Date Recorded Sex Assigned at Not on file Legal Sex Female 5:57 AM RN ED Gender Identity Not on file Sexual Orientation Not on file documented as of this encounter Plan of Treatment Not on file documented as of this encounter Visit Diagnoses Diagnosis Osteoarthrosis, unspecified whether generalized or localized, lower leg- Primary documented in this encounter
--- OUTSIDE RECORDS SUMMARY | 2024-10-06 08:33 | XMS_ITS | Encounter Summary ---
Author Organization [facility] Address [address] [place] [address] Care Team Providers Care Athletic Instructor Name Role Phone Unavailable Primary Care Provider Unavailabl e Encounter Details Date Type Department Care Team (Latest Contact Info) Description 09/18/2004 Outpatient Historical [facility] [address] [place] [address] [facility] [address] [place] [address] Sadia Alexandre FNP NO ADDRESS ON FILE LUMBAGO (Primary Dx) Social History Tobacco Use Types Packs/Day Years Used Date Smoking Tobacco: Never Assessed Comments Unknown Sex and Gender Information Value Date Recorded Sex Assigned at Not on file Legal Sex Female 5:57 AM PERSONAL HEALTH COACH Gender Identity Not on file Sexual Orientation Not on file documented as of this encounter Plan of Treatment Not on file documented as of this encounter Visit Diagnoses Diagnosis Lumbago- Primary documented in this encounter
--- OUTSIDE RECORDS SUMMARY | 2024-10-06 08:33 | XMS_ITS | Encounter Summary ---
Author Organization [facility] Address [address] [place] [address] Care Team Providers Care Explosives Engineer Name Role Phone Unavailable Primary Care Provider Unavailabl e Encounter Details Date Type Department Care Team (Late st Contact Info) Description 05/08/2004 Outpatient Historical [facility]- [address] [place] 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
--- OUTSIDE RECORDS SUMMARY | 2024-10-06 08:33 | XMS_ITS | Encounter Summary ---
Author Organization [facility] Address [address] [place] [address] Care Team Providers Care Batch Mixer Operator Name Role Phone Unavailable Primary Care Provider Unavailabl e Encounter Details Date Type Department Care Team (Latest Contact Info) Description 11/05/2004 Outpatient Historical [facility] [address] [place] [phone] Boogie Simmons LUMBOSACRAL NEURITIS NOS (Primary Dx) Social History Tobacco Use Types Packs/Day Years Used Date Smoking Tobacco: Never Assessed Comments Unknown Sex and Gender Information Value Date Recorded Sex Assigned at Not on file Legal Sex Female 5:57 AM CUT OFF SAW GRADER Gender Identity Not on file Sexual Orientation Not on file documented as of this encounter Plan of Treatment Not on file documented as of this encounter Visit Diagnoses Diagnosis Thoracic or lumbosacral neuritis or radiculitis, unspecified- Primary documented in this encounter
--- OUTSIDE RECORDS SUMMARY | 2024-10-06 08:33 | XMS_ITS | Encounter Summary ---
Author Organization [facility] Address [address] [place] [address] Care Team Providers Care Closing Coordinator Name Role Phone Unavailable Primary Care Provider Unavailabl e Encounter Details Date Type Department Care Team (Latest Contact Info) Description 06/03/[address] [facility] [address] [address] Anahi Harrison MD [address] [place] [phone] ACUTE FRONTAL SINUSITIS (Primary Dx); ACUTE BRONCHITIS; OTITIS MEDIA NOS Social History Tobacco Use Types Packs/Day Years Used Date Smoking Tobacco: Never Assessed Comments Unknown Sex and Gender Information Value Date Recorded Sex Assigned at Not on file Legal Sex Female 5:57 AM DIRECTOR MOBILE Gender Identity Not on file Sexual Orientation Not on file documented as of this encounter Plan of Treatment Not on file documented as of this encounter Visit Diagnoses Diagnosis Acute frontal sinusitis- Primary Acute bronchitis Unspecified otitis media documented in this encounter
--- OUTSIDE RECORDS SUMMARY | 2024-10-06 08:33 | XMS_ITS | Encounter Summary ---
Author Organization [facility] Address [address] [place] [address] Care Team Providers Care Manager Of Data Name Role Phone Unavailable Primary Care Provider Unavailabl e Encounter Details Date Type Department Care Team (Latest Contact Info) Description 07/19/2001 Outpatient Historical [facility] [address] [address] [address] Haroldo Garay MD [address] [phone] OSTEOARTHROS NOS-OTHER SITE (Primary Dx) Social History Tobacco Use Types Packs/Day Years Used Date Smoking Tobacco: Never Assessed Comments Unknown Sex and Gender Information Value Date Recorded Sex Assigned at Not on file 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
--- OUTSIDE RECORDS SUMMARY | 2024-10-06 08:33 | XMS_ITS | Encounter Summary ---
Author Organization [facility] Address [address] [place] [address] Care Team Providers Care Thermit Welding Machine Operator Name Role Phone Unavailable Primary Care Provider Unavailabl e Encounter Details Date Type Department Care Team (Late st Contact Info) Description 09/18/2004 Outpatient Historical [facility] Dustin Alvarado MD [address] [place] [address] LUMBAGO (Primary Dx) Social History Tobacco Use Types Packs/Day Years Used Date Smoking Tobacco: Never Assessed Comments Unknown Sex and Gender Information Value Date Recorded Sex Assigned at Not on file Legal Sex Female 5:57 AM RN MATERNITY Gender Identity Not on file Sexual Orientation [...]
--- OUTSIDE RECORDS SUMMARY | 2024-10-06 08:33 | XMS_ITS | Encounter Summary ---
Author Organization [facility] Address [address] [place] [address] Care Team Providers Care Block Sealer Name Role Phone Unavailable Primary Care Provider Unavailabl e Encounter Details Date Type Department Care Team (Latest Contact Info) Description 11/05/2004 Outpatient Historical [facility] [address] [place] [phone] Boogie Simmons LUMBAGO (Primary Dx) Social History Tobacco Use Types Packs/Day Years Used Date Smoking Tobacco: Never Assessed Comments Unknown Sex and Gender Information Value Date Recorded Sex Assigned at Not on file Legal Sex Female 5:57 AM HOGSHEAD DUMPER Gender Identity Not on file Sexual Orientation Not on file documented as of this encounter Plan of Treatment Not on file documented as of this encounter Visit Diagnoses Diagnosis Lumbago- Primary documented in this encounter
--- OUTSIDE RECORDS SUMMARY | 2024-10-06 08:33 | XMS_ITS | Encounter Summary ---
Author Organization [facility] Address [address] [place] [address] Care Team Providers Care Durability Engineer Name Role Phone Unavailable Primary Care Provider Unavailabl e Encounter Details Date Type Department Care Team (Latest Contact Info) Description 10/29/2001 Outpatient [facility] [address] [address] Haroldo Garay MD [address], [place] [phone] JOINT PAIN-L/LEG (Primary Dx); BACKACHE NOS Social History Tobacco Use Types Packs/Day Years Used Date Smoking Tobacco: Never Assessed Comments Unknown Sex and Gender Information Value Date Recorded Sex Assigned at Not on file 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
--- OUTSIDE RECORDS SUMMARY | 2024-10-06 08:33 | XMS_ITS | Encounter Summary ---
Author Organization [facility] Address [address] [place] [address] Care Team Providers Care Animal Husbandry Worker Name Role Phone Unavailable Primary Care Provider Unavailabl e Encounter Details Date Type Department Care Team (Late st Contact Info) Description 03/18/2004 Outpatient Historical [facility] Orthopedics- [address] [place] [address] [place] [phone] Rigo Welch MD [address] [place] [address] JOINT PAIN-L/LEG (Primary Dx); DERANG POST MED MENISCUS; OBESITY NOS Social History Tobacco Use Types Packs/Day Years Used Date Smoking Tobacco: Never Assessed Comments Unknown Sex and Gender Information Value Date Recorded Sex Assigned at Not on file Legal Sex Female 5:57 AM NOUGAT CANDY MAKER HELPER Gender Identity Not on file Sexual Orientation Not on file documented as of this encounter Plan of Treatment Not on file documented as of this encounter Visit Diagnoses Diagnosis Pain in joint, lower leg- Primary Derangement of posterior horn of medial meniscus Obesity, unspecified documented in this encounter
--- OUTSIDE RECORDS SUMMARY | 2024-10-06 08:33 | XMS_ITS | Encounter Summary ---
Author Organization [facility] Address [address] [place] [address] Care Team Providers Care General Store Manager Name Role Phone Unavailable Primary Care Provider Unavailabl e Encounter Details Date Type Department Care Team (Latest Contact Info) Description 10/31/2004 Outpatient Historical [facility] [address] [place] [address] [facility] [address] [place] [address] Boogie Simmons LUMBOSACRAL NEURITIS NOS (Primary Dx) Social History Tobacco Use Types Packs/Day Years Used Date Smoking Tobacco: Never Assessed Comments Unknown Sex and Gender Information Value Date Recorded Sex Assigned at Not on file Legal Sex Female 5:57 AM INDIAN NANNY Gender Identity Not on file Sexual Orientation Not on file documented as of this encounter Plan of Treatment Not on file documented as of this encounter Visit Diagnoses Diagnosis Thoracic or lumbosacral neuritis or radiculitis, unspecified- Primary documented in this encounter
--- OUTSIDE RECORDS SUMMARY | 2024-10-06 08:33 | XMS_ITS | Encounter Summary ---
Author Organization [facility] Address [address] [place] [address] Care Team Providers Care Scouring Machine Tender Name Role Phone Unavailable Primary Care Provider Unavailabl e Encounter Details Date Type Department Care Team (Latest Contact Info) Description 10/15/2004 Outpatient Historical [facility] [place] [facility] Medicine [place] [address] [phone] Joselin Stephenson, [facility] [address] [phone] ABDOMINAL PAIN UNSPEC SITE (Primary Dx) Social History Tobacco Use Types Packs/Day Years Used Date Smoking Tobacco: Never Assessed Comments Unknown Sex and Gender Information Value Date Recorded Sex Assigned at Not on file 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
--- OUTSIDE RECORDS SUMMARY | 2024-10-06 08:33 | XMS_ITS | Encounter Summary ---
Author Organization [facility] Address [address] [place] [address] Care Team Providers Care Computer Repair Instructor Name Role Phone Unavailable Primary Care Provider Unavailabl e Encounter Details Date Type Department Care Team (Latest Contact Info) Description 09/17/2001 Outpatient Historical [facility] [address], [place] [address] Haroldo Garay MD [address] [phone] LUMBAGO (Primary Dx); SCIATICA Social History Tobacco Use Types Packs/Day Years Used Date Smoking Tobacco: Never Assessed Comments Unknown Sex and Gender Information Value Date Recorded Sex Assigned at Not on file Legal Sex Female 5:57 AM INFECTION CONTROL NURSE Gender Identity Not on file Sexual Orientation Not on file documented as of this encounter Plan of Treatment Not on file documented as of this encounter Visit Diagnoses Diagnosis Lumbago- Primary Sciatica documented in this encounter
--- OUTSIDE RECORDS SUMMARY | 2024-10-06 08:33 | XMS_ITS | Encounter Summary ---
Author Organization [facility] Address [address] [facility] Attn: [place] [address] Care Team Providers Care Rn Document Improvement Specialist Name Role Phone Unavailable Primary Care Provider Unavailabl e Encounter Details Date Type Department Care Team (Late st Contact Info) Description 10/08/2001 Outpatient Historical Haroldo Garay MD [address] [place] [address] Social History Tobacco Use Types Packs/Day Years Used Date Smoking Tobacco: Never Assessed Comments Unknown Sex and Gender Information Value Date Recorded Sex Assigned at Not on file Legal Sex Female 5:57 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
--- OUTSIDE RECORDS SUMMARY | 2024-10-06 08:33 | XMS_ITS | Encounter Summary ---
Author Organization [facility] Address [address] [place] [address] Care Team Providers Care Physical Therapist Aide Name Role Phone Unavailable Primary Care Provider Unavailabl e Encounter Details Date Type Department Care Team (Latest Contact Info) Description 10/24/2004 Outpatient Historical [facility] [address] [place] [address] [email or web address] [address] [place] [address] Sadia Alexandre FNP NO ADDRESS ON FILE LUMBOSACRAL SPONDYLOSIS (Primary Dx) Social History Tobacco Use Types Packs/Day Years Used Date Smoking Tobacco: Never Assessed Comments Unknown Sex and Gender Information Value Date Recorded Sex Assigned at Not on file Legal Sex Female 5:57 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
--- OUTSIDE RECORDS SUMMARY | 2024-10-06 08:33 | XMS_ITS | Encounter Summary ---
Author Organization [facility] Address [address] [place] [address] Care Team Providers Care Limousine Rental Clerk Name Role Phone Unavailable Primary Care Provider Unavailabl e Encounter Details Date Type Department Care Team (Late st Contact Info) Description 10/28/2004 Outpatient Historical [facility] Orthopedics- [address] [place] 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
--- OUTSIDE RECORDS SUMMARY | 2024-10-06 08:33 | XMS_ITS | Encounter Summary ---
Author Organization [facility] Address [address] [place] [address] Care Team Providers Care Web Services Manager Name Role Phone Unavailable Primary Care Provider Unavailabl e Encounter Details Date Type Department Care Team (Latest Contact Info) Description 04/02/2004 Outpatient Historical [facility] Operating Room [address] [place] [address] Rigo Welch MD [address] [place] [address] [facility] (Primary Dx) Social History Tobacco Use Types Packs/Day Years Used Date Smoking Tobacco: Never Assessed Comments Unknown Sex and Gender Information Value Date Recorded Sex Assigned at Not on file Legal Sex Female 5:57 AM SHIP JOINER Gender Identity Not on file Sexual Orientation Not on file documented as of this encounter Plan of Treatment Not on file documented as of this encounter Procedures Procedure Name Priority Date/Time Associated Diagnosis Comments POC GLUCOSE Routine 04/02/2004 3:34 PM SHIP JOINER CBC WITHOUT DIFFERENTIAL Routine 04/02/2004 6:24 AM SHIP JOINER BASIC METABOLIC PANEL Routine 04/02/2004 6:24 AM SHIP JOINER documented in this encounter Results * (ABNORMAL) POC GLUCOSE (04/02/2004 3:34 PM SHIP JOINER) GLUCOSE POC 104(H) 60 - 100 mg/dL INTERFACE SYSTEM 04/02/2004 3:34 PM SHIP JOINER us Rigo Welch MD POINT OF CARE TESTING F inal Result Performing Organization Address [facility] de Phone Number INTERFACE SYSTEM Refer to clinic/hospital department * BASIC METABOLIC PANEL (04/02/2004 6:24 AM SHIP JOINER) GLUCOSE 100 70 - 110 mg/dL INTERFACE [...] 10.5 mg/dL INTERFACE SYSTEM 04/02/2004 6:24 AM SHIP JOINER Rigo Welch MD CHEMISTRY ORDERABLES Fi nal Result Performing Organization Address [facility] de Phone Number INTERFACE SYSTEM Refer to clinic/hospital department * (ABNORMAL) CBC WITHOUT DIFFERENTIAL (04/02/2004 6:24 AM SHIP JOINER) Pathologist [facility] WBC 6.8 4.5 - 11.0 K/ul INTERFACE [...] 0.2 K/ul INTERFACE SYSTEM 04/02/2004 6:24 AM SHIP JOINER us Rigo Welch MD HEMATOLOGY ORDERABLES F inal Result INTERFACE SYSTEM Refer to clinic/hospital department documented in this encounter Visit Diagnoses Diagnosis Other and unspecified derangement of medial meniscus- Primary documented in this encounter
--- OUTSIDE RECORDS SUMMARY | 2024-10-06 08:33 | XMS_ITS | Encounter Summary ---
Author Organization [facility] Address [address] [facility] Attn: [place] [address] Care Team Providers Care Quality Process Engineer Name Role Phone Unavailable Primary Care Provider Unavailabl e Encounter Details Date Type Department Care Team (Late st Contact Info) Description 08/17/2001 Outpatient Historical Haroldo Garay MD [address] [place] [address] Social History Tobacco Use Types Packs/Day Years Used Date Smoking Tobacco: Never Assessed Comments Unknown Sex and Gender Information Value Date Recorded Sex Assigned at Not on file 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
--- OUTSIDE RECORDS SUMMARY | 2024-10-06 08:34 | XMS_ITS | Encounter Summary ---
Author Organization [facility] Address [address] [place] [address] Care Team Providers Care Slot Router Name Role Phone Unavailable Primary Care Provider Unavailabl e Encounter Details Date Type Department Care Team (Latest Contact Info) Description 06/07/2003 Outpatient Historical [facility] [address], [place] [address] Haroldo Garay MD [address] [phone] MASTODYNIA (Primary Dx) Social History Tobacco Use Types Packs/Day Years Used Date Smoking Tobacco: Never Assessed Comments Unknown Sex and Gender Information Value Date Recorded Sex Assigned at Not on file 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
--- OUTSIDE RECORDS SUMMARY | 2024-10-06 08:34 | XMS_ITS | Encounter Summary ---
Author Organization [facility] Address [address] [place] [address] Care Team Providers Care Children'S Minister Name Role Phone Unavailable Primary Care Provider Unavailabl e Encounter Details Date Type Department Care Team (Late st Contact Info) Description 08/30/2003 Outpatient Historical [facility] [address] [facility] [address] [place] [address] Dustin Alvarado MD [address] [place] [address] LUMBAGO (Primary Dx) Social History Tobacco Use Types Packs/Day Years Used Date Smoking Tobacco: Never Assessed Comments Unknown Sex and Gender Information Value Date Recorded Sex Assigned at Not on file Legal Sex Female 5:57 AM CLOTH DYE RANGE OPERATOR Gender Identity Not on file Sexual Orientation Not on file documented as of this encounter Plan of Treatment Not on file documented as of this encounter Visit Diagnoses Diagnosis Lumbago- Primary documented in this encounter
--- OUTSIDE RECORDS SUMMARY | 2024-10-06 08:34 | XMS_ITS | Encounter Summary ---
Author Organization [facility] Address [address] [place] [address] Care Team Providers Care Counselor Aide Name Role Phone Unavailable Primary Care Provider Unavailabl e Encounter Details Date Type Department Care Team (Late st Contact Info) Description 08/02/2003 Outpatient Historical [facility] [place] [address] 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
--- OUTSIDE RECORDS SUMMARY | 2024-10-06 08:34 | XMS_ITS | Encounter Summary ---
Author Organization [facility] Address [address] [place] [address] Care Team Providers Care Special Loan Officer Name Role Phone Unavailable Primary Care Provider Unavailabl e Encounter Details Date Type Department Care Team (Late st Contact Info) Description 08/14/2004 Outpatient Historical [facility] Dustin Alvarado MD [address] [place] [address] BACKACHE NOS (Primary Dx) Social History Tobacco Use Types Packs/Day Years Used Date Smoking Tobacco: Never Assessed Comments Unknown Sex and Gender Information Value Date Recorded Sex Assigned at Not on file Legal Sex Female 5:57 AM DIGITAL COMMENTATOR Gender Identity Not on file Sexual Orientation [...] ORDERABLES Final Resul t Performing Organization Address [facility] Phone Number INTERFACE SYSTEM Refer to [...] ORDERABLES Final Resul t Performing Organization Address [facility] Phone Number INTERFACE SYSTEM Refer to [...] ORDERABLES Final Resul t Performing Organization Address [facility] Phone Number INTERFACE SYSTEM Refer to clinic/hospital department * PEPE (08/14/2004 10:15 AM CDT) PEPE Negative Negative INTERFACE SYSTEM 08/14/2004 10:1 5 AM CDT Dustin Alvarado MD CHEMISTRY ORDERABLES Final Resul t Performing Organization Address [facility] Number INTERFACE SYSTEM Refer to clinic/hospital department * (ABNORMAL) SEDIMENTATION RATE (08/14/2004 10:15 AM CDT) ESR (SEDIMENTATION RATE) 39(H) 0 - 22 mm/hr INTERFACE SYSTEM 08/14/2004 10:1 5 AM CDT Dustin Alvarado MD HEMATOLOGY ORDERABLES Final Resu lt Performing Organization Address [facility] Phone Number INTERFACE SYSTEM Refer to [...]
--- OUTSIDE RECORDS SUMMARY | 2024-10-06 08:34 | XMS_ITS | Encounter Summary ---
Author Organization [facility] Address [address] [place] [address] Care Team Providers Care Loom Fixer Apprentice Name Role Phone Unavailable Primary Care Provider Unavailabl e Encounter Details Date Type Department Care Team (Latest Contact Info) Description 03/05/2004 Outpatient Historical [facility] [address] [address] Haroldo Garay MD [address] [phone] TEAR MED MENISC KNEE-CURRENT (Primary Dx) Social History Tobacco Use Types Packs/Day Years Used Date Smoking Tobacco: Never Assessed Comments Unknown Sex and Gender Information Value Date Recorded Sex Assigned at Not on file Legal Sex Female 5:57 AM RECOIL SPRING WINDER Gender Identity Not on file Sexual Orientation Not on file documented as of this encounter Plan of Treatment Not on file documented as of this encounter Visit Diagnoses Diagnosis Tear of medial cartilage or meniscus of knee, current- Primary documented in this encounter
--- OUTSIDE RECORDS SUMMARY | 2024-10-06 08:34 | XMS_ITS | Encounter Summary ---
Author Organization [facility] Address [address] [place] [address] Care Team Providers Care Control Panel Builder Name Role Phone Unavailable Primary Care Provider Unavailabl e Encounter Details Date Type Department Care Team (Latest Contact Info) Description 08/25/2003 Outpatient Historical [facility] [address] [address] Anahi Harrison MD [address] [place] [address] URIN TRACT INFECTION NOS (Primary Dx) Social History Tobacco Use Types Packs/Day Years Used Date Smoking Tobacco: Never Assessed Comments Unknown Sex and Gender Information Value Date Recorded Sex Assigned at Not on file 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
--- OUTSIDE RECORDS SUMMARY | 2024-10-06 08:34 | XMS_ITS | Encounter Summary ---
Author Organization [facility] Address [address] [place] [address] Care Team Providers Care Mobile Lab Technician Name Role Phone Unavailable Primary Care Provider Unavailabl e Encounter Details Date Type Department Care Team (Latest Contact Info) Description 08/12/2004 Outpatient Historical [facility] [address] [address] Anahi Harrison MD [address] [place] [address] DYSURIA (Primary Dx); HYPOTHYROIDISM NOS Social History Tobacco Use Types Packs/Day Years Used Date Smoking Tobacco: Never Assessed Comments Unknown Sex and Gender Information Value Date Recorded Sex Assigned at Not on file Legal Sex Female 5:57 AM EXTRUSION MANAGER Gender Identity Not on file Sexual Orientation Not on file documented as of this encounter Plan of Treatment Not on file documented as of this encounter Visit Diagnoses Diagnosis Dysuria- Primary Unspecified hypothyroidism documented in this encounter
--- OUTSIDE RECORDS SUMMARY | 2024-10-06 08:34 | XMS_ITS | Encounter Summary ---
Author Organization [facility] Address [address] [place] [address] Care Team Providers Care Bricklayer Helper Name Role Phone Unavailable Primary Care Provider Unavailabl e Encounter Details Date Type Department Care Team (Latest Contact Info) Description 04/14/2003 Outpatient Historical [facility] [address] [address] Haroldo Garay MD [address] [place] [phone] SCIATICA (Primary Dx) Social History Tobacco Use Types Packs/Day Years Used Date Smoking Tobacco: Never Assessed Comments Unknown Sex and Gender Information Value Date Recorded Sex Assigned at Not on file Legal Sex Female 5:57 AM RISK CONSULTANT Gender Identity Not on file Sexual Orientation Not on file documented as of this encounter Plan of Treatment Not on file documented as of this encounter Visit Diagnoses Diagnosis Sciatica- Primary documented in this encounter
--- OUTSIDE RECORDS SUMMARY | 2024-10-06 08:34 | XMS_ITS | Encounter Summary ---
Author Organization [facility] Address [address] [place] [address] Care Team Providers Care Audioprosthologist Name Role Phone Unavailable Primary Care Provider Unavailabl e Encounter Details Date Type Department Care Team (Late st Contact Info) Description 05/17/2003 Outpatient Historical [facility] [address] [facility] [address] [place] [address] Dustin Alvarado MD [address] [place] [address] LUMBAGO (Primary Dx) Social History Tobacco Use Types Packs/Day Years Used Date Smoking Tobacco: Never Assessed Comments Unknown Sex and Gender Information Value Date Recorded Sex Assigned at Not on file Legal Sex Female 5:57 AM DIE REPAIRER FORGING Gender Identity Not on file Sexual Orientation Not on file documented as of this encounter Plan of Treatment Not on file documented as of this encounter Visit Diagnoses Diagnosis Lumbago- Primary documented in this encounter
--- OUTSIDE RECORDS SUMMARY | 2024-10-06 08:34 | XMS_ITS | Encounter Summary ---
Author Organization [facility] Address [address] [place] [address] Care Team Providers Care Blanking Press Operator Name Role Phone Unavailable Primary Care Provider Unavailabl e Encounter Details Date Type Department Care Team (Late st Contact Info) Description 08/30/2003 Outpatient Historical [facility] [address] [place] [phone] Dustin Alvarado MD [address] [place] [address] JOINT PAIN-SHLDER (Primary Dx); CERVICALGIA; Cervical disc displacmnt; LUMBAGO Social History Tobacco Use Types Packs/Day Years Used Date Smoking Tobacco: Never Assessed Comments Unknown Sex and Gender Information Value Date Recorded Sex Assigned at Not on file Legal Sex Female 5:57 AM SUPERVISOR RECLAMATION Gender Identity Not on file Sexual Orientation Not on file documented as of this encounter Plan of Treatment Not on file documented as of this encounter Visit Diagnoses Diagnosis Pain in joint, shoulder region- Primary Cervicalgia Cervical disc displacmnt Displacement of cervical intervertebral disc without myelopathy Lumbago documented in this encounter
--- OUTSIDE RECORDS SUMMARY | 2024-10-06 08:34 | XMS_ITS | Encounter Summary ---
Author Organization [facility] Address [address] [place] [address] Care Team Providers Care Mobility Architect Name Role Phone Unavailable Primary Care Provider Unavailabl e Encounter Details Date Type Department Care Team (Latest Contact Info) Description 03/20/2003 Outpatient Historical [facility] [address], [place] [address] Haroldo Garay MD [address], [place] [phone] Sprain lumbar region (Primary Dx); Sprain thoracic region; INSOMNIA NEC; GENERALIZED ANXIETY DIS Social History Tobacco Use Types Packs/Day Years Used Date Smoking Tobacco: Never Assessed Comments Unknown Sex and Gender Information Value Date Recorded Sex Assigned at Not on file Legal Sex Female 5:57 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
--- OUTSIDE RECORDS SUMMARY | 2024-10-06 08:34 | XMS_ITS | Encounter Summary ---
Author Organization [facility] Address [address] [place] [address] Care Team Providers Care Bonsai Culturist Name Role Phone Unavailable Primary Care Provider Unavailabl e Encounter Details Date Type Department Care Team (Late st Contact Info) Description 12/20/2003 Outpatient Historical [facility] [address] [place] [phone] Dustin Alvarado MD [address] [place] [address] Sprain of neck (Primary Dx); LUMBAGO; Sciatic nerve lesion Social History Tobacco Use Types Packs/Day Years Used Date Smoking Tobacco: Never Assessed Comments Unknown Sex and Gender Information Value Date Recorded Sex Assigned at Not on file Legal Sex Female 5:57 AM TOLL LINEMAN Gender Identity Not on file Sexual Orientation Not on file documented as of this encounter Plan of Treatment Not on file documented as of this encounter Visit Diagnoses Diagnosis Sprain of neck- Primary Neck sprain and strain Lumbago Sciatic nerve lesion Lesion of sciatic nerve documented in this encounter
--- OUTSIDE RECORDS SUMMARY | 2024-10-06 08:34 | XMS_ITS | Clinical Summary ---
Author Organization [employer] Address [address] [facility] Attn: Epic Prelude ADT EMILIANA MALHOTRA [address] Care Team Providers Care Aerospace Engineer Name Role Phone Arturo Davila MD Primary Care Provider [phone] Allergies Active Allergy Reactions Criticality Noted Date Comments Penicillin Unknown 10/30/2022 Medications hydroCHLOROthiaz salena (MICROZIDE) 12.5 mg capsuleIndicatio ns:Benign hypertension Take 1 Capsule (12.5 mg) by mouth daily. 90 Capsule 3 3 Active blood sugar diagnostic StripIndications :Type 2 diabetes mellitus without complication, with long-term current use of insulin ([facility]) Use with glucose meter 100 Strip 3 Active mupirocin (BACTROBAN) 2 % OintmentIndicati ons:Infected insect bite or sting Apply to affected area daily. 30 Gram 3 Active Blood-Glucose Meter KitIndications:T ype 2 diabetes mellitus without complication, with long-term current use of insulin ([facility]) To take blood sugar before meals 1 [...] on file Legal Sex Female 8:47 AM GEOPHYSICIST Gender Identity Not on file Sexual Orientation [...] complication, with long-term current use of insulin ([facility]) from Last 3 Months or Most Recently Relevant to Health Maintenance Results * (ABNORMAL) HEMOGLOBIN A1C (10/31/2022 8:51 AM CDT) HEMOGLOBIN A1C 6.7(H) <5.7 % of total Hgb [facility] Comment: For someone without known diabetes, [...] children. ESTIMATED AVERAGE GLUCOSE (MG/DL) 146 mg/dL [email or web address] ESTIMATED AVERAGE GLUCOSE (MMOL/L) 8.1 mmol/L [email or web address] Comment: Test Performed at: [facility] [address] [place] [address] Rimma Leahy MD Blood 10/31/2022 8:51 AM CDT 11/01/2022 3:30 AM CDT Fabiana Ellencal Lugo ANALYST CHEMISTRY ORDERABLES Fin al Result [facility] [phone] [facility] [address] [place] [address] * LIPID PANEL (10/31/2022 8:51 AM CDT) CHOLESTEROL 123 <200 mg/dL [email or web address] HDL 53 > OR = 50 mg/dL [email or web address] TRIGLYCERIDE 90 <150 mg/dL [email or web address] LDL CALCULATED 53 mg/dL (calc) [email or web address] Comment: Reference range: <100 Desirable range <100 mg/dL for primary prevention; <70 mg/dL for patients with CHD or diabetic patients with > or = 2 CHD risk factors. LDL-C is now calculated using the Ruel calculation, which is a validated novel method providing better accuracy than the Friedewald equation in the estimation of LDL-C. Luis Felipe FERRARI et al. LISA. 2013;310(55): 2439-4130 (http://education.[facility]/faq/GLZ146) CHOL/HDL RATIO 2.3 <5.0 (calc) [email or web address] TOTAL NON-HDL CHOL(LDL+VLDL) 70 <130 mg/dL (calc) [email or web address] Comment: For patients with diabetes plus 1 major ASCVD risk factor, treating to a non-HDL-C goal of <100 mg/dL (LDL-C of <70 mg/dL) is considered a therapeutic option. Test Performed at: [facility] [address] [place] [address] Rimma Leahy MD Blood 10/31/2022 8:51 AM CDT 11/01/2022 3:30 AM CDT Fabiana Lugo ANALYST CHEMISTRY ORDERABLES Fin al Result [facility] [phone] [email or web address] [address] [place] [address] from Last 3 Months or Most Recently Relevant to Health Maintenance Insurance [place]ICAID [place] Care Teams Aerospace Engineer Relationship Specialty Start Date End Date Arturo Davila MD [address] [facility] [address] [place] [phone] PCP - General Family Practice 10/30/22
--- OUTSIDE RECORDS SUMMARY | 2024-10-06 08:34 | XMS_ITS | Encounter Summary ---
Author Organization [facility] Address [address] [place] [address] Care Team Providers Care Test Developer Name Role Phone Unavailable Primary Care Provider Unavailabl e Encounter Details Date Type Department Care Team (Latest Contact Info) Description 02/01/2004 Outpatient Historical [facility] [place] [address] [address] Anahi Harrison MD [address] [place] [phone] URIN TRACT INFECTION NOS (Primary Dx) Social History Tobacco Use Types Packs/Day Years Used Date Smoking Tobacco: Never Assessed Comments Unknown Sex and Gender Information Value Date Recorded Sex Assigned at Not on file Legal Sex Female 5:57 AM DATABASE DEVELOPER Gender Identity Not on file Sexual Orientation Not on file documented as of this encounter Plan of Treatment Not on file documented as of this encounter Visit Diagnoses Diagnosis Urinary tract infection, site not specified- Primary documented in this encounter
--- OUTSIDE RECORDS SUMMARY | 2024-10-06 08:34 | XMS_ITS | Encounter Summary ---
Author Organization [facility] Address [address] [place] [address] Care Team Providers Care Cellular Equipment Installer Name Role Phone Unavailable Primary Care Provider Unavailabl e Encounter Details Date Type Department Care Team (Late st Contact Info) Description 08/29/2004 Outpatient Historical [facility] Orthopedics- 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
--- OUTSIDE RECORDS SUMMARY | 2024-10-06 08:34 | XMS_ITS | Encounter Summary ---
Author Organization [facility] Address [address] [place] [address] Care Team Providers Care Energy Project Manager Name Role Phone Unavailable Primary Care Provider Unavailabl e Encounter Details Date Type Department Care Team (Late st Contact Info) Description 11/08/2003 Outpatient Historical [facility] [address] [facility] [address] [place] [address] Dustin Alvarado MD [address] [place] [address] CERVICAL SPONDYLOSIS (Primary Dx) Social History Tobacco Use Types Packs/Day Years Used Date Smoking Tobacco: Never Assessed Comments Unknown Sex and Gender Information Value Date Recorded Sex Assigned at Not on file Legal Sex Female 5:57 AM FITTER HAND Gender Identity Not on file Sexual Orientation Not on file documented as of this encounter Plan of Treatment Not on file documented as of this encounter Visit Diagnoses Diagnosis Cervical spondylosis without myelopathy- Primary documented in this encounter
--- OUTSIDE RECORDS SUMMARY | 2024-10-06 08:34 | XMS_ITS | Encounter Summary ---
Author Organization [facility] Address [address] [place] [address] Care Team Providers Care Electronics Technician Apprentice Name Role Phone Unavailable Primary Care Provider Unavailabl e Encounter Details Date Type Department Care Team (Late st Contact Info) Description 11/08/2003 Outpatient Historical [facility] [address] [place] [phone] Dustin Alvarado MD [address] [place] [address] Sprain of neck (Primary Dx); HEADACHE Social History Tobacco Use Types Packs/Day Years Used Date Smoking Tobacco: Never Assessed Comments Unknown Sex and Gender Information Value Date Recorded Sex Assigned at Not on file 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
--- OUTSIDE RECORDS SUMMARY | 2024-10-06 08:34 | XMS_ITS | Encounter Summary ---
Author Organization [facility] Address [address] [place] [address] Care Team Providers Care Evidence Custodian Name Role Phone Unavailable Primary Care Provider Unavailabl e Encounter Details Date Type Department Care Team (Late st Contact Info) Description 08/14/2004 Outpatient Historical [facility] [address] [place] [phone] Dustin Alvarado MD [address] [place] [address] Sprain of neck (Primary Dx); LUMBAGO; Sciatic nerve lesion Social History Tobacco Use Types Packs/Day Years Used Date Smoking Tobacco: Never Assessed Comments Unknown Sex and Gender Information Value Date Recorded Sex Assigned at Not on file Legal Sex Female 5:57 AM PERSONAL DRIVER Gender Identity Not on file Sexual Orientation Not on file documented as of this encounter Plan of Treatment Not on file documented as of this encounter Visit Diagnoses Diagnosis Sprain of neck- Primary Neck sprain and strain Lumbago Sciatic nerve lesion Lesion of sciatic nerve documented in this encounter
--- OUTSIDE RECORDS SUMMARY | 2024-10-06 08:34 | XMS_ITS | Encounter Summary ---
Author Organization [facility] Address [address] [place] [address] Care Team Providers Care Operations Manager Assistant Name Role Phone Unavailable Primary Care Provider Unavailabl e Encounter Details Date Type Department Care Team (Latest Contact Info) Description 01/24/2003 Outpatient Historical [facility] [address] [address] Haroldo Garay MD [address] [phone] HYPOTHYROIDISM NOS (Primary Dx) Social History Tobacco Use Types Packs/Day Years Used Date Smoking Tobacco: Never Assessed Comments Unknown Sex and Gender Information Value Date Recorded Sex Assigned at Not on file Legal Sex Female 5:57 AM AGGREGATE CONVEYOR OPERATOR Gender Identity Not on file Sexual Orientation Not on file documented as of this encounter Plan of Treatment Not on file documented as of this encounter Visit Diagnoses Diagnosis Unspecified hypothyroidism- Primary documented in this encounter
--- OUTSIDE RECORDS SUMMARY | 2024-10-06 08:34 | XMS_ITS | Encounter Summary ---
Author Organization [facility] Address [address] [place] [address] Care Team Providers Care Contractor General Engineering Name Role Phone Unavailable Primary Care Provider Unavailabl e Encounter Details Date Type Department Care Team (Latest Contact Info) Description 04/06/2003 Outpatient Historical [facility] [address] [address] Haroldo Garay MD [address], [place] [phone] SPRAIN NOS (Primary Dx); SPASM OF MUSCLE Social History Tobacco Use Types Packs/Day Years Used Date Smoking Tobacco: Never Assessed Comments Unknown Sex and Gender Information Value Date Recorded Sex Assigned at Not on file Legal Sex Female 5:57 AM 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
--- OUTSIDE RECORDS SUMMARY | 2024-10-06 08:34 | XMS_ITS | Encounter Summary ---
Author Organization [facility] Address [address] [place] [address] Care Team Providers Care Casket Liner Name Role Phone Unavailable Primary Care Provider Unavailabl e Encounter Details Date Type Department Care Team (Latest Contact Info) Description 01/24/2004 Outpatient Historical [facility] Dustin Alvarado MD [address] [place] [address] ADMINISTRTVE ENCOUNT NOS (Primary Dx) Social History Tobacco Use Types Packs/Day Years Used Date Smoking Tobacco: Never Assessed Comments Unknown Sex and Gender Information Value Date Recorded Sex Assigned at Not on file Legal Sex Female 5:57 AM COMMUNITY SPECIALIST Gender Identity Not on file Sexual Orientation Not on file documented as of this encounter Plan of Treatment Not on file documented as of this encounter Visit Diagnoses Diagnosis Encounters for unspecified administrative purpose- Primary documented in this encounter
--- OUTSIDE RECORDS SUMMARY | 2024-10-06 08:34 | XMS_ITS | Encounter Summary ---
Author Organization [facility] Address [address] [place] [address] Care Team Providers Care Real Estate Marketing Coordinator Name Role Phone Unavailable Primary Care Provider Unavailabl e Encounter Details Date Type Department Care Team (Late st Contact Info) Description 07/26/2003 Outpatient Historical [facility] Dustin Alvarado MD [address] [place] [address] LUMBOSACRAL NEURITIS NOS (Primary Dx) Social History Tobacco Use Types Packs/Day Years Used Date Smoking Tobacco: Never Assessed Comments Unknown Sex and Gender Information Value Date Recorded Sex Assigned at Not on file Legal Sex Female 5:57 AM CARD GRINDER HELPER Gender Identity Not on file Sexual Orientation Not on file documented as of this encounter Plan of Treatment Not on file documented as of this encounter Visit Diagnoses Diagnosis Thoracic or lumbosacral neuritis or radiculitis, unspecified- Primary documented in this encounter
--- OUTSIDE RECORDS SUMMARY | 2024-10-06 08:34 | XMS_ITS | Encounter Summary ---
Author Organization [facility] Address [address] [place] [address] Care Team Providers Care Mult Au Matic Operator Name Role Phone Unavailable Primary Care Provider Unavailabl e Encounter Details Date Type Department Care Team (Latest Contact Info) Description 07/17/2003 Outpatient Historical [address] [address] Melba Aguayo MD [address], [address] JOINT PAIN-L/LEG (Primary Dx); OSTEOARTHROS NOS-OTHER SITE Social History Tobacco Use Types Packs/Day Years Used Date Smoking Tobacco: Never Assessed Comments Unknown Sex and Gender Information Value Date Recorded Sex Assigned at Not on file Legal Sex Female 5:57 AM CHURNER Gender Identity Not on file Sexual Orientation Not on file documented as of this encounter Plan of Treatment Not on file documented as of this encounter Visit Diagnoses Diagnosis Pain in joint, lower leg- Primary Osteoarthrosis, unspecified whether generalized or localized, other specified sites documented in this encounter
--- OUTSIDE RECORDS SUMMARY | 2024-10-06 08:34 | XMS_ITS | Encounter Summary ---
Author Organization [facility] Address [address] [place] [address] Care Team Providers Care Traveling Nurse Name Role Phone Unavailable Primary Care Provider Unavailabl e Encounter Details Date Type Department Care Team (Latest Contact Info) Description 12/06/2003 Outpatient Historical [address] [address] Anahi Harrison MD [address] [place] [phone] ALLERGIC RHINITIS NOS (Primary Dx); ACUTE URI NOS; OTITIS MEDIA NOS Social History Tobacco Use Types Packs/Day Years Used Date Smoking Tobacco: Never Assessed Comments Unknown Sex and Gender Information Value Date Recorded Sex Assigned at Not on file Legal Sex Female 5:57 AM SHOW CARD WRITER Gender Identity Not on file Sexual Orientation Not on file documented as of this encounter Plan of Treatment Not on file documented as of this encounter Visit Diagnoses Diagnosis Allergic rhinitis, cause unspecified- Primary Acute upper respiratory infections of unspecified site Unspecified otitis media documented in this encounter
--- OUTSIDE RECORDS SUMMARY | 2024-10-06 08:34 | XMS_ITS | Encounter Summary ---
Author Organization [facility] Address [address] [place] [address] Care Team Providers Care Floral Design Teacher Name Role Phone Unavailable Primary Care Provider Unavailabl e Encounter Details Date Type Department Care Team (Latest Contact Info) Description 03/13/2003 Outpatient Historical [facility] [address] [address] Haroldo Garay MD [address] [phone] URIN TRACT INFECTION NOS (Primary Dx) Social History Tobacco Use Types Packs/Day Years Used Date Smoking Tobacco: Never Assessed Comments Unknown Sex and Gender Information Value Date Recorded Sex Assigned at Not on file 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
--- OUTSIDE RECORDS SUMMARY | 2024-10-06 08:34 | XMS_ITS | Encounter Summary ---
Author Organization [facility] Address [address] [place] [address] Care Team Providers Care Adobe Cq Developer Name Role Phone Unavailable Primary Care Provider Unavailabl e Encounter Details Date Type Department Care Team (Latest Contact Info) Description 01/24/2003 Outpatient Historical [facility] [address], [place] [address] Haroldo Garay MD [address] [phone] CONTUSION OF KNEE (Primary Dx); HYPOTHYROIDISM NOS Social History Tobacco Use Types Packs/Day Years Used Date Smoking Tobacco: Never Assessed Comments Unknown Sex and Gender Information Value Date Recorded Sex Assigned at Not on file Legal Sex Female 5:57 AM PALLIATIVE CARE COORDINATOR Gender Identity Not on file Sexual Orientation Not on file documented as of this encounter Plan of Treatment Not on file documented as of this encounter Visit Diagnoses Diagnosis Contusion of knee- Primary Unspecified hypothyroidism documented in this encounter
--- OUTSIDE RECORDS SUMMARY | 2024-10-06 08:34 | XMS_ITS | Encounter Summary ---
Author Organization [facility] Address [address] [place] [address] Care Team Providers Care Furniture Technician Name Role Phone Unavailable Primary Care Provider Unavailabl e Encounter Details Date Type Department Care Team (Late st Contact Info) Description 07/26/2003 Outpatient Historical [facility] [address] [place] [address] Dustin Alvarado MD [address] [place] [address] LUMBAGO (Primary Dx); LUMBOSACRAL NEURITIS NOS Social History Tobacco Use Types Packs/Day Years Used Date Smoking Tobacco: Never Assessed Comments Unknown Sex and Gender Information Value Date Recorded Sex Assigned at Not on file Legal Sex Female 5:57 AM STEEL DIE ENGRAVER Gender Identity Not on file Sexual Orientation Not on file documented as of this encounter Plan of Treatment Not on file documented as of this encounter Visit Diagnoses Diagnosis Lumbago- Primary Thoracic or lumbosacral neuritis or radiculitis, unspecified documented in this encounter
--- OUTSIDE RECORDS SUMMARY | 2024-10-06 08:34 | XMS_ITS | Encounter Summary ---
Author Organization [facility] Address [address] [place] [address] Care Team Providers Care Analog Circuit Designer Name Role Phone Unavailable Primary Care Provider Unavailabl e Encounter Details Date Type Department Care Team (Late st Contact Info) Description 10/04/2003 Outpatient Historical [facility] [address] [place] [address] [facility] [address] [place] [phone] Dustin Alvarado MD [address] [place] [address] CERVICAL DISC DEGEN (Primary Dx) Social History Tobacco Use Types Packs/Day Years Used Date Smoking Tobacco: Never Assessed Comments Unknown Sex and Gender Information Value Date Recorded Sex Assigned at Not on file Legal Sex Female 5:57 AM PHONE TRIAGE SPECIALIST Gender Identity Not on file Sexual Orientation Not on file documented as of this encounter Plan of Treatment Not on file documented as of this encounter Visit Diagnoses Diagnosis Degeneration of cervical intervertebral disc- Primary documented in this encounter
--- OUTSIDE RECORDS SUMMARY | 2024-10-06 08:34 | XMS_ITS | Encounter Summary ---
Author Organization [facility] Address [address] [place] [address] Care Team Providers Care Television Newscast Director Name Role Phone Unavailable Primary Care Provider Unavailabl e Encounter Details Date Type Department Care Team (Latest Contact Info) Description 02/09/2003 Outpatient Historical [facility] [address], [place] [address] Haroldo Garay MD [address] [phone] CARBUNCLE NOS (Primary Dx) Social History Tobacco Use Types Packs/Day Years Used Date Smoking Tobacco: Never Assessed Comments Unknown Sex and Gender Information Value Date Recorded Sex Assigned at Not on file Legal Sex Female 5:57 AM MANAGEMENT ARCHITECT Gender Identity Not on file Sexual Orientation Not on file documented as of this encounter Plan of Treatment Not on file documented as of this encounter Visit Diagnoses Diagnosis Carbuncle and furuncle of unspecified site- Primary documented in this encounter
--- OUTSIDE RECORDS SUMMARY | 2024-10-06 08:34 | XMS_ITS | Encounter Summary ---
Author Organization [facility] Address [address] [place] [address] Care Team Providers Care Ropeman Name Role Phone Unavailable Primary Care Provider Unavailabl e Encounter Details Date Type Department Care Team (Latest Contact Info) Description 11/16/2002 Outpatient Historical [facility] [address], [place] [address] Haroldo Garay MD [address] [phone] URIN TRACT INFECTION NOS (Primary Dx); Sprain lumbar region Social History Tobacco Use Types Packs/Day Years Used Date Smoking Tobacco: Never Assessed Comments Unknown Sex and Gender Information Value Date Recorded Sex Assigned at Not on file Legal Sex Female 5:57 AM RECYCLING COLLECTIONS DRIVER Gender Identity Not on file Sexual Orientation Not on file documented as of this encounter Plan of Treatment Not on file documented as of this encounter Visit Diagnoses Diagnosis Urinary tract infection, site not specified- Primary Sprain lumbar region Sprain of lumbar region documented in this encounter
--- OUTSIDE RECORDS SUMMARY | 2024-10-06 08:34 | XMS_ITS | Encounter Summary ---
Author Organization [facility] Address [address] [place] [address] Care Team Providers Care Binder And Box Builder Name Role Phone Unavailable Primary Care Provider Unavailabl e Encounter Details Date Type Department Care Team (Latest Contact Info) Description 08/23/2004 Outpatient Historical [facility] [place] [address] [address] Anahi Harrison MD [address] [place] [phone] INFEC OTITIS EXTERNA NOS (Primary Dx) Social History Tobacco Use Types Packs/Day Years Used Date Smoking Tobacco: Never Assessed Comments Unknown Sex and Gender Information Value Date Recorded Sex Assigned at Not on file Legal Sex Female 5:57 AM BROOM MAKER Gender Identity Not on file Sexual Orientation Not on file documented as of this encounter Plan of Treatment Not on file documented as of this encounter Visit Diagnoses Diagnosis Infective otitis externa, unspecified- Primary documented in this encounter
--- OUTSIDE RECORDS SUMMARY | 2024-10-06 08:34 | XMS_ITS | Encounter Summary ---
Author Organization [facility] Address [address] [place] [address] Care Team Providers Care Devulcanizer Head Name Role Phone Unavailable Primary Care Provider Unavailabl e Encounter Details Date Type Department Care Team (Late st Contact Info) Description 10/04/2003 Outpatient Historical [facility] [address] [place] [phone] Dustin Alvarado MD [address] [place] [address] LUMBAGO (Primary Dx); CERVICAL DISC DEGEN; Sprain of neck; TENSION HEADACHE Social History Tobacco Use Types Packs/Day Years Used Date Smoking Tobacco: Never Assessed Comments Unknown Sex and Gender Information Value Date Recorded Sex Assigned at Not on file Legal Sex Female 5:57 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
--- OUTSIDE RECORDS SUMMARY | 2024-10-06 08:34 | XMS_ITS | Encounter Summary ---
Author Organization [facility] Address [address] [place] [address] Care Team Providers Care Radio Equipment Repairer Name Role Phone Unavailable Primary Care Provider Unavailabl e Encounter Details Date Type Department Care Team (Latest Contact Info) Description 07/30/[address] [facility] [address], [place] [address] Haroldo Garay MD [address] [phone] BACKACHE NOS (Primary Dx); HYPOTHYROIDISM NOS Social History Tobacco Use Types Packs/Day Years Used Date Smoking Tobacco: Never Assessed Comments Unknown Sex and Gender Information Value Date Recorded Sex Assigned at Not on file Legal Sex Female 5:57 AM CUSTOMER ACCOUNT ADMINISTRATOR Gender Identity Not on file Sexual Orientation Not on file documented as of this encounter Plan of Treatment Not on file documented as of this encounter Visit Diagnoses Diagnosis Backache, unspecified- Primary Unspecified hypothyroidism documented in this encounter
--- OUTSIDE RECORDS SUMMARY | 2024-10-06 08:34 | XMS_ITS | Encounter Summary ---
Author Organization [facility] Address [address] [place] [address] Care Team Providers Care Research And Development Technician Name Role Phone Unavailable Primary Care Provider Unavailabl e Encounter Details Date Type Department Care Team (Late st Contact Info) Description 08/14/2004 Outpatient Historical [facility] [address] [facility] [address] [place] [address] Dustin Alvarado MD [address] [place] [address] DISORDERS OF SACRUM (Primary Dx) Social History Tobacco Use Types Packs/Day Years Used Date Smoking Tobacco: Never Assessed Comments Unknown Sex and Gender Information Value Date Recorded Sex Assigned at Not on file Legal Sex Female 5:57 AM CREDIT OFFICER Gender Identity Not on file Sexual Orientation Not on file documented as of this encounter Plan of Treatment Not on file documented as of this encounter Visit Diagnoses Diagnosis Disorders of sacrum- Primary documented in this encounter
--- OUTSIDE RECORDS SUMMARY | 2024-10-06 08:34 | XMS_ITS | Encounter Summary ---
Author Organization [facility] Address [address] [place] [address] Care Team Providers Care Analyst Market Intelligence Name Role Phone Unavailable Primary Care Provider Unavailabl e Encounter Details Date Type Department Care Team (Late st Contact Info) Description 06/14/2003 Outpatient Historical [facility] [address] [place] [phone] Dustin Alvarado MD [address] [place] [address] LUMBAGO (Primary Dx) Social History Tobacco Use Types Packs/Day Years Used Date Smoking Tobacco: Never Assessed Comments Unknown Sex and Gender Information Value Date Recorded Sex Assigned at Not on file Legal Sex Female 5:57 AM RADIATION PROTECTION TECHNICIAN Gender Identity Not on file Sexual Orientation Not on file documented as of this encounter Plan of Treatment Not on file documented as of this encounter Visit Diagnoses Diagnosis Lumbago- Primary documented in this encounter
--- OUTSIDE RECORDS SUMMARY | 2024-10-06 08:34 | XMS_ITS | Encounter Summary ---
Author Organization [facility] Address [address] [place] [address] Care Team Providers Care Stone Planer Name Role Phone Unavailable Primary Care Provider Unavailabl e Encounter Details Date Type Department Care Team (Late st Contact Info) Description 05/24/2003 Outpatient Historical [facility] Spine [facility] [address] [place] [phone] Dustin Alvarado MD [address] [place] [address] LUMBOSACRAL NEURITIS NOS (Primary Dx); ARTHROPATHY NOS-OTHER SITE; MYALGIA AND MYOSITIS NOS Social History Tobacco Use Types Packs/Day Years Used Date Smoking Tobacco: Never Assessed Comments Unknown Sex and Gender Information Value Date Recorded Sex Assigned at Not on file Legal Sex Female 5:57 AM VOCATIONAL REHABILITATION SPECIALIST Gender Identity Not on file Sexual Orientation Not on file documented as of this encounter Plan of Treatment Not on file documented as of this encounter Visit Diagnoses Diagnosis Thoracic or lumbosacral neuritis or radiculitis, unspecified- Primary Arthropathy, unspecified, other specified sites Myalgia and myositis, unspecified Mylagia and myositis, unspecified documented in this encounter
--- OUTSIDE RECORDS SUMMARY | 2024-10-06 08:34 | XMS_ITS | Encounter Summary ---
Author Organization [facility] Address [address] [place] [address] Care Team Providers Care Hvac/R Instructor Name Role Phone Unavailable Primary Care Provider Unavailabl e Encounter Details Date Type Department Care Team (Latest Contact Info) Description 05/19/2003 Outpatient Historical [facility] [address] [place] [address] Dustin Alvarado MD [address] [place] [address] LUMBAR DISC DISPLACEMENT (Primary Dx) Social History Tobacco Use Types Packs/Day Years Used Date Smoking Tobacco: Never Assessed Comments Unknown Sex and Gender Information Value Date Recorded Sex Assigned at Not on file Legal Sex Female 5:57 AM CAST SHELL GRINDER Gender Identity Not on file Sexual Orientation Not on file documented as of this encounter Plan of Treatment Not on file documented as of this encounter Visit Diagnoses Diagnosis Displacement of lumbar intervertebral disc without myelopathy- Primary documented in this encounter
--- OUTSIDE RECORDS SUMMARY | 2024-10-06 08:34 | XMS_ITS | Encounter Summary ---
Author Organization [facility] Address [address] [place] [address] Care Team Providers Care Casey Saw Operator Name Role Phone Unavailable Primary Care Provider Unavailabl e Encounter Details Date Type Department Care Team (Late st Contact Info) Description 05/17/2003 Outpatient Historical [facility] [address] [place] [phone] Dustin Alvarado MD [address] [place] [address] DIFFICULTY IN WALKING (Primary Dx); OSTEOARTHROS NOS-PELVIS; BACKACHE NOS; Skin sensation disturb Social History Tobacco Use Types Packs/Day Years Used Date Smoking Tobacco: Never Assessed Comments Unknown Sex and Gender Information Value Date Recorded Sex Assigned at Not on file Legal Sex Female 5:57 AM MACHINE CLOTH EXAMINER Gender Identity Not on file Sexual [...]
--- OUTSIDE RECORDS SUMMARY | 2024-10-06 08:34 | XMS_ITS | Encounter Summary ---
Author Organization [facility] Address [address] [place] [address] Care Team Providers Care Drop Forger Helper Name Role Phone Unavailable Primary Care Provider Unavailabl e Encounter Details Date Type Department Care Team (Late st Contact Info) Description 08/02/2003 Outpatient Historical [facility] [address] [place] [address] [facility] [address] [place] [address] Dustin Alvarado MD [address] [place] [address] CERVICALGIA (Primary Dx) Social History Tobacco Use Types Packs/Day Years Used Date Smoking Tobacco: Never Assessed Comments Unknown Sex and Gender Information Value Date Recorded Sex Assigned at Not on file 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
--- OUTSIDE RECORDS SUMMARY | 2024-10-06 08:34 | XMS_ITS | Encounter Summary ---
Author Organization [facility] Address [address] [place] [address] Care Team Providers Care Hospice Physician Name Role Phone Unavailable Primary Care Provider Unavailabl e Encounter Details Date Type Department Care Team (Late st Contact Info) Description 05/19/2003 Outpatient Historical [facility] [place] [address] [place] [address] Social History Tobacco Use Types Packs/Day Years Used Date Smoking Tobacco: Never Assessed Comments Unknown Sex and Gender Information Value Date Recorded Sex Assigned at Not on file 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
--- OUTSIDE RECORDS SUMMARY | 2024-10-06 08:34 | XMS_ITS | Encounter Summary ---
Author Organization [facility] Address [address] [place] [address] Care Team Providers Care Buckle Sorter Name Role Phone Unavailable Primary Care Provider Unavailabl e Encounter Details Date Type Department Care Team (Late st Contact Info) Description 05/24/2003 Outpatient Historical [facility] [address] [place] [address] [facility] [address] [place] [address] Dustin Alvarado MD [address] [place] [address] LUMBOSACRAL NEURITIS NOS (Primary Dx) Social History Tobacco Use Types Packs/Day Years Used Date Smoking Tobacco: Never Assessed Comments Unknown Sex and Gender Information Value Date Recorded Sex Assigned at Not on file 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
--- OUTSIDE RECORDS SUMMARY | 2024-10-06 08:34 | XMS_ITS | Encounter Summary ---
Author Organization [facility] Address [address] [place] [address] Care Team Providers Care Procurement Representative Name Role Phone Unavailable Primary Care Provider Unavailabl e Encounter Details Date Type Department Care Team (Late st Contact Info) Description 06/14/2003 Outpatient Historical [facility] [address] [facility] [address] [place] [address] Dustin Alvarado MD [address] [place] [address] LUMBAGO (Primary Dx) Social History Tobacco Use Types Packs/Day Years Used Date Smoking Tobacco: Never Assessed Comments Unknown Sex and Gender Information Value Date Recorded Sex Assigned at Not on file 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
--- OUTSIDE RECORDS SUMMARY | 2024-10-06 08:34 | XMS_ITS | Encounter Summary ---
Author Organization [facility] Address [address] [place] [address] Care Team Providers Care Software Quality Manager Name Role Phone Unavailable Primary Care Provider Unavailabl e Encounter Details Date Type Department Care Team (Late st Contact Info) Description 12/20/2003 Outpatient Historical [facility] [address] [facility] [address] [place] [address] Dustin Alvarado MD [address] [place] [address] LUMBAGO (Primary Dx) Social History Tobacco Use Types Packs/Day Years Used Date Smoking Tobacco: Never Assessed Comments Unknown Sex and Gender Information Value Date Recorded Sex Assigned at Not on file 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
--- OUTSIDE RECORDS SUMMARY | 2024-10-06 08:34 | XMS_ITS | Encounter Summary ---
Author Organization [facility] Address [address] [place] [address] Care Team Providers Care Box Car Washer Name Role Phone Unavailable Primary Care Provider Unavailabl e Encounter Details Date Type Department Care Team (Late st Contact Info) Description 08/02/2003 Outpatient Historical [facility] [address] [place] [address] Dustin Alvarado MD [address] [place] [address] LUMBAGO (Primary Dx); LUMBOSACRAL NEURITIS NOS Social History Tobacco Use Types Packs/Day Years Used Date Smoking Tobacco: Never Assessed Comments Unknown Sex and Gender Information Value Date Recorded Sex Assigned at Not on file 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
--- NOTE | 2024-10-06 08:43 | XR_ITS ---
WS: [id number] XR lumbar spine 2-3V* [id number] REASON FOR EXAM: Low back pain FINDINGS: Relatively normal lumbar spine curvatures. No significant vertebral body compression deformity or focal lesion. Posterior decompression with pedicle screws, interconnecting rods, and interbody fusion device at L5-S1. Surgical appliances are intact and in proper position and alignment unchanged compared to 11/20/2022. The remainder of the lumbar spine is unchanged compared to the previous study. XR/XR lumbar spine 2-3V* [id number] IMPRESSION: Stable posterior lumbar fusion with no acute abnormality.
[2024-10-06 09:16] VITALS: BP 186/83; PULSE 72; RESP 16; O2SAT 100
[2024-10-06 09:21] LABS: Hematocrit 39.2 % (36-47); Hemoglobin 13.00 g/dL (11.27-16.99); Mean Corpuscular HGB Conc 33.2 g/dL (30-55); Mean Corpuscular Hemoglobin 29.5 pg (27-33); Mean Corpuscular Volume 88.9 fl (85-98); Nucleated Red Blood Cells % 0 %; Platelet Count 186 10^3/cmm (157-399); Red Blood Count 4.41 10^6/uL (3.85-5.65); White Blood Count 6.27 10^3/uL (3.29-11.43)
[2024-10-06 09:35] VITALS: BP 170/78; PULSE 66; RESP 16; O2SAT 99
[2024-10-06 09:35] LABS: Alanine Aminotransferase 14 U/L (0-33); Albumin Level 3.5 g/dL (3.5-5.2); Alkaline Phosphatase 108 U/L (35-105); Anion Gap 15.6 (5-19); Aspartate Amino Transferase 19 U/L (0-32); Blood Urea Nitrogen 8 mg/dL (8-23); Calcium 8.7 mg/dL (8.5-10.5); Carbon Dioxide 24 mmol/L (22-29); Chloride 102 mmol/L (98-107); Creatinine Clr Calc Pharmacy 78.3438; Globulin 2.7 g/dL (1.3-4.6); Glucose 156 mg/dL (65-115); Osmolality Calculated 288 mOsm/kg (285-295); Potassium 3.6 mmol/L (3.5-5.1); Sodium 138 mmol/L (136-145); Total Protein 6.2 g/dL (6.6-8.7)
== END 2024-10-06 09:46 | disposition home or self-care (01) ==
PROVIDERS: Emergency Provider Family Medicine; PCP Nurse Practitioner Family
DX: M54.50 Low back pain, unspecified (principal); N30.90 Cystitis, unspecified without hematuria; M25.552 Pain in left hip; Z79.899 Other long term (current) drug therapy; Z79.84 Long term (current) use of oral hypoglycemic drugs; Z79.4 Long term (current) use of insulin; Z88.0 Allergy status to penicillin; Z79.02 Long term (current) use of antithrombotics/antiplatelets; Z79.82 Long term (current) use of aspirin; Z79.890 Hormone replacement therapy; I10 Essential (primary) hypertension; E11.9 Type 2 diabetes mellitus without complications; Z87.891 Personal history of nicotine dependence; W19.XXXA Unspecified fall, initial encounter
CPT/HCPCS: 72100; 73502; 80053; 85025; 96374; 99284; J1885

== ENCOUNTER 2024-10-06 12:39 | Emergency (ER) | payer MEDICAID, SELFPAY ==
[2024-10-06 12:50] VITALS: BP 170/70; PULSE 75; RESP 16; TEMP 36.4; O2SAT 96; BMI 41.9
--- OUTSIDE RECORDS SUMMARY | 2024-10-06 12:50 | XMS_ITS | Encounter Summary ---
Author Organization [facility] Address [address] [place] [address] Care Team Providers Care Refrigeration Engineering Teacher Name Role Phone Unavailable Primary Care Provider Unavailabl e Encounter Details Date Type Department Care Team (Latest Contact Info) Description 07/07/2002 Outpatient Historical [facility] [address] [place] [address], [place] [address] Haroldo Garay MD [address] [phone] SCIATICA (Primary Dx); BACKACHE NOS Social History Tobacco Use Types Packs/Day Years Used Date Smoking Tobacco: Never Assessed Comments Unknown Sex and Gender Information Value Date Recorded Sex Assigned at Not on file 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
--- OUTSIDE RECORDS SUMMARY | 2024-10-06 12:50 | XMS_ITS | Encounter Summary ---
Author Organization [facility] Address [address] [place] [address] Care Team Providers Care Toilet Products Molder Name Role Phone Unavailable Primary Care Provider Unavailabl e Encounter Details Date Type Department Care Team (Latest Contact Info) Description 08/10/2001 Outpatient Historical [facility] [address], [place] [address] Haroldo Garay MD [address] [place] [phone] JOINT PAIN-L/LEG (Primary Dx); HYPERTENSION NOS; POLYDIPSIA Social History Tobacco Use Types Packs/Day Years Used Date Smoking Tobacco: Never Assessed Comments Unknown Sex and Gender Information Value Date Recorded Sex Assigned at Not on file 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
--- OUTSIDE RECORDS SUMMARY | 2024-10-06 12:50 | XMS_ITS | Encounter Summary ---
Author Organization [facility] Address [address] [place] [address] Care Team Providers Care Cloth Piecer Name Role Phone Unavailable Primary Care Provider Unavailabl e Encounter Details Date Type Department Care Team (Latest Contact Info) Description 02/24/2002 Outpatient Historical [facility] [address], [place] [address] Haroldo Garay MD [address], [place] [phone] OPEN WOUND OF HAND (Primary Dx) Social History Tobacco Use Types Packs/Day Years Used Date Smoking Tobacco: Never Assessed Comments Unknown Sex and Gender Information Value Date Recorded Sex Assigned at Not on file 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
--- OUTSIDE RECORDS SUMMARY | 2024-10-06 12:50 | XMS_ITS | Encounter Summary ---
Author Organization [facility] Address [address] [place] [address] Care Team Providers Care History Tutor Name Role Phone Unavailable Primary Care Provider Unavailabl e Encounter Details Date Type Department Care Team (Latest Contact Info) Description 10/12/2002 Outpatient Historical [facility] [address] [address] Hraoldo Garay MD [address] [phone] URIN TRACT INFECTION NOS (Primary Dx) Social History Tobacco Use Types Packs/Day Years Used Date Smoking Tobacco: Never Assessed Comments Unknown Sex and Gender Information Value Date Recorded Sex Assigned at Not on file 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
--- OUTSIDE RECORDS SUMMARY | 2024-10-06 12:50 | XMS_ITS | Clinical Summary ---
Author Organization [facility] Address [address] [facility] [address] [place] [address] Phone Care Team Providers Care Polisher Apprentice Name Role Phone Unavailable Primary [...] on file Legal Sex Female 5:57 AM AUTO CLAIM REPRESENTATIVE Gender Identity Not on file Sexual [...] - 1-dose 75+ series) 2037 Insurance [place]ID [place]
--- OUTSIDE RECORDS SUMMARY | 2024-10-06 12:50 | XMS_ITS | Encounter Summary ---
Author Organization [facility] Address [address] [place] [address] Care Team Providers Care Hose Inspector Name Role Phone Unavailable Primary Care Provider Unavailabl e Encounter Details Date Type Department Care Team (Latest Contact Info) Description 08/17/2001 Outpatient Historical [facility] [address] [address] Haroldo Garay MD [address] [phone] HYPERTENSION NOS (Primary Dx) Social History Tobacco Use Types Packs/Day Years Used Date Smoking Tobacco: Never Assessed Comments Unknown Sex and Gender Information Value Date Recorded Sex Assigned at Not on file 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
--- OUTSIDE RECORDS SUMMARY | 2024-10-06 12:50 | XMS_ITS | Encounter Summary ---
Author Organization [facility] Address [address] [place] [address] Care Team Providers Care Building Construction Contractor Name Role Phone Unavailable Primary Care Provider Unavailabl e Encounter Details Date Type Department Care Team (Latest Contact Info) Description 02/11/2002 Outpatient Historical [facility] [address] [place] [address] Haroldo Garay MD [address] [phone] URIN TRACT INFECTION NOS (Primary Dx) Social History Tobacco Use Types Packs/Day Years Used Date Smoking Tobacco: Never Assessed Comments Unknown Sex and Gender Information Value Date Recorded Sex Assigned at Not on file 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
--- OUTSIDE RECORDS SUMMARY | 2024-10-06 12:50 | XMS_ITS | Encounter Summary ---
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
--- OUTSIDE RECORDS SUMMARY | 2024-10-06 12:50 | XMS_ITS | Encounter Summary ---
Author Organization [facility] Address [address] [place] [address] Care Team Providers Care Orderlies Teacher Name Role Phone Unavailable Primary Care Provider Unavailabl e Encounter Details Date Type Department Care Team (Latest Contact Info) Description 11/05/2004 Outpatient Historical [facility] [address] 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
--- OUTSIDE RECORDS SUMMARY | 2024-10-06 12:50 | XMS_ITS | Encounter Summary ---
Author Organization [facility] Address [address] [place] [address] Care Team Providers Care Associate Scientist Name Role Phone Unavailable Primary Care Provider Unavailabl e Encounter Details Date Type Department Care Team (Latest Contact Info) Description 12/29/2001 Outpatient Historical [facility] [address] [place] [address] [address] Haroldo Garay MD [address] [phone] ABNORMAL WEIGHT GAIN (Primary Dx); Dietary surveil/beauty counselor Social History Tobacco Use Types Packs/Day Years Used Date Smoking Tobacco: Never Assessed Comments Unknown Sex and Gender Information Value Date Recorded Sex Assigned at Not on file 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
--- OUTSIDE RECORDS SUMMARY | 2024-10-06 12:50 | XMS_ITS | Encounter Summary ---
Author Organization [facility] Address [address] [place] [address] Care Team Providers Care Merchandise Planning Manager Name Role Phone Unavailable Primary Care Provider Unavailabl e Encounter Details Date Type Department Care Team (Latest Contact Info) Description 06/26/2004 Outpatient Historical [facility] [place] [address] [phone] Anahi Harrison MD [address] [place] [phone] JOINT PAIN-L/LEG (Primary Dx); URINARY FREQUENCY Social History Tobacco Use Types Packs/Day Years Used Date Smoking Tobacco: Never Assessed Comments Unknown Sex and Gender Information Value Date Recorded Sex Assigned at Not on file 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
--- OUTSIDE RECORDS SUMMARY | 2024-10-06 12:50 | XMS_ITS | Encounter Summary ---
Author Organization [facility] Address [address] [place] [address] Care Team Providers Care Hand Twister Name Role Phone Unavailable Primary Care Provider Unavailabl e Encounter Details Date Type Department Care Team (Latest Contact Info) Description 11/29/1998 Outpatient Historical [facility] Adi Larkin NO ADDRESS ON FILE Pain in joint, lower leg (Primary Dx) Social History Tobacco Use Types Packs/Day Years Used Date Smoking Tobacco: Never Assessed Comments Unknown Sex and Gender Information Value Date Recorded Sex Assigned at Not on file 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
--- OUTSIDE RECORDS SUMMARY | 2024-10-06 12:50 | XMS_ITS | Encounter Summary ---
Author Organization [facility] Address [address] [place] [address] Care Team Providers Care Player Development Executive Name Role Phone Unavailable Primary Care Provider Unavailabl e Encounter Details Date Type Department Care Team (Latest Contact Info) Description 05/05/[address] 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
--- OUTSIDE RECORDS SUMMARY | 2024-10-06 12:50 | XMS_ITS | Encounter Summary ---
Author Organization [facility] Address [address] [place] [address] Care Team Providers Care Hat Liner Name Role Phone Unavailable Primary Care Provider Unavailabl e Encounter Details Date Type Department Care Team (Latest Contact Info) Description 05/08/2005 Outpatient Historical [facility] [address] [place] [address] AMBULANCE, [facility] CHEST PAIN NOS (Primary Dx) Social History Tobacco Use Types Packs/Day Years Used Date Smoking Tobacco: Never Assessed Comments Unknown Sex and Gender Information Value Date Recorded Sex Assigned at Not on file Legal Sex Female 5:57 AM PUBLIC RELATIONS COUNSELOR Gender Identity Not on file Sexual Orientation Not on file documented as of this encounter Plan of Treatment Not on file documented as of this encounter Visit Diagnoses Diagnosis Chest pain, unspecified- Primary documented in this encounter
--- OUTSIDE RECORDS SUMMARY | 2024-10-06 12:50 | XMS_ITS | Encounter Summary ---
Author Organization [facility] Address [address] [place] [address] Care Team Providers Care Production Team Manager Name Role Phone Unavailable Primary Care Provider Unavailabl e Encounter Details Date Type Department Care Team (Latest Contact Info) Description 10/24/2004 Outpatient Historical [facility] [address] [facility] [address] [place] [address] Sadia Alexandre FNP NO ADDRESS ON FILE LUMBOSACRAL SPONDYLOSIS (Primary Dx) Social History Tobacco Use Types Packs/Day Years Used Date Smoking Tobacco: Never Assessed Comments Unknown Sex and Gender Information Value Date Recorded Sex Assigned at Not on file Legal Sex Female 5:57 AM BLAST FURNACE AUXILIARIES SUPERVISOR Gender Identity Not on file Sexual Orientation Not on file documented as of this encounter Plan of Treatment Not on file documented as of this encounter Visit Diagnoses Diagnosis Lumbosacral spondylosis without myelopathy- Primary documented in this encounter
--- OUTSIDE RECORDS SUMMARY | 2024-10-06 12:50 | XMS_ITS | Encounter Summary ---
Author Organization [facility] Address [address] [place] [address] Care Team Providers Care Laborer Aquatic Life Name Role Phone Unavailable Primary Care Provider Unavailabl e Encounter Details Date Type Department Care Team (Latest Contact Info) Description 03/22/2002 Outpatient Historical [facility] [place] [address] [phone] Joselin Stephenson, [facility] [address] [phone] HYPOTHYROIDISM NOS (Primary Dx) Social History Tobacco Use Types Packs/Day Years Used Date Smoking Tobacco: Never Assessed Comments Unknown Sex and Gender Information Value Date Recorded Sex Assigned at Not on file Legal Sex Female 5:57 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
--- OUTSIDE RECORDS SUMMARY | 2024-10-06 12:50 | XMS_ITS | Encounter Summary ---
Author Organization [facility] Address [address] [place] [address] Care Team Providers Care Capacity Analyst Name Role Phone Unavailable Primary Care Provider Unavailabl e Encounter Details Date Type Department Care Team (Latest Contact Info) Description 10/25/2001 Outpatient Historical [facility] [address] [address] Haroldo Garay MD [address] [phone] ADV EFFECT MED/BIOL SUB NOS (Primary Dx) Social History Tobacco Use Types Packs/Day Years Used Date Smoking Tobacco: Never Assessed Comments Unknown Sex and Gender Information Value Date Recorded Sex Assigned at Not on file 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
--- OUTSIDE RECORDS SUMMARY | 2024-10-06 12:50 | XMS_ITS | Encounter Summary ---
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
--- OUTSIDE RECORDS SUMMARY | 2024-10-06 12:50 | XMS_ITS | Encounter Summary ---
Author Organization [facility] Address [address] [place] [address] Care Team Providers Care Classification Inspector Name Role Phone Unavailable Primary Care Provider Unavailabl e Encounter Details Date Type Department Care Team (Latest Contact Info) Description 07/11/2004 Outpatient Historical [facility] [address] [address] Anahi Harrison MD [address] [place] [phone] HYPOTHYROIDISM NOS (Primary Dx) Social History Tobacco Use Types Packs/Day Years Used Date Smoking Tobacco: Never Assessed Comments Unknown Sex and Gender Information Value Date Recorded Sex Assigned at Not on file Legal Sex Female 5:57 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
--- OUTSIDE RECORDS SUMMARY | 2024-10-06 12:50 | XMS_ITS | Encounter Summary ---
Author Organization [facility] Address [address] [place] [address] Care Team Providers Care Highway Administrative Engineer Name Role Phone Unavailable Primary Care Provider Unavailabl e Encounter Details Date Type Department Care Team (Latest Contact Info) Description 12/09/2001 Outpatient Historical [facility] [address] [address] Haroldo Garay MD [address] [phone] JOINT PAIN-L/LEG (Primary Dx); ABNORMAL WEIGHT GAIN Social History Tobacco Use Types Packs/Day Years Used Date Smoking Tobacco: Never Assessed Comments Unknown Sex and Gender Information Value Date Recorded Sex Assigned at Not on file Legal Sex Female 5:57 AM 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
--- OUTSIDE RECORDS SUMMARY | 2024-10-06 12:50 | XMS_ITS | Encounter Summary ---
Author Organization [facility] Address [address] [facility] Attn: [place] [address] Care Team Providers Care Press Maintainer Name Role Phone Unavailable Primary Care Provider Unavailabl e Encounter Details Date Type Department Care Team (Late st Contact Info) Description 08/17/2001 Outpatient Historical Haroldo Garay MD [address] [place] [address] Social History Tobacco Use Types Packs/Day Years Used Date Smoking Tobacco: Never Assessed Comments Unknown Sex and Gender Information Value Date Recorded Sex Assigned at Not on file Legal Sex Female 5:57 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
--- OUTSIDE RECORDS SUMMARY | 2024-10-06 12:50 | XMS_ITS | Encounter Summary ---
Author Organization [facility] Address [address] [place] [address] Care Team Providers Care Hydrostatic Tubing Tester Name Role Phone Unavailable Primary Care Provider Unavailabl e Encounter Details Date Type Department Care Team (Latest Contact Info) Description 08/20/2001 Outpatient Historical [facility] [address], [place] [address] Haroldo Garay MD [address] [phone] POLYDIPSIA (Primary Dx); HYPERTENSION NOS; DISORDERS OF SACRUM Social History Tobacco Use Types Packs/Day Years Used Date Smoking Tobacco: Never Assessed Comments Unknown Sex and Gender Information Value Date Recorded Sex Assigned at Not on file Legal Sex Female 5:57 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
--- OUTSIDE RECORDS SUMMARY | 2024-10-06 12:50 | XMS_ITS | Encounter Summary ---
Author Organization [facility] Address [address] [place] [address] Care Team Providers Care Wind Turbine Performance Engineer Name Role Phone Unavailable Primary Care Provider Unavailabl e Encounter Details Date Type Department Care Team (Latest Contact Info) Description 11/12/2004 Outpatient Historical [facility] [address] [place] [phone] Boogie Simmons LUMBOSACRAL NEURITIS NOS (Primary Dx) Social History Tobacco Use Types Packs/Day Years Used Date Smoking Tobacco: Never Assessed Comments Unknown Sex and Gender Information Value Date Recorded Sex Assigned at Not on file Legal Sex Female 5:57 AM EMPLOYER RELATIONS REPRESENTATIVE Gender Identity Not on file Sexual Orientation Not on file documented as of this encounter Plan of Treatment Not on file documented as of this encounter Visit Diagnoses Diagnosis Thoracic or lumbosacral neuritis or radiculitis, unspecified- Primary documented in this encounter
--- OUTSIDE RECORDS SUMMARY | 2024-10-06 12:50 | XMS_ITS | Encounter Summary ---
Author Organization [facility] Address [address] [place] [address] Care Team Providers Care Correspondence School Instructor Name Role Phone Unavailable Primary Care Provider Unavailabl e Encounter Details Date Type Department Care Team (Latest Contact Info) Description 07/18/[address] 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
--- OUTSIDE RECORDS SUMMARY | 2024-10-06 12:50 | XMS_ITS | Encounter Summary ---
Author Organization [facility] Address [address] [place] [address] Care Team Providers Care Office Professional Name Role Phone Unavailable Primary Care Provider Unavailabl e Encounter Details Date Type Department Care Team (Latest Contact Info) Description 11/19/2004 Outpatient Historical [facility] Pain Management Procedures [address] [place] [phone] Boogie Simmons LUMBOSACRAL NEURITIS NOS (Primary Dx) Social History Tobacco Use Types Packs/Day Years Used Date Smoking Tobacco: Never Assessed Comments Unknown Sex and Gender Information Value Date Recorded Sex Assigned at Not on file Legal Sex Female 5:57 AM SECURITY THREAT ANALYST Gender Identity Not on file Sexual Orientation Not on file documented as of this encounter Plan of Treatment Not on file documented as of this encounter Visit Diagnoses Diagnosis Thoracic or lumbosacral neuritis or radiculitis, unspecified- Primary documented in this encounter
--- OUTSIDE RECORDS SUMMARY | 2024-10-06 12:50 | XMS_ITS | Encounter Summary ---
Author Organization [facility] Address [address] [place] [address] Care Team Providers Care Online Producer Name Role Phone Unavailable Primary Care Provider Unavailabl e Encounter Details Date Type Department Care Team (Latest Contact Info) Description 11/13/2004 Outpatient Historical [address] [address] Wally Ventura, INTERNET PROJECT MANAGER [address] [place] [address] BACKACHE NOS (Primary Dx) Social History Tobacco Use Types Packs/Day Years Used Date Smoking Tobacco: Never Assessed Comments Unknown Sex and Gender Information Value Date Recorded Sex Assigned at Not on file Legal Sex Female 5:57 AM ANALYTICAL MANAGER Gender Identity Not on file Sexual Orientation Not on file documented as of this encounter Plan of Treatment Not on file documented as of this encounter Visit Diagnoses Diagnosis Backache, unspecified- Primary documented in this encounter
--- OUTSIDE RECORDS SUMMARY | 2024-10-06 12:50 | XMS_ITS | Encounter Summary ---
Author Organization [facility] Address [address] [place] [address] Care Team Providers Care Cigarette Catcher Name Role Phone Unavailable Primary Care Provider Unavailabl e Encounter Details Date Type Department Care Team (Latest Contact Info) Description 06/24/2002 Outpatient Historical [facility] Medicine [place] [address], [place] [address] Haroldo Garay MD [address] [phone] CELLULITIS OF TRUNK (Primary Dx) Social History Tobacco Use Types Packs/Day Years Used Date Smoking Tobacco: Never Assessed Comments Unknown Sex and Gender Information Value Date Recorded Sex Assigned at Not on file Legal Sex Female 5:57 AM JAVA PERFORMANCE ENGINEER Gender Identity Not on file Sexual Orientation Not on file documented as of this encounter Plan of Treatment Not on file documented as of this encounter Visit Diagnoses Diagnosis Cellulitis and abscess of trunk- Primary documented in this encounter
--- OUTSIDE RECORDS SUMMARY | 2024-10-06 12:50 | XMS_ITS | Encounter Summary ---
Author Organization [facility] Address [address] [place] [address] Care Team Providers Care Grinder Set Up Operator Surface Name Role Phone Unavailable Primary Care Provider Unavailabl e Encounter Details Date Type Department Care Team (Latest Contact Info) Description 08/17/[address] [facility] [address], [place] [address] Haroldo Garay MD [address] [phone] POSTCONCUSSION SYNDROME (Primary Dx); HYPERTENSION NOS Social History Tobacco Use Types Packs/Day Years Used Date Smoking Tobacco: Never Assessed Comments Unknown Sex and Gender Information Value Date Recorded Sex Assigned at Not on file Legal Sex Female 5:57 AM NETWORK CONTRACTOR Gender Identity Not on file Sexual Orientation Not on file documented as of this encounter Plan of Treatment Not on file documented as of this encounter Visit Diagnoses Diagnosis Postconcussion syndrome- Primary Unspecified essential hypertension documented in this encounter
--- OUTSIDE RECORDS SUMMARY | 2024-10-06 12:50 | XMS_ITS | Encounter Summary ---
Author Organization [facility] Address [address] [place] [address] Care Team Providers Care Rover Tender Name Role Phone Unavailable Primary Care Provider Unavailabl e Encounter Details Date Type Department Care Team (Latest Contact Info) Description 05/18/2002 Outpatient Historical [facility] [address], [place] [address] Haroldo Garay MD [address], [place] [phone] OPEN WOUND KNEE/LEG/ANKLE (Primary Dx); TETANUS TOXOID INOCULAT Social History Tobacco Use Types Packs/Day Years Used Date Smoking Tobacco: Never Assessed Comments Unknown Sex and Gender Information Value Date Recorded Sex Assigned at Not on file Legal Sex Female 5:57 AM ACID POLYMERIZATION OPERATOR Gender Identity Not on file Sexual Orientation Not on file documented as of this encounter Plan of Treatment Not on file documented as of this encounter Visit Diagnoses Diagnosis Open wound of knee, leg (except thigh), and ankle, without mention of complication- Primary Need for prophylactic vaccination with tetanus toxoid alone documented in this encounter
--- OUTSIDE RECORDS SUMMARY | 2024-10-06 12:50 | XMS_ITS | Encounter Summary ---
Author Organization [facility] Address [address] [place] [address] Care Team Providers Care General Technician Name Role Phone Unavailable Primary Care Provider Unavailabl e Encounter Details Date Type Department Care Team (Latest Contact Info) Description 06/24/2004 Outpatient Historical [facility] Nose [facility] Throat [address] [place] [phone] Bonita Aguilar NP [facility] Department of Nursing [address] [place], [place] [phone] Dysfunct eustachian tube (Primary Dx) Social History Tobacco Use Types Packs/Day Years Used Date Smoking Tobacco: Never Assessed Comments Unknown Sex and Gender Information Value Date Recorded Sex Assigned at Not on file Legal Sex Female 5:57 AM BRIDGE TENDER Gender Identity Not on file Sexual Orientation Not on file documented as of this encounter Plan of Treatment Not on file documented as of this encounter Visit Diagnoses Diagnosis Dysfunct eustachian tube- Primary Dysfunction of Eustachian tube documented in this encounter
--- OUTSIDE RECORDS SUMMARY | 2024-10-06 12:50 | XMS_ITS | Encounter Summary ---
Author Organization [facility] Address [address] [place] [address] Care Team Providers Care Rail Switch Operator Name Role Phone Unavailable Primary Care Provider Unavailabl e Encounter Details Date Type Department Care Team (Latest Contact Info) Description 07/31/2002 Outpatient Historical [facility] [address] [place] [address] AMBULANCE, [facility] OPEN WOUND OF FOREHEAD (Primary Dx) Social History Tobacco Use Types Packs/Day Years Used Date Smoking Tobacco: Never Assessed Comments Unknown Sex and Gender Information Value Date Recorded Sex Assigned at Not on file 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
--- OUTSIDE RECORDS SUMMARY | 2024-10-06 12:50 | XMS_ITS | Encounter Summary ---
Author Organization [facility] Address [address] [place] [address] Care Team Providers Care Hand Zipper Trimmer Name Role Phone Unavailable Primary Care Provider Unavailabl e Encounter Details Date Type Department Care Team (Latest Contact Info) Description 10/31/2004 Outpatient Historical [facility] [address] [facility] [address] [place] [phone] Boogie Simmons LUMBOSACRAL NEURITIS NOS (Primary Dx) Social History Tobacco Use Types Packs/Day Years Used Date Smoking Tobacco: Never Assessed Comments Unknown Sex and Gender Information Value Date Recorded Sex Assigned at Not on file Legal Sex Female 5:57 AM FORM MAKER PLASTER Gender Identity Not on file Sexual Orientation Not on file documented as of this encounter Plan of Treatment Not on file documented as of this encounter Visit Diagnoses Diagnosis Thoracic or lumbosacral neuritis or radiculitis, unspecified- Primary documented in this encounter
--- OUTSIDE RECORDS SUMMARY | 2024-10-06 12:50 | XMS_ITS | Encounter Summary ---
Author Organization [facility] Address [address] [place] [address] Care Team Providers Care Resident In Diagnostic Radiology Name Role Phone Unavailable Primary Care Provider Unavailabl e Encounter Details Date Type Department Care Team (Latest Contact Info) Description 08/04/2002 Outpatient Historical [facility] [address], [place] [address] Haroldo Garay MD [address], [place] [phone] POSTCONCUSSION SYNDROME (Primary Dx) Social History Tobacco Use Types Packs/Day Years Used Date Smoking Tobacco: Never Assessed Comments Unknown Sex and Gender Information Value Date Recorded Sex Assigned at Not on file Legal Sex Female 5:57 AM STATION TENDER Gender Identity Not on file Sexual Orientation Not on file documented as of this encounter Plan of Treatment Not on file documented as of this encounter Visit Diagnoses Diagnosis Postconcussion syndrome- Primary documented in this encounter
--- OUTSIDE RECORDS SUMMARY | 2024-10-06 12:50 | XMS_ITS | Encounter Summary ---
Author Organization [facility] Address [address] [place] [address] Care Team Providers Care High School Social Studies Teacher Name Role Phone Unavailable Primary Care Provider Unavailabl e Encounter Details Date Type Department Care Team (Late st Contact Info) Description 10/28/2004 Outpatient Historical [facility] [address] [place] [phone] Rigo Welch MD [address] [place] [phone] CONTUSION OF KNEE (Primary Dx) Social History Tobacco Use Types Packs/Day Years Used Date Smoking Tobacco: Never Assessed Comments Unknown Sex and Gender Information Value Date Recorded Sex Assigned at Not on file Legal Sex Female 5:57 AM BOREMATIC MACHINE OPERATOR Gender Identity Not on file Sexual Orientation Not on file documented as of this encounter Plan of Treatment Not on file documented as of this encounter Visit Diagnoses Diagnosis Contusion of knee- Primary documented in this encounter
--- OUTSIDE RECORDS SUMMARY | 2024-10-06 12:50 | XMS_ITS | Encounter Summary ---
Author Organization [facility] Address [address] [place] [address] Care Team Providers Care Cleaning Maid Name Role Phone Unavailable Primary Care Provider Unavailabl e Encounter Details Date Type Department Care Team (Latest Contact Info) Description 10/31/2004 Outpatient [facility] [address] 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
--- OUTSIDE RECORDS SUMMARY | 2024-10-06 12:50 | XMS_ITS | Encounter Summary ---
Author Organization [facility] Address [address] [place] [address] Care Team Providers Care Builder'S Labourer Name Role Phone Unavailable Primary Care Provider Unavailabl e Encounter Details Date Type Department Care Team (Latest Contact Info) Description 11/05/2004 Outpatient Historical [facility] [address] [place] [phone] Boogie Simmons LUMBOSACRAL NEURITIS NOS (Primary Dx) Social History Tobacco Use Types Packs/Day Years Used Date Smoking Tobacco: Never Assessed Comments Unknown Sex and Gender Information Value Date Recorded Sex Assigned at Not on file Legal Sex Female 5:57 AM IT SYSTEMS ADMINISTRATOR Gender Identity Not on file Sexual Orientation Not on file documented as of this encounter Plan of Treatment Not on file documented as of this encounter Visit Diagnoses Diagnosis Thoracic or lumbosacral neuritis or radiculitis, unspecified- Primary documented in this encounter
--- OUTSIDE RECORDS SUMMARY | 2024-10-06 12:50 | XMS_ITS | Encounter Summary ---
Author Organization [facility] Address [address] [place] [address] Care Team Providers Care Velvet Steamer Name Role Phone Unavailable Primary Care Provider Unavailabl e Encounter Details Date Type Department Care Team (Latest Contact Info) Description 06/29/2002 Outpatient Historical [facility] [address], [place] [address] Haroldo Garay MD [address], [place] [phone] SCIATICA (Primary Dx); CELLULITIS NOS Social History Tobacco Use Types Packs/Day Years Used Date Smoking Tobacco: Never Assessed Comments Unknown Sex and Gender Information Value Date Recorded Sex Assigned at Not on file Legal Sex Female 5:57 AM INDUSTRIAL PHARMACIST Gender Identity Not on file Sexual Orientation Not on file documented as of this encounter Plan of Treatment Not on file documented as of this encounter Visit Diagnoses Diagnosis Sciatica- Primary Cellulitis and abscess of unspecified site documented in this encounter
--- OUTSIDE RECORDS SUMMARY | 2024-10-06 12:50 | XMS_ITS | Encounter Summary ---
Author Organization [facility] Address [address] [place] [address] Care Team Providers Care Auto Garage Attendant Name Role Phone Unavailable Primary Care Provider Unavailabl e Encounter Details Date Type Department Care Team (Latest Contact Info) Description 05/02/2007 Outpatient Historical [facility] [address] [place] [address] AMBULANCE, [facility] Unspecified Essential Hypertension; Unspecified Heart Disease; Encounter for Long-Term (Current) Use of Other Medications Social History Tobacco Use Types Packs/Day Years Used Date Smoking Tobacco: Never Assessed Comments Unknown Sex and Gender Information Value Date Recorded Sex Assigned at Not on file Legal Sex Female 5:57 AM LABORER TAN HOUSE Gender Identity Not on file Sexual Orientation Not on file documented as of this encounter Plan of Treatment Not on file documented as of this encounter Visit Diagnoses Diagnosis Unspecified essential hypertension Heart disease, unspecified Encounter for long-term (current) use of other medications documented in this encounter
--- OUTSIDE RECORDS SUMMARY | 2024-10-06 12:50 | XMS_ITS | Encounter Summary ---
Author Organization [facility] Address [address] [place] [address] Care Team Providers Care Supply Chain Consultant Name Role Phone Unavailable Primary Care Provider Unavailabl e Encounter Details Date Type Department Care Team (Latest Contact Info) Description 11/12/2004 Outpatient Historical [facility] Pain Management Procedures [address] [place] [phone] Boogie Simmons LUMBOSACRAL NEURITIS NOS (Primary Dx) Social History Tobacco Use Types Packs/Day Years Used Date Smoking Tobacco: Never Assessed Comments Unknown Sex and Gender Information Value Date Recorded Sex Assigned at Not on file Legal Sex Female 5:57 AM FUR TRIMMING MACHINE OPERATOR Gender Identity Not on file Sexual Orientation Not on file documented as of this encounter Plan of Treatment Not on file documented as of this encounter Visit Diagnoses Diagnosis Thoracic or lumbosacral neuritis or radiculitis, unspecified- Primary documented in this encounter
--- OUTSIDE RECORDS SUMMARY | 2024-10-06 12:50 | XMS_ITS | Encounter Summary ---
Author Organization [facility] Address [address] [place] [address] Care Team Providers Care Mental Measurements Teacher Name Role Phone Unavailable Primary Care Provider Unavailabl e Encounter Details Date Type Department Care Team (Latest Contact Info) Description 05/28/1998 Outpatient Historical [facility] Medicine [place] [address] [address] Haroldo Garay MD [address] [phone] Unspecified essential hypertension (Primary Dx) Social History Tobacco Use Types Packs/Day Years Used Date Smoking Tobacco: Never Assessed Comments Unknown Sex and Gender Information Value Date Recorded Sex Assigned at Not on file Legal Sex Female 5:57 AM CREW DIRECTOR Gender Identity Not on file Sexual Orientation Not on file documented as of this encounter Plan of Treatment Not on file documented as of this encounter Visit Diagnoses Diagnosis Unspecified essential hypertension- Primary documented in this encounter
--- OUTSIDE RECORDS SUMMARY | 2024-10-06 12:50 | XMS_ITS | Encounter Summary ---
Author Organization [facility] Address [address] [place] [address] Care Team Providers Care Rn Hemo Dialysis Name Role Phone Unavailable Primary Care Provider Unavailabl e Encounter Details Date Type Department Care Team (Latest Contact Info) Description 10/24/2004 Outpatient Historical [facility] [address] [place] [address] Sadia Alexandre FNP NO ADDRESS ON FILE Lumbosacral spondylosis (Primary Dx) Social History Tobacco Use Types Packs/Day Years Used Date Smoking Tobacco: Never Assessed Comments Unknown Sex and Gender Information Value Date Recorded Sex Assigned at Not on file Legal Sex Female 5:57 AM FURNITURE FABRICATOR Gender Identity Not on file Sexual Orientation Not on file documented as of this encounter Plan of Treatment Not on file documented as of this encounter Visit Diagnoses Diagnosis Lumbosacral spondylosis- Primary Lumbosacral spondylosis without myelopathy documented in this encounter
--- OUTSIDE RECORDS SUMMARY | 2024-10-06 12:50 | XMS_ITS | Encounter Summary ---
Author Organization [facility] Address [address] [place] [address] Care Team Providers Care Rn Document Improvement Specialist Name Role Phone Unavailable Primary Care Provider Unavailabl e Encounter Details Date Type Department Care Team (Latest Contact Info) Description 08/24/2002 Outpatient Historical [facility] [address], [place] [address] Haroldo Garay MD [address], [place] [phone] FOREIGN BODY FOOT & TOE (Primary Dx) Social History Tobacco Use Types Packs/Day Years Used Date Smoking Tobacco: Never Assessed Comments Unknown Sex and Gender Information Value Date Recorded Sex Assigned at Not on file Legal Sex Female 5:57 AM TRANSPORTATION SERVICES REPRESENTATIVE Gender Identity Not on file Sexual Orientation Not on file documented as of this encounter Plan of Treatment Not on file documented as of this encounter Visit Diagnoses Diagnosis Foot and toe(s), superficial foreign body (splinter), without major open wound and without mention of infection- Primary documented in this encounter
--- OUTSIDE RECORDS SUMMARY | 2024-10-06 12:50 | XMS_ITS | Encounter Summary ---
Author Organization [facility] Address [address] [place] [address] Care Team Providers Care Cracker Dough Mixer Name Role Phone Unavailable Primary Care Provider Unavailabl e Encounter Details Date Type Department Care Team (Latest Contact Info) Description 03/30/2002 Outpatient Historical [facility] [address], [place] [address] Haroldo Garay MD [address] [phone] ACUTE FRONTAL SINUSITIS (Primary Dx); DIZZINESS AND GIDDINESS Social History Tobacco Use Types Packs/Day Years Used Date Smoking Tobacco: Never Assessed Comments Unknown Sex and Gender Information Value Date Recorded Sex Assigned at Not on file 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
--- OUTSIDE RECORDS SUMMARY | 2024-10-06 12:50 | XMS_ITS | Encounter Summary ---
Author Organization [facility] Address [address] [place] [address] Care Team Providers Care Neck Band Maker Name Role Phone Unavailable Primary Care Provider Unavailabl e Encounter Details Date Type Department Care Team (Latest Contact Info) Description 04/28/2002 Outpatient Historical [facility] [address] [address] Haroldo Garay MD [address] [phone] URIN TRACT INFECTION NOS (Primary Dx); ACUTE FRONTAL SINUSITIS Social History Tobacco Use Types Packs/Day Years Used Date Smoking Tobacco: Never Assessed Comments Unknown Sex and Gender Information Value Date Recorded Sex Assigned at Not on file 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
--- OUTSIDE RECORDS SUMMARY | 2024-10-06 12:50 | XMS_ITS | Encounter Summary ---
Author Organization [facility] Address [address] [place] [address] Care Team Providers Care Product Inspection Supervisor Name Role Phone Unavailable Primary Care Provider Unavailabl e Encounter Details Date Type Department Care Team (Latest Contact Info) Description 10/29/2001 Outpatient Historical [facility] [address], [place] [address] Haroldo Garay MD [address], [place] [phone] JOINT PAIN-L/LEG (Primary Dx); BACKACHE NOS Social History Tobacco Use Types Packs/Day Years Used Date Smoking Tobacco: Never Assessed Comments Unknown Sex and Gender Information Value Date Recorded Sex Assigned at Not on file Legal Sex Female 5:57 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
--- OUTSIDE RECORDS SUMMARY | 2024-10-06 12:50 | XMS_ITS | Encounter Summary ---
Author Organization [facility] Address [address] [place] [address] Care Team Providers Care Campus Recruiter Name Role Phone Unavailable Primary Care Provider [...] file Legal Sex Female 5:57 AM CLIENT EXECUTIVE Gender Identity Not on file Sexual Orientation Not on file documented as of this encounter Plan of Treatment Not on file documented as of this encounter Visit Diagnoses Not on filedocumented in this encounter
--- OUTSIDE RECORDS SUMMARY | 2024-10-06 12:50 | XMS_ITS | Encounter Summary ---
Author Organization [facility] Address [address] [place] [address] Care Team Providers Care Manufacturing Business Analyst Name Role Phone Unavailable Primary Care Provider Unavailabl e Encounter Details Date Type Department Care Team (Latest Contact Info) Description 06/24/2004 Outpatient Historical [facility] 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
--- OUTSIDE RECORDS SUMMARY | 2024-10-06 12:50 | XMS_ITS | Encounter Summary ---
Author Organization [facility] Address [address] [place] [address] Care Team Providers Care Wool Hat Finisher Name Role Phone Unavailable Primary Care Provider Unavailabl e Encounter Details Date Type Department Care Team (Latest Contact Info) Description 09/20/2002 Outpatient Historical [facility] [address] [address] Haroldo Garay MD [address] [phone] JOINT PAIN-L/LEG (Primary Dx) Social History Tobacco Use Types Packs/Day Years Used Date Smoking Tobacco: Never Assessed Comments Unknown Sex and Gender Information Value Date Recorded Sex Assigned at Not on file Legal Sex Female 5:57 AM ECG TECHNICIAN Gender Identity Not on file Sexual Orientation Not on file documented as of this encounter Plan of Treatment Not on file documented as of this encounter Visit Diagnoses Diagnosis Pain in joint, lower leg- Primary documented in this encounter
--- OUTSIDE RECORDS SUMMARY | 2024-10-06 12:50 | XMS_ITS | Encounter Summary ---
Author Organization [facility] Address [address] [place] [address] Care Team Providers Care Poker Supervisor Name Role Phone Unavailable Primary Care Provider Unavailabl e Encounter Details Date Type Department Care Team (Late st Contact Info) Description 11/05/2001 Outpatient Historical [facility] Imaging Services-[address] [place] [address] [place] [id number] Social History Tobacco Use Types Packs/Day Years Used Date Smoking Tobacco: Never Assessed Comments Unknown Sex and Gender Information Value Date Recorded Sex Assigned at Not on file 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
--- OUTSIDE RECORDS SUMMARY | 2024-10-06 12:50 | XMS_ITS | Encounter Summary ---
Author Organization [facility] Address [address] [place] [address] Care Team Providers Care Nib Finisher Name Role Phone Unavailable Primary Care Provider Unavailabl e Encounter Details Date Type Department Care Team (Latest Contact Info) Description 09/10/2001 Outpatient Historical [facility] [address] [address] Haroldo Garay MD [address] [phone] DISORDERS OF SACRUM (Primary Dx) Social History Tobacco Use Types Packs/Day Years Used Date Smoking Tobacco: Never Assessed Comments Unknown Sex and Gender Information Value Date Recorded Sex Assigned at Not on file Legal Sex Female 5:57 AM 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
--- OUTSIDE RECORDS SUMMARY | 2024-10-06 12:50 | XMS_ITS | Encounter Summary ---
Author Organization [facility] Address [address] [place] [address] Care Team Providers Care Fruit Buyer Name Role Phone Unavailable Primary Care Provider Unavailabl e Encounter Details Date Type Department Care Team (Latest Contact Info) Description 09/17/2001 Outpatient Historical [facility] [address] [address] Haroldo Garay MD [address] [phone] LUMBAGO (Primary Dx); SCIATICA Social History Tobacco Use Types Packs/Day Years Used Date Smoking Tobacco: Never Assessed Comments Unknown Sex and Gender Information Value Date Recorded Sex Assigned at Not on file Legal Sex Female 5:57 AM TARE MAN Gender Identity Not on file Sexual Orientation Not on file documented as of this encounter Plan of Treatment Not on file documented as of this encounter Visit Diagnoses Diagnosis Lumbago- Primary Sciatica documented in this encounter
--- OUTSIDE RECORDS SUMMARY | 2024-10-06 12:50 | XMS_ITS | Encounter Summary ---
Author Organization [facility] Address [address] [place] [address] Care Team Providers Care Manager Foreign Name Role Phone Unavailable Primary Care Provider Unavailabl e Encounter Details Date Type Department Care Team (Latest Contact Info) Description 11/19/2004 Outpatient Historical [facility] [address] 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
--- OUTSIDE RECORDS SUMMARY | 2024-10-06 12:50 | XMS_ITS | Encounter Summary ---
Author Organization [facility] Address [address] [place] [address] Care Team Providers Care Insurance Claims Clerk Name Role Phone Unavailable Primary Care Provider Unavailabl e Encounter Details Date Type Department Care Team (Late st Contact Info) Description 10/08/2001 Outpatient Historical [facility] Imaging Services-[address] [place] [address] [place] [address] Social History Tobacco Use Types Packs/Day Years Used Date Smoking Tobacco: Never Assessed Comments Unknown Sex and Gender Information Value Date Recorded Sex Assigned at Not on file Legal Sex Female 5:57 AM ORAL HYGIENIST Gender Identity Not on file Sexual Orientation Not on file documented as of this encounter Plan of Treatment Not on file documented as of this encounter Visit Diagnoses Not on filedocumented in this encounter
--- OUTSIDE RECORDS SUMMARY | 2024-10-06 12:50 | XMS_ITS | Encounter Summary ---
Author Organization [facility] Address [address] [place] [address] Care Team Providers Care Special Police Officer Name Role Phone Unavailable Primary Care Provider Unavailabl e Encounter Details Date Type Department Care Team (Latest Contact Info) Description 03/22/2002 Outpatient Historical [facility] [place] [address] [phone] Anahi Harrison MD [address] [place] [phone] JOINT PAIN-L/LEG (Primary Dx); SCIATICA; HYPOTHYROIDISM NOS Social History Tobacco Use Types Packs/Day Years Used Date Smoking Tobacco: Never Assessed Comments Unknown Sex and Gender Information Value Date Recorded Sex Assigned at Not on file Legal Sex Female 5:57 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
--- OUTSIDE RECORDS SUMMARY | 2024-10-06 12:51 | XMS_ITS | Encounter Summary ---
Author Organization [facility] Address [address] [place] [address] Care Team Providers Care Director Wholesale Name Role Phone Unavailable Primary Care Provider Unavailabl e Encounter Details Date Type Department Care Team (Late st Contact Info) Description 04/10/2004 Outpatient Historical [facility] Orthopedics- 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
--- OUTSIDE RECORDS SUMMARY | 2024-10-06 12:51 | XMS_ITS | Encounter Summary ---
Author Organization [facility] Address [address] [place] [address] Care Team Providers Care Building Mover Name Role Phone Unavailable Primary Care Provider Unavailabl e Encounter Details Date Type Department Care Team (Late st Contact Info) Description 03/18/2004 Outpatient Historical [facility] Orthopedics- 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
--- OUTSIDE RECORDS SUMMARY | 2024-10-06 12:51 | XMS_ITS | Encounter Summary ---
Author Organization [facility] Address [address] [place] [address] Care Team Providers Care Architectural Engineering Teacher Name Role Phone Unavailable Primary Care Provider Unavailabl e Encounter Details Date Type Department Care Team (Late st Contact Info) Description 08/02/2003 Outpatient Historical [facility] [address] [facility] [address] [place] [address] Dustin Alvarado MD [address] [place] [address] CERVICALGIA (Primary Dx) Social History Tobacco Use Types Packs/Day Years Used Date Smoking Tobacco: Never Assessed Comments Unknown Sex and Gender Information Value Date Recorded Sex Assigned at Not on file Legal Sex Female 5:57 AM SCOWMAN Gender Identity Not on file Sexual Orientation Not on file documented as of this encounter Plan of Treatment Not on file documented as of this encounter Visit Diagnoses Diagnosis Cervicalgia- Primary documented in this encounter
--- OUTSIDE RECORDS SUMMARY | 2024-10-06 12:51 | XMS_ITS | Encounter Summary ---
Author Organization [facility] Address [address] [place] [address] Care Team Providers Care Test Cell Technician Name Role Phone Unavailable Primary Care Provider Unavailabl e Encounter Details Date Type Department Care Team (Late st Contact Info) Description 07/26/2003 Outpatient Historical [facility] Dustin Alvarado MD [address] [place] [address] LUMBOSACRAL NEURITIS NOS (Primary Dx) Social History Tobacco Use Types Packs/Day Years Used Date Smoking Tobacco: Never Assessed Comments Unknown Sex and Gender Information Value Date Recorded Sex Assigned at Not on file Legal Sex Female 5:57 AM DEAN FOR STUDENT AFFAIRS Gender Identity Not on file Sexual Orientation Not on file documented as of this encounter Plan of Treatment Not on file documented as of this encounter Visit Diagnoses Diagnosis Thoracic or lumbosacral neuritis or radiculitis, unspecified- Primary documented in this encounter
--- OUTSIDE RECORDS SUMMARY | 2024-10-06 12:51 | XMS_ITS | Encounter Summary ---
Author Organization [facility] Address [address] [place] [address] Care Team Providers Care Legal Compliance Officer Name Role Phone Unavailable Primary Care Provider Unavailabl e Encounter Details Date Type Department Care Team (Latest Contact Info) Description 12/06/2003 Outpatient Historical [address] [phone] Anahi Harrison MD [address] [place] [phone] ALLERGIC RHINITIS NOS (Primary Dx); ACUTE URI NOS; OTITIS MEDIA NOS Social History Tobacco Use Types Packs/Day Years Used Date Smoking Tobacco: Never Assessed Comments Unknown Sex and Gender Information Value Date Recorded Sex Assigned at Not on file Legal Sex Female 5:57 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
--- OUTSIDE RECORDS SUMMARY | 2024-10-06 12:51 | XMS_ITS | Encounter Summary ---
Author Organization [facility] Address [address] [place] [address] Care Team Providers Care Bicycle Subassembler Name Role Phone Unavailable Primary Care Provider Unavailabl e Encounter Details Date Type Department Care Team (Latest Contact Info) Description 06/19/2004 Outpatient Historical [facility] [address] [address] Anahi Harrison MD [address] [place] [phone] ALLERGIC RHINITIS NOS (Primary Dx) Social History Tobacco Use Types Packs/Day Years Used Date Smoking Tobacco: Never Assessed Comments Unknown Sex and Gender Information Value Date Recorded Sex Assigned at Not on file Legal Sex Female 5:57 AM 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
--- OUTSIDE RECORDS SUMMARY | 2024-10-06 12:51 | XMS_ITS | Encounter Summary ---
Author Organization [facility] Address [address] [place] [address] Care Team Providers Care Freelance Director Name Role Phone Unavailable Primary Care Provider Unavailabl e Encounter Details Date Type Department Care Team (Latest Contact Info) Description 03/11/2004 Outpatient Historical [facility] [place] [address] [phone] nAahi Harrison MD [address] [place] [address] JOINT PAIN-L/LEG (Primary Dx) Social History Tobacco Use Types Packs/Day Years Used Date Smoking Tobacco: Never Assessed Comments Unknown Sex and Gender Information Value Date Recorded Sex Assigned at Not on file 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
--- OUTSIDE RECORDS SUMMARY | 2024-10-06 12:51 | XMS_ITS | Encounter Summary ---
Author Organization [facility] Address [address] [place] [address] Care Team Providers Care Cushion Spring Assembler Name Role Phone Unavailable Primary Care Provider Unavailabl e Encounter Details Date Type Department Care Team (Late st Contact Info) Description 08/30/2003 Outpatient Historical [facility] Sp[facility] [address] [place] [address] Dustin Alvarado MD [address] [place] [address] JOINT PAIN-SHLDER (Primary Dx); CERVICALGIA; Cervical disc displacmnt; LUMBAGO Social History Tobacco Use Types Packs/Day Years Used Date Smoking Tobacco: Never Assessed Comments Unknown Sex and Gender Information Value Date Recorded Sex Assigned at Not on file Legal Sex Female 5:57 AM 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
--- OUTSIDE RECORDS SUMMARY | 2024-10-06 12:51 | XMS_ITS | Clinical Summary ---
Author Organization [facility] Address [address] [facility] Attn: Epic Prelude ADT EMILIANA MALHOTRA [address] Care Team Providers Care Client Service Representative Name Role Phone Arturo Davila MD Primary Care Provider [phone] Allergies Active Allergy Reactions Criticality Noted Date Comments Penicillin Unknown 10/30/2022 Medications hydroCHLOROthiaz salena (MICROZIDE) 12.5 mg capsuleIndicatio ns:Benign hypertension Take 1 Capsule (12.5 mg) by mouth daily. 90 Capsule 3 3 Active blood sugar diagnostic StripIndications :Type 2 diabetes mellitus without complication, with long-term current use of insulin ([facility]) Use with glucose meter 100 Strip 3 Active mupirocin (BACTROBAN) 2 % OintmentIndicati ons:Infected insect bite or sting Apply to affected area daily. 30 Gram 3 Active Blood-Glucose Meter KitIndications:T ype 2 diabetes mellitus without complication, with long-term current use of insulin ([facility]) To take blood sugar before [...] on file Legal Sex Female 8:47 AM PAINT ROLLER WINDER Gender Identity Not on file Sexual [...] complication, with long-term current use of insulin ([facility]) from Last 3 Months or Most Recently Relevant to Health Maintenance Results * (ABNORMAL) HEMOGLOBIN A1C (10/31/2022 8:51 AM CDT) HEMOGLOBIN A1C 6.7(H) <5.7 % of total Hgb [facility] Comment: For someone without known diabetes, [...] children. ESTIMATED AVERAGE GLUCOSE (MG/DL) 146 mg/dL [facility] ESTIMATED AVERAGE GLUCOSE (MMOL/L) 8.1 mmol/L [facility] Comment: Test Performed at: [facility] [address] [facility] [place] [address] Rimma Leahy MD Blood 10/31/2022 8:51 AM CDT 11/01/2022 3:30 AM CDT Fabiana Ellencal Lugo FIELD NURSE CHEMISTRY ORDERABLES Fin al Result [facility] [phone] [facility] [address] [facility] [place] [address] * LIPID PANEL (10/31/2022 8:51 AM CDT) CHOLESTEROL 123 <200 mg/dL [facility] HDL 53 > OR = 50 mg/dL [facility] TRIGLYCERIDE 90 <150 mg/dL [facility] LDL CALCULATED 53 mg/dL (calc) [facility] Comment: Reference range: <100 Desirable range <100 mg/dL for primary prevention; <70 mg/dL for patients with CHD or diabetic patients with > or = 2 CHD risk factors. LDL-C is now calculated using the Ruel calculation, which is a validated novel method providing better accuracy than the Friedewald equation in the estimation of LDL-C. Luis Felipe FERRARI et al. LISA. 2013;310(48): 1149-2476 (http://education.[facility].[employer]/faq/ISJ588) CHOL/HDL RATIO 2.3 <5.0 (calc) [facility] TOTAL NON-HDL CHOL(LDL+VLDL) 70 <130 mg/dL (calc) [facility] Comment: For patients with diabetes plus 1 major ASCVD risk factor, treating to a non-HDL-C goal of <100 mg/dL (LDL-C of <70 mg/dL) is considered a therapeutic option. Test Performed at: [facility] [address] [facility] [place] [address] Rimma Leahy MD Blood 10/31/2022 8:51 AM CDT 11/01/2022 3:30 AM CDT Fabiana Lugo FIELD NURSE CHEMISTRY ORDERABLES Fin al Result [facility] [phone] [facility] [address] [place] [address] from Last 3 Months or Most Recently Relevant to Health Maintenance Insurance MEDICAID [place] Care Teams Client Service Representative Relationship Specialty Start Date End Date Arturo Davila MD [address] [facility] [place] [address] [place] [phone] PCP - General Family Practice 10/30/22
--- OUTSIDE RECORDS SUMMARY | 2024-10-06 12:51 | XMS_ITS | Encounter Summary ---
Author Organization [facility] Address [address] [place] [address] Care Team Providers Care Acute Care Physical Therapist Name Role Phone Unavailable Primary Care Provider Unavailabl e Encounter Details Date Type Department Care Team (Latest Contact Info) Description 06/14/2004 Outpatient Historical [facility] Medicine [place] [address] [address] Anahi Harrison MD [address] [place] [phone] OTITIS MEDIA NOS (Primary Dx) Social History Tobacco Use Types Packs/Day Years Used Date Smoking Tobacco: Never Assessed Comments Unknown Sex and Gender Information Value Date Recorded Sex Assigned at Not on file Legal Sex Female 5:57 AM 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
--- OUTSIDE RECORDS SUMMARY | 2024-10-06 12:51 | XMS_ITS | Encounter Summary ---
Author Organization [facility] Address [address] [place] [address] Care Team Providers Care Phys Assistant Name Role Phone Unavailable Primary Care Provider Unavailabl e Encounter Details Date Type Department Care Team (Late st Contact Info) Description 10/04/2003 Outpatient Historical [facility] [address] [place] [address] [facility] [address] [place] [phone] Dustin Alvarado MD [address] [place] [address] CERVICAL DISC DEGEN (Primary Dx) Social History Tobacco Use Types Packs/Day Years Used Date Smoking Tobacco: Never Assessed Comments Unknown Sex and Gender Information Value Date Recorded Sex Assigned at Not on file Legal Sex Female 5:57 AM BALLOON DIPPER Gender Identity Not on file Sexual Orientation Not on file documented as of this encounter Plan of Treatment Not on file documented as of this encounter Visit Diagnoses Diagnosis Degeneration of cervical intervertebral disc- Primary documented in this encounter
--- OUTSIDE RECORDS SUMMARY | 2024-10-06 12:51 | XMS_ITS | Encounter Summary ---
Author Organization [facility] Address [address] [place] [address] Care Team Providers Care Media Account Executive Name Role Phone Unavailable Primary Care Provider Unavailabl e Encounter Details Date Type Department Care Team (Late st Contact Info) Description 08/14/2004 Outpatient Historical [facility] [address] [place] [phone] Dustin Alvarado MD [address] [place] [address] Sprain of neck (Primary Dx); LUMBAGO; Sciatic nerve lesion Social History Tobacco Use Types Packs/Day Years Used Date Smoking Tobacco: Never Assessed Comments Unknown Sex and Gender Information Value Date Recorded Sex Assigned at Not on file 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
--- OUTSIDE RECORDS SUMMARY | 2024-10-06 12:51 | XMS_ITS | Encounter Summary ---
Author Organization [facility] Address [address] [place] [address] Care Team Providers Care Vp Information Technology Name Role Phone Unavailable Primary Care Provider Unavailabl e Encounter Details Date Type Department Care Team (Latest Contact Info) Description 09/04/[address] [facility] Ear, Nose and Throat [address] [place] 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
--- OUTSIDE RECORDS SUMMARY | 2024-10-06 12:51 | XMS_ITS | Encounter Summary ---
Author Organization [facility] Address [address] [place] [address] Care Team Providers Care Leather Sorter Name Role Phone Unavailable Primary Care Provider Unavailabl e Encounter Details Date Type Department Care Team (Latest Contact Info) Description 07/19/2001 Outpatient Historical [facility] [address] [place] [address], [place] [address] Haroldo Garay MD [address] [phone] OSTEOARTHROS NOS-OTHER SITE (Primary Dx) Social History Tobacco Use Types Packs/Day Years Used Date Smoking Tobacco: Never Assessed Comments Unknown Sex and Gender Information Value Date Recorded Sex Assigned at Not on file 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
--- OUTSIDE RECORDS SUMMARY | 2024-10-06 12:51 | XMS_ITS | Encounter Summary ---
Author Organization [facility] Address [address] [place] [address] Care Team Providers Care School Social Worker Name Role Phone Unavailable Primary Care Provider Unavailabl e Encounter Details Date Type Department Care Team (Late st Contact Info) Description 12/20/2003 Outpatient Historical [facility] [address] [place] [phone] Dustin Alvarado MD [address] [place] [address] Sprain of neck (Primary Dx); LUMBAGO; Sciatic nerve lesion Social History Tobacco Use Types Packs/Day Years Used Date Smoking Tobacco: Never Assessed Comments Unknown Sex and Gender Information Value Date Recorded Sex Assigned at Not on file Legal Sex Female 5:57 AM DIRECTOR OF CREATIVE SERVICES Gender Identity Not on file Sexual Orientation Not on file documented as of this encounter Plan of Treatment Not on file documented as of this encounter Visit Diagnoses Diagnosis Sprain of neck- Primary Neck sprain and strain Lumbago Sciatic nerve lesion Lesion of sciatic nerve documented in this encounter
--- OUTSIDE RECORDS SUMMARY | 2024-10-06 12:51 | XMS_ITS | Encounter Summary ---
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
--- OUTSIDE RECORDS SUMMARY | 2024-10-06 12:51 | XMS_ITS | Encounter Summary ---
Author Organization [facility] Address [address] [place] [address] Care Team Providers Care Canopy Stringer Name Role Phone Unavailable Primary Care Provider Unavailabl e Encounter Details Date Type Department Care Team (Latest Contact Info) Description 07/02/2001 Outpatient Historical [facility] [address], [place] [address] Haroldo Garay MD [address] [phone] OSTEOARTHROS NOS-L/LEG (Primary Dx) Social History Tobacco Use Types Packs/Day Years Used Date Smoking Tobacco: Never Assessed Comments Unknown Sex and Gender Information Value Date Recorded Sex Assigned at Not on file Legal Sex Female 5:57 AM INFANT NANNY Gender Identity Not on file Sexual Orientation Not on file documented as of this encounter Plan of Treatment Not on file documented as of this encounter Visit Diagnoses Diagnosis Osteoarthrosis, unspecified whether generalized or localized, lower leg- Primary documented in this encounter
--- OUTSIDE RECORDS SUMMARY | 2024-10-06 12:51 | XMS_ITS | Encounter Summary ---
Author Organization [facility] Address [address] [place] [address] Care Team Providers Care Clinical Dietitian Name Role Phone Unavailable Primary Care Provider Unavailabl e Encounter Details Date Type Department Care Team (Latest Contact Info) Description 02/01/2004 Outpatient Historical [facility] Medicine [place] [address] [phone] Anahi Harrison MD [address] [place] [phone] URIN TRACT INFECTION NOS (Primary Dx) Social History Tobacco Use Types Packs/Day Years Used Date Smoking Tobacco: Never Assessed Comments Unknown Sex and Gender Information Value Date Recorded Sex Assigned at Not on file Legal Sex Female 5:57 AM DIRECTOR OF MANUFACTURING Gender Identity Not on file Sexual Orientation Not on file documented as of this encounter Plan of Treatment Not on file documented as of this encounter Visit Diagnoses Diagnosis Urinary tract infection, site not specified- Primary documented in this encounter
--- OUTSIDE RECORDS SUMMARY | 2024-10-06 12:51 | XMS_ITS | Encounter Summary ---
Author Organization [facility] Address [address] [place] [address] Care Team Providers Care Hydraulic Governor Assembler Name Role Phone Unavailable Primary Care Provider Unavailabl e Encounter Details Date Type Department Care Team (Latest Contact Info) Description 09/18/2004 Outpatient Historical [facility] [address] [place] [phone] Dustin Alvarado MD [address] [place] [address] LUMBAGO (Primary Dx); LACK OF COORDINATION Social History Tobacco Use Types Packs/Day Years Used Date Smoking Tobacco: Never Assessed Comments Unknown Sex and Gender Information Value Date Recorded Sex Assigned at Not on file 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
--- OUTSIDE RECORDS SUMMARY | 2024-10-06 12:51 | XMS_ITS | Encounter Summary ---
Author Organization [facility] Address [address] [facility] Attn: [place] [address] Care Team Providers Care Appointment Coordinator Name Role Phone Unavailable Primary Care Provider Unavailabl e Encounter Details Date Type Department Care Team (Late st Contact Info) Description 10/08/2001 Outpatient Historical Haroldo Garay MD [address] [place] [address] Social History Tobacco Use Types Packs/Day Years Used Date Smoking Tobacco: Never Assessed Comments Unknown Sex and Gender Information Value Date Recorded Sex Assigned at Not on file Legal Sex Female 5:57 AM GOPHERMAN Gender Identity Not on file Sexual Orientation Not on file documented as of this encounter Plan of Treatment Not on file documented as of this encounter Visit Diagnoses Not on filedocumented in this encounter
--- OUTSIDE RECORDS SUMMARY | 2024-10-06 12:51 | XMS_ITS | Encounter Summary ---
Author Organization [facility] Address [address] [place] [address] Care Team Providers Care Fitter Armament Name Role Phone Unavailable Primary Care Provider Unavailabl e Encounter Details Date Type Department Care Team (Late st Contact Info) Description 08/29/[address] [facility]- [address] [place] [address] 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
--- OUTSIDE RECORDS SUMMARY | 2024-10-06 12:51 | XMS_ITS | Encounter Summary ---
Author Organization [facility] Address [address] [place] [address] Care Team Providers Care Senior Quality Engineer Name Role Phone Unavailable Primary Care Provider Unavailabl e Encounter Details Date Type Department Care Team (Latest Contact Info) Description 08/23/2004 Outpatient Historical [facility] Medicine [place] [address] [address] Anahi Harrison MD [address] [place] [phone] INFEC OTITIS EXTERNA NOS (Primary Dx) Social History Tobacco Use Types Packs/Day Years Used Date Smoking Tobacco: Never Assessed Comments Unknown Sex and Gender Information Value Date Recorded Sex Assigned at Not on file Legal Sex Female 5:57 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
--- OUTSIDE RECORDS SUMMARY | 2024-10-06 12:51 | XMS_ITS | Encounter Summary ---
Author Organization [facility] Address [address] [place] [address] Care Team Providers Care Welding Specialist Name Role Phone Unavailable Primary Care Provider Unavailabl e Encounter Details Date Type Department Care Team (Latest Contact Info) Description 08/29/2004 Outpatient Historical [facility] Ear, Nose and Throat [address] [place] [phone] Bonita Aguilar NP [facility] Department of Nursing [facility] [address] [place] [address] REFERRED PAIN OF EAR (Primary Dx) Social History Tobacco Use Types Packs/Day Years Used Date Smoking Tobacco: Never Assessed Comments Unknown Sex and Gender Information Value Date Recorded Sex Assigned at Not on file Legal Sex Female 5:57 AM IP LITIGATION PARALEGAL Gender Identity Not on file Sexual Orientation Not on file documented as of this encounter Plan of Treatment Not on file documented as of this encounter Visit Diagnoses Diagnosis Referred otogenic pain- Primary documented in this encounter
--- OUTSIDE RECORDS SUMMARY | 2024-10-06 12:51 | XMS_ITS | Encounter Summary ---
Author Organization [facility] Address [address] [place] [address] Care Team Providers Care Milk Receiver Tank Truck Name Role Phone Unavailable Primary Care Provider Unavailabl e Encounter Details Date Type Department Care Team (Late st Contact Info) Description 11/08/2003 Outpatient Historical [facility] [address] [place] [address] [facility] [address] [place] [address] Dustin Alvarado MD [address] [place] [address] CERVICAL SPONDYLOSIS (Primary Dx) Social History Tobacco Use Types Packs/Day Years Used Date Smoking Tobacco: Never Assessed Comments Unknown Sex and Gender Information Value Date Recorded Sex Assigned at Not on file Legal Sex Female 5:57 AM JIG BUILDER Gender Identity Not on file Sexual Orientation Not on file documented as of this encounter Plan of Treatment Not on file documented as of this encounter Visit Diagnoses Diagnosis Cervical spondylosis without myelopathy- Primary documented in this encounter
--- OUTSIDE RECORDS SUMMARY | 2024-10-06 12:51 | XMS_ITS | Encounter Summary ---
Author Organization [facility] Address [address] [place] [address] Care Team Providers Care Teller Coordinator Name Role Phone Unavailable Primary Care Provider Unavailabl e Encounter Details Date Type Department Care Team (Latest Contact Info) Description 06/03/2004 Outpatient Historical [facility] [address] [address] Anahi Harrison MD [address] [place] [phone] ACUTE FRONTAL SINUSITIS (Primary Dx); ACUTE BRONCHITIS; OTITIS MEDIA NOS Social History Tobacco Use Types Packs/Day Years Used Date Smoking Tobacco: Never Assessed Comments Unknown Sex and Gender Information Value Date Recorded Sex Assigned at Not on file Legal Sex Female 5:57 AM RECORD MAKER Gender Identity Not on file Sexual Orientation Not on file documented as of this encounter Plan of Treatment Not on file documented as of this encounter Visit Diagnoses Diagnosis Acute frontal sinusitis- Primary Acute bronchitis Unspecified otitis media documented in this encounter
--- OUTSIDE RECORDS SUMMARY | 2024-10-06 12:51 | XMS_ITS | Encounter Summary ---
Author Organization [facility] Address [address] [place] [address] Care Team Providers Care Manager Home Name Role Phone Unavailable Primary Care Provider Unavailabl e Encounter Details Date Type Department Care Team (Late st Contact Info) Description 07/26/2003 Outpatient Historical [facility] [address] [place] [address] Dustin Alvarado MD [address] [place] [address] LUMBAGO (Primary Dx); LUMBOSACRAL NEURITIS NOS Social History Tobacco Use Types Packs/Day Years Used Date Smoking Tobacco: Never Assessed Comments Unknown Sex and Gender Information Value Date Recorded Sex Assigned at Not on file Legal Sex Female 5:57 AM BUDGET SPECIALIST Gender Identity Not on file Sexual Orientation Not on file documented as of this encounter Plan of Treatment Not on file documented as of this encounter Visit Diagnoses Diagnosis Lumbago- Primary Thoracic or lumbosacral neuritis or radiculitis, unspecified documented in this encounter
--- OUTSIDE RECORDS SUMMARY | 2024-10-06 12:51 | XMS_ITS | Encounter Summary ---
Author Organization [facility] Address [address] [place] [address] Care Team Providers Care Barge Worker Name Role Phone Unavailable Primary Care Provider Unavailabl e Encounter Details Date Type Department Care Team (Late st Contact Info) Description 08/14/2004 Outpatient Historical [facility] Dustin Alvarado MD [address] [place] [address] BACKACHE NOS (Primary Dx) Social History Tobacco Use Types Packs/Day Years Used Date Smoking Tobacco: Never Assessed Comments Unknown Sex and Gender Information Value Date Recorded Sex Assigned at Not on file Legal Sex Female 5:57 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 Gender Identity Not on file [...] ORDERABLES Final Resul t Performing Organization Address [facility] Phone Number INTERFACE SYSTEM Refer to clinic/hospital [...] ORDERABLES Final Resul t Performing Organization Address [facility] Phone Number INTERFACE SYSTEM Refer to clinic/hospital [...] ORDERABLES Final Resul t Performing Organization Address [facility] Phone Number INTERFACE SYSTEM Refer to clinic/hospital department * PEPE (08/14/2004 10:15 AM CDT) PEPE Negative Negative INTERFACE SYSTEM 08/14/2004 10:1 5 AM CDT Dustin Alvarado MD CHEMISTRY ORDERABLES Final Resul t Performing Organization Address [facility] Number INTERFACE SYSTEM Refer to clinic/hospital department * (ABNORMAL) SEDIMENTATION RATE (08/14/2004 10:15 AM CDT) ESR (SEDIMENTATION RATE) 39(H) 0 - 22 mm/hr INTERFACE SYSTEM 08/14/2004 10:1 5 AM CDT Dustin Alvarado MD HEMATOLOGY ORDERABLES Final Resu lt Performing Organization Address [facility] Phone Number INTERFACE SYSTEM Refer to clinic/hospital [...]
--- OUTSIDE RECORDS SUMMARY | 2024-10-06 12:51 | XMS_ITS | Encounter Summary ---
Author Organization [facility] Address [address] [place] [address] Care Team Providers Care Wet Inspector Optical Glass Name Role Phone Unavailable Primary Care Provider Unavailabl e Encounter Details Date Type Department Care Team (Latest Contact Info) Description 09/11/[address] [facility] [address] [address] Haroldo Garay MD [address] [phone] OTALGIA NOS (Primary Dx) Social History Tobacco Use Types Packs/Day Years Used Date Smoking Tobacco: Never Assessed Comments Unknown Sex and Gender Information Value Date Recorded Sex Assigned at Not on file Legal Sex Female 5:57 AM MUSEUM SECURITY CHIEF Gender Identity Not on file Sexual Orientation Not on file documented as of this encounter Plan of Treatment Not on file documented as of this encounter Visit Diagnoses Diagnosis Otalgia, unspecified- Primary documented in this encounter
--- OUTSIDE RECORDS SUMMARY | 2024-10-06 12:51 | XMS_ITS | Encounter Summary ---
Author Organization [facility] Address [address] [place] [address] Care Team Providers Care Hand Inspector Name Role Phone Unavailable Primary Care Provider Unavailabl e Encounter Details Date Type Department Care Team (Latest Contact Info) Description 09/02/2004 Outpatient Historical [facility] Services-[facility] [place] [address] [place] [address] Boogie Cardona MD [address] [facility] [address] [place] [address] REFERRED PAIN OF EAR (Primary Dx) Social History Tobacco Use Types Packs/Day Years Used Date Smoking Tobacco: Never Assessed Comments Unknown Sex and Gender Information Value Date Recorded Sex Assigned at Not on file Legal Sex Female 5:57 AM ORTHODONTIC TECHNICIAN Gender Identity Not on file Sexual Orientation Not on file documented as of this encounter Plan of Treatment Not on file documented as of this encounter Visit Diagnoses Diagnosis Referred otogenic pain- Primary documented in this encounter
--- OUTSIDE RECORDS SUMMARY | 2024-10-06 12:51 | XMS_ITS | Encounter Summary ---
Author Organization [facility] Address [address] [place] [address] Care Team Providers Care Human Resources Communications Manager Name Role Phone Unavailable Primary Care Provider Unavailabl e Encounter Details Date Type Department Care Team (Late st Contact Info) Description 11/08/2003 Outpatient Historical [facility] [address] [place] [address] Dustin Alvarado MD [address] [place] [address] Sprain of neck (Primary Dx); HEADACHE Social History Tobacco Use Types Packs/Day Years Used Date Smoking Tobacco: Never Assessed Comments Unknown Sex and Gender Information Value Date Recorded Sex Assigned at Not on file 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
--- OUTSIDE RECORDS SUMMARY | 2024-10-06 12:51 | XMS_ITS | Encounter Summary ---
Author Organization [facility] Address [address] [place] [address] Care Team Providers Care Program Instructor Name Role Phone Unavailable Primary Care Provider Unavailabl e Encounter Details Date Type Department Care Team (Late st Contact Info) Description 08/14/2004 Outpatient Historical [facility] [address] [place] [address] [facility] [address] [place] [address] Dustin Alvarado MD [address] [place] [address] DISORDERS OF SACRUM (Primary Dx) Social History Tobacco Use Types Packs/Day Years Used Date Smoking Tobacco: Never Assessed Comments Unknown Sex and Gender Information Value Date Recorded Sex Assigned at Not on file Legal Sex Female 5:57 AM PROMOTIONS MANAGER Gender Identity Not on file Sexual Orientation Not on file documented as of this encounter Plan of Treatment Not on file documented as of this encounter Visit Diagnoses Diagnosis Disorders of sacrum- Primary documented in this encounter
--- OUTSIDE RECORDS SUMMARY | 2024-10-06 12:51 | XMS_ITS | Encounter Summary ---
Author Organization [facility] Address [address] [place] [address] Care Team Providers Care Signaling Design Engineer Name Role Phone Unavailable Primary Care Provider Unavailabl e Encounter Details Date Type Department Care Team (Late st Contact Info) Description 08/30/2003 Outpatient Historical [facility] [address] [place] [address] [facility] [address] [place] [address] Dustin Alvarado MD [address] [place] [address] LUMBAGO (Primary Dx) Social History Tobacco Use Types Packs/Day Years Used Date Smoking Tobacco: Never Assessed Comments Unknown Sex and Gender Information Value Date Recorded Sex Assigned at Not on file Legal Sex Female 5:57 AM EXECUTIVE CONSULTANT Gender Identity Not on file Sexual Orientation Not on file documented as of this encounter Plan of Treatment Not on file documented as of this encounter Visit Diagnoses Diagnosis Lumbago- Primary documented in this encounter
--- OUTSIDE RECORDS SUMMARY | 2024-10-06 12:51 | XMS_ITS | Encounter Summary ---
Author Organization [facility] Address [address] [place] [address] Care Team Providers Care Forepart Rounder Name Role Phone Unavailable Primary Care Provider Unavailabl e Encounter Details Date Type Department Care Team (Late st Contact Info) Description 09/26/2004 Outpatient Historical [facility] Imaging Services-[facility] [place] [address] [place] [address] Dustin Alvarado MD [facility] [place] [address] LUMB/LUMBOSAC DISC DEGEN (Primary Dx) Social History Tobacco Use Types Packs/Day Years Used Date Smoking Tobacco: Never Assessed Comments Unknown Sex and Gender Information Value Date Recorded Sex Assigned at Not on file Legal Sex Female 5:57 AM CHEMICAL PLANT WORKER Gender Identity Not on file Sexual Orientation Not on file documented as of this encounter Plan of Treatment Not on file documented as of this encounter Visit Diagnoses Diagnosis Degeneration of lumbar or lumbosacral intervertebral disc- Primary documented in this encounter
--- OUTSIDE RECORDS SUMMARY | 2024-10-06 12:51 | XMS_ITS | Encounter Summary ---
Author Organization [facility] Address [address] [place] [address] Care Team Providers Care Steam Heating Installer Name Role Phone Unavailable Primary Care Provider Unavailabl e Encounter Details Date Type Department Care Team (Late st Contact Info) Description 06/14/2003 Outpatient Historical [facility] [address] [place] [address] [facility] [address] [place] [address] Dustin Alvarado MD [address] [place] [address] LUMBAGO (Primary Dx) Social History Tobacco Use Types Packs/Day Years Used Date Smoking Tobacco: Never Assessed Comments Unknown Sex and Gender Information Value Date Recorded Sex Assigned at Not on file Legal Sex Female 5:57 AM RESEARCH/PROGRAM DIRECTOR Gender Identity Not on file Sexual Orientation Not on file documented as of this encounter Plan of Treatment Not on file documented as of this encounter Visit Diagnoses Diagnosis Lumbago- Primary documented in this encounter
--- OUTSIDE RECORDS SUMMARY | 2024-10-06 12:51 | XMS_ITS | Encounter Summary ---
Author Organization [facility] Address [address] [place] [address] Care Team Providers Care Senior Caregiver Name Role Phone Unavailable Primary Care Provider Unavailabl e Encounter Details Date Type Department Care Team (Late st Contact Info) Description 05/24/2003 Outpatient Historical [facility] [address] [place] [address] Dustin Alvarado MD [address] [place] [address] LUMBOSACRAL NEURITIS NOS (Primary Dx); ARTHROPATHY NOS-OTHER SITE; MYALGIA AND MYOSITIS NOS Social History Tobacco Use Types Packs/Day Years Used Date Smoking Tobacco: Never Assessed Comments Unknown Sex and Gender Information Value Date Recorded Sex Assigned at Not on file Legal Sex Female 5:57 AM 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
--- OUTSIDE RECORDS SUMMARY | 2024-10-06 12:51 | XMS_ITS | Encounter Summary ---
Author Organization [facility] Address [address] [place] [address] Care Team Providers Care Claims Analyst Name Role Phone Unavailable Primary Care Provider Unavailabl e Encounter Details Date Type Department Care Team (Late st Contact Info) Description 08/02/2003 Outpatient Historical [facility] Spine [facility] [address] [place] [address] Dustin Alvarado MD [address] [place] [address] LUMBAGO (Primary Dx); LUMBOSACRAL NEURITIS NOS Social History Tobacco Use Types Packs/Day Years Used Date Smoking Tobacco: Never Assessed Comments Unknown Sex and Gender Information Value Date Recorded Sex Assigned at Not on file Legal Sex Female 5:57 AM DRAINAGE DESIGN COORDINATOR Gender Identity Not on file Sexual Orientation Not on file documented as of this encounter Plan of Treatment Not on file documented as of this encounter Visit Diagnoses Diagnosis Lumbago- Primary Thoracic or lumbosacral neuritis or radiculitis, unspecified documented in this encounter
--- OUTSIDE RECORDS SUMMARY | 2024-10-06 12:51 | XMS_ITS | Encounter Summary ---
Author Organization [facility] Address [address] [place] [address] Care Team Providers Care Rawhide Trimmer Name Role Phone Unavailable Primary Care Provider Unavailabl e Encounter Details Date Type Department Care Team (Latest Contact Info) Description 07/17/2003 Outpatient Historical [address] [address] Melba Aguayo MD [address], [address] JOINT PAIN-L/LEG (Primary Dx); OSTEOARTHROS NOS-OTHER SITE Social History Tobacco Use Types Packs/Day Years Used Date Smoking Tobacco: Never Assessed Comments Unknown Sex and Gender Information Value Date Recorded Sex Assigned at Not on file Legal Sex Female 5:57 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
--- OUTSIDE RECORDS SUMMARY | 2024-10-06 12:51 | XMS_ITS | Encounter Summary ---
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
--- OUTSIDE RECORDS SUMMARY | 2024-10-06 12:51 | XMS_ITS | Encounter Summary ---
Author Organization [facility] Address [address] [place] [address] Care Team Providers Care Automatic Screwmaker Name Role Phone Unavailable Primary Care Provider Unavailabl e Encounter Details Date Type Department Care Team (Latest Contact Info) Description 04/17/2004 Outpatient Historical [facility] [place] [address] [address] Anahi Harrison MD [address] [place] [phone] JOINT PAIN-L/LEG (Primary Dx); HYPOTHYROIDISM NOS Social History Tobacco Use Types Packs/Day Years Used Date Smoking Tobacco: Never Assessed Comments Unknown Sex and Gender Information Value Date Recorded Sex Assigned at Not on file Legal Sex Female 5:57 AM BARN MANAGER Gender Identity Not on file Sexual Orientation Not on file documented as of this encounter Plan of Treatment Not on file documented as of this encounter Visit Diagnoses Diagnosis Pain in joint, lower leg- Primary Unspecified hypothyroidism documented in this encounter
--- OUTSIDE RECORDS SUMMARY | 2024-10-06 12:51 | XMS_ITS | Encounter Summary ---
Author Organization [facility] Address [address] [place] [address] Care Team Providers Care Excavating Machine Operator Name Role Phone Unavailable Primary Care Provider Unavailabl e Encounter Details Date Type Department Care Team (Late st Contact Info) Description 08/02/[address] [facility] Imaging Services [place] [address] [place] [address] Dustin Alvarado MD [facility] [place] [address] Social History Tobacco Use Types Packs/Day Years Used Date Smoking Tobacco: Never Assessed Comments Unknown Sex and Gender Information Value Date Recorded Sex Assigned at Not on file Legal Sex Female 5:57 AM EGG SEPARATOR Gender Identity Not on file Sexual Orientation Not on file documented as of this encounter Plan of Treatment Not on file documented as of this encounter Visit Diagnoses Not on filedocumented in this encounter
--- OUTSIDE RECORDS SUMMARY | 2024-10-06 12:51 | XMS_ITS | Encounter Summary ---
Author Organization [facility] Address [address] [place] [address] Care Team Providers Care Inserter Name Role Phone Unavailable Primary Care Provider Unavailabl e Encounter Details Date Type Department Care Team (Late st Contact Info) Description 06/14/2003 Outpatient Historical [facility] [address] [place] [address] Dustin Alvarado MD [address] [place] [address] LUMBAGO (Primary Dx) Social History Tobacco Use Types Packs/Day Years Used Date Smoking Tobacco: Never Assessed Comments Unknown Sex and Gender Information Value Date Recorded Sex Assigned at Not on file Legal Sex Female 5:57 AM CHIP CRUSHER OPERATOR Gender Identity Not on file Sexual Orientation Not on file documented as of this encounter Plan of Treatment Not on file documented as of this encounter Visit Diagnoses Diagnosis Lumbago- Primary documented in this encounter
--- OUTSIDE RECORDS SUMMARY | 2024-10-06 12:51 | XMS_ITS | Encounter Summary ---
Author Organization [facility] Address [address] [place] [address] Care Team Providers Care Echo Vasc Tech Name Role Phone Unavailable Primary Care Provider Unavailabl e Encounter Details Date Type Department Care Team (Latest Contact Info) Description 09/18/2004 Outpatient Historical [facility] [address] [place] [address] [facility] 100 [place] [address] Sadia Alexandre FNP NO ADDRESS ON FILE LUMBAGO (Primary Dx) Social History Tobacco Use Types Packs/Day Years Used Date Smoking Tobacco: Never Assessed Comments Unknown Sex and Gender Information Value Date Recorded Sex Assigned at Not on file Legal Sex Female 5:57 AM PLAN EXAMINER Gender Identity Not on file Sexual Orientation Not on file documented as of this encounter Plan of Treatment Not on file documented as of this encounter Visit Diagnoses Diagnosis Lumbago- Primary documented in this encounter
--- OUTSIDE RECORDS SUMMARY | 2024-10-06 12:51 | XMS_ITS | Encounter Summary ---
Author Organization [facility] Address [address] [place] [address] Care Team Providers Care Doctor Chiropractic Name Role Phone Unavailable Primary Care Provider Unavailabl e Encounter Details Date Type Department Care Team (Late st Contact Info) Description 12/20/2003 Outpatient Historical [facility] [address] [place] [address] [facility] 100 [place] [address] Dustin Alvarado MD [address] [place] [address] LUMBAGO (Primary Dx) Social History Tobacco Use Types Packs/Day Years Used Date Smoking Tobacco: Never Assessed Comments Unknown Sex and Gender Information Value Date Recorded Sex Assigned at Not on file Legal Sex Female 5:57 AM CHIEF STATION ENGINEER Gender Identity Not on file Sexual Orientation Not on file documented as of this encounter Plan of Treatment Not on file documented as of this encounter Visit Diagnoses Diagnosis Lumbago- Primary documented in this encounter
--- OUTSIDE RECORDS SUMMARY | 2024-10-06 12:51 | XMS_ITS | Encounter Summary ---
Author Organization [facility] Address [address] [place] [address] Care Team Providers Care Editor In Chief Newspaper Name Role Phone Unavailable Primary Care Provider Unavailabl e Encounter Details Date Type Department Care Team (Late st Contact Info) Description 05/08/2004 Outpatient Historical [facility] [address] [place] [address] [place] [address] Rigo Welch MD [address] [place] [address] DERANG ANT MED MENISCUS (Primary Dx); MORBID OBESITY (CMS/HCC) Social History Tobacco Use Types Packs/Day Years Used Date Smoking Tobacco: Never Assessed Comments Unknown Sex and Gender Information Value Date Recorded Sex Assigned at Not on file Legal Sex Female 5:57 AM PERMACULTURE DESIGNER Gender Identity Not on file Sexual Orientation Not on file documented as of this encounter Plan of Treatment Not on file documented as of this encounter Visit Diagnoses Diagnosis Derangement of anterior horn of medial meniscus- Primary Morbid obesity (CMS/HCC) Morbid obesity documented in this encounter
--- OUTSIDE RECORDS SUMMARY | 2024-10-06 12:51 | XMS_ITS | Encounter Summary ---
Author Organization [facility] Address [address] [place] [address] Care Team Providers Care Welt Edge Rounder Name Role Phone Unavailable Primary Care Provider Unavailabl e Encounter Details Date Type Department Care Team (Latest Contact Info) Description 08/12/2004 Outpatient Historical [facility] [address] [address] Anahi Harrison MD [address] [place] [address] DYSURIA (Primary Dx); HYPOTHYROIDISM NOS Social History Tobacco Use Types Packs/Day Years Used Date Smoking Tobacco: Never Assessed Comments Unknown Sex and Gender Information Value Date Recorded Sex Assigned at Not on file Legal Sex Female 5:57 AM LICENSED SURVEYOR Gender Identity Not on file Sexual Orientation Not on file documented as of this encounter Plan of Treatment Not on file documented as of this encounter Visit Diagnoses Diagnosis Dysuria- Primary Unspecified hypothyroidism documented in this encounter
--- OUTSIDE RECORDS SUMMARY | 2024-10-06 12:51 | XMS_ITS | Encounter Summary ---
Author Organization [facility] Address [address] [place] [address] Care Team Providers Care Automobile Repair Service Estimator Name Role Phone Unavailable Primary Care Provider Unavailabl e Encounter Details Date Type Department Care Team (Latest Contact Info) Description 01/24/2004 Outpatient Historical [facility] CANCELLED ADMISSION Dustin Alvarado MD [address] [place] [address] ADMINISTRTVE ENCOUNT NOS (Primary Dx) Social History Tobacco Use Types Packs/Day Years Used Date Smoking Tobacco: Never Assessed Comments Unknown Sex and Gender Information Value Date Recorded Sex Assigned at Not on file Legal Sex Female 5:57 AM GRANTS AND CONTRACTS ASSISTANT Gender Identity Not on file Sexual Orientation Not on file documented as of this encounter Plan of Treatment Not on file documented as of this encounter Visit Diagnoses Diagnosis Encounters for unspecified administrative purpose- Primary documented in this encounter
--- OUTSIDE RECORDS SUMMARY | 2024-10-06 12:51 | XMS_ITS | Encounter Summary ---
Author Organization [facility] Address [address] [place] [address] Care Team Providers Care Databases Software Consultant Name Role Phone Unavailable Primary Care Provider Unavailabl e Encounter Details Date Type Department Care Team (Latest Contact Info) Description 08/25/2003 Outpatient Historical [facility] [address] [address] Anahi Harrison MD [address] [place] [address] URIN TRACT INFECTION NOS (Primary Dx) Social History Tobacco Use Types Packs/Day Years Used Date Smoking Tobacco: Never Assessed Comments Unknown Sex and Gender Information Value Date Recorded Sex Assigned at Not on file Legal Sex Female 5:57 AM TRAIN OPERATOR Gender Identity Not on file Sexual Orientation Not on file documented as of this encounter Plan of Treatment Not on file documented as of this encounter Visit Diagnoses Diagnosis Urinary tract infection, site not specified- Primary documented in this encounter
--- OUTSIDE RECORDS SUMMARY | 2024-10-06 12:51 | XMS_ITS | Encounter Summary ---
Author Organization [facility] Address [address] [place] [address] Care Team Providers Care Senior Grant Writer Name Role Phone Unavailable Primary Care Provider Unavailabl e Encounter Details Date Type Department Care Team (Latest Contact Info) Description 09/19/2004 Outpatient Historical [facility] Imaging Services-Ren Cuevas Abhinav [address] [place] [address] Dustin Alvarado MD [address] [place] [address] ADMINISTRTVE ENCOUNT NOS (Primary Dx) Social History Tobacco Use Types Packs/Day Years Used Date Smoking Tobacco: Never Assessed Comments Unknown Sex and Gender Information Value Date Recorded Sex Assigned at Not on file Legal Sex Female 5:57 AM BUSINESS LIAISON MANAGER Gender Identity Not on file Sexual Orientation Not on file documented as of this encounter Plan of Treatment Not on file documented as of this encounter Visit Diagnoses Diagnosis Encounters for unspecified administrative purpose- Primary documented in this encounter
--- OUTSIDE RECORDS SUMMARY | 2024-10-06 12:51 | XMS_ITS | Encounter Summary ---
Author Organization [facility] Address [address] [place] [address] Care Team Providers Care Piece Cutter Name Role Phone Unavailable Primary Care Provider Unavailabl e Encounter Details Date Type Department Care Team (Late st Contact Info) Description 10/04/2003 Outpatient Historical [facility] [address] [place] [phone] Dustin Alvarado MD [address] [place] [address] LUMBAGO (Primary Dx); CERVICAL DISC DEGEN; Sprain of neck; TENSION HEADACHE Social History Tobacco Use Types Packs/Day Years Used Date Smoking Tobacco: Never Assessed Comments Unknown Sex and Gender Information Value Date Recorded Sex Assigned at Not on file Legal Sex Female 5:57 AM TEACHER EDUCATION DIRECTOR Gender Identity Not on file Sexual Orientation Not on file documented as of this encounter Plan of Treatment Not on file documented as of this encounter Visit Diagnoses Diagnosis Lumbago- Primary Degeneration of cervical intervertebral disc Sprain of neck Neck sprain and strain Tension headache documented in this encounter
--- OUTSIDE RECORDS SUMMARY | 2024-10-06 12:51 | XMS_ITS | Encounter Summary ---
Author Organization [facility] Address [address] [place] [address] Care Team Providers Care Oven Dauber Name Role Phone Unavailable Primary Care Provider Unavailabl e Encounter Details Date Type Department Care Team (Latest Contact Info) Description 04/02/2004 Outpatient Historical [facility] Operating Room [address] [place] [address] Rigo Welch MD [address] [place] [address] [facility] MENISCUS N[facility] (Primary Dx) Social History Tobacco Use Types Packs/Day Years Used Date Smoking Tobacco: Never Assessed Comments Unknown Sex and Gender Information Value Date Recorded Sex Assigned at Not on file Legal Sex Female 5:57 AM FLEXOGRAPHIC PRESS OPERATOR Gender Identity Not on file Sexual Orientation Not on file documented as of this encounter Plan of Treatment Not on file documented as of this encounter Procedures Procedure Name Priority Date/Time Associated Diagnosis Comments POC GLUCOSE Routine 04/02/2004 3:34 PM FLEXOGRAPHIC PRESS OPERATOR CBC WITHOUT DIFFERENTIAL Routine 04/02/2004 6:24 AM FLEXOGRAPHIC PRESS OPERATOR BASIC METABOLIC PANEL Routine 04/02/2004 6:24 AM FLEXOGRAPHIC PRESS OPERATOR documented in this encounter Results * (ABNORMAL) POC GLUCOSE (04/02/2004 3:34 PM FLEXOGRAPHIC PRESS OPERATOR) GLUCOSE POC 104(H) 60 - 100 mg/dL INTERFACE SYSTEM 04/02/2004 3:34 PM FLEXOGRAPHIC PRESS OPERATOR us Rigo Welch MD POINT OF CARE TESTING F inal Result Performing Organization Address [facility] de Phone Number INTERFACE SYSTEM Refer to clinic/hospital department * BASIC METABOLIC PANEL (04/02/2004 6:24 AM FLEXOGRAPHIC PRESS OPERATOR) GLUCOSE 100 70 - 110 mg/dL [...] 10.5 mg/dL INTERFACE SYSTEM 04/02/2004 6:24 AM FLEXOGRAPHIC PRESS OPERATOR Rigo Welch MD CHEMISTRY ORDERABLES Fi nal Result Performing Organization Address [facility] de Phone Number INTERFACE SYSTEM Refer to clinic/hospital department * (ABNORMAL) CBC WITHOUT DIFFERENTIAL (04/02/2004 6:24 AM FLEXOGRAPHIC PRESS OPERATOR) Pathologist [facility] WBC 6.8 4.5 - 11.0 K/ul INTERFACE [...] 0.2 K/ul INTERFACE SYSTEM 04/02/2004 6:24 AM FLEXOGRAPHIC PRESS OPERATOR us Rigo Welch MD HEMATOLOGY ORDERABLES F inal Result INTERFACE SYSTEM Refer to clinic/hospital department documented in this encounter Visit Diagnoses Diagnosis Other and unspecified derangement of medial meniscus- Primary documented in this encounter
--- OUTSIDE RECORDS SUMMARY | 2024-10-06 12:51 | XMS_ITS | Encounter Summary ---
Author Organization [facility] Address [address] [place] [address] Care Team Providers Care Paper Machine Operator Name Role Phone Unavailable Primary Care Provider Unavailabl e Encounter Details Date Type Department Care Team (Latest Contact Info) Description 10/15/2004 Outpatient Historical [facility] [place] [address] [phone] Joselin Stephneson, [facility] [address] [phone] ABDOMINAL PAIN UNSPEC SITE (Primary Dx) Social History Tobacco Use Types Packs/Day Years Used Date Smoking Tobacco: Never Assessed Comments Unknown Sex and Gender Information Value Date Recorded Sex Assigned at Not on file Legal Sex Female 5:57 AM 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
--- OUTSIDE RECORDS SUMMARY | 2024-10-06 12:51 | XMS_ITS | Encounter Summary ---
Author Organization [facility] Address [address] [place] [address] Care Team Providers Care Yard Supervisor Cotton Gin Name Role Phone Unavailable Primary Care Provider Unavailabl e Encounter Details Date Type Department Care Team (Late st Contact Info) Description 10/24/2004 Emergency [facility] Emergency Department [address] [place] [phone] Ryan Hall D, DO [address] [place] [phone] JOINT PAIN-L/LEG (Primary Dx) Social History Tobacco Use Types Packs/Day Years Used Date Smoking Tobacco: Never Assessed Comments Unknown Sex and Gender Information Value Date Recorded Sex Assigned at Not on file Legal Sex Female 5:57 AM DUPLICATION SPECIALIST Gender Identity Not on file Sexual Orientation Not on file documented as of this encounter Plan of Treatment Not on file documented as of this encounter Visit Diagnoses Diagnosis Pain in joint, lower leg- Primary documented in this encounter
--- OUTSIDE RECORDS SUMMARY | 2024-10-06 12:51 | XMS_ITS | Encounter Summary ---
Author Organization [facility] Address [address] [place] [address] Care Team Providers Care Stevedore Hold Name Role Phone Unavailable Primary Care Provider Unavailabl e Encounter Details Date Type Department Care Team (Latest Contact Info) Description 05/30/2004 Outpatient Historical [facility] [place] [address] [address] Anahi Harrison MD [address] [place] [phone] HYPOTHYROIDISM NOS (Primary Dx) Social History Tobacco Use Types Packs/Day Years Used Date Smoking Tobacco: Never Assessed Comments Unknown Sex and Gender Information Value Date Recorded Sex Assigned at Not on file Legal Sex Female 5:57 AM FLIGHT AGENT Gender Identity Not on file Sexual Orientation Not on file documented as of this encounter Plan of Treatment Not on file documented as of this encounter Visit Diagnoses Diagnosis Unspecified hypothyroidism- Primary documented in this encounter
--- OUTSIDE RECORDS SUMMARY | 2024-10-06 12:51 | XMS_ITS | Encounter Summary ---
Author Organization [facility] Address [address] [place] [address] Care Team Providers Care Modeling Instructor Name Role Phone Unavailable Primary Care Provider Unavailabl e Encounter Details Date Type Department Care Team (Latest Contact Info) Description 03/05/2004 Outpatient Historical [facility] [address] [address] Haroldo Garay MD [address], [place] [phone] TEAR MED MENISC KNEE-CURRENT (Primary Dx) Social History Tobacco Use Types Packs/Day Years Used Date Smoking Tobacco: Never Assessed Comments Unknown Sex and Gender Information Value Date Recorded Sex Assigned at Not on file Legal Sex Female 5:57 AM HIM CODER Gender Identity Not on file Sexual Orientation Not on file documented as of this encounter Plan of Treatment Not on file documented as of this encounter Visit Diagnoses Diagnosis Tear of medial cartilage or meniscus of knee, current- Primary documented in this encounter
--- OUTSIDE RECORDS SUMMARY | 2024-10-06 12:51 | XMS_ITS | Encounter Summary ---
Author Organization [facility] Address [address] [place] [address] Care Team Providers Care Classification Case Manager Name Role Phone Unavailable Primary Care Provider Unavailabl e Encounter Details Date Type Department Care Team (Latest Contact Info) Description 07/30/2004 Outpatient Historical [facility] [address] [address] Haroldo Garay MD [address] [phone] BACKACHE NOS (Primary Dx); HYPOTHYROIDISM NOS Social History Tobacco Use Types Packs/Day Years Used Date Smoking Tobacco: Never Assessed Comments Unknown Sex and Gender Information Value Date Recorded Sex Assigned at Not on file Legal Sex Female 5:57 AM EMERGENCY COMMUNICATIONS OPERATOR Gender Identity Not on file Sexual Orientation Not on file documented as of this encounter Plan of Treatment Not on file documented as of this encounter Visit Diagnoses Diagnosis Backache, unspecified- Primary Unspecified hypothyroidism documented in this encounter
--- OUTSIDE RECORDS SUMMARY | 2024-10-06 12:52 | XMS_ITS | Encounter Summary ---
Author Organization [facility] Address [address] [place] [address] Care Team Providers Care Mechanical Reliability Engineer Name Role Phone Unavailable Primary Care Provider Unavailabl e Encounter Details Date Type Department Care Team (Latest Contact Info) Description 04/14/[address] 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
--- OUTSIDE RECORDS SUMMARY | 2024-10-06 12:52 | XMS_ITS | Encounter Summary ---
Author Organization [facility] Address [address] [place] [address] Care Team Providers Care Store Clerk Cashier Name Role Phone Unavailable Primary Care Provider Unavailabl e Encounter Details Date Type Department Care Team (Latest Contact Info) Description 01/24/2003 Outpatient Historical [facility] [address] [address] Haroldo Garay MD [address] [phone] HYPOTHYROIDISM NOS (Primary Dx) Social History Tobacco Use Types Packs/Day Years Used Date Smoking Tobacco: Never Assessed Comments Unknown Sex and Gender Information Value Date Recorded Sex Assigned at Not on file 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
--- OUTSIDE RECORDS SUMMARY | 2024-10-06 12:52 | XMS_ITS | Encounter Summary ---
Author Organization [facility] Address [address] [place] [address] Care Team Providers Care Mva Operator Name Role Phone Unavailable Primary Care Provider Unavailabl e Encounter Details Date Type Department Care Team (Latest Contact Info) Description 01/24/2003 Outpatient Historical [facility] [address] [address] Haroldo Garay MD [address] [phone] CONTUSION OF KNEE (Primary Dx); HYPOTHYROIDISM NOS Social History Tobacco Use Types Packs/Day Years Used Date Smoking Tobacco: Never Assessed Comments Unknown Sex and Gender Information Value Date Recorded Sex Assigned at Not on file 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
--- OUTSIDE RECORDS SUMMARY | 2024-10-06 12:52 | XMS_ITS | Encounter Summary ---
Author Organization [facility] Address [address] [place] [address] Care Team Providers Care Neuroscientist Name Role Phone Unavailable Primary Care Provider Unavailabl e Encounter Details Date Type Department Care Team (Late st Contact Info) Description 05/17/[address] 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
--- OUTSIDE RECORDS SUMMARY | 2024-10-06 12:52 | XMS_ITS | Encounter Summary ---
Author Organization [facility] Address [address] [place] [address] Care Team Providers Care Treasury Analyst Name Role Phone Unavailable Primary Care Provider Unavailabl e Encounter Details Date Type Department Care Team (Latest Contact Info) Description 11/16/2002 Outpatient Historical [facility] [address] [address] Haroldo Garay MD [address] [phone] URIN TRACT INFECTION NOS (Primary Dx); Sprain lumbar region Social History Tobacco Use Types Packs/Day Years Used Date Smoking Tobacco: Never Assessed Comments Unknown Sex and Gender Information Value Date Recorded Sex Assigned at Not on file 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
--- OUTSIDE RECORDS SUMMARY | 2024-10-06 12:52 | XMS_ITS | Encounter Summary ---
Author Organization [facility] Address [address] [place] [address] Care Team Providers Care Cashier And Salesperson Name Role Phone Unavailable Primary Care Provider Unavailabl e Encounter Details Date Type Department Care Team (Latest Contact Info) Description 05/19/2003 Outpatient Historical [facility] Imaging Services-Ren Cuevas Abhinav [address] [place] [address] Dustin Alvarado MD [address] [place] [address] LUMBAR DISC DISPLACEMENT (Primary Dx) Social History Tobacco Use Types Packs/Day Years Used Date Smoking Tobacco: Never Assessed Comments Unknown Sex and Gender Information Value Date Recorded Sex Assigned at Not on file Legal Sex Female 5:57 AM 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
--- OUTSIDE RECORDS SUMMARY | 2024-10-06 12:52 | XMS_ITS | Encounter Summary ---
Author Organization [facility] Address [address] [place] [address] Care Team Providers Care Asbestos Wire Finisher Name Role Phone Unavailable Primary Care Provider Unavailabl e Encounter Details Date Type Department Care Team (Latest Contact Info) Description 03/20/2003 Outpatient Historical [facility] [address] [address] Haroldo Garay MD [address], [place] [phone] Sprain lumbar region (Primary Dx); Sprain thoracic region; INSOMNIA NEC; GENERALIZED ANXIETY DIS Social History Tobacco Use Types Packs/Day Years Used Date Smoking Tobacco: Never Assessed Comments Unknown Sex and Gender Information Value Date Recorded Sex Assigned at Not on file 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
--- OUTSIDE RECORDS SUMMARY | 2024-10-06 12:52 | XMS_ITS | Encounter Summary ---
Author Organization [facility] Address [address] [place] [address] Care Team Providers Care Rn Critical Care Name Role Phone Unavailable Primary Care Provider Unavailabl e Encounter Details Date Type Department Care Team (Latest Contact Info) Description 06/07/2003 Outpatient Historical [facility] [address] [address] Haroldo Garay MD [address] [phone] MASTODYNIA (Primary Dx) Social History Tobacco Use Types Packs/Day Years Used Date Smoking Tobacco: Never Assessed Comments Unknown Sex and Gender Information Value Date Recorded Sex Assigned at Not on file Legal Sex Female 5:57 AM STONE BELT SANDER Gender Identity Not on file Sexual Orientation Not on file documented as of this encounter Plan of Treatment Not on file documented as of this encounter Visit Diagnoses Diagnosis Mastodynia- Primary documented in this encounter
--- OUTSIDE RECORDS SUMMARY | 2024-10-06 12:52 | XMS_ITS | Encounter Summary ---
Author Organization [facility] Address [address] [place] [address] Care Team Providers Care Employment Director Name Role Phone Unavailable Primary Care Provider Unavailabl e Encounter Details Date Type Department Care Team (Late st Contact Info) Description 05/24/2003 Outpatient Historical [facility] [address] [place] [address] Dustin Alvarado MD [address] [place] [address] LUMBOSACRAL NEURITIS NOS (Primary Dx) Social History Tobacco Use Types Packs/Day Years Used Date Smoking Tobacco: Never Assessed Comments Unknown Sex and Gender Information Value Date Recorded Sex Assigned at Not on file Legal Sex Female 5:57 AM EXECUTIVE DIRECTOR CONTRACT SHOP Gender Identity Not on file Sexual Orientation Not on file documented as of this encounter Plan of Treatment Not on file documented as of this encounter Visit Diagnoses Diagnosis Thoracic or lumbosacral neuritis or radiculitis, unspecified- Primary documented in this encounter
--- OUTSIDE RECORDS SUMMARY | 2024-10-06 12:52 | XMS_ITS | Encounter Summary ---
Author Organization [facility] Address [address] [place] [address] Care Team Providers Care Multiplex Operator Name Role Phone Unavailable Primary Care Provider Unavailabl e Encounter Details Date Type Department Care Team (Late st Contact Info) Description 05/17/2003 Outpatient Historical [facility] [address] [facility] [address] [place] [address] Dustin Alvarado MD [address] [place] [address] LUMBAGO (Primary Dx) Social History Tobacco Use Types Packs/Day Years Used Date Smoking Tobacco: Never Assessed Comments Unknown Sex and Gender Information Value Date Recorded Sex Assigned at Not on file Legal Sex Female 5:57 AM PARTS CONTROL CLERK Gender Identity Not on file Sexual Orientation Not on file documented as of this encounter Plan of Treatment Not on file documented as of this encounter Visit Diagnoses Diagnosis Lumbago- Primary documented in this encounter
--- OUTSIDE RECORDS SUMMARY | 2024-10-06 12:52 | XMS_ITS | Encounter Summary ---
Author Organization [facility] Address [address] [place] [address] Care Team Providers Care Outside Machinist Name Role Phone Unavailable Primary Care Provider Unavailabl e Encounter Details Date Type Department Care Team (Latest Contact Info) Description 02/09/2003 Outpatient Historical [facility] [address] [address] Haroldo Garay MD [address] [phone] CARBUNCLE NOS (Primary Dx) Social History Tobacco Use Types Packs/Day Years Used Date Smoking Tobacco: Never Assessed Comments Unknown Sex and Gender Information Value Date Recorded Sex Assigned at Not on file Legal Sex Female 5:57 AM MICA WASHER GLUER Gender Identity Not on file Sexual Orientation Not on file documented as of this encounter Plan of Treatment Not on file documented as of this encounter Visit Diagnoses Diagnosis Carbuncle and furuncle of unspecified site- Primary documented in this encounter
--- OUTSIDE RECORDS SUMMARY | 2024-10-06 12:52 | XMS_ITS | Encounter Summary ---
Author Organization [facility] Address [address] [place] [address] Care Team Providers Care Silver Steward Name Role Phone Unavailable Primary Care Provider Unavailabl e Encounter Details Date Type Department Care Team (Latest Contact Info) Description 04/06/2003 Outpatient Historical [facility] [address] [address] Haroldo Garay MD [address] [phone] SPRAIN NOS (Primary Dx); SPASM OF MUSCLE Social History Tobacco Use Types Packs/Day Years Used Date Smoking Tobacco: Never Assessed Comments Unknown Sex and Gender Information Value Date Recorded Sex Assigned at Not on file Legal Sex Female 5:57 AM 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
--- OUTSIDE RECORDS SUMMARY | 2024-10-06 12:52 | XMS_ITS | Encounter Summary ---
Author Organization [facility] Address [address] [place] [address] Care Team Providers Care District Sales Coordinator Name Role Phone Unavailable Primary Care Provider Unavailabl e Encounter Details Date Type Department Care Team (Latest Contact Info) Description 03/13/2003 Outpatient Historical [facility] [address] [address] Haroldo Garay MD [address] [phone] URIN TRACT INFECTION NOS (Primary Dx) Social History Tobacco Use Types Packs/Day Years Used Date Smoking Tobacco: Never Assessed Comments Unknown Sex and Gender Information Value Date Recorded Sex Assigned at Not on file Legal Sex Female 5:57 AM IT WEB DEVELOPMENT CONSULTANT Gender Identity Not on file Sexual Orientation Not on file documented as of this encounter Plan of Treatment Not on file documented as of this encounter Visit Diagnoses Diagnosis Urinary tract infection, site not specified- Primary documented in this encounter
--- OUTSIDE RECORDS SUMMARY | 2024-10-06 12:52 | XMS_ITS | Encounter Summary ---
Author Organization [facility] Address [address] [place] [address] Care Team Providers Care Passementerie Worker Name Role Phone Unavailable Primary Care Provider Unavailabl e Encounter Details Date Type Department Care Team (Late st Contact Info) Description 05/19/2003 Outpatient Historical [facility] [place] [address] [place] [id number] Social History Tobacco Use Types Packs/Day Years Used Date Smoking Tobacco: Never Assessed Comments Unknown Sex and Gender Information Value Date Recorded Sex Assigned at Not on file Legal Sex Female 5:57 AM 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
--- NOTE | 2024-10-06 12:54 | XR_ITS ---
WS: [id number] XR knee LT 3V* [id number] REASON FOR EXAM: Pain/trauma FINDINGS: No acute fracture. Patella and tibial plateaus intact. Mild osteoarthritis in the medial and patellofemoral joint space. No radiopaque soft tissue foreign body. XR/XR knee LT 3V* [id number] IMPRESSION: No acute abnormality.
--- NOTE | 2024-10-06 13:31 | ED_ITS ---
HPI - Fall General: Chief Complaint: Fall Stated Complaint: patient wants nh placement Time Seen by Provider: 10/06/24 12:42 History of Present Illness: 64-year-old female presents emergency ro om via ambulance for second time today. She been seen previously when she states she rolled out of bed x-rays were negative there are no significant findings on exam she was discharged home. On arrival there evidently she was being assisted by the fire department back to her home and she fell. Now she is complaining of right knee pain. Children staff when she arrived for that she wants to be placed in a alf. She had not expressed disinterest earlier in the day when she was here. She denies any other injury at the time of her fall. Associated symptoms-after fall: Denies abdominal pain, chest pain or neck pain Related Data Home Medications ?Medication ?Instructions ?Recorded ?Confirmed empagliflozin 10 mg tablet 10 mg PO QAM 08/07/2410/06 (Jardiance) gabapentin 600 mg tablet 600 mg PO TID 08/07/2410/06 insulin glargine 100 unit/mL (3 20 unit SUBCUT BID 10/06/24 mL) subcutaneous pen (Lantus Solostar U-100 Insulin) insulin lispro 100 unit/mL See Rx Instructions .Route .COMPLEX 08/07/24 10/06/24 subcutaneous pen tramadol 50 mg tablet 50 - 100 mg PO Q6H PRN Pain 08/07/24 10/06/24 albuterol sulfate 90 mcg/actuation 2 puff inhalation Q ID PRN 10/06/24 10/06/24 aerosol inhaler (Ventolin HFA) Shortness Of Breath Or Wheezing aspirin 81 mg tablet,delayed 81 mg PO DAILY 10/06/24 0 10/06/24 release atorvastatin 80 mg tablet (Lipitor) 80 mg PO QPM 10/0610/06/24 ergocalciferol (vitamin D2) 1,250 50,000 unit PO .2XWE EKLY 10/06/24 10/06/24 mcg (50,000 unit) capsule fluticasone propionate 50 2 spray intranasal DAILY 10/06/24 mcg/actuation nasal spray,suspension ibuprofen 800 mg tablet 800 mg PO TID PRN Pain 10/0610/06/24 levothyroxine 175 mcg tablet 175 mcg PO DAILY 10/06/24 10/06/24 losartan 100 mg tablet 100 mg PO DAILY 10/06/24 sulfamethoxazole 800 1 tab PO Q12H 10/06/2410/06 mg-trimethoprim 160 mg tablet Previous Rx's ?Medication ?Instructions ?Recorded amlodipine 10 mg tablet 10 mg PO DAILY #30 tabs 07/22 clopidogrel 75 mg tablet (Plavix) 75 mg PO DAILY #30 t abs 10/02/24 Allergies Allergy/AdvReac Type Severity Reaction Status Date / Time Penicillins Allergy ALGY-Swell Verified 10/02/24 17:01 Lip/Tongue/Throat Review of Systems Const: Denies: fever(s) or chills Card: Denies: chest pain Resp: Denies: dyspnea GI: Denies: abdominal pain : Denies: dysuria, urinary frequency or urinary urgency Musc: Reports: back pain; Denies: neck pain Skin/Breast: Denies: rash PFS ED PFSH: Medical History (Updated 10/06/24 @ 14:51 by Bautista Ordaz DO) Diabetes mellitus 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) use of 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 Pain management contract signed Pyelonephritis of right kidney Sleep apnea Hypertension Lumbar spondylolysis Spondylolisthesis of lumbosacral region Intervertebral disc disorder with radiculopathy of lumbosacral region Surgical History H/O laminectomy H/O: hysterectomy Family History (Updated 08/07/24 @ 03:49 by Tiffani Owens MD) Family/Other Diabetes Colon cancer dx'ed in her Aunt Mother Diabetes Social History (Updated 08/07/24 @ 03:50 by Tiffani Owens MD) Smoking and tobacco/nicotine status: former use of tobacco/nicotine Quit status (tobacco/nicotine): has quit using Former quit date comment: quit over 10 - 50 yrs ago, Alcohol intake: never Substance/Drug Use: never Household members: family and other Details: son Marital status: Single Current occupational status: unemployed Physical Exam Const: COMMON NORMALS: no acute distress GENERAL APPEARANCE: cooperative and comfortable ORIENTATION/CONSCIOUSNESS: Yes awake, Yes oriented to person, Yes oriented to place and Yes oriented to time HENMT: COMMON NORMALS: normocephalic, atraumatic and hearing grossly normal bilaterally HEAD & SCALP: normocephalic and atraumatic Resp: COMMON NORMALS: normal respiratory effort, No retractions, No use of accessory muscles and clear to auscultation bilaterally AUSCULTATION: clear to auscultation bilaterally Cardio: COMMON NORMALS: regular rate, regular rhythm and No murmurs present (Cardio) RATE: regular rate RHYTHM: regular rhythm GI: COMMON NORMALS: Soft to palpation and No hepatosplenomegaly present AUSCULTATION: Yes normoactive bowel sounds PALPATION: Yes Soft to palpation, No Tenderness to palpation present (GI), No Guarding due to palpation present (GI) and Yes No hepatosplenomegaly present Extremity: COMMON NORMALS: normal to inspection, capillary refill normal, no clubbing, cyanosis or edema, no calf tenderness and no pedal edema Neuro: SENSORIUM/ORIENTATION: Yes oriented to person, Yes oriented to place and Yes oriented to time Skin: COMMON NORMALS: no rashes or lesions noted GENERAL SKIN EXAM: no rashes or lesions noted Course Vital Signs: Vital signs: Vital Signs Temperature 97.6 F 10/06/24 12:50 Pulse Rate 65 10/06/24 16:28 Respiratory Rate 16 10/06/24 12:50 Blood Pressure 195/94 10/06/24 16:28 Pulse Oximetry 96 10/06/24 16:28 Oxygen Delivery Me thod Room Air 10/06/24 16:00 MDM - Fall Medical Decision Making X-ray was negative. Patient is able to move and ambulate she also expressed interest in a wheelchair advised her probably better if she stayed active she can follow-up with her primary care garter regarding this. We did have her see case management when they reviewed with her the financial logistics of getting placed on alf she decided she did not want to be in the alf any further and was discharged home. We are arranging discharge and patient was found on the floor next to her bed. Patient states that she fell out of the bed. Patient states she put her leg over the right side of the bed and then fell. She admits that both rails were up to both myself and the nurse she also states the call light was in bed with her. Talk to the nurse who initially found her on the floor patient was found lying on the floor the bedside table was immediately adjacent to the bed with the rail up when the nurse came in the room. The bedside table had not been overturned. CT of the head and neck were done and were negative for any acute findings. Repeat exam unremarkable no evidence of bruise laceration or abrasion. Patient discharged home. Medical Records I reviewed the patient's medical records. Lab Data Radiology Impressions Knee X-Ray 10/06/24 12:54 IMPRESSION: No acute abnormality. Cervical Spine CT 10/06/24 15:16 IMPRESSION: No acute cervical spinal injury demonstrated by CT. Head CT 10/06/24 15:16 IMPRESSION: No acute intracranial abnormality identified by CT. All radiology interpretation(s) finalized by discharge Discharge Plan Discharge Patient Disposition: Home Clinical Impression: Fall, Knee pain, right Condition: Stable Prescriptions: No Action gabapentin 600 mg tablet 600 mg PO TID tramadol 50 mg tablet 50 - 100 mg PO Q6H PRN (Reason: Pain) Rx Instructions: TAKE 1-2 TABLETS ORALLY EVERY 6 HOURS; DO NOT EXCEED 300MG/DAY NEEDED FOR PAIN insulin lispro 100 unit/mL insulin pen See Rx Instructions .ROUTE .COMPLEX Rx Instructions: Inject 10 units Subcutaneous; 15 minutes before or immediately after a meal three times daily insulin glargine [Lantus Solostar U-100 Insulin] 100 unit/mL (3 mL) insulin pen 20 unit SUBCUT BID Jardiance 10 mg tablet 10 mg PO QAM amlodipine 10 mg tablet 10 mg PO DAILY Qty: 30 0RF clopidogrel [Plavix] 75 mg tablet 75 mg PO DAILY Qty: 30 1RF levothyroxine 175 mcg tablet 175 mcg PO DAILY ibuprofen 800 mg tablet 800 mg PO TID PRN (Reason: Pain) sulfamethoxazole-trimethoprim 800-160 mg tablet 1 tab PO Q12H aspirin [Aspir-81] 81 mg Tablet,Delayed Release (Dr/Ec) 81 mg PO DAILY ergocalciferol (vitamin D2) 1,250 mcg (50,000 unit) capsule 50,000 unit PO .2XWEEKLY albuterol sulfate [Ventolin HFA] 90 mcg/actuation HFA aerosol inhaler 2 puff INHALATION QID PRN (Reason: Shortness Of Breath Or Wheezing) losartan 100 mg tablet 100 mg PO DAILY fluticasone propionate 50 mcg/actuation spray,suspension 2 spray INTRANASAL DAILY atorvastatin [Lipitor] 80 mg tablet 80 mg PO QPM Discharge Orders: Discharge ED (Routine); Ordered 10/06/24 Ordered By: Bautista Ordaz Referrals: Lisa Welch FNP [Primary Care Provider, Unknown] Patient Instructions: Opioid Safety, Pain Management, Patient Portal & Candice Instructions Activity Restrictions/Additional Instructions: [facility] It is very important that you follow up as instructed or that you return to the Emergency Department should you have concerns or if your condition changes or worsens in any way. You were seen in the emergency room after a fall that occurred after you had previously been discharged from the ER. X-ray was negative. She expressed interest in being placed in a alf however after case management talk to you about the financial logistical issues you asked to be discharged. Recommend that you follow-up with your primary care doctor as soon as you are able. Print Language: Hebrew Coding Level of Care Code ED Glove Operator for Joyce Keita
--- NOTE | 2024-10-06 14:04 | PC.PHAR ---
Pt verified she takes all these medications but several of them are over due to fill by more than 30 days.
--- NOTE | 2024-10-06 14:04 | PC.SOCIAL ---
CM to see patient and explained to her that i could get her in a SNF if she was willing to give up her check. She states she has bills and wouldnt give up her check to go. CM notified nursing.
[2024-10-06 15:03] VITALS: BP 108/96; PULSE 67; O2SAT 97
--- NOTE | 2024-10-06 15:16 | CTR_ITS ---
PROCEDURE INFORMATION: Exam: CT Head Without Contrast Exam date and time: 10/06/2024 3:31 PM Age: 64 years old Clinical indication: Injury or trauma; Fall; Blunt trauma (contusions or hematomas); Without loss of consciousness TECHNIQUE: Imaging protocol: Computed tomography of the head without contrast. Radiation optimization: All CT scans at this facility use at least one of these dose optimization techniques: automated exposure control; mA and/or kV adjustment per patient size (includes targeted exams where dose is matched to clinical indication); or iterative reconstruction. 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 There is no acute intracranial hemorrhage, mass effect or midline shift.There are global involutional changes of the brain which are in keeping with the patient's age. Periventricular hypodensities are nonspecific but most likely reflect chronic microvascular ischemic disease. No abnormal extra-axial fluid collections are identified. Cerebral ventricles: No ventriculomegaly. Paranasal sinuses: The visualized sinuses are unremarkable. Mastoid air cells: There is no mastoid effusion detected. Bones: Unremarkable. No acute fracture. Soft tissues: Unremarkable. CT/CT head wo con* [id number] IMPRESSION: No acute intracranial abnormality identified by CT.
--- NOTE | 2024-10-06 15:16 | CTR_ITS ---
PROCEDURE INFORMATION: Exam: CT Cervical Spine Without Contrast Exam date and time: 10/06/2024 3:31 PM Age: 64 years old Clinical indication: Injury or trauma; Fall; Blunt trauma TECHNIQUE: Imaging protocol: Computed tomography of the cervical spine without contrast. Radiation optimization: All CT scans at this facility use at least one of these dose optimization techniques: automated exposure control; mA and/or kV adjustment per patient size (includes targeted exams where dose is matched to clinical indication); or iterative reconstruction. COMPARISON: CT head wo con* [id number] 10/02/2024 7:04 PM RADIATION DOSE METRICS: Total DLP (mGy-cm): 259.5 FINDINGS: Bones: There is no anterior wedging deformity. No acute lucent fracture lines are visualized. 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 No severe central canal stenosis demonstrated by CT. Neural foraminal stenosis is seen on the right C3-C4 and C4-C5. Lungs: Lung apices are normal. Soft tissues: Unremarkable. CT/CT cervical spin wo con* [id number] IMPRESSION: No acute cervical spinal injury demonstrated by CT.
[2024-10-06 16:00] VITALS: PULSE 68; O2SAT 96
[2024-10-06 16:28] VITALS: BP 195/94; PULSE 65; O2SAT 96
== END 2024-10-06 16:29 | disposition home or self-care (01) ==
PROVIDERS: Emergency Provider Family Medicine; PCP Nurse Practitioner Family
DX: M25.561 Pain in right knee (principal); W19.XXXA Unspecified fall, initial encounter; Z79.4 Long term (current) use of insulin; Z79.82 Long term (current) use of aspirin; Z87.891 Personal history of nicotine dependence; E11.9 Type 2 diabetes mellitus without complications; I10 Essential (primary) hypertension
CPT/HCPCS: 70450; 72125; 73562; 99284

== ENCOUNTER → 2024-11-11 08:53 | Outpatient (BNVA) | payer MEDICAID, SELFPAY | PROVIDERS: PCP Nurse Practitioner Family; Referring Provider Student in an Organized Health Care Education/Training Program; Visit Provider Nurse Practitioner | DX: I63.9 Cerebral infarction, unspecified (principal) | CPT/HCPCS: 99213 ==

== ENCOUNTER → 2025-03-06 08:03 | Outpatient (BNVA) | payer MEDICAID, SELFPAY | PROVIDERS: PCP Nurse Practitioner Family; Referring Provider Student in an Organized Health Care Education/Training Program; Visit Provider Specialist | DX: I63.9 Cerebral infarction, unspecified (principal); R41.89 Other symptoms and signs involving cognitive functions and awareness; I63.89 Other cerebral infarction; R03.0 Elevated blood-pressure reading, without diagnosis of hypertension | CPT/HCPCS: 99215 ==